=== PATIENT | male | born 1970 | race Caucasian/White ===

== ENCOUNTER 2022-02-10 10:54 | Observation (INO) ==
--- NOTE | 2022-02-10 11:39 | Electrocardiogram Report ---
Test Reason : Blood Pressure : / mmHG Vent. Rate : 102 BPM Atrial Rate : 102 BPM P-R Int : 196 ms QRS Dur : 102 ms QT Int : 354 ms P-R-T Axes : 065 087 048 degrees QTc Int : 461 ms Poor data quality, interpretation may be adversely affected Sinus tachycardia Possible Left atrial enlargement Incomplete right bundle branch block Possible Inferior infarct , age undetermined Abnormal ECG No previous ECGs available Confirmed by Romain Macedo ([id number]) on 02/10/2022 11:38:41 AM Referred By: SELF Confirmed By:Ismael Macedo
--- NOTE | 2022-02-10 11:41 | Emergency Department Note ---
Impression & Plan Pulmonary edema, Elevated troponin I level, Peripheral edema, Pleural effusion, Acute hyperglycemia, Abnormal EKG ED Provider Note NAME: REED TERRY AGE: 51 SEX: M : 1970 ARRIVES VIA: Walk-In INFORMANT: Patient, ED PROVIDER(S): Toney Car DO CHIEF COMPLAINT: Swelling HPI: The patient is a 51-year-old male who presented to the emergency department for an evaluation of leg swelling. The patient noticed bilateral lower extremity swelling over the course last week. He does have a history of coronary artery disease. He has never had a history of congestive heart failure. He denies having any fever. He has had a cough which is productive for clear sputum. He denies having any chest pain. He said no orthopnea. He denies having any fevers. He said no GI symptoms recently. 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 He states he is not been seen by his primary care physician for the symptoms. He states symptoms are moderate. ROS: See above HPI for pertinent positives & negatives. A total of 10 systems reviewed and were otherwise negative. PAST MEDICAL HISTORY: See Below PAST SURGICAL HISTORY: See Below FAMILY HISTORY: See Below SOCIAL HISTORY: See Below HOME MEDICATIONS: See Below ALLERGIES: See Below VITALS: See Below PHYSICAL EXAMINATION: GENERAL: Patient is awake alert in no acute distress patient is resting comfortably and showing no signs of anxiety EYES: The conjunctivae are clear. The pupils are round and reactive. EARS, NOSE, MOUTH AND THROAT: The nose is without any evidence of any deformity. Mucous membranes are moist. Tongue is midline. NECK: The neck is nontender and supple. RESPIRATORY: Normal respiratory effort is noted there is no evidence of wheezing rhonchi or rales CARDIOVASCULAR: Diminished breath sounds are noted throughout. There is faint expiratory wheezes in both upper lung johnson. GASTROINTESTINAL: The abdomen is soft. Abdomen is nontender. MUSCULOSKELETAL/EXTREMITIES: There is no evidence of gross deformity full range of motion is noted in the hips and shoulders. SKIN: Venous stasis changes are noted bilaterally with pedal edema bilaterally. NEUROLOGIC: Patient is awake alert and oriented x3 MEDICAL DECISION MAKING: The patient is a 51-year-old male who presented to the emergency department for an evaluation of difficulty breathing and lower extremity swelling. His history and physical exam appear to be consistent with pulmonary edema. Chest x-ray did reveal cardiomegaly with an elevated troponin on laboratory studies. He had abnormalities noted on chest x-ray which did lead to the performance of a CT angiography of the chest. No signs of pulmonary embolism were noted but there were abnormalities noted that could be consistent with volume overload. Given his elevated troponin I would be concerned this could be related to ischemia. The patient was treated with aspirin and Lasix in the emergency department. At this time he has no chest discomfort. I do feel the patient may require further inpatient evaluation to determine the cause of his presentation today. The [facility] hospitalist group was notified about the patient. Triage Nursing notes reviewed. Prior medical records reviewed Vital Signs: reviewed and remarkable for no significant abnormalities Differential diagnosis: Reactive airway disease, pneumonia, pneumothorax, COPD, CHF, infections, cardiac ischemia, pulmonary embolism, musculoskeletal, gastrointestinal, as well as other pathologies. ER treatment provided: See below Diagnostics interpreted by me: ECG: EKG was obtained in the emergency department. My interpretation is sinus tachycardia at 102 bpm. There is no ectopy. Nonspecific ST segment abnormalities were noted throughout. No previous tracing was available. Cardiac Monitoring: An order was placed for continuous cardiac monitoring. The monitor shows a rate of 99 bpm with sinus rhythm. Laboratory studies: As stated above and show below. Imaging studies: See below Consultation(s): The [facility] Hospitalist group was notified about the patient. Past Med/Surg History Medical History CAD (coronary artery disease) Coronary artery arteriosclerosis Essential hypertension Hypercholesterolemia Hyperlipidemia Ischemic cardiomyopathy Morbid obesity Surgical History Stented coronary artery Social History Smoking Status: Current every day smoker Tobacco Type: Cigarettes packs per day: 2; Preferred Language: Macedonian Communication Ability: Effective [employer] Officer Required: No Feels Safe at Home: Yes Allergies Allergies Allergy/AdvReac Type Severity Reaction Status Date / Time No Known Allergies Allergy Unverified 08/20/21 15:45 Home Meds Home Medications Medication Instructions Recorded Confirmed lisinopril 2.5 mg tablet 2.5 mg PO DAILY 01/24/21 08/20/21 simvastatin 40 mg tablet 40 mg PO DAILY 01/24/21 08/20/21 aspirin 325 mg tablet 325 mg PO DAILY 01/28/21 01/28/21 Results & Data (ED) Vital Signs Vital Signs - 24 hr 02/10/22 10:54 02/10/22 11:02 02/10/22 11:17 Temperature 36.4 C L Temperature Source Temporal Artery Scan Pulse Rate 103 H 101 H Pulse Rate [Finger] 101 H Pulse Rate from SpO2 Sensor Respiratory Rate 18 18 16 Respiratory Effort / Characteristics Non-Labored Spontaneous Respiratory Depth Normal Blood Pressure 102/74 Blood Pressure [Left Arm] 133/88 Blood Pressure Mean 83 Blood Pressure Mean [Left Arm] 103 Blood Pressure Position Sitting Pulse Oximetry 95 95 95 Oxygen Delivery Method Room Air Room Air Sepsis Recent Fever Within 48 Hours No Sepsis New/Unexplained Change in Mental Status No Sepsis Action Taken by Nursing No Action Required 02/10/22 11:26 02/10/22 11:30 02/10/22 12:00 Temperature Temperature Source Pulse Rate 101 H 101 H 95 H Pulse Rate [Finger] Pulse Rate from SpO2 Sensor Respiratory Rate 18 20 22 Respiratory Effort / Characteristics Respiratory Depth Blood Pressure 125/82 120/86 Blood Pressure [Left Arm] Blood Pressure Mean 96 97 Blood Pressure Mean [Left Arm] Blood Pressure Position Pulse Oximetry Oxygen Delivery Method Sepsis Recent Fever Within 48 Hours Sepsis New/Unexplained Change in Mental Status Sepsis Action Taken by Nursing 02/10/22 12:42 02/10/22 13:00 02/10/22 13:30 Temperature Temperature Source Pulse Rate 98 H 95 H 99 H Pulse Rate [Finger] Pulse Rate from SpO2 Sensor 98 H 95 H Respiratory Rate 18 20 21 Respiratory Effort / Characteristics Respiratory Depth Blood Pressure 150/89 H 131/85 Blood Pressure [Left Arm] Blood Pressure Mean 109 100 Blood Pressure Mean [Left Arm] Blood Pressure Position Pulse Oximetry 95 95 Oxygen Delivery Method Sepsis Recent Fever Within 48 Hours Sepsis New/Unexplained Change in Mental Status Sepsis Action Taken by Long-Term Medications Current Medication List: was personally reviewed by me Laboratory Data Attestation: I reviewed the patient's lab results. Result diagrams: 02/10/22 11:23 02/10/22 11:23 Lab Results 02/10/22 02/10/22 02/10/22 Range/Units 11:23 11:23 11:23 WBC 8.43 (4.8-10.8) K/uL RBC 5.30 (4.7-6.1) M/uL Hgb 16.3 (14.0-18.0) g/dL Hct 50.2 (42-52) % MCV 94.7 (80-100) fL MCH 30.8 (25-34) pg MCHC 32.5 (32-36) g/dL RDW Std Deviation 49.7 H (36.4-46.3) fL RDW Coeff of Rojas 14.3 (11.5-14.5) % Plt Count 485 H (130-400) K/uL MPV 12.5 H (7.4-10.4) fL Immature Gran % (Auto) 0.1 % Neut % (Auto) 66.7 % Lymph % (Auto) 22.3 % Bureau % (Auto) 8.9 % Eos % (Auto) 1.1 % Baso % (Auto) 0.9 % Neut # (Auto) 5.62 (1.4-6.5) K/uL Lymph # (Auto) 1.88 (1.2-3.4) K/uL Bureau # (Auto) 0.75 H (0.11-0.59) K/uL Eos # (Auto) 0.09 (0-0.5) K/uL Baso # (Auto) 0.08 (0-0.2) K/uL Immature Gran # (Auto) 0.01 (0.00-0.02) K/uL PT 12.3 H (9.0-12.0) Seconds INR 1.2 H (0.9-1.1) APTT 27.1 (21.0-31.0) Seconds PTT Ratio 1.0 Sodium 133 L (136-145) mmol/L Potassium 4.4 (3.5-5.1) mmol/L Chloride 96 L (98-107) mmol/L Carbon Dioxide 28 (21-32) mmol/L Anion Gap 9 (3-11) BUN 11 (6-23) mg/dl Creatinine 0.90 (0.6-1.4) mg/dl Est Cr Clr Drug Dosing 142.8 ml/min Est GFR ( Amer) 112.6 ml/min Est GFR (Non-Af Amer) 97.2 ml/min BUN/Creatinine Ratio 12.2 (10-20) Glucose 365 H* (70-99(Fasting)) mg/dl Calcium 9.6 (8.5-10.1) mg/dl Magnesium 1.8 (1.7-2.4) mg/dl Total Bilirubin 1.1 H (0.2-1.0) mg/dl AST 20 (13-39) U/L ALT 22 (7-52) U/L Alkaline Phosphatase 76 (34-104) U/L Troponin I High Sens 94.5 H* (0-20) pg/ml B-Natriuretic Peptide (0-100) pg/ml Total Protein 7.0 (6.0-8.3) gm/dl Albumin 4.3 (3.4-5.0) gm/dl Globulin 2.7 (2.5-4.0) gm/dl Albumin/Globulin Ratio 1.6 (0.9-2) Urine Color Urine Appearance (Clear) Urine pH (4.5-7.5) Ur Specific [place] (1.000-1.030) Urine Protein (Negative) Urine Glucose (UA) (Negative) Urine Ketones (Negative) Urine Blood (Negative) Urine Nitrite (Negative) Urine Bilirubin (Negative) Urine Urobilinogen (Negative) Ur Leukocyte Esterase (Negative) SARS-CoV-2, RNA, NAAT (NEGATIVE) 02/10/22 02/10/22 02/10/22 Range/Units 11:41 12:42 12:51 WBC (4.8-10.8) K/uL RBC (4.7-6.1) M/uL Hgb (14.0-18.0) g/dL Hct (42-52) % MCV (80-100) fL MCH (25-34) pg MCHC (32-36) g/dL RDW Std Deviation (36.4-46.3) fL RDW Coeff of Rojas (11.5-14.5) % Plt Count (130-400) K/uL MPV (7.4-10.4) fL Immature Gran % (Auto) % Neut % (Auto) % Lymph % (Auto) % Bureau % (Auto) % Eos % (Auto) % Baso % (Auto) % Neut # (Auto) (1.4-6.5) K/uL Lymph # (Auto) (1.2-3.4) K/uL Bureau # (Auto) (0.11-0.59) K/uL Eos # (Auto) (0-0.5) K/uL Baso # (Auto) (0-0.2) K/uL Immature Gran # (Auto) (0.00-0.02) K/uL PT (9.0-12.0) Seconds INR (0.9-1.1) APTT (21.0-31.0) Seconds PTT Ratio Sodium (136-145) mmol/L Potassium (3.5-5.1) mmol/L Chloride (98-107) mmol/L Carbon Dioxide (21-32) mmol/L Anion Gap (3-11) BUN (6-23) mg/dl Creatinine (0.6-1.4) mg/dl Est Cr Clr Drug Dosing ml/min Est GFR ( Amer) ml/min Est GFR (Non-Af Amer) ml/min BUN/Creatinine Ratio (10-20) Glucose (70-99(Fasting)) mg/dl Calcium (8.5-10.1) mg/dl Magnesium (1.7-2.4) mg/dl Total Bilirubin (0.2-1.0) mg/dl AST (13-39) U/L ALT (7-52) U/L Alkaline Phosphatase (34-104) U/L Troponin I High Sens (0-20) pg/ml B-Natriuretic Peptide 515 H (0-100) pg/ml Total Protein (6.0-8.3) gm/dl Albumin (3.4-5.0) gm/dl Globulin (2.5-4.0) gm/dl Albumin/Globulin Ratio (0.9-2) Urine Color Yellow Urine Appearance Clear (Clear) Urine pH 6.5 (4.5-7.5) Ur Specific [place] 1.021 (1.000-1.030) Urine Protein Negative (Negative) Urine Glucose (UA) 3+ H (Negative) Urine Ketones Negative (Negative) Urine Blood Negative (Negative) Urine Nitrite Negative (Negative) Urine Bilirubin Negative (Negative) Urine Urobilinogen Negative (Negative) Ur Leukocyte Esterase Negative (Negative) SARS-CoV-2, RNA, NAAT NEGATIVE (NEGATIVE) Administered Medications Discontinued Medications Aspirin (Aspirin Chew 324 Mg) 324 mg PO NOW STA Stop: 02/10/22 12:58 Last Admin: 02/10/22 13:12 Dose: 324 mg Documented by: [id number] Furosemide (Furosemide 40 Mg/4 Ml Vial) 40 mg IV ONE ONE Stop: 02/10/22 12:58 Last Admin: 02/10/22 13:12 Dose: 40 mg Documented by: [id number] Ioversol (Optiray 320 125ml) 119 ml IV ONCE ONE Stop: 02/10/22 12:29 Last Admin: 02/10/22 12:31 Dose: 119 ml Documented by: [id number] Imaging Data Radiologist's Impression: Chest X-Ray 02/10/22 11:17 XR chest 1V portable CLINICAL HISTORY: Dyspnea. COMPARISON STUDY: No previous studies for comparison. FINDINGS: No pneumothorax is present. Possible small bilateral pleural effusions. Moderate enlargement of the cardiac silhouette is noted. There is pulmonary vascular congestion. A 4.1 cm density within the left mid to upper lung is noted. IMPRESSION: 1. 4.1 cm density within the left mid to upper lung. This may reflect a focus of pneumonia. However, a mass could appear similar and therefore follow-up PA and lateral chest radiographs in 2 weeks are recommended to ensure resolution. 2. Moderate enlargement of cardiac silhouette. This suggests cardiomegaly. A pericardial effusion could appear similar. Pulmonary vascular congestion. 3. Possible small bilateral pleural effusions. ACT 112: Positive. There are findings on this exam that require communication between the performing entity and the patient following Patient Test Result Information Act ([place] Act 112) guidelines. Electronically signed by: Darci Agee M.D. 02/10/2022 11:36 AM Chest CTA 02/10/22 12:17 CT angio chest PE protocol CLINICAL HISTORY: PE TECHNIQUE: Multidetector row helical CT of the chest was performed with [facility] protocol. Coronal and sagittal reformations were obtained. Coronal and sagittal MIPS were obtained from the axial data set and were submitted for review. Automated dose lowering techniques and/or adjustment according to patient size were utilized for this exam. CT DOSE: 1007.86 mGy.cm Comparison: None available at the time of this dictation. FINDINGS: Lungs and pleura: Consolidation is seen in the left upper lobe. There is a small right pleural effusion and associated atelectasis. Heart and pericardium: There is cardiomegaly without evidence of pericardial effusion. Vessels: Unremarkable. Mediastinum and afia: Subcentimeter lymph nodes are seen. Chest wall and lower neck: Unremarkable. Abdomen: A small amount of ascites is seen. There is a lipid rich adenoma on the left. Bones: Degenerative changes in the thoracic spine. IMPRESSION: 1. No evidence of pulmonary embolism. 2. Consolidation in the left upper lobe which may represent pneumonia. 3. Small right pleural effusion is seen. 4. Partial visualization of small ascites. ACT 112: Negative or not required by law. Electronically signed by: Unruly Alan M.D. 02/10/2022 12:43 PM Discharge Plan Visit Data Chief Complaint: Swelling/Edema to Extremity Stated Complaint: SWELLING IN LEGS, SHORTNESS OF BREATH ED Provider: Toney Car Discharge Problem: Pulmonary edema, Elevated troponin I level, Peripheral edema, Pleural effusion, Acute hyperglycemia, Abnormal EKG Patient Disposition: Being Evaluated by Hospitalist Forms Stand Alone Forms: [facility] Referrals Referrals: Vidhi Dwyer CRNP [Primary Care Provider] -
[2022-02-10 11:45] LABS: Basophils # (auto) 0.08 K/uL (0-0.2); Basophils % (auto) 0.9 %; Eosinophils # (auto) 0.09 K/uL (0-0.5); Eosinophils % (auto) 1.1 %; Hematocrit (blood only) 50.2 % (42-52); Hemoglobin 16.3 g/dL (14.0-18.0); Immature Granulocytes # (auto) 0.01 K/uL (0.00-0.02); Immature Granulocytes % (auto) 0.1 %; Lymphocytes # (auto) 1.88 K/uL (1.2-3.4); Lymphocytes % (auto) 22.3 %; Mean Corpuscular Hemoglobin 30.8 pg (25-34); Mean Corpuscular Hgb Conc 32.5 g/dL (32-36); Mean Corpuscular Volume 94.7 fL (80-100); Mean Platelet Volume 12.5 fL (7.4-10.4); Monocytes # (auto) 0.75 K/uL (0.11-0.59); Monocytes % (auto) 8.9 %; Neutrophils # (auto) 5.62 K/uL (1.4-6.5); Neutrophils % (auto) 66.7 %; Platelet Count 485 K/uL (130-400); RDW Coefficient of Variation 14.3 % (11.5-14.5); RDW Standard Deviation 49.7 fL (36.4-46.3); White Blood Count 8.43 K/uL (4.8-10.8)
[2022-02-10 11:54] LABS: INR 1.2 (0.9-1.1); Partial Thromboplastin Time 27.1 Seconds (21.0-31.0); Prothrombin Time 12.3 Seconds (9.0-12.0)
[2022-02-10 12:14] LABS: Albumin Globulin Ratio 1.6 (0.9-2); Albumin Level 4.3 gm/dl (3.4-5.0); BUN Creatinine Ratio 12.2 (10-20); Bilirubin,Total 1.1 mg/dl (0.2-1.0); Calcium 9.6 mg/dl (8.5-10.1); Creatinine Clr Calc Pharmacy 142.8 ml/min; Est GFR (African American) 112.6 ml/min; Est GFR (Non-African American) 97.2 ml/min; Globulin 2.7 gm/dl (2.5-4.0); Magnesium 1.8 mg/dl (1.7-2.4); Potassium 4.4 mmol/L (3.5-5.1)
[2022-02-10 12:28] LABS: Troponin I High Sensitivity 94.5 pg/ml (0-20)
[2022-02-10] MEDS ORDERED: OPTIRAY 320 125ml IV ONE (12:28)
--- NOTE | 2022-02-10 12:44 | CT Scan Report ---
CT angio chest PE protocol CLINICAL HISTORY: PE TECHNIQUE: Multidetector row helical CT of the chest was performed with angiographic protocol. [place] l and sagittal reformations were obtained. Coronal and sagittal MIPS were obtained from the axial gege a set and were submitted for review. Automated dose lowering techniques and/or adjustment according to patient size were utilized for this exam. CT DOSE: 1007.86 mGy.cm Comparison: None available at the time of this dictation. FINDINGS: Lungs and pleura: Consolidation is seen in the left upper lobe. There is a small right pleural effusi on and associated atelectasis. Heart and pericardium: There is cardiomegaly without evidence of pericardial effusion. Vessels: Unremarkable. Mediastinum and afia: Subcentimeter lymph nodes are seen. Chest wall and lower neck: Unremarkable. Abdomen: A small amount of ascites is seen. There is a lipid rich adenoma on the left. Bones: Degenerative changes in the thoracic spine. IMPRESSION: 1. No evidence of pulmonary embolism. 2. Consolidation in the left upper lobe which may represent pneumonia. 3. Small right pleural effusion is seen. 4. Partial visualization of small ascites. ACT 112: Negative or not required by law. Electronically signed by: Unruly Alan M.D. 02/10/2022 12:43 PM
[2022-02-10 12:51] LABS: Appearance Urine Clear (Clear); Bilirubin Urine Negative (Negative); Blood Urine Negative (Negative); Color Urine Yellow; Glucose Urine UA 3+ (Negative); Ketones Urine Negative (Negative); Leukocyte Esterase Urine Negative (Negative); Nitrite Urine Negative (Negative); Protein Urine Negative (Negative); Specific Gravity Urine 1.021 (1.000-1.030); Urobilinogen Urine Negative (Negative); pH Urine 6.5 (4.5-7.5)
[2022-02-10] MEDS ORDERED: ASPIRIN CHEW 324 MG PO STA (12:57)
[2022-02-10] MEDS ORDERED: FUROSEMIDE 40 MG/4 ML VIAL IV ONE (12:57)
--- NOTE | 2022-02-10 13:31 | History & Physical Report ---
Date of Service February 10, 2022 Assessment & Plan (1) Acute heart failure: Plan: Unknown LVEF at time of admission but known ischemic cardiomyopathy from history. Unclear why he is not on a BB Not usually on Lasix at home Start Lasix 40mg IV BID17 (one dose today) and monitor I&Os, aim 1-1.5L/24 hours diuresis, daily weights Consider SGLT-2 on discharge if HbA1C raised TTE Consult cardiology - under Dr Jones (2) Ischemic cardiomyopathy: Plan: Repeat TTE Start metoprolol succinate 50mg PO daily starting tomorrow once more euvolemic Consider switching to Entresto; will defer to his cardiologists. (3) Essential hypertension: Plan: Continue lisinopril 5mg PO daily Start metoprolol succinate 50mg PO daily starting tomorrow once more euvolemic (4) CAD (coronary artery disease): Plan: AMI, LAD BMS, LVEF 45%, April 2014 ASA, ?not on BB, lisinopril, rosuvastatin (5) Hypercholesterolemia: Plan: Continue rosuvastatin (6) Acute hyperglycemia: Plan: Unclear how much Gatorade and [employer] meals prior to arrival driving his high glucose but suspect he has underlying diabetes in addition given glucose in urine. HbA1C with AM Labs Novolog: aim 110-140, correction 45g/dL/unit, will add carb coverage and Lantus if glucose still high in the evening Consider SGLT-2 inhibitor on discharge given heart failure diagnosis (7) Pneumonia: Plan: Consolidation on CT. Green sputum per patient although no other signs of pneumonia. Recommend treating with antibiotics and repeat CT chest with IV contrast in 4-6 weeks to check for resolution given his significant smoking history. Augmentin 875mg PO BID Azithromycin 500mg PO now then 250mg PO for 4 days (8) Pleural effusion, right: Plan: Suspect from CHF although only one sided. Too small to drain on discussion with pulmonology for diagnostic purposes Monitor with repeat CT chest as outpatient as below. (9) Tobacco use disorder: Plan: Discussed quitting but he is not interested at this time due to high stress. Plan: VTE Prophylaxis - low risk Diet - heart healthy, low sodium, T2DM, fluid restrict 1500ml Disposition - admit to PCU Admission and Anticipated Discharge Date Admission Date: February 11, 2022 History of Present Illness Chief Complaint: Bilateral leg swelling Primary Care Provider: YOLANDA Cuba Abdoul Wise is a 51 year old male with history of coronary artery disease with stent who presents to the ER with bilateral leg swelling. He reports 2-3 weeks o f leg swelling. He denies any chest pain, shortness of breath, palpitations, orthopnea, paroxysmal nocturnal dyspnea, claudication, presyncope or syncope. He does note having a cough with either clear or green sputum throughout the winter. He reports last being on antibiotics end of September for this cough. He drinks alcohol heavily but only one night a week with 6-15 beers. He smokes 2 packs a day. In the ER he was noted to have glucose 365. He denies any frequent urination or thirst. He reports his HbA1C was 6.2 about a year ago. He drank Gatorade and ate [employer]ago[employer] on the way into the hospital and doesn't think he is diabetic. His CT chest was also possibly concerning for pneumonia. Despite the cough above he denies any fever, chills, nasal congestion, sinus pain or shortness of breath. Allergies Allergy/AdvReac Type Severity Reaction Status Date / Time No Known Allergies Allergy Unverified 02/10/22 13:44 Home Medications Medication Instructions Recorded Confirmed Type aspirin 81 mg tablet,delayed 81 mg PO DAILY 02/10/22 02/10/22 History release lisinopril 5 mg tablet 5 mg PO DAILY 02/10/22 02/10/22 History rosuvastatin 5 mg tablet 5 mg PO QAM 02/10/22 02/10/22 History Past Med/Surg History Medical History (Updated 02/10/22 @ 14:45 by Kong Whitley MD) CAD (coronary artery disease) Coronary artery arteriosclerosis Essential hypertension Hypercholesterolemia Hyperlipidemia Ischemic cardiomyopathy Morbid obesity Scalp laceration Surgical History Stented coronary artery Social History Smoking Status: Current every day smoker Tobacco Type: Cigarettes packs per day: 2; Cigarettes Per Day: 40; Do You Dip or Chew Tobacco: No; Hx Alcohol Use: Yes Alcohol type: beer Hx Substance Use: No Preferred Language: Pashto Communication Ability: Effective Railroad 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 Required: No Beliefs That Will Affect Care: None Current Living Situation: Alone Feels Safe at Home: Yes Review of Systems Review of Systems: All systems reviewed & are unremarkable except as noted in HPI & below Physical Exam Constitutional: WD/WN, vitals as above + morbidly obese Eyes: + anicteric sclerae; normal pupil size ENMT: external ear and nose normal, oropharynx normal Neck: trachea midline, no thyromegaly Respiratory: normal respiratory effort; no respiratory distress Auscultation: + diminished lung sounds (bibasal) and + crackles (bibasal); no rales and no wheezes Cardiovascular: Rate/Rhythm: regular rate and regular rhythm Heart Sounds: no murmur Vessels: no JVD (unable to visualize due to neck size) Extremities: normal capillary refill and + pedal edema (3+ bilateral equal); no calf tenderness Gastrointestinal (Abdomen): normal bowel sounds, soft, nontender, no hepat osplenomegaly Musculoskeletal: no cyanosis or clubbing, extremities motor strength 5/5 Skin: no rashes, warm and dry Neurologic: moves all extremities and awake; no focal motor deficits and not confused Psychiatric: A+Ox3, euthymic affect Genitourinary: no CVA tenderness Results & Data Results & Data ([facility]) Vital Signs (Past 12 Hours) Vital Signs Temp Pulse Pulse Resp BP BP Pulse Ox 02/10/22 11:17 101 H 16 95 02/10/22 11:02 36.4 C L 103 H 18 102/74 95 02/10/22 10:54 101 H 18 133/88 95 Laboratory Results Abnormal lab results 02/10/22 02/10/22 02/10/22 Range/Units 11:23 11:23 11:23 RDW Std Deviation 49.7 H (36.4-46.3) fL Plt Count 485 H (130-400) K/uL MPV 12.5 H (7.4-10.4) fL [place] # (Auto) 0.75 H (0.11-0.59) K/uL PT 12.3 H (9.0-12.0) Seconds INR 1.2 H (0.9-1.1) Sodium 133 L (136-145) mmol/L Chloride 96 L (98-107) mmol/L Glucose 365 H* (70-99(Fasting)) mg/dl POC Glucose (70-99) mg/dl Total Bilirubin 1.1 H (0.2-1.0) mg/dl Troponin I High Sens 94.5 H* (0-20) pg/ml B-Natriuretic Peptide (0-100) pg/ml Urine Glucose (UA) (Negative) 02/10/22 02/10/22 02/10/22 Range/Units 11:41 12:42 13:21 RDW Std Deviation (36.4-46.3) fL Plt Count (130-400) K/uL MPV (7.4-10.4) fL [place] # (Auto) (0.11-0.59) K/uL PT (9.0-12.0) Seconds INR (0.9-1.1) Sodium (136-145) mmol/L Chloride (98-107) mmol/L Glucose (70-99(Fasting)) mg/dl POC Glucose (70-99) mg/dl Total Bilirubin (0.2-1.0) mg/dl Troponin I High Sens 86.1 H* (0-20) pg/ml B-Natriuretic Peptide 515 H (0-100) pg/ml Urine Glucose (UA) 3+ H (Negative) 02/10/22 Range/Units 14:02 RDW Std Deviation (36.4-46.3) fL Plt Count (130-400) K/uL MPV (7.4-10.4) fL [place] # (Auto) (0.11-0.59) K/uL PT (9.0-12.0) Seconds INR (0.9-1.1) Sodium (136-145) mmol/L Chloride (98-107) mmol/L Glucose (70-99(Fasting)) mg/dl POC Glucose 325 H* (70-99) mg/dl Total Bilirubin (0.2-1.0) mg/dl Troponin I High Sens (0-20) pg/ml B-Natriuretic Peptide (0-100) pg/ml Urine Glucose (UA) (Negative) Diagnostic Findings XR chest 1V portable CLINICAL HISTORY: Dyspnea. COMPARISON STUDY: No previous studies for comparison. FINDINGS: No pneumothorax is present. Possible small bilateral pleural effusions. Moderate enlargement of the cardiac silhouette is noted. There is pulmonary vascular congestion. A 4.1 cm density within the left mid to upper lung is noted. IMPRESSION: 1. 4.1 cm density within the left mid to upper lung. This may reflect a focus of pneumonia. However, a mass could appear similar and therefore follow-up PA and lateral chest radiographs in 2 weeks are recommended to ensure resolution. 2. Moderate enlargement of cardiac silhouette. This suggests cardiomegaly. A pericardial effusion could appear similar. Pulmonary vascular congestion. 3. Possible small bilateral pleural effusions. CT angio chest PE protocol CLINICAL HISTORY: PE TECHNIQUE: Multidetector row helical CT of the chest was performed with angiographic protocol. Coronal and sagittal reformations were obtained. Coronal and sagittal MIPS were obtained from the axial data set and were submitted for review. Automated dose lowering techniques and/or adjustment according to patient size were utilized for this exam. CT DOSE: 1007.86 mGy.cm Comparison: None available at the time of this dictation. FINDINGS: Lungs and pleura: Consolidation is seen in the left upper lobe. There is a small right pleural effusion and associated atelectasis. Heart and pericardium: There is cardiomegaly without evidence of pericardial effusion. Vessels: Unremarkable. Mediastinum and afia: Subcentimeter lymph nodes are seen. Chest wall and lower neck: Unremarkable. Abdomen: A small amount of ascites is seen. There is a lipid rich adenoma on the left. Bones: Degenerative changes in the thoracic spine. IMPRESSION: 1. No evidence of pulmonary embolism. 2. Consolidation in the left upper lobe which may represent pneumonia. 3. Small right pleural effusion is seen. 4. Partial visualization of small ascites. Medications Administered ER Medications Given: ASA 324mg PO Furosemide 40mg IV Insulin 6 units IV (patient refused) ECG Indication: other Rate (beats per minute): 102 Rhythm: sinus tachycardia Findings: + RBBB (incomplete) Comparison ECG Date: no prior available Code Status & VTE Plan Code Status Full VTE Prophylaxis Plan VTE Prophylaxis will be ordered: No Reason for no VTE drug order: Treatment not indicated Reason for no VTE mechanical prophylaxis: Treatment not indicated PG Care Time/CCT Total # of Minutes Spent Total Time Spent with Patient: Total time spent is greater than 50% in coordination of care (as documented) at patient's floor/unit and/or counseling patient: Coding Level of Care Code 21265 Initial Inpt Care Lvl 3 Diagnoses Essential hypertension I10 CAD (coronary artery disease) I25.10 Hypercholesterolemia E78.00 Acute heart failure I50.9 Tobacco use disorder F17.200 Ischemic cardiomyopathy I25.5 Acute hyperglycemia R73.9 Pneumonia J18.9 Pleural effusion, right J90
[2022-02-10] MEDS ORDERED: NovoLIN-R INSULIN PER UNIT CHARGE IV STA (13:45)
[2022-02-10] MEDS ORDERED: AZITHROMYCIN 250 MG TAB PO STA (14:22)
[2022-02-10] MEDS ORDERED: AMOXICILLIN/CLAVULANATE 875 MG TAB PO STA (14:22)
--- NOTE | 2022-02-10 15:13 | XCELERA ---
[id number]
[2022-02-10] MEDS ORDERED: GLUCAGON FOR INJ 1 MG VIAL SQ PRN (15:52)
[2022-02-10] MEDS ORDERED: DEXTROSE 50% 50 ML SYRINGE IV PRN (15:52)
[2022-02-10] MEDS ORDERED: CARBOHYDRATES FOR HYPOGLYCEMIA PO PRN (15:52)
[2022-02-10] MEDS ORDERED: ACETAMINOPHEN 325 MG TAB PO PRN (15:52)
[2022-02-10] MEDS ORDERED: GLUCOSE 10 TABS/TUBE PO PRN (15:52)
[2022-02-10] MEDS ORDERED: GLUCOSE 40% GEL 15 GM TUBE PO PRN (15:52)
[2022-02-10] MEDS ORDERED: PNEUMOCOCCAL POLYSACCHARIDES 25 MCG/0.5 ML VIAL/SYR IM ONE (16:16)
--- NOTE | 2022-02-10 16:33 | Cardiology Consultation ---
Date of Consultation February 10, 2022 Assessment & Plan (1) Ischemic cardiomyopathy: (2) Acute heart failure: (3) Essential hypertension: (4) CAD (coronary artery disease): 1. Decompensated systolic heart failure: His ventricular function has worsened. His symptoms and physical findings are all consistent with volume overload secondary to decompensated heart failure he will require aggressive diuresis. We will continue his metoprolol succinate and Calin inhibitor. His diuretic regimen may need to be intensified on an outpatient basis. 2. Ischemic cardiomyopathy: While he did not report symptoms of angina, his LV function has significantly declined. Based on his history of coronary disease he will likely require repeat coronary angiography. Will continue medical therapy as noted above 3. Coronary artery disease: Continue aggressive secondary prevention. No current symptoms of angina. 4. mitral regurgitation: mild to moderate History of Present Illness Reason for Consultation: Dyspnea, elevated troponin, Requesting Physician: Angi Attending Physician: Kong Whitley MD History of Present Illness The patient is a 51-year-old gentleman with a remote history of an anterior myocardial infarction and percutaneous intervention occurring in 2013. There is some mention in his record about mildly reduced LV systolic function. 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 He generally does not endorse symptoms of limiting dyspnea or any symptoms of chest discomfort. However, over the past month he has noticed periods of dyspnea on exertion and progressive lower extremity edema. He believes he may have gained at least 10 lb over that period of time. Again, he did not endorse symptoms of chest discomfort or indigestion. He does recall symptoms of chest pain associated with his myocardial infarction 2013. He has not had any recurrent symptoms recently. He claims to be compliant with his medications. He does have dietary indiscretion and commonly eats out at restaurants and fast food. He did not report symptoms of orthopnea or paroxysmal nocturnal dyspnea. No symptoms of palpitations. No dizziness or lightheadedness. Allergies Allergy/AdvReac Type Severity Reaction Status Date / Time No Known Allergies Allergy Unverified 02/10/22 13:44 Home Medications Medication Instructions Recorded Confirmed Type aspirin 81 mg tablet,delayed 81 mg PO DAILY 02/10/22 02/10/22 History release lisinopril 5 mg tablet 5 mg PO DAILY 02/10/22 02/10/22 History rosuvastatin 5 mg tablet 5 mg PO QAM 02/10/22 02/10/22 History amoxicillin 875 mg-potassium 1 tab PO BID #10 tab 02/11/22 Rx clavulanate 125 mg tablet doxycycline hyclate 100 mg capsule 100 mg PO BID #10 cap 02/11/22 Rx furosemide 40 mg tablet 40 mg PO DAILY #30 tab 02/11/22 Rx metformin 500 mg tablet,extended 500 mg PO BID #60 tab 02/11/22 Rx release 24 hr metoprolol succinate 50 mg 50 mg PO DAILY #30 tab 02/11/22 Rx tablet,extended release 24 hr Patient History Medical History (Updated 02/10/22 @ 14:45 by Kong Whitley MD) CAD (coronary artery disease) Coronary artery arteriosclerosis Essential hypertension Hypercholesterolemia Hyperlipidemia Ischemic cardiomyopathy Morbid obesity Scalp laceration Surgical History Stented coronary artery Social History Smoking Status: Current every day smoker Tobacco Type: Cigarettes packs per day: 2; Cigarettes Per Day: 40; Do You Dip or Chew Tobacco: No; Hx Alcohol Use: Yes Alcohol type: beer Hx Substance Use: No Preferred Language: Cook Islander Communication Ability: Effective Corporate Development Intern Required: No Beliefs That Will Affect Care: None Current Living Situation: Alone How many Children do You have: 1 Feels Safe at Home: Yes Assistive Devices: None Review of Systems Review of Systems: Per HPI. Physical Exam Physical Exam: The patient is alert and oriented. Mood and affect appeared normal. He answered all questions appropriately. HEENT: Pupils are equal and reactive to light and accommodation. Extraocular movements are intact. The sclerae are anicteric. Poor dentition Neuro: Cranial nerves intact Lungs: Some crackles bilaterally. Expiratory wheezing noted. Prolonged expiratory phase. Reduced breath sounds overall. Cardiac: Heart demonstrates a regular rate and rhythm. Normal S1 and S2. No murmurs on examination. Pulses: The patient has palpable radial pulses bilaterally that are equal in intensity Extremities: There was no evidence of hypoperfusion. There is no cyanosis or clubbing. Severe lower extremity edema Skin: I did not appreciate any rashes on examination today. Results & Data ([facility]) Vital Signs (Past 12 Hours) Vital Signs Temp Pulse Pulse Resp BP BP Pulse Ox 02/10/22 15:59 36.8 C 94 H 18 132/87 94 02/10/22 15:52 36.8 C 94 H 18 132/87 94 02/10/22 15:31 95 H 21 135/81 98 02/10/22 14:30 94 H 15 02/10/22 13:30 99 H 21 02/10/22 13:00 95 H 20 131/85 95 02/10/22 12:42 98 H 18 150/89 H 95 02/10/22 12:00 95 H 22 120/86 02/10/22 11:30 101 H 20 125/82 02/10/22 11:26 101 H 18 02/10/22 11:17 101 H 16 95 02/10/22 11:02 36.4 C L 103 H 18 102/74 95 02/10/22 10:54 101 H 18 133/88 95 Pulse Ox 02/10/22 15:59 02/10/22 15:52 94 02/10/22 15:31 02/10/22 14:30 02/10/22 13:30 02/10/22 13:00 02/10/22 12:42 02/10/22 12:00 02/10/22 11:30 02/10/22 11:26 02/10/22 11:17 02/10/22 11:02 02/10/22 10:54 Laboratory Results Abnormal Lab Results 02/10/22 02/10/22 02/10/22 11:23 11:23 11:23 WBC 8.43 RBC 5.30 Hgb 16.3 Hct 50.2 MCV 94.7 MCH 30.8 MCHC 32.5 RDW Std Deviation 49.7 H RDW Coeff of [place] 14.3 Plt Count 485 H MPV 12.5 H Immature Gran % (Auto) 0.1 Neut % (Auto) 66.7 Lymph % (Auto) 22.3 [place] % (Auto) 8.9 Eos % (Auto) 1.1 Baso % (Auto) 0.9 Neut # (Auto) 5.62 Lymph # (Auto) 1.88 [place] # (Auto) 0.75 H Eos # (Auto) 0.09 Baso # (Auto) 0.08 Immature Gran # (Auto) 0.01 PT 12.3 H INR 1.2 H APTT 27.1 PTT Ratio 1.0 Sodium 133 L Potassium 4.4 Chloride 96 L Carbon Dioxide 28 Anion Gap 9 BUN 11 Creatinine 0.90 Est Cr Clr Drug Dosing 142.8 Est GFR ( Amer) 112.6 Est GFR (Non-Af Amer) 97.2 BUN/Creatinine Ratio 12.2 Glucose 365 H* POC Glucose Calcium 9.6 Magnesium 1.8 Total Bilirubin 1.1 H AST 20 ALT 22 Alkaline Phosphatase 76 Troponin I High Sens 94.5 H* B-Natriuretic Peptide Total Protein 7.0 Albumin 4.3 Globulin 2.7 Albumin/Globulin Ratio 1.6 Procalcitonin Urine Color Urine Appearance Urine pH Ur Specific [place] Urine Protein Urine Glucose (UA) Urine Ketones Urine Blood Urine Nitrite Urine Bilirubin Urine Urobilinogen Ur Leukocyte Esterase SARS-CoV-2, RNA, NAAT 02/10/22 02/10/22 02/10/22 11:23 11:41 12:42 WBC RBC Hgb Hct MCV MCH MCHC RDW Std Deviation RDW Coeff of [place] Plt Count MPV Immature Gran % (Auto) Neut % (Auto) Lymph % (Auto) [place] % (Auto) Eos % (Auto) Baso % (Auto) Neut # (Auto) Lymph # (Auto) [place] # (Auto) Eos # (Auto) Baso # (Auto) Immature Gran # (Auto) PT INR APTT PTT Ratio Sodium Potassium Chloride Carbon Dioxide Anion Gap BUN Creatinine Est Cr Clr Drug Dosing Est GFR ( Amer) Est GFR (Non-Af Amer) BUN/Creatinine Ratio Glucose POC Glucose Calcium Magnesium Total Bilirubin AST ALT Alkaline Phosphatase Troponin I High Sens B-Natriuretic Peptide 515 H Total Protein Albumin Globulin Albumin/Globulin Ratio Procalcitonin < 0.05 Urine Color Yellow Urine Appearance Clear Urine pH 6.5 Ur Specific [place] 1.021 Urine Protein Negative Urine Glucose (UA) 3+ H Urine Ketones Negative Urine Blood Negative Urine Nitrite Negative Urine Bilirubin Negative Urine Urobilinogen Negative Ur Leukocyte Esterase Negative SARS-CoV-2, RNA, NAAT 02/10/22 02/10/22 02/10/22 12:51 13:21 14:02 WBC RBC Hgb Hct MCV MCH MCHC RDW Std Deviation RDW Coeff of [place] Plt Count MPV Immature Gran % (Auto) Neut % (Auto) Lymph % (Auto) [place] % (Auto) Eos % (Auto) Baso % (Auto) Neut # (Auto) Lymph # (Auto) [place] # (Auto) Eos # (Auto) Baso # (Auto) Immature Gran # (Auto) PT INR APTT PTT Ratio Sodium Potassium Chloride Carbon Dioxide Anion Gap BUN Creatinine Est Cr Clr Drug Dosing Est GFR ( Amer) Est GFR (Non-Af Amer) BUN/Creatinine Ratio Glucose POC Glucose 325 H* Calcium Magnesium Total Bilirubin AST ALT Alkaline Phosphatase Troponin I High Sens 86.1 H* B-Natriuretic Peptide Total Protein Albumin Globulin Albumin/Globulin Ratio Procalcitonin Urine Color Urine Appearance Urine pH Ur Specific [place] Urine Protein Urine Glucose (UA) Urine Ketones Urine Blood Urine Nitrite Urine Bilirubin Urine Urobilinogen Ur Leukocyte Esterase SARS-CoV-2, RNA, NAAT NEGATIVE 02/10/22 02/10/22 16:05 16:06 WBC RBC Hgb Hct MCV MCH MCHC RDW Std Deviation RDW Coeff of [place] Plt Count MPV Immature Gran % (Auto) Neut % (Auto) Lymph % (Auto) [place] % (Auto) Eos % (Auto) Baso % (Auto) Neut # (Auto) Lymph # (Auto) [place] # (Auto) Eos # (Auto) Baso # (Auto) Immature Gran # (Auto) PT INR APTT PTT Ratio Sodium Potassium Chloride Carbon Dioxide Anion Gap BUN Creatinine Est Cr Clr Drug Dosing Est GFR ( Amer) Est GFR (Non-Af Amer) BUN/Creatinine Ratio Glucose POC Glucose 324 H* 312 H* Calcium Magnesium Total Bilirubin AST ALT Alkaline Phosphatase Troponin I High Sens B-Natriuretic Peptide Total Protein Albumin Globulin Albumin/Globulin Ratio Procalcitonin Urine Color Urine Appearance Urine pH Ur Specific [place] Urine Protein Urine Glucose (UA) Urine Ketones Urine Blood Urine Nitrite Urine Bilirubin Urine Urobilinogen Ur Leukocyte Esterase SARS-CoV-2, RNA, NAAT Diagnostic Findings echocardiogram performed 02/10/2022: Ejection fraction 20/20 5%. Moderate left ventricular dilation. Regional wall motion abnormalities. [id number] mitral regurgitation. Moderate left atrial dilation. PG Care Time/CCT Total # of Minutes Spent Total Time Spent with Patient: Total time spent is greater than 50% in coordination of care (as documented) at patient's floor/unit and/or counseling patient: Coding Level of Care Code 02082 Office/OBS Consult Lvl 4 Diagnoses Ischemic cardiomyopathy I25.5 Acute heart failure I50.9 Essential hypertension I10 CAD (coronary artery disease) I25.10
[2022-02-10] MEDS: INSULIN ASPART PER UNIT SC SCH ×2 (16:52→21:05)
--- NOTE | 2022-02-10 20:24 | Ultrasound Report ---
BILATERAL LOWER EXTREMITY VENOUS DOPPLER HISTORY: Acute pain and swelling of the lower extremities r/o DVT, b/l leg swelling COMPARISON STUDY: None. FINDINGS: There is normal compressibility, flow, and augmentation within the bilateral lower extremit y deep venous systems. Subcutaneous edema. IMPRESSION: No DVT within the right or left lower extremity. ACT 112: Negative or not required by law. Electronically signed by: Benjy Rahman M.D. 02/10/2022 8:23 PM
[2022-02-10] MEDS: AMOXICILLIN/CLAVULANATE 875 MG TAB PO SCH (20:27)
[2022-02-11 06:21] LABS: Basophils # (auto) 0.03 K/uL (0-0.2); Basophils % (auto) 0.4 %; Eosinophils # (auto) 0.14 K/uL (0-0.5); Eosinophils % (auto) 1.9 %; Hematocrit (blood only) 47.2 % (42-52); Hemoglobin 15.1 g/dL (14.0-18.0); Immature Granulocytes # (auto) 0.02 K/uL (0.00-0.02); Immature Granulocytes % (auto) 0.3 %; Lymphocytes # (auto) 1.34 K/uL (1.2-3.4); Lymphocytes % (auto) 18.1 %; Mean Corpuscular Hemoglobin 30.2 pg (25-34); Mean Corpuscular Volume 94.4 fL (80-100); Mean Platelet Volume 12.1 fL (7.4-10.4); Monocytes # (auto) 0.83 K/uL (0.11-0.59); Monocytes % (auto) 11.2 %; Neutrophils # (auto) 5.05 K/uL (1.4-6.5); Neutrophils % (auto) 68.1 %; Platelet Count 418 K/uL (130-400); RDW Coefficient of Variation 14.2 % (11.5-14.5); RDW Standard Deviation 48.9 fL (36.4-46.3); White Blood Count 7.41 K/uL (4.8-10.8)
[2022-02-11 06:53] LABS: BUN Creatinine Ratio 15.6 (10-20); Calcium 9.1 mg/dl (8.5-10.1); Creatinine Clr Calc Pharmacy 164.1 ml/min; Est GFR (African American) 120.1 ml/min; Est GFR (Non-African American) 103.6 ml/min; Potassium 4.3 mmol/L (3.5-5.1)
[2022-02-11] MEDS: INSULIN ASPART PER UNIT SC SCH (07:27)
[2022-02-11] MEDS: AMOXICILLIN/CLAVULANATE 875 MG TAB PO SCH (07:38)
[2022-02-11 08:59] LABS: Estimated Average Glucose 269 mg/dl
[2022-02-11] MEDS ORDERED: AZITHROMYCIN 250 MG TAB PO SCH (09:00)
[2022-02-11] MEDS ORDERED: lisinopril 5 MG TAB PO SCH (09:00)
[2022-02-11] MEDS ORDERED: ASPIRIN 81 MG ECTAB PO SCH (09:00)
[2022-02-11] MEDS ORDERED: ROSUVASTATIN CALCIUM 5 MG TAB PO SCH (09:00)
[2022-02-11] MEDS ORDERED: FUROSEMIDE 40 MG/4 ML VIAL IV SCH (09:00)
[2022-02-11] MEDS ORDERED: METOPROLOL SUCC 50MG EXT REL TAB PO SCH (09:00)
--- NOTE | 2022-02-11 13:07 | Discharge Summary ---
Date of Service February 11, 2022 Admission HPI Per Admitting Provider Abdoul Wise is a 51 year old male with history of coronary artery disease with stent who presents to the ER with bilateral leg swelling. He reports 2-3 weeks of leg swelling. He denies any chest pain, shortness of breath, palpitations, orthopnea, paroxysmal nocturnal dyspnea, claudication, presyncope or syncope. He does note having a cough with either clear or green sputum throughout the winter. He reports last being on antibiotics end of September for this cough. He drinks alcohol heavily but only one night a week with 6-15 beers. He smokes 2 packs a day. In the ER he was noted to have glucose 365. He denies any frequent urination or thirst. He reports his HbA1C was 6.2 about a year ago. He drank Gatorade and ate [employer] on the way into the hospital and doesn't think he is diabetic. His CT chest was also possibly concerning for pneumonia. Despite the cough above he denies any fever, chills, nasal congestion, sinus pain or shortness of breath. Principal Diagnosis Acute systolic (congestive) heart failure Discharge Exam Constitutional WD/WN, vitals as above Eyes EOM intact bilaterally; no conjunctival abnormality ENMT external ear and nose normal, oropharynx normal Neck trachea midline, no thyromegaly normal visual inspection Respiratory normal respiratory effort, lungs clear to auscultation no respiratory distress Cardiovascular Rate/Rhythm: regular rate and regular rhythm Extremities: + edema Gastrointestinal (Abdomen) Inspection/Auscultation: abdomen normal to inspection; abdomen not distended Musculoskeletal no cyanosis or clubbing, extremities motor strength 5/5 Skin no rashes, warm and dry Neurologic moves all extremities and awake Psychiatric Orientation: alert, oriented to person and cooperative Discharge Data Allergies Allergy/AdvReac Type Severity Reaction Status Date / Time No Known Allergies Allergy Unverified 02/10/22 13:44 Consultations 02/10/22 13:30 ED Decision to Admit Stat 02/10/22 13:55 Consult Cardiology Routine Ordered Studies 02/10/22 12:17 CT angio chest PE protocol Stat 02/10/22 14:55 US venous doppler [facility] Urgent Hospital Course (1) Acute heart failure: Acute systolic (congestive) heart failure. EF 20-25% this admission. Not usually on Lasix at home - Consult cardiology - under Dr Jones - Seen by Dr. Macedo. Patient was offered a LHC today as his EF is worse than prior; however, he declined and wanted to speak with Dr. Jones first. Patient was offered longer hospital stay to optimize his volume status, but he declined, and he is capable of making that medical decision. - Discharge on Toprol XL 50 mg, Lasix 40 mg PO daily per cardiology recs. (2) Ischemic cardiomyopathy: Start metoprolol succinate 50mg PO daily starting tomorrow once more euvolemic - Consider switching to Entresto; will defer to his cardiologists. (3) Essential hypertension: Continue lisinopril 5mg PO daily Started metoprolol succinate 50mg PO daily starting tomorrow once more euvolemic (4) CAD (coronary artery disease): AMI, LAD BMS, LVEF 45%, April 2014 ASA, ?not on BB, lisinopril, rosuvastatin (5) Hypercholesterolemia: Continue rosuvastatin (6) Acute hyperglycemia: HbA1C was 11%. He refused insulin while in the hospital. - Started metformin 500 mg PO BID - Attempted SGLT-2 inhibitor on discharge, but it was $400/month with his insurance. (7) Pneumonia: Consolidation on CT. Green sputum per patient although no other signs of pneumonia. - Discharged on Augmentin and doxycycline. Stopped azithromycin for QTc 499. (8) Pleural effusion, right: Suspect from CHF although only one sided. Too small to drain on discussion with pulmonology for diagnostic purposes - Monitor with repeat CT chest as outpatient as below. (9) Tobacco use disorder: Discussed quitting but he is not interested at this time due to high stress. VTE Prophylaxis - low risk Diet - heart healthy, low sodium, T2DM, fluid restrict 1500ml Disposition - admit to PCU Total Time Total Time Spent Total Time Spent (In Minutes): 45 Discharge Plan Discharge Items Patient Disposition: Home - Self-Care Reason For Visit: ACUTE CHF, PNEUMONIA Discharge Diagnosis: Acute CHF Activity: Resume your previous activity Non-emergency contact: Primary Care Provider and Insurance Processor Call non-emergency contact if: your symptoms worsen Follow-up/Referrals: Vidhi Dwyer CRNP [Primary Care Provider] - Diet: Heart Healthy Addtl Attending Provider Instructions: Mr. Wise, You were admitted to the hospital with leg swelling and shortness of breath. This is likely from your heart failure. Please take the new medications we prescribed which are meant to help strengthen your heart. You should see Dr. Jones in the office at your scheduled visit. We are giving you 5 days of antibiotics to help knock out a pneumonia. The antibiotics are Augmentin and doxycycline for 5 days. Pending Studies at Discharge: No Stand-Alone Forms: [facility], Smoking Cessation Medications and DC Order Prescriptions: New metoprolol succinate 50 mg tablet extended release 24 hr 50 mg PO DAILY Qty: 30 RF: 0 furosemide 40 mg tablet 40 mg PO DAILY Qty: 30 RF: 0 amoxicillin-pot clavulanate 875-125 mg tablet 1 tab PO BID Qty: 10 RF: 0 doxycycline hyclate 100 mg capsule 100 mg PO BID Qty: 10 RF: 0 metformin 500 mg tablet extended release 24 hr 500 mg PO BID Qty: 60 RF: 0 Continued aspirin 81 mg Tablet,Delayed Release (Dr/Ec) 81 mg PO DAILY RF: 0 lisinopril 5 mg tablet 5 mg PO DAILY RF: 0 rosuvastatin 5 mg tablet 5 mg PO QAM RF: 0 Discharge Orders: Discharge Order (Routine); Ordered 02/11/22 Ordered By: Rodrick Georges Admission Data Admit Date/Time: 02/10/22 14:14 Attending Provider: Rodrick Georges Admit Provider: Kong Whitley Primary Care Provider: Vidhi Dwyer Other Providers: Rmoain Macedo ; Rodrick Georges Other Interventions: Discharge Summary Assessment (RN) Last Done: 02/11/22 09:42 Coding Level of Care Code D/C DAY MANAGEMENT >30 MINS Diagnoses Acute heart failure I50.9 Ischemic cardiomyopathy I25.5 Essential hypertension I10 CAD (coronary artery disease) I25.10 Hypercholesterolemia E78.00 Acute hyperglycemia R73.9 Pneumonia J18.9 Pleural effusion, right J90 Tobacco use disorder F17.200
--- NOTE | 2022-02-11 14:55 | Electrocardiogram Report ---
Test Reason : Blood Pressure : / mmHG Vent. Rate : 090 BPM Atrial Rate : 090 BPM P-R Int : 202 ms QRS Dur : 110 ms QT Int : 408 ms P-R-T Axes : 087 116 063 degrees QTc Int : 499 ms Normal sinus rhythm Inferior-posterior infarct (cited on or before 10-FEB-2022) Abnormal ECG When compared with ECG of 10-FEB-2022 11:23, Nonspecific T wave abnormality, improved in Anterior leads Confirmed by Romain Macedo ([id number]) on 02/11/2022 2:55:27 PM Referred By: REFERRED SELF Confirmed By:Ismael Macedo
--- NOTE | 2022-02-11 17:43 | Cardiology Progress Note ---
Date of Service February 11, 2022 Assessment & Plan (1) Ischemic cardiomyopathy: (2) Acute heart failure: (3) Essential hypertension: (4) CAD (coronary artery disease): Plan: 1. Decompensated systolic heart failure: he had a reasonable diuresis and is somewhat improved. However, he will need to continue diuresis on an outpatient basis. I think we can try and aggressive oral regimen. He is anxious to leave the hospital. 2. Ischemic cardiomyopathy: Continue metoprolol succinate and lisinopril for now. Switch to entresto would likely be of benefit. 3. Coronary artery disease: Continue aggressive secondary prevention. No current symptoms of angina. Based on his declining left ventricular function and regional wall motion abnormalities that did advise him to consider cardiac catheterization on an outpatient basis. 4. mitral regurgitation: mild to moderate Admission and Anticipated Discharge Date Admission Date: February 10, 2022 Subjective This morning patient claims to be feeling better. He was anxious for discharge. He states that his breathing is improved. No orthopnea. Some persistent lower extremity edema. Review of Systems Review of Systems: Per HPI Physical Exam Physical Exam: The patient is alert and oriented. Mood and affect appeared normal. He answered all questions appropriately. HEENT: Pupils are equal and reactive to light and accommodation. Extraocular movements are intact. The sclerae are anicteric. Poor dentition Neuro: Cranial nerves intact Lungs: Some crackles bilaterally. Expiratory wheezing noted. Prolonged expiratory phase. Reduced breath sounds overall. Cardiac: Heart demonstrates a regular rate and rhythm. Normal S1 and S2. No murmurs on examination. Pulses: The patient has palpable radial pulses bilaterally that are equal in intensity Extremities: There was no evidence of hypoperfusion. There is no cyanosis or clubbing. Severe lower extremity edema Skin: I did not appreciate any rashes on examination today. Results & Data ([facility]) Vital Signs (Past 12 Hours) Vital Signs Temp Pulse Resp BP Pulse Ox 02/11/22 09:42 36.6 C 88 20 121/80 94 02/11/22 08:13 36.6 C 88 20 121/80 94 PG Care Time/CCT Total # of Minutes Spent Total Time Spent with Patient: Total time spent is greater than 50% in coordination of care (as documented) at patient's floor/unit and/or counseling patient: Coding Level of Care Code 26628 Subseq Hosp Care Lvl 2 Diagnoses Ischemic cardiomyopathy I25.5 Acute heart failure I50.9 Essential hypertension I10 CAD (coronary artery disease) I25.10
== END 2022-02-11 10:17 | disposition home or self-care (01) | DRG 291 ==
LOC: ED 10:54 → 2S 14:14 → SUATTDRO 14:14 → INTOOBSV 14:14 → 2S 16:09

== ENCOUNTER 2022-09-11 10:58 | Inpatient (IN) ==
--- NOTE | 2022-09-11 11:48 | Emergency Department Note ---
Impression & Plan Stroke-like symptoms, Acute internal jugular vein embolism, Carotid artery, internal, occlusion, Idioventricular rhythm ED Provider Note NAME: REED TERRY AGE: 51 SEX: M : 1970 ARRIVES VIA: Walk-In INFORMANT: Patient, ED PROVIDER(S): Toney Car DO CHIEF COMPLAINT: Strokelike symptoms HPI: The patient is a 51-year-old male who presented to the emergency department for strokelike symptoms. The patient had a recent cardiac catheterization. He started noticing difficulty speaking yesterday morning. He did not see a provider for this. He presented to the emergency department today after a friend noticed that he was having significant difficulty with his speech. The patient denies having any unilateral weakness. He denies having any headache. He has had no recent fever or trauma. He did have a cardiac catheterization recently. He was being worked up for ischemic cardiomyopathy. The patient also has a history of Mark artery disease and high cholesterol. He states he is never had a stroke before. He also notices it when he coughs he has pain that goes into his left neck. He denies having any ongoing acute chest pain at this time. He denies having any swelling in his legs. ROS: See above HPI for pertinent positives & negatives. A total of 10 systems reviewed and were otherwise negative. PAST MEDICAL HISTORY: See Below PAST SURGICAL HISTORY: See Below FAMILY HISTORY: See Below SOCIAL HISTORY: See Below HOME MEDICATIONS: See Below ALLERGIES: See Below VITALS: See Below PHYSICAL EXAMINATION: GENERAL: Patient is awake alert in no acute distress patient is resting comfortably and showing no signs of anxiety EYES: The conjunctivae are clear. The pupils are round and reactive. EARS, NOSE, MOUTH AND THROAT: The nose is without any evidence of any deformity. NECK: The neck is nontender and supple. RESPIRATORY: Normal respiratory effort is noted there is no evidence of wheezing rhonchi or rales CARDIOVASCULAR: Tachycardic heart sounds were noted auscultation. Ectopy was noted auscultation. GASTROINTESTINAL: The abdomen is soft. Abdomen is nontender. MUSCULOSKELETAL/EXTREMITIES: There is no evidence of gross deformity full range of motion is noted in the hips and shoulders. SKIN: There is no obvious evidence of any rash. There are no petechiae, pallor or cyanosis noted. NEUROLOGIC: Patient is awake alert and oriented x3 strength is symmetric patellar reflexes are 2+ bilaterally. Speech was slurred. There was significant dysarthria. There is no facial droop. MEDICAL DECISION MAKING: The patient is a 51-year-old male who had a recent cardiac catheterization. He has a history of tobacco use as well as ischemic cardiomyopathy. The patient had slurred speech for greater than 24 hours. The patient was not made a stroke alert in the emergency department. Further laboratory and radiographic studies were obtained. The patient was found to have signs of an age-indeterminate left MCA stroke with signs of occlusion of his left internal carotid artery. He was also found to have bilateral internal jugular vein thrombosis. I discussed his condition with the patient's primary grant writer. I also discussed this case with the on-call [facility] hospitalist. At their request I did discuss the case with the [facility] telestroke neurologist. At this time they recommended further neuro work-up including an MRI to determine further treatment especially anticoagulation. The patient was reevaluated multiple times. The patient also kept having episodes on the hall monitor of an idiopathic wide-complex rhythm. He was having frequent PVCs as well. This does not appear to be consistent with ventricular tachycardia but will require further work-up. Triage Nursing notes reviewed. Prior medical records reviewed Vital Signs: reviewed and remarkable for no significant abnormalities Differential diagnosis: Infection, dehydration, metabolic abnormality, hypo/hyperglycemia, electrolyte disturbance, anemia, hypoxia, cardiac sources, intracerebral event, toxicologic, neurologic, as well as other pathologies. ER treatment provided: See below Diagnostics interpreted by me: ECG: EKG was obtained in the emergency department. My interpretation is sinus tachycardia at 108 bpm. First-degree AV block was noted. Incomplete right bundle branch block pattern was noted. This was compared to a tracing from February 11, 2022. No changes were noted. Cardiac Monitoring: An order was placed for continuous cardiac monitoring. The monitor shows a rate of 94 bpm with sinus rhythm. Laboratory studies: As stated above and show below. Imaging studies: See below Consultation(s): I discussed this case with Dr. Macedo who is the patient's primary grant writer. I discussed this case with Dr Garrison I discussed this case with Dr Linares who was [place] [facility] [place] Past Med/Surg History Medical History CAD (coronary artery disease) Coronary artery arteriosclerosis Essential hypertension Hypercholesterolemia Hyperlipidemia Ischemic cardiomyopathy Morbid obesity Scalp laceration Surgical History Stented coronary artery Social History Smoking Status: Current every day smoker Tobacco Type: Cigarettes packs per day: 2; Cigarettes Per Day: 2 packs/day; Do You Dip or Chew Tobacco: No; Tobacco Cessation Education Requested by Patient: No Hx Alcohol Use: Yes Alcohol type: beer Hx Substance Use: No Preferred Language: Azeri Communication Ability: Effective Protective Signal Operations Supervisor Required: No Beliefs That Will Affect Care: None Current Living Situation: Alone How many Children do You have: 1 Other Information That Helps Us Care for You: No Feels Safe at Home: Yes Safety Concerns: Feels Safe At This Time Assistive Devices: None Allergies Allergies Allergy/AdvReac Type Severity Reaction Status Date / Time No Known Allergies Allergy Unverified 08/28/22 07:43 Home Meds Home Medications Medication Instructions Recorded Confirmed aspirin 81 mg tablet,delayed 81 mg PO DAILY 02/10/22 09/11/22 release Previous Rx's Medication Instructions Recorded rosuvastatin 5 mg tablet 5 mg PO QAM #90 tabs 03/02/22 lisinopril 5 mg tablet 5 mg PO DAILY #90 tabs 03/26/22 furosemide 40 mg tablet 80 mg PO DAILY #180 tabs 08/05/22 metoprolol succinate 25 mg 25 mg PO DAILY #90 tabs 08/28/22 tablet,extended release 24 hr Results & Data (ED) Vital Signs Vital Signs - 24 hr 09/11/22 11:05 09/11/22 11:20 09/11/22 11:20 Temperature 36.5 C Temperature Source Temporal Artery Scan Pulse Rate 100 H 108 H Pulse Rate [Apical] Pulse Rate from SpO2 Sensor 108 H Pulse Rhythm [Apical] Pulse Strength [Apical] Respiratory Rate 18 22 Respiratory Effort / Characteristics Non-Labored Spontaneous Respiratory Depth Normal Respiratory Pattern Blood Pressure 160/109 H 150/105 H Blood Pressure [Right Arm] Blood Pressure Mean 126 120 Blood Pressure Mean [Right Arm] Pulse Oximetry 96 96 Oxygen Delivery Method Room Air Sepsis Recent Fever Within 48 Hours No Sepsis New/Unexplained Change in Mental Status No Sepsis Action Taken by Nursing No Action Required 09/11/22 11:30 09/11/22 11:30 09/11/22 12:00 Temperature Temperature Source Pulse Rate 106 H Pulse Rate [Apical] Pulse Rate from SpO2 Sensor 106 H Pulse Rhythm [Apical] Pulse Strength [Apical] Respiratory Rate 24 Respiratory Effort / Characteristics Respiratory Depth Respiratory Pattern Blood Pressure 147/94 H 134/81 Blood Pressure [Right Arm] Blood Pressure Mean 111 98 Blood Pressure Mean [Right Arm] Pulse Oximetry 95 Oxygen Delivery Method Sepsis Recent Fever Within 48 Hours Sepsis New/Unexplained Change in Mental Status Sepsis Action Taken by Nursing 09/11/22 12:00 09/11/22 12:02 09/11/22 12:02 Temperature Temperature Source Pulse Rate 96 H 98 H Pulse Rate [Apical] Pulse Rate from SpO2 Sensor 97 H 98 H Pulse Rhythm [Apical] Pulse Strength [Apical] Respiratory Rate 21 19 Respiratory Effort / Characteristics Respiratory Depth Respiratory Pattern Blood Pressure 122/85 Blood Pressure [Right Arm] Blood Pressure Mean 97 Blood Pressure Mean [Right Arm] Pulse Oximetry 95 94 Oxygen Delivery Method Sepsis Recent Fever Within 48 Hours Sepsis New/Unexplained Change in Mental Status Sepsis Action Taken by Nursing 09/11/22 12:15 09/11/22 12:15 09/11/22 13:00 Temperature Temperature Source Pulse Rate 97 H Pulse Rate [Apical] 93 H Pulse Rate from SpO2 Sensor 97 H Pulse Rhythm [Apical] Regular Pulse Strength [Apical] Normal Respiratory Rate 16 19 Respiratory Effort / Characteristics Non-Labored Respiratory Depth Normal Respiratory Pattern Regular Blood Pressure 127/92 Blood Pressure [Right Arm] 131/89 Blood Pressure Mean 103 Blood Pressure Mean [Right Arm] 103 Pulse Oximetry 94 96 Oxygen Delivery Method Room Air Sepsis Recent Fever Within 48 Hours Sepsis New/Unexplained Change in Mental Status Sepsis Action Taken by Nursing 09/11/22 12:39 09/11/22 12:39 09/11/22 12:45 Temperature Temperature Source Pulse Rate 95 H Pulse Rate [Apical] Pulse Rate from SpO2 Sensor 95 H Pulse Rhythm [Apical] Pulse Strength [Apical] Respiratory Rate 12 Respiratory Effort / Characteristics Respiratory Depth Respiratory Pattern Blood Pressure 131/92 128/92 Blood Pressure [Right Arm] Blood Pressure Mean 105 104 Blood Pressure Mean [Right Arm] Pulse Oximetry 96 Oxygen Delivery Method Sepsis Recent Fever Within 48 Hours Sepsis New/Unexplained Change in Mental Status Sepsis Action Taken by Nursing 09/11/22 12:45 09/11/22 13:00 09/11/22 13:00 Temperature Temperature Source Pulse Rate 95 H 94 H Pulse Rate [Apical] Pulse Rate from SpO2 Sensor 95 H 94 H Pulse Rhythm [Apical] Pulse Strength [Apical] Respiratory Rate 22 19 Respiratory Effort / Characteristics Respiratory Depth Respiratory Pattern Blood Pressure 131/89 Blood Pressure [Right Arm] Blood Pressure Mean 103 Blood Pressure Mean [Right Arm] Pulse Oximetry 96 96 Oxygen Delivery Method Sepsis Recent Fever Within 48 Hours Sepsis New/Unexplained Change in Mental Status Sepsis Action Taken by Nursing 09/11/22 13:15 09/11/22 13:15 09/11/22 13:30 Temperature Temperature Source Pulse Rate 93 H Pulse Rate [Apical] Pulse Rate from SpO2 Sensor 93 H Pulse Rhythm [Apical] Pulse Strength [Apical] Respiratory Rate 21 Respiratory Effort / Characteristics Respiratory Depth Respiratory Pattern Blood Pressure 127/81 123/88 Blood Pressure [Right Arm] Blood Pressure Mean 96 99 Blood Pressure Mean [Right Arm] Pulse Oximetry 97 Oxygen Delivery Method Sepsis Recent Fever Within 48 Hours Sepsis New/Unexplained Change in Mental Status Sepsis Action Taken by Nursing 09/11/22 13:30 09/11/22 13:45 09/11/22 13:45 Temperature Temperature Source Pulse Rate 92 H 92 H Pulse Rate [Apical] Pulse Rate from SpO2 Sensor Pulse Rhythm [Apical] Pulse Strength [Apical] Respiratory Rate 20 13 Respiratory Effort / Characteristics Respiratory Depth Respiratory Pattern Blood Pressure 106/63 Blood Pressure [Right Arm] Blood Pressure Mean 77 Blood Pressure Mean [Right Arm] Pulse Oximetry Oxygen Delivery Method Sepsis Recent Fever Within 48 Hours Sepsis New/Unexplained Change in Mental Status Sepsis Action Taken by Nursing 09/11/22 14:00 09/11/22 14:00 09/11/22 14:15 Temperature Temperature Source Pulse Rate 93 H Pulse Rate [Apical] Pulse Rate from SpO2 Sensor Pulse Rhythm [Apical] Pulse Strength [Apical] Respiratory Rate 19 Respiratory Effort / Characteristics Respiratory Depth Respiratory Pattern Blood Pressure 116/68 137/91 Blood Pressure [Right Arm] Blood Pressure Mean 84 106 Blood Pressure Mean [Right Arm] Pulse Oximetry Oxygen Delivery Method Sepsis Recent Fever Within 48 Hours Sepsis New/Unexplained Change in Mental Status Sepsis Action Taken by Nursing 09/11/22 14:15 09/11/22 14:31 09/11/22 14:31 Temperature Temperature Source Pulse Rate 91 H 94 H Pulse Rate [Apical] Pulse Rate from SpO2 Sensor 96 H Pulse Rhythm [Apical] Pulse Strength [Apical] Respiratory Rate 15 18 Respiratory Effort / Characteristics Respiratory Depth Respiratory Pattern Blood Pressure 117/81 Blood Pressure [Right Arm] Blood Pressure Mean 93 Blood Pressure Mean [Right Arm] Pulse Oximetry 96 Oxygen Delivery Method Sepsis Recent Fever Within 48 Hours Sepsis New/Unexplained Change in Mental Status Sepsis Action Taken by Nursing 09/11/22 14:45 09/11/22 14:45 Temperature Temperature Source Pulse Rate 95 H Pulse Rate [Apical] Pulse Rate from SpO2 Sensor 95 H Pulse Rhythm [Apical] Pulse Strength [Apical] Respiratory Rate 22 Respiratory Effort / Characteristics Respiratory Depth Respiratory Pattern Blood Pressure 148/96 H Blood Pressure [Right Arm] Blood Pressure Mean 113 Blood Pressure Mean [Right Arm] Pulse Oximetry 95 Oxygen Delivery Method Sepsis Recent Fever Within 48 Hours Sepsis New/Unexplained Change in Mental Status Sepsis Action Taken by [facility] Medications Current Medication List: was personally reviewed by me Laboratory Data Attestation: I reviewed the patient's lab results. Result diagrams: 09/12/22 03:41 09/12/22 03:41 Lab Results 09/11/22 09/11/22 09/11/22 Range/Units 11:16 11:16 11:16 WBC 9.66 (4.8-10.8) K/ul RBC 5.59 (4.63-6.08) M/uL Hgb 17.5 (14.0-18.0) g/dl Hct 51.3 H (40.1-51.0) % MCV 91.8 (80.0-100.0) fL MCH 31.3 (25.0-34.0) pg MCHC 34.1 (32.0-36.0) g/dL RDW Std Deviation 45.0 (36.4-46.3) fL RDW Coeff of Rojas 13.2 (11.5-14.5) % Plt Count 415 H (130-400) K/uL MPV 12.1 (9.4-12.4) fL Immature Gran % (Auto) 0.4 % Neut % (Auto) 67.4 % Lymph % (Auto) 20.9 % Lee % (Auto) 9.9 % Eos % (Auto) 0.7 % Baso % (Auto) 0.7 % Neut # (Auto) 6.50 (1.4-6.5) K/uL Lymph # (Auto) 2.02 (1.2-3.4) K/uL Lee # (Auto) 0.96 H (0.24-0.82) K/uL Eos # (Auto) 0.07 (0-0.50) K/uL Baso # (Auto) 0.07 (0-0.2) K/uL Immature Gran # (Auto) 0.04 H (0.00-0.02) K/uL PT 13.3 H (9.0-12.0) Seconds INR 1.3 H (0.9-1.1) APTT 28.2 (21.0-31.0) Seconds PTT Ratio 1.0 Sodium 133 L (136-145) mmol/L Potassium 3.9 (3.5-5.1) mmol/L Chloride 93 L (98-107) mmol/L Carbon Dioxide 33 H (21-32) mmol/L Anion Gap 7 (3-11) BUN 8 (6-23) mg/dl Creatinine 0.86 (0.6-1.4) mg/dl Est Cr Clr Drug Dosing 143.4 ml/min Est GFR ( Amer) 114.7 ml/min Est GFR (Non-Af Amer) 99.0 ml/min BUN/Creatinine Ratio 9.3 L (10-20) Glucose 278 H (70-99(Fasting)) mg/dl Calcium 9.8 (8.5-10.1) mg/dl Magnesium 2.0 (1.7-2.4) mg/dl Total Bilirubin 1.7 H (0.2-1.0) mg/dl AST 21 (13-39) U/L ALT 16 (7-52) U/L Alkaline Phosphatase 81 (34-104) U/L Troponin I High Sens 49.1 H (0-20) pg/ml Total Protein 7.1 (6.0-8.3) gm/dl Albumin 4.4 (3.4-5.0) gm/dl Globulin 2.7 (2.5-4.0) gm/dl Albumin/Globulin Ratio 1.6 (0.9-2) SARS-CoV-2, RNA, NAAT (NEGATIVE) 09/11/22 Range/Units 11:50 WBC (4.8-10.8) K/ul RBC (4.63-6.08) M/uL Hgb (14.0-18.0) g/dl Hct (40.1-51.0) % MCV (80.0-100.0) fL MCH (25.0-34.0) pg MCHC (32.0-36.0) g/dL RDW Std Deviation (36.4-46.3) fL RDW Coeff of Rojas (11.5-14.5) % Plt Count (130-400) K/uL MPV (9.4-12.4) fL Immature Gran % (Auto) % Neut % (Auto) % Lymph % (Auto) % Lee % (Auto) % Eos % (Auto) % Baso % (Auto) % Neut # (Auto) (1.4-6.5) K/uL Lymph # (Auto) (1.2-3.4) K/uL Lee # (Auto) (0.24-0.82) K/uL Eos # (Auto) (0-0.50) K/uL Baso # (Auto) (0-0.2) K/uL Immature Gran # (Auto) (0.00-0.02) K/uL PT (9.0-12.0) Seconds INR (0.9-1.1) APTT (21.0-31.0) Seconds PTT Ratio Sodium (136-145) mmol/L Potassium (3.5-5.1) mmol/L Chloride (98-107) mmol/L Carbon Dioxide (21-32) mmol/L Anion Gap (3-11) BUN (6-23) mg/dl Creatinine (0.6-1.4) mg/dl Est Cr Clr Drug Dosing ml/min Est GFR ( Amer) ml/min Est GFR (Non-Af Amer) ml/min BUN/Creatinine Ratio (10-20) Glucose (70-99(Fasting)) mg/dl Calcium (8.5-10.1) mg/dl Magnesium (1.7-2.4) mg/dl Total Bilirubin (0.2-1.0) mg/dl AST (13-39) U/L ALT (7-52) U/L Alkaline Phosphatase (34-104) U/L Troponin I High Sens (0-20) pg/ml Total Protein (6.0-8.3) gm/dl Albumin (3.4-5.0) gm/dl Globulin (2.5-4.0) gm/dl Albumin/Globulin Ratio (0.9-2) SARS-CoV-2, RNA, NAAT POSITIVE A* (NEGATIVE) Administered Medications Aspirin (Aspirin 81 Mg Ectab) 81 mg PO DAILY [facility] Stop: 10/12/22 08:59 Last Admin: 09/12/22 09:15 Dose: 81 mg Documented By: CORINE Furosemide (Furosemide 40 Mg/4 Ml Vial) 60 mg IV BID [facility] Stop: 10/11/22 17:14 Last Admin: 09/12/22 09:15 Dose: 60 mg Documented By: Admin: 09/11/22 21:12 Dose: 60 mg Documented By: Admin: 09/11/22 18:58 Dose: 60 mg Documented By: CORINE Heparin Sodium/Dextrose (Heparin Sodium/Dextrose) 25,000 units in 500 mls @ 45 mls/hr IV .[id number] [facility]; Protocol Stop: 10/11/22 15:29 Last Admin: 09/12/22 09:16 Dose: Not Given Documented By: Titration: 09/12/22 08:28 Dose: 2,250 units/hr, 45 mls/hr Documented By: CORINE Co-signed By: GPRajiv Admin: 09/12/22 05:35 Dose: 2,050 units/hr, 41 mls/hr Documented By: TARA Co-signed By: PHONG Titration: 09/12/22 05:03 Dose: 2,050 units/hr, 41 mls/hr Documented By: TARA Co-signed By: AMDamon Titration: 09/12/22 00:46 Dose: 2,050 units/hr, 41 mls/hr Documented By: TARA Co-signed By: PHONG Admin: 09/11/22 15:59 Dose: 1,850 units/hr, 37 mls/hr Documented By: EARLINE Co-signed By: NA Insulin Aspart (Insulin Aspart Per Unit) 0 units SC ACHS [facility] Stop: 10/11/22 16:29 Last Admin: 09/12/22 08:26 Dose: 8 units Documented By: CORINE Co-signed By: ISIDORO Admin: 09/11/22 21:35 Dose: Not Given Documented By: Admin: 09/11/22 18:48 Dose: 6 units Documented By: CORINE Co-signed By: [facility] Insulin Glargine (Lantus Per Unit Charge) 5 units SQ BID [facility] Stop: 10/11/22 20:59 Last Admin: 09/12/22 08:27 Dose: 5 units Documented By: CORINE Co-signed By: GPF Admin: 09/11/22 21:36 Dose: Not Given Documented By: TARA Lisinopril (Lisinopril 5 Mg Tab) 5 mg PO DAILY [facility] Stop: 10/11/22 17:14 Last Admin: 09/12/22 09:15 Dose: 5 mg Documented By: Admin: 09/11/22 18:58 Dose: 5 mg Documented By: CORINE Metoprolol Succinate (Metoprolol Succ 25mg Ext Rel Tab) 25 mg PO DAILY [facility] Stop: 10/11/22 17:09 Last Admin: 09/12/22 09:15 Dose: 25 mg Documented By: Admin: 09/11/22 18:57 Dose: 25 mg Documented By: CORINE Miscellaneous (Remove Nicoderm Patch) 1 each N/A DAILY@0859 [facility] Stop: 10/12/22 08:58 Last Admin: 09/12/22 09:16 Dose: 1 each Documented By: CORINE Nicotine (Nicotine 21 Mg/24 Hr Tdsy) 21 mg TD [facility] Stop: 10/11/22 15:44 Last Admin: 09/11/22 21:10 Dose: 21 mg Documented By: TARA Rosuvastatin Calcium (Rosuvastatin Calcium 5 Mg Tab) [facility] Stop: 10/11/22 17:14 Last Admin: 09/12/22 09:15 Dose: 5 mg Documented By: Admin: 09/11/22 18:58 Dose: 5 mg Documented By: CORINE Discontinued Medications Albuterol (Albut/Ipratrop 3mg/0.5mg Neb 3 Ml Vial) 3 ml NEB QIDR [facility]; Protocol Stop: 10/11/22 18:59 Last Admin: 09/12/22 07:11 Dose: 3 ml Documented By: Admin: 09/11/22 20:43 Dose: 3 ml Documented By: LIAM Heparin Sodium (Porcine) (Heparin Sod (Porcine) 1000 Unit/Ml) 8,000 units IV NOW ONE Stop: 09/11/22 15:31 Last Admin: 09/11/22 15:59 Dose: 8,000 units Documented By: EARLINE Co-signed By: ERIN Heparin Sodium (Porcine) (Heparin Sod (Porcine) 1000 Unit/Ml) 4,000 units IV NOW ONE Stop: 09/12/22 00:16 Last Admin: 09/12/22 00:46 Dose: 4,000 units Documented By: TARA Co-signed By: PHONG Ioversol (Optiray 320 500ml) 120 ml IV ONCE ONE Stop: 09/11/22 12:29 Last Admin: 09/11/22 12:28 Dose: 120 ml Documented By: ARISTIDES(2) Imaging Data Radiologist's Impression: Chest X-Ray 09/11/22 11:27 XR chest 1V portable HISTORY: 51 years-old Male neuro deficit, acute stroke suspected acute strokelike symptoms COMPARISON: Chest radiograph and CTA chest at least 02/10/2022 TECHNIQUE: AP view of the chest FINDINGS: Cardiac silhouette is enlarged. Pulmonary vascular congestion with interstitial coarsening. Right pleural effusion is again noted along with right basilar opacities. Degenerative changes of the shoulders and spine. IMPRESSION: 1. Cardiomegaly with pulmonary vascular congestion and interstitial coarsening suggestive of pulmonary edema. 2. Small right pleural effusion with right lung base opacities, similar to prior. ACT 112: Negative or not required by law. The above report was generated using voice recognition software. It may contain grammatical, syntax or spelling errors. Electronically signed by: Benjy Rahman M.D. 09/11/2022 12:[address] 09/11/22 11:[address], HEAD & NECK CTA HISTORY: Difficulty speaking. Neck pain. neuro deficit, acute stroke suspected TECHNIQUE: Multiaxial CT images of the head were performed without intravenous contrast. Multiaxial CT images of the head were performed following the intravenous administration of contrast to evaluate the major cerebral vessels. Multiaxial CT images of the neck were also performed following the intravenous administration of contrast to evaluate the major cervical vessels. Maximum intensity projection images were also obtained. A dose lowering technique was ut ilized adhering to the principles of ALARA. COMPARISON: Head CT 04/14/2015. FINDINGS: NONCONTRAST HEAD CT: There is no mass, hematoma, midline shift, or acute infarct. Fluid level within the left maxillary sinus resulting in near complete opacification. Mild mucosal thickening within the right maxillary sinus. The mastoid air cells are clear. Areas of encephalomalacia within the left posterior frontal lobe consistent with an old left MCA territory infarct. HEAD CTA: Complete occlusion of the intracranial portion of the left internal carotid artery. The distal vertebral arteries, basilar artery, and right internal carotid artery are widely patent. The proximal left MCA is also occluded. The residual branches of the left MCA are attenuated. The right MCA is widely patent. No significant stenosis, occlusion, or aneurysm within the bilateral ACAs or wire temperer. The major dural venous sinuses are patent. NECK CTA: The aortic arch and proximal great vessels are widely patent. The bilateral vertebral arteries, bilateral common carotid arteries, and right internal carotid artery are widely patent. The left internal carotid artery is completely occluded at the level the bifurcation. Heterogeneous density and expansion of the entire left internal jugular vein consistent with diffuse thrombus. There is also mild heterogeneity and expansion of the base of the right internal jugular vein at the neck base. This also likely represents an area of thrombus. Extensive left neck edema likely due to the internal jugular vein thrombus. Prominent mediastinal and neck base lymph nodes which could be reactive. There is a small right pleural effusion. No acute fractures identified within the cervical spine. IMPRESSION: 1. 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 No definite acute infarct or intracranial hemorrhage. 2. 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 The residual distal left MCA branches are attenuated. Although technically age indeterminate, this favors a chronic occlusion given the old left MCA territory infarcts. 3. Bilateral internal jugular vein thrombosis, left greater than right. 4. Small right pleural effusion. 5. Acute left maxillary sinusitis ACT 112: Negative or not required by law. Electronically signed by: Deshawn Thomas M.D. 09/11/2022 1:09 PM Head CTA 09/11/22 11:[address], HEAD & NECK CTA HISTORY: Difficulty speaking. Neck pain. neuro deficit, acute stroke suspected TECHNIQUE: Multiaxial CT images of the head were performed without intravenous contrast. Multiaxial CT images of the head were performed following the intraven ous administration of contrast to evaluate the major cerebral vessels. Multiaxial CT images of the neck were also performed following the intravenous administration of contrast to evaluate the major cervical vessels. Maximum intensity projection images were also obtained. A dose lowering technique was utilized adhering to the principles of ALARA. COMPARISON: Head CT 04/14/2015. FINDINGS: NONCONTRAST HEAD CT: There is no mass, hematoma, midline shift, or acute infarct. Fluid level within the left maxillary sinus resulting in near complete opacification. Mild mucosal thickening within the right maxillary sinus. The mastoid air cells are clear. Areas of encephalomalacia within the left posterior frontal lobe consistent with an old left MCA territory infarct. HEAD CTA: Complete occlusion of the intracranial portion of the left internal carotid artery. The distal vertebral arteries, basilar artery, and right internal carotid artery are widely patent. The proximal left MCA is also occluded. The residual branches of the left MCA are attenuated. The right MCA is widely patent. No significant stenosis, occlusion, or aneurysm within the bilateral ACAs or wire temperer. The major dural venous sinuses are patent. NECK CTA: The aortic arch and proximal great vessels are widely patent. The bilateral vertebral arteries, bilateral common carotid arteries, and right internal carotid artery are widely patent. The left internal carotid artery is completely occluded at the level the bifurcation. Heterogeneous density and expansion of the entire left internal jugular vein consistent with diffuse thrombus. There is also mild heterogeneity and expansion of the base of the right internal jugular vein at the neck base. This also likely represents an area of thrombus. Extensive left neck edema likely due to the internal jugular vein thrombus. Prominent mediastinal and neck base lymph nodes which could be reactive. There is a small right pleural effusion. No acute fractures identified within the cervical spine. IMPRESSION: 1. 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 No definite acute infarct or intracranial hemorrhage. 2. 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 The residual distal left MCA branches are attenuated. Although technically age indeterminate, this favors a chronic occlusion given the old left MCA territory infarcts. 3. Bilateral internal jugular vein thrombosis, left greater than right. 4. Small right pleural effusion. 5. Acute left maxillary sinusitis ACT 112: Negative or not required by law. Electronically signed by: Deshawn Thomas M.D. 09/11/2022 1:09 PM Neck CTA 09/11/22 11:[address], HEAD & NECK CTA HISTORY: Difficulty speaking. Neck pain. neuro deficit, acute stroke suspected TECHNIQUE: Multiaxial CT images of the head were performed without intravenous contrast. Multiaxial CT images of the head were performed following the int ravenous administration of contrast to evaluate the major cerebral vessels. Multiaxial CT images of the neck were also performed following the intravenous administration of contrast to evaluate the major cervical vessels. Maximum intensity projection images were also obtained. A dose lowering technique was utilized adhering to the principles of ALARA. COMPARISON: Head CT 04/14/2015. FINDINGS: NONCONTRAST HEAD CT: There is no mass, hematoma, midline shift, or acute infarct. Fluid level within the left maxillary sinus resulting in near complete opacification. Mild mucosal thickening within the right maxillary sinus. The mastoid air cells are clear. Areas of encephalomalacia within the left posterior frontal lobe consistent with an old left MCA territory infarct. HEAD CTA: Complete occlusion of the intracranial portion of the left internal carotid artery. The distal vertebral arteries, basilar artery, and right internal carotid artery are widely patent. The proximal left MCA is also occluded. The residual branches of the left MCA are attenuated. The right MCA is widely patent. No significant stenosis, occlusion, or aneurysm within the bilateral ACAs or wire temperer. The major dural venous sinuses are patent. NECK CTA: The aortic arch and proximal great vessels are widely patent. The bilateral vertebral arteries, bilateral common carotid arteries, and right internal carotid artery are widely patent. The left internal carotid artery is completely occluded at the level the bifurcation. Heterogeneous density and expansion of the entire left internal jugular vein consistent with diffuse thrombus. There is also mild heterogeneity and expansion of the base of the right internal jugular vein at the neck base. This also likely represents an ar ea of thrombus. Extensive left neck edema likely due to the internal jugular vein thrombus. Prominent mediastinal and neck base lymph nodes which could be reactive. There is a small right pleural effusion. No acute fractures identified within the cervical spine. IMPRESSION: 1. 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 No definite acute infarct or intracranial hemorrhage. 2. 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 The residual distal left MCA branches are attenuated. Although technically age indeterminate, this favors a chronic occlusion given the old left MCA territory infarcts. 3. Bilateral internal jugular vein thrombosis, left greater than right. 4. Small right pleural effusion. 5. Acute left maxillary sinusitis ACT 112: Negative or not required by law. Electronically signed by: Deshawn Thomas M.D. 09/11/2022 1:09 PM Discharge Plan Visit Data Chief Complaint: Neuro Symptoms/Deficit Stated Complaint: SPEECH IS SLURRED, NECK PAIN ED Provider: Toney Car Discharge Problem: Stroke-like symptoms, Acute internal jugular vein embolism, Carotid artery, internal, occlusion, Idioventricular rhythm Patient Disposition: Admitted As Inpatient Discharge Instructions Interventions: ED Discharge Assessment Last Done: 09/11/22 16:03 : Acute internal jugular vein embolism Qualifiers: Laterality: unspecified laterality Qualified Code(s): I82.C19 - Acute embolism and thrombosis of unspecified internal jugular vein Carotid artery, internal, occlusion Qualifiers: Laterality: left Qualified Code(s): I65.22 - Occlusion and stenosis of left carotid artery
[2022-09-11 11:55] LABS: Basophils # (auto) 0.07 K/uL (0-0.2); Basophils % (auto) 0.7 %; Eosinophils # (auto) 0.07 K/uL (0-0.50); Eosinophils % (auto) 0.7 %; Hematocrit (blood only) 51.3 % (40.1-51.0); Hemoglobin 17.5 g/dl (14.0-18.0); Immature Granulocytes # (auto) 0.04 K/uL (0.00-0.02); Immature Granulocytes % (auto) 0.4 %; Lymphocytes # (auto) 2.02 K/uL (1.2-3.4); Lymphocytes % (auto) 20.9 %; Mean Corpuscular Hemoglobin 31.3 pg (25.0-34.0); Mean Corpuscular Hgb Conc 34.1 g/dL (32.0-36.0); Mean Corpuscular Volume 91.8 fL (80.0-100.0); Mean Platelet Volume 12.1 fL (9.4-12.4); Monocytes # (auto) 0.96 K/uL (0.24-0.82); Monocytes % (auto) 9.9 %; Neutrophils % (auto) 67.4 %; Platelet Count 415 K/uL (130-400); RDW Coefficient of Variation 13.2 % (11.5-14.5); Red Blood Count 5.59 M/uL (4.63-6.08); White Blood Count 9.66 K/ul (4.8-10.8)
[2022-09-11 12:08] LABS: INR 1.3 (0.9-1.1); Partial Thromboplastin Time 28.2 Seconds (21.0-31.0); Prothrombin Time 13.3 Seconds (9.0-12.0)
[2022-09-11 12:14] LABS: Troponin I High Sensitivity 49.1 pg/ml (0-20)
[2022-09-11 12:17] LABS: Albumin Globulin Ratio 1.6 (0.9-2); Albumin Level 4.4 gm/dl (3.4-5.0); BUN Creatinine Ratio 9.3 (10-20); Bilirubin,Total 1.7 mg/dl (0.2-1.0); Calcium 9.8 mg/dl (8.5-10.1); Creatinine Clr Calc Pharmacy 143.4 ml/min; Est GFR (African American) 114.7 ml/min; Globulin 2.7 gm/dl (2.5-4.0); Potassium 3.9 mmol/L (3.5-5.1); Total Protein 7.1 gm/dl (6.0-8.3)
--- NOTE | 2022-09-11 12:21 | XRay Report ---
XR chest 1V portable HISTORY: 51 years-old Male neuro deficit, acute stroke suspected acute strokelike symptoms COMPARISON: Chest radiograph and CTA chest at least 02/10/2022 TECHNIQUE: AP view of the chest FINDINGS: Cardiac silhouette is enlarged. Pulmonary vascular congestion with interstitial coarsening. Right ple ural effusion is again noted along with right basilar opacities. Degenerative changes of the shoulder s and spine. IMPRESSION: 1. Cardiomegaly with pulmonary vascular congestion and interstitial coarsening suggestive of pulmonar y edema. 2. Small right pleural effusion with right lung base opacities, similar to prior. ACT 112: Negative or not required by law. The above report was generated using voice recognition software. It may contain grammatical, syntax o r spelling errors. Electronically signed by: Benjy Rahman M.D. 09/11/2022 12:19 PM
[2022-09-11] MEDS ORDERED: OPTIRAY 320 500ml IV ONE (12:28)
--- NOTE | 2022-09-11 13:12 | CT Scan Report ---
NONCONTRAST HEAD CT, HEAD & NECK CTA HISTORY: Difficulty speaking. Neck pain. neuro deficit, acute stroke suspected TECHNIQUE: Multiaxial CT images of the head were performed without intravenous contrast. Multiaxial C T images of the head were performed following the intravenous administration of contrast to evaluate the major cerebral vessels. Multiaxial CT images of the neck were also performed following the intrav enous administration of contrast to evaluate the major cervical vessels. Maximum intensity projection images were also obtained. A dose lowering technique was utilized adhering to the principles of JEFFY Barajas COMPARISON: Head CT 04/14/2015. FINDINGS: NONCONTRAST HEAD CT: There is no mass, hematoma, midline shift, or acute infarct. Fluid level within the left maxillary sinus resulting in near complete opacification. Mild mucosal thickening within the right maxillary sinus. The mastoid air cells are clear. Areas of encephalomalacia within the left po sterior frontal lobe consistent with an old left MCA territory infarct. HEAD CTA: Complete occlusion of the intracranial portion of the left internal carotid artery. The dis lane vertebral arteries, basilar artery, and right internal carotid artery are widely patent. The prox imal left MCA is also occluded. The residual branches of the left MCA are attenuated. The right MCA i s widely patent. 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 T he major dural venous sinuses are patent. NECK CTA: The aortic arch and proximal great vessels are widely patent. The bilateral vertebral jose juan [place]isco, bilateral common carotid arteries, and right internal carotid artery are widely patent. The lef t internal carotid artery is completely occluded at the level the bifurcation. Heterogeneous density and expansion of the entire left internal jugular vein consistent with diffuse thrombus. There is als o mild heterogeneity and expansion of the base of the right internal jugular vein at the neck base. T his also likely represents an area of thrombus. Extensive left neck edema likely due to the internal jugular vein thrombus. Prominent mediastinal and neck base lymph nodes which could be reactive. There is a small right pleural effusion. No acute fractures identified within the cervical spine. IMPRESSION: 1. 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 No definite acute infarct or intracranial hemorrhage. 2. 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 The residual distal left MCA branches are attenuated. Although technically ag e indeterminate, this favors a chronic occlusion given the old left MCA territory infarcts. 3. Bilateral internal jugular vein thrombosis, left greater than right. 4. Small right pleural effusion. 5. Acute left maxillary sinusitis ACT 112: Negative or not required by law. Electronically signed by: Deshawn Thomas M.D. 09/11/2022 1:09 PM
--- NOTE | 2022-09-11 14:21 | History & Physical Report ---
Date of Service September 11, 2022 Assessment & Plan (1) Stroke-like symptoms: Plan: -Admit to the PCU -Patient is currently afebrile, hemodynamically stable, and stable on RA -Patient came to the ED for slurred speech which started 48 hours ago when he woke up. 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 No definite acute infarct or intracranial hemorrhage. 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 The residual distal left MCA branches are attenuated. Although technically age indeterminate, this favors a chronic occlusion given the old left MCA territory infarcts. 3) Bilateral internal jugular vein thrombosis, left greater than right. -Spoke to radiology, appreciate their help, they confirmed that he is still draining blood efficiently enough at this time despite the BL IJV thromboses, recommended MRI of the brain WO con for further assessment -Patient has numerous risk factors for his hypercoagulable state including HTN, DM (poorly controlled), hyperlipidemia, 2PPD smoking, heart failure. Patient is also noted to be coivd +, which also increases his risk of thromboses -Obtained basic hypercoagulable labs, will start patient on a heaprin drip now -MRI of the Brain WO con ordered STAT, will follow-up -Will obtained repeat TTE for further assessment -Neuro checks q4h, seizure precautions, BP parameters ordered, monitor on tele and pulse ox -Will likely have to consult vascular surgery and neurology after his workup is complete -PT/OT consults ordered [facility] aspiration and fall precautions -Continue home statin & aspirin if he passes swallow eval (2) COVID-19: Plan: -Found to be positive in the ED -Currently stable on RA, no hx of vaccination -For now treat symptomatically with tyelnol, prn O2 for SpO2 less than 92%, prn Robitussin, pulm hygiene and scheduled DuoNebs (3) Elevated troponin: Plan: -Initial trop elevated in the 40's, patient is without chest pain and acute ECG changes -Will repeat another troponin now (4) Chronic systolic (congestive) heart failure: Plan: -Patient with LVEF of 20-20% as of -Just had heart cath with [facility] Cards on 08/28/22 showing ""100% occlusion of the LAD in its midportion at the site of prior stenting, 100% occlusion of the PDA, Elevated left ventricular filling pressures", recommended continuing medical management -Patient examines volume overloaded at this time, was not taking his 40 mg PO lasix for the past 48 hours -Will start 60 mg IV lasix BID, monitor intake and output, eventually can transition back to home dose befoe DC -Continue metoprolol (5) Tobacco use disorder: Plan: -Still smokes 2PPD -Will order nctoine patch and prn gum (6) Essential hypertension: Plan: -Stable -Continue lisinopril and metoprolol (7) CAD (coronary artery disease): Plan: -Continue aspirin and statin (8) Hypercholesterolemia: Plan: -Continue statin Plan The patient was discussed with Dr. Garrison at the time of the admission History of Present Illness Chief Complaint: Stroke-like symptoms Primary Care Provider: YOLANDA Cuba Abdoul is a 51 year old male with a PMH significant for CAD, S/P cardiac cath on 08/28/22 showing "100% occlusion of the LAD in its midportion at the site of prior stenting, 100% occlusion of the PDA, Elevated left ventricular filling pressures, No evidence of aortic stenosis". HFrEF (LVEF of 20-25%, dilated left ventricle as of 02/10/22), DM II, tobacco use disorder who presented to the [facility] ED on 09/11/22 with a chief complaint of stroke-like symptoms. In the ED the patient was found to be afebrile, hemodynamically stable, and stable on RA. Labs were remarkable for a CBC showing chronic thrombocytopenia of 415 and otherwise WNL, stable Cr of 0.86, glucose of 278, corrected sodium of 136, total bili of 1.7 otherwise stable liver function, initial high sensitivity troponin of 49, and covid positive. Chest xray shows "Cardiomegaly with pulmonary vascular congestion and interstitial coarsening suggestive of pulmonary edema. 2. Small right pleural effusion with right lung base opacities, similar to prior.". CT of the head and CTA of the head/neck shows "1. 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 No definite acute infarct or intracranial hemorrhage. 2. 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 The residual distal left MCA branches are attenuated. Although technically age indeterminate, this favors a chronic occlusion given the old left MCA territory infarcts. 3. Bilateral internal jugular vein thrombosis, left greater than right. 4. Small right pleural effusion. 5. Acute left maxillary sinusitis. Prior to admission the patient was not given medications or IV fluids. Per chart review, the patient underwent Cardiac catheterization on 08/28/22 with the results listed above. Per the post-op note, medical management was recommended at that time. At the time of the exam the patient was resting comfortably in bed in no acute distress on RA. He states that he woke up yesterday morning and noticed that he was slurring his speech. He notes that his last known well would have been the night of 09/09/22. Today he went to work and one of his coworkers stressed how bad his speech was, which is why he came to the ED. He denies recent fevers/chills and did not obtain a covid vaccine or booster. He states that over the past two days he has not taken his medications consistently, especially his lasix, due to his speech issues. He feels as though he has been fluid overloaded over the past 48 hours as he has not been taking his lasix. He notes a productive cough over the past 48 hours with white sputum. He denies chest pain but states he has felt somewhat SOB over the past 48 hours. He denies abdominal pain, nausea, vomiting, diarrhea, dysuria, hematuria, and recent falls/trauma. I explained to him that we need to get an MRI of the brain for further evaluation and he is in agreement with the plan. I spoke to him regarding code status, he is a full code and would want his Nephew to make decisions for him if he could not make them himself. Please refer to Dr. Garrison's attestation for any changes to the treatment plan Allergies Allergy/AdvReac Type Severity Reaction Status Date / Time No Known Allergies Allergy Unverified 08/28/22 07:43 Home Medications Medication Instructions Recorded Confirmed Type aspirin 81 mg tablet,delayed 81 mg PO DAILY 02/10/22 09/11/22 History release rosuvastatin 5 mg tablet 5 mg PO QAM #90 tabs 03/02/22 09/11/22 Rx lisinopril 5 mg tablet 5 mg PO DAILY #90 tabs 03/26/22 09/11/22 Rx furosemide 40 mg tablet 80 mg PO DAILY #180 tabs 08/05/22 09/11/22 Rx metoprolol succinate 25 mg 25 mg PO DAILY #90 tabs 08/28/22 09/11/22 Rx tablet,extended release 24 hr Past Med/Surg History Medical History CAD (coronary artery disease) Coronary artery arteriosclerosis Essential hypertension Hypercholesterolemia Hyperlipidemia Ischemic cardiomyopathy Morbid obesity Scalp laceration Surgical History Stented coronary artery Social History Smoking Status: Current every day smoker Tobacco Type: Cigarettes packs per day: 2; Cigarettes Per Day: 2 packs/day; Hx Alcohol Use: Yes Alcohol type: beer Hx Substance Use: No Preferred Language: Chinese Communication Ability: Effective 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 All systems have been reviewed and are otherwise negative. Physical Exam Physical Exam: Physical Exam: General: In no acute distress, stated age, chronically ill-appearing, non- toxic appearing HEENT: Normocephalic, atraumatic, no scleral icterus, pupils around round, symmetrical, and reactive to light, mild right facial droop, patient currently slurring words but speech is normal and coherent, moist mucus membranes, trachea midline, no thyromegaly Chest/Pulm: No respiratory distress, symmetrical chest expansion, decreased breath sounds in the BL lung johnson, expiratory wheezing noted in all other lung johnson Cardiac: RRR, no murmurs noted Abdomen: Negative for ascites and bruising, normoactive bowel sounds, soft, non-tender to palpation throughout Musculoskeletal: Symmetrical and without signs of acute trauma, upper and lower extremities with full ROM, no atrophy, spasticity, or flaccidity Extremities: Radial, dorsalis pedis, and posterior tibial pulses are intact and symmetrical, +1 pitting edema noted in the BL LE's Skin: Warm, dry, no rashes , lesions, or scars noted Neuro: Alert and oriented to person, place, month, year, and president, patient is slurring words but speech is comprehensible, possible mild right facial droop, CN II-XII tested and otherwise intact, RUE with slightly less strenght than the LUE, symmetrical strength in the BL LEs Psych: No acute distress, calm and cooperative during the exam Results & Data Results & Data ([facility]) Vital Signs (Past 12 Hours) Vital Signs Temp Pulse Pulse Resp BP BP Pulse Ox 09/11/22 13:45 92 H 13 09/11/22 13:45 106/63 09/11/22 13:30 92 H 20 09/11/22 13:30 123/88 09/11/22 13:15 127/81 09/11/22 13:15 93 H 21 97 09/11/22 13:00 94 H 19 96 09/11/22 13:00 131/89 09/11/22 12:45 95 H 22 96 09/11/22 12:45 128/92 09/11/22 12:39 95 H 12 96 09/11/22 12:39 131/92 09/11/22 13:00 93 H 19 131/89 96 09/11/22 12:15 127/92 09/11/22 12:15 97 H 16 94 09/11/22 12:02 98 H 19 94 09/11/22 12:02 122/85 09/11/22 12:00 96 H 21 95 09/11/22 12:00 134/81 09/11/22 11:30 106 H 24 95 09/11/22 11:30 147/94 H 09/11/22 11:20 108 H 22 96 09/11/22 11:20 150/105 H 09/11/22 11:05 36.5 C 100 H 18 160/109 H 96 O2 Del Method 09/11/22 13:45 09/11/22 13:45 09/11/22 13:30 09/11/22 13:30 09/11/22 13:15 09/11/22 13:15 09/11/22 13:00 09/11/22 13:00 09/11/22 12:45 09/11/22 12:45 09/11/22 12:39 09/11/22 12:39 09/11/22 13:00 Room Air 09/11/22 12:15 09/11/22 12:15 09/11/22 12:02 09/11/22 12:02 09/11/22 12:00 09/11/22 12:00 09/11/22 11:30 09/11/22 11:30 09/11/22 11:20 09/11/22 11:20 09/11/22 11:05 Room Air Laboratory Results Abnormal lab results 09/11/22 09/11/22 09/11/22 Range/Units 11:16 11:16 11:16 Hct 51.3 H (40.1-51.0) % Plt Count 415 H (130-400) K/uL [place] # (Auto) 0.96 H (0.24-0.82) K/uL Immature Gran # (Auto) 0.04 H (0.00-0.02) K/uL PT 13.3 H (9.0-12.0) Seconds INR 1.3 H (0.9-1.1) Sodium 133 L (136-145) mmol/L Chloride 93 L (98-107) mmol/L Carbon Dioxide 33 H (21-32) mmol/L BUN/Creatinine Ratio 9.3 L (10-20) Glucose 278 H (70-99(Fasting)) mg/dl Total Bilirubin 1.7 H (0.2-1.0) mg/dl Troponin I High Sens 49.1 H (0-20) pg/ml SARS-CoV-2, RNA, NAAT (NEGATIVE) 09/11/22 Range/Units 11:50 Hct (40.1-51.0) % Plt Count (130-400) K/uL [place] # (Auto) (0.24-0.82) K/uL Immature Gran # (Auto) (0.00-0.02) K/uL PT (9.0-12.0) Seconds INR (0.9-1.1) Sodium (136-145) mmol/L Chloride (98-107) mmol/L Carbon Dioxide (21-32) mmol/L BUN/Creatinine Ratio (10-20) Glucose (70-99(Fasting)) mg/dl Total Bilirubin (0.2-1.0) mg/dl Troponin I High Sens (0-20) pg/ml SARS-CoV-2, RNA, NAAT POSITIVE A* (NEGATIVE) Diagnostic Findings Chest X-Ray 09/11/22 11:27 XR chest 1V portable HISTORY: 51 years-old Male neuro deficit, acute stroke suspected acute strokelike symptoms COMPARISON: Chest radiograph and CTA chest at least 02/10/2022 TECHNIQUE: AP view of the chest FINDINGS: Cardiac silhouette is enlarged. Pulmonary vascular congestion with interstitial coarsening. Right pleural effusion is again noted along with right basilar opacities. Degenerative changes of the shoulders and spine. IMPRESSION: 1. Cardiomegaly with pulmonary vascular congestion and interstitial coarsening suggestive of pulmonary edema. 2. Small right pleural effusion with right lung base opacities, similar to prior. ACT 112: Negative or not required by law. The above report was generated using voice recognition software. It may contain grammatical, syntax or spelling errors. Electronically signed by: Benjy Rahman M.D. 09/11/2022 12:[address] 09/11/22 11:[address], HEAD & NECK CTA HISTORY: Difficulty speaking. Neck pain. neuro deficit, acute stroke suspected TECHNIQUE: Multiaxial CT images of the head were performed without intravenous contrast. Multiaxial CT images of the head were performed following the intravenous administration of contrast to evaluate the major cerebral vessels. Multiaxial CT images of the neck were also performed following the intravenous administration of contrast to evaluate the major cervical vessels. Maximum intensity projection images were also obtained. A dose lowering technique was utilized adhering to the principles of ALARA. COMPARISON: Head CT 04/14/2015. FINDINGS: NONCONTRAST HEAD CT: There is no mass, hematoma, midline shift, or acute infarct. Fluid level within the left maxillary sinus resulting in near complete opacification. Mild mucosal thickening within the right maxillary sinus. The mastoid air cells are clear. Areas of encephalomalacia within the left posterior frontal lobe consistent with an old left MCA territory infarct. HEAD CTA: Complete occlusion of the intracranial portion of the left internal carotid artery. The distal vertebral arteries, basilar artery, and right internal carotid artery are widely patent. The proximal left MCA is also occluded. The residual branches of the left MCA are attenuated. The right MCA is widely patent. No significant stenosis, occlusion, or aneurysm within the bilateral ACAs or centrifugal supervisor. The major dural venous sinuses are patent. NECK CTA: The aortic arch and proximal great vessels are widely patent. The bilateral vertebral arteries, bilateral common carotid arteries, and right internal carotid artery are widely patent. The left internal carotid artery is completely occluded at the level the bifurcation. Heterogeneous density and expansion of the entire left internal jugular vein consistent with diffuse thrombus. There is also mild heterogeneity and expansion of the base of the right internal jugular vein at the neck base. This also likely represents an area of thrombus. Extensive left neck edema likely due to the internal jugular vein thrombus. Prominent mediastinal and neck base lymph nodes which could be reactive. There is a small right pleural effusion. No acute fractures identified within the cervical spine. IMPRESSION: 1. 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 No definite acute infarct or intracranial hemorrhage. 2. 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 The residual distal left MCA branches are attenuated. Although technically age indeterminate, this favors a chronic occlusion given the old left MCA territory infarcts. 3. Bilateral internal jugular vein thrombosis, left greater than right. 4. Small right pleural effusion. 5. Acute left maxillary sinusitis ACT 112: Negative or not required by law. Electronically signed by: Deshawn Thomas M.D. 09/11/2022 1:09 PM Head CTA 09/11/22 11:[address], HEAD & NECK CTA HISTORY: Difficulty speaking. Neck pain. neuro deficit, acute stroke suspected TECHNIQUE: Multiaxial CT images of the head were performed without intravenous contrast. Multiaxial CT images of the head were performed following the intravenous administration of contrast to evaluate the major cerebral vessels. Multiaxial CT images of the neck were also performed following the intravenous administration of contrast to evaluate the major cervical vessels. Maximum intensity projection images were also obtained. A dose lowering technique was utilized adhering to the principles of ALARA. COMPARISON: Head CT 04/14/2015. FINDINGS: NONCONTRAST HEAD CT: There is no mass, hematoma, midline shift, or acute infarct . Fluid level within the left maxillary sinus resulting in near complete opacification. Mild mucosal thickening within the right maxillary sinus. The mastoid air cells are clear. Areas of encephalomalacia within the left posterior frontal lobe consistent with an old left MCA territory infarct. HEAD CTA: Complete occlusion of the intracranial portion of the left internal carotid artery. The distal vertebral arteries, basilar artery, and right internal carotid artery are widely patent. The proximal left MCA is also occluded. The residual branches of the left MCA are attenuated. The right MCA is widely patent. No significant stenosis, occlusion, or aneurysm within the bilateral ACAs or centrifugal supervisor. The major dural venous sinuses are patent. NECK CTA: The aortic arch and proximal great vessels are widely patent. The bilateral vertebral arteries, bilateral common carotid arteries, and right internal carotid artery are widely patent. The left internal carotid artery is completely occluded at the level the bifurcation. Heterogeneous density and expansion of the entire left internal jugular vein consistent with diffuse thrombus. There is also mild heterogeneity and expansion of the base of the right internal jugular vein at the neck base. This also likely represents an area of thrombus. Extensive left neck edema likely due to the internal jugular vein thrombus. Prominent mediastinal and neck base lymph nodes which could be reactive. There is a small right pleural effusion. No acute fractures identified within the cervical spine. IMPRESSION: 1. 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 No definite acute infarct or intracranial hemorrhage. 2. 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 The residual distal left MCA branches are attenuated. Although technically age indeterminate, this favors a chronic occlusion given the old left MCA territory infarcts. 3. Bilateral internal jugular vein thrombosis, left greater than right. 4. Small right pleural effusion. 5. Acute left maxillary sinusitis ACT 112: Negative or not required by law. Electronically signed by: Deshawn Thomas M.D. 09/11/2022 1:09 PM Neck CTA 09/11/22 11:[address], HEAD & NECK CTA HISTORY: Difficulty speaking. Neck pain. neuro deficit, acute stroke suspected TECHNIQUE: Multiaxial CT images of the head were performed without intravenous contrast. Multiaxial CT images of the head were performed following the intravenous administration of contrast to evaluate the major cerebral vessels. Multiaxial CT images of the neck were also performed following the intravenous administration of contrast to evaluate the major cervical vessels. Maximum intensity projection images were also obtained. A dose lowering technique was utilized adhering to the principles of ALARA. COMPARISON: Head CT 04/14/2015. FINDINGS: NONCONTRAST HEAD CT: There is no mass, hematoma, midline shift, or acute infarct. Fluid level within the left maxillary sinus resulting in near complete opacification. Mild mucosal thickening within the right maxillary sinus. The mastoid air cells are clear. Areas of encephalomalacia within the left posterior frontal lobe consistent with an old left MCA territory infarct. HEAD CTA: Complete occlusion of the intracranial portion of the left internal carotid artery. The distal vertebral arteries, basilar artery, and right internal carotid artery are widely patent. The proximal left MCA is also occluded. The residual branches of the left MCA are attenuated. The right MCA is widely patent. No significant stenosis, occlusion, or aneurysm within the bilateral ACAs or centrifugal supervisor. The major dural venous sinuses are patent. NECK CTA: The aortic arch and proximal great vessels are widely patent. The bilateral vertebral arteries, bilateral common carotid arteries, and right internal carotid artery are widely patent. The left internal carotid artery is completely occluded at the level the bifurcation. Heterogeneous density and expansion of the entire left internal jugular vein consistent with diffuse thrombus. There is also mild heterogeneity and expansion of the base of the right internal jugular vein at the neck base. This also likely represents an area of thrombus. Extensive left neck edema likely due to the internal jugular vein thrombus. Prominent mediastinal and neck base lymph nodes which could be reactive. There is a small right pleural effusion. No acute fractures identified within the cervical spine. IMPRESSION: 1. 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 No definite acute infarct or intracranial hemorrhage. 2. 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 The residual distal left MCA branches are attenuated. Although technically age indeterminate, this favors a chronic occlusion given the old left MCA territory infarcts. 3. Bilateral internal jugular vein thrombosis, left greater than right. 4. Small right pleural effusion. 5. Acute left maxillary sinusitis ACT 112: Negative or not required by law. Electronically signed by: Deshawn Thomas M.D. 09/11/2022 1:09 PM ECG Additional Comments: Sinus tachycardia with 1st degree A-V block Possible Left atrial enlargement Incomplete right bundle branch block Possible Inferior infarct (cited on or before 10-FEB-2022) Abnormal ECG When compared with ECG of 11-FEB-2022 08:27, QRS axis Shifted left Supervising Physician Co-Signing Physician Notes Patient was seen and examined independently I discussed the case with Tono INGRAM I reviewed pertinent past medical social family history and also the plan of care and agree with the plan of care. PT with one day history of dysarthria, found to have subacute stroke, left ICA occlusion and bilateral internal jugular occlusion with covid + testing without significant infectious symptoms Does have ischemic cardiomyopathy,EF25%, recent cath with no new occlusive disease but significant baseline disease, presents with acute on chronic systolic heart failure due to the pt not taking his Rx lasix. He has diabetes with poor control last A1c was 11 PT has deficits of dysarthria, maybe some right arm weakness but not hand weakness and no plethora to face starting therapeutic heparin after hypercoag studies sent no treatment of covid at this time-> covid itself will cause risk treat acute systolic heart failure with iv lasix mri to eval for additional acute stroke-> ER spoke to stroke provider at [facility] according to literature, unprovoked jugular thrombosis( not line or trauma) can carry a 44% one year mortality ? 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 Any exceptions will be noted below PG Care Time/CCT Total # of Minutes Spent Total Time Spent with Patient: Total time spent is greater than 50% in coordination of care (as documented) at patient's floor/unit and/or counseling patient: [place] [address] Initial Inpt Care Lvl 3 Patient Type Established History Comprehensive Exam Comprehensive Medical Decision Making High Complexity Diagnoses Stroke-like symptoms R29.90 COVID-19 U07.1 Elevated troponin R77.8 Chronic systolic (congestive) heart failure I50.22 Tobacco use disorder F17.200 Essential hypertension I10 CAD (coronary artery disease) I25.10 Hypercholesterolemia E78.00
--- NOTE | 2022-09-11 14:43 | Electrocardiogram Report ---
Test Reason : Blood Pressure : / mmHG Vent. Rate : 108 BPM Atrial Rate : 108 BPM P-R Int : 210 ms QRS Dur : 110 ms QT Int : 334 ms P-R-T Axes : 077 045 051 degrees QTc Int : 447 ms Sinus tachycardia with 1st degree A-V block Possible Left atrial enlargement Incomplete right bundle branch block Possible Inferior infarct (cited on or before 10-FEB-2022) Abnormal ECG When compared with ECG of 11-FEB-2022 08:27, QRS axis Shifted left Confirmed by Toney Jones ([id number]) on 09/11/2022 2:43:22 PM Referred By: REFERRED SELF Confirmed By:Toney Jones
[2022-09-11] MEDS ORDERED: PHARMACIST DISCHARGE MED REC CONSULT PRN (15:00)
[2022-09-11] MEDS ORDERED: DEXTROSE 50% 50 ML SYRINGE IV PRN (15:03)
[2022-09-11] MEDS ORDERED: GLUCOSE 40% GEL 15 GM TUBE PO PRN (15:03)
[2022-09-11] MEDS ORDERED: GLUCOSE 10 TAB/TUBE PO PRN (15:03)
[2022-09-11] MEDS ORDERED: CARBOHYDRATES FOR HYPOGLYCEMIA PO PRN (15:03)
[2022-09-11] MEDS ORDERED: GLUCAGON FOR INJ 1 MG VIAL SQ PRN (15:03)
[2022-09-11] MEDS ORDERED: Heparin IV Adult Wt-Based Standard WITH Bolus Protocol IV STA (15:18)
[2022-09-11] MEDS ORDERED: HEPARIN SOD (PORCINE) 1000 UNIT/ML IV ONE (15:30)
[2022-09-11] MEDS ORDERED: NICOTINE POLACRILEX 2 MG GUM MT PRN (15:32)
[2022-09-11] MEDS ORDERED: ACETAMINOPHEN 325 MG TAB PO PRN (15:35)
[2022-09-11] MEDS: HEPARIN SODIUM/DEXTROSE 25,000 UNITS/500 ML BAG IV SCH (15:59)
[2022-09-11 16:08] LABS: Basophils # (auto) 0.07 K/uL (0-0.2); Basophils % (auto) 0.8 %; Eosinophils # (auto) 0.08 K/uL (0-0.50); Eosinophils % (auto) 0.9 %; Hematocrit (blood only) 48.5 % (40.1-51.0); Hemoglobin 16.3 g/dl (14.0-18.0); Immature Granulocytes # (auto) 0.05 K/uL (0.00-0.02); Immature Granulocytes % (auto) 0.5 %; Lymphocytes # (auto) 1.78 K/uL (1.2-3.4); Lymphocytes % (auto) 19.4 %; Mean Corpuscular Hemoglobin 30.9 pg (25.0-34.0); Mean Corpuscular Hgb Conc 33.6 g/dL (32.0-36.0); Mean Platelet Volume 11.8 fL (9.4-12.4); Monocytes # (auto) 0.84 K/uL (0.24-0.82); Monocytes % (auto) 9.2 %; Neutrophils # (auto) 6.34 K/uL (1.4-6.5); Neutrophils % (auto) 69.2 %; Platelet Count 354 K/uL (130-400); RDW Coefficient of Variation 13.2 % (11.5-14.5); RDW Standard Deviation 45.1 fL (36.4-46.3); Red Blood Count 5.27 M/uL (4.63-6.08); White Blood Count 9.16 K/ul (4.8-10.8)
--- NOTE | 2022-09-11 16:15 | XCELERA ---
[id number]
[2022-09-11 16:25] LABS: INR 1.3 (0.9-1.1); Partial Thromboplastin Time 27.7 Seconds (21.0-31.0); Prothrombin Time 13.3 Seconds (9.0-12.0)
[2022-09-11] MEDS ORDERED: FUROSEMIDE 40 MG/4 ML VIAL IV ONE (16:45)
--- NOTE | 2022-09-11 17:15 | Magnetic Resonance Report ---
MRI OF THE BRAIN WITHOUT CONTRAST CLINICAL HISTORY: Stroke symptoms. COMPARISON STUDY: Head CT and CTA of the head performed earlier today. TECHNIQUE: Utilizing a 1.5 Dena magnet and dedicated coil, multiplanar, multiecho imaging of the bra in was performed without IV contrast. FINDINGS: Note is made of a 1.1 cm focus of restricted diffusion within the right temporal lobe on ax ial diffusion-weighted sequence image 15 of 26. There is no mass effect. There is no evidence for acu te hemorrhage. This represents an acute infarct. In addition, there are multiple smaller cortical foc i of increased signal intensity within the posterior right frontal lobe and anterior right parietal l obe. These favor additional smaller infarcts. Multiple old infarcts within left MCA distribution are present. Ventricular system is unremarkable. Basal cisterns are patent. No acute intracranial hemorrh age, midline shift or mass effect is present. Loss of flow-void for the intracranial portion of the i nternal carotid artery represents occlusion, better depicted on head CT performed earlier today. Ther e is also loss of flow-void for the left internal jugular vein beginning at the level of the skull ba se. This represents venous thrombus. Left maxillary sinus air-fluid level is noted with mucosal thick ening. This suggests acute sinusitis. Vertebral signal is within normal limits. IMPRESSION: 1. 1.1 cm right temporal lobe acute infarct. No mass effect. No hemorrhage. 2. Additional suspected small acute cortical infarcts within the right frontoparietal region, as desc ribed above. 3. Multiple old infarcts within left MCA distribution. 4. Occlusion of the intracranial portion of the left internal carotid artery, better depicted on the CTA performed earlier today. 5. Left internal jugular vein thrombosis. 6. Acute left maxillary sinus sinusitis. ACT 112: Negative or not required by law. Electronically signed by: Darci Agee M.D. 09/11/2022 5:13 PM
[2022-09-11] MEDS: INSULIN ASPART PER UNIT SC SCH ×2 (18:48→21:35)
[2022-09-11] MEDS: METOPROLOL SUCC 25MG EXT REL TAB PO SCH (18:57)
[2022-09-11] MEDS: lisinopril 5 MG TAB PO SCH (18:58)
[2022-09-11] MEDS: FUROSEMIDE 40 MG/4 ML VIAL IV SCH ×2 (18:58→21:12)
[2022-09-11] MEDS: ROSUVASTATIN CALCIUM 5 MG TAB PO SCH (18:58)
[2022-09-11] MEDS: ALBUT/IPRATROP 3MG/0.5MG NEB 3 ML VIAL NEB SCH (20:43)
[2022-09-11] MEDS: NICOTINE 21 MG/24 HR TDSY TD SCH (21:10)
[2022-09-11] MEDS: LANTUS PER UNIT CHARGE SQ SCH (21:36)
[2022-09-11 23:25] LABS: Partial Thromboplastin Ratio 1.2; Partial Thromboplastin Time 32.2 Seconds (21.0-31.0)
[2022-09-12] MEDS ORDERED: HEPARIN SOD (PORCINE) 1000 UNIT/ML IV ONE ×3 (00:15→16:00)
[2022-09-12 03:49] LABS: Basophils # (auto) 0.05 K/uL (0-0.2); Basophils % (auto) 0.5 %; Eosinophils # (auto) 0.07 K/uL (0-0.50); Eosinophils % (auto) 0.7 %; Hematocrit (blood only) 44.1 % (40.1-51.0); Hemoglobin 15.3 g/dl (14.0-18.0); Immature Granulocytes # (auto) 0.05 K/uL (0.00-0.02); Immature Granulocytes % (auto) 0.5 %; Lymphocytes # (auto) 1.88 K/uL (1.2-3.4); Lymphocytes % (auto) 19.6 %; Mean Corpuscular Hemoglobin 31.1 pg (25.0-34.0); Mean Corpuscular Hgb Conc 34.7 g/dL (32.0-36.0); Mean Corpuscular Volume 89.6 fL (80.0-100.0); Mean Platelet Volume 11.7 fL (9.4-12.4); Monocytes # (auto) 1.15 K/uL (0.24-0.82); Neutrophils # (auto) 6.37 K/uL (1.4-6.5); Neutrophils % (auto) 66.7 %; Platelet Count 325 K/uL (130-400); RDW Coefficient of Variation 13.3 % (11.5-14.5); RDW Standard Deviation 43.8 fL (36.4-46.3); Red Blood Count 4.92 M/uL (4.63-6.08); White Blood Count 9.57 K/ul (4.8-10.8)
[2022-09-12 04:09] LABS: Albumin Globulin Ratio 1.7 (0.9-2); Albumin Level 3.8 gm/dl (3.4-5.0); BUN Creatinine Ratio 13.5 (10-20); Calcium 9.3 mg/dl (8.5-10.1); Chol HDL Ratio 3.6 (0-5); Creatinine Clr Calc Pharmacy 166.7 ml/min; Est GFR (African American) 122.1 ml/min; Est GFR (Non-African American) 105.3 ml/min; Globulin 2.3 gm/dl (2.5-4.0); Potassium 3.4 mmol/L (3.5-5.1); Total Protein 6.1 gm/dl (6.0-8.3)
[2022-09-12 04:16] LABS: Partial Thromboplastin Ratio 1.7
[2022-09-12 04:17] LABS: Partial Thromboplastin Time 46.1 Seconds (21.0-31.0)
[2022-09-12] MEDS: HEPARIN SODIUM/DEXTROSE 25,000 UNITS/500 ML BAG IV SCH ×4 (05:35→16:38)
[2022-09-12 06:09] LABS: Estimated Average Glucose 278 mg/dl; Hemoglobin A1C 11.3 % (4.5-5.6)
[2022-09-12] MEDS: ALBUT/IPRATROP 3MG/0.5MG NEB 3 ML VIAL NEB SCH (07:11)
[2022-09-12 07:34] LABS: Partial Thromboplastin Ratio 1.2; Partial Thromboplastin Time 31.8 Seconds (21.0-31.0)
[2022-09-12] MEDS: INSULIN ASPART PER UNIT SC SCH ×4 (08:26→20:47)
[2022-09-12] MEDS: LANTUS PER UNIT CHARGE SQ SCH ×2 (08:27→20:47)
[2022-09-12] MEDS ORDERED: ALBUT/IPRATROP 3MG/0.5MG NEB 3 ML VIAL NEB PRN (08:39)
[2022-09-12] MEDS: METOPROLOL SUCC 25MG EXT REL TAB PO SCH (09:15)
[2022-09-12] MEDS: ROSUVASTATIN CALCIUM 5 MG TAB PO SCH (09:15)
[2022-09-12] MEDS: ASPIRIN 81 MG ECTAB PO SCH (09:15)
[2022-09-12] MEDS: FUROSEMIDE 40 MG/4 ML VIAL IV SCH ×2 (09:15→20:38)
[2022-09-12] MEDS: lisinopril 5 MG TAB PO SCH (09:15)
[2022-09-12] MEDS: NICOTINE 21 MG/24 HR TDSY TD SCH (10:16)
--- NOTE | 2022-09-12 11:02 | Neurology Consultation ---
Date of Consultation September 12, 2022 Assessment & Plan (1) Ischemic stroke: Plan Neurology Consultation Assessment: pt with acute small ischemic stroke rt temporal area with essentially no deficits. Recommendations: -since pt had symptoms started more than 2 days ago, no need for permissive HTN anymore. -recommend DAPT, add plavix and do DAPT for 90 days and then can do monotherapy with ASA 81mg po daily. strict DM control need to stop smoking. no intervention needed for his vascular occlusion as it is chronic and completely occluded. maximize medical management for stroke prevention. continue statin. LDL goal less than 70, SBP less than 140 senior living goal -otherwise, not much to add. continue tx for covid. please call again if new question. adonay hackett MD [facility] neurology HPI: pt this morning feeling well. speech almost back to his baseline. no weakness. mri brain noted for small areas at rt temporal ischemic stroke. no bleed. pt with known chronic vascuar disease and smoker and poorly controlled diabetes. chart reviewed. Admission/prior HPI note:Abdoul is a 51 year old male with a PMH significant for CAD, S/P cardiac cath on 08/28/22 showing "100% occlusion of the LAD in its midportion at the site of prior stenting, 100% occlusion of the PDA, Elevated left ventricular filling pressures, No evidence of aortic stenosis". HFrEF (LVEF of 20-25%, dilated left ventricle as of 02/10/22), DM II, tobacco use disorder who presented to the [facility] ED on 09/11/22 with a chief complaint of stroke-like symptoms. In the ED the patient was found to be afebrile, hemodynamically stable, and stable on RA. Labs were remarkable for a CBC showing chronic thrombocytopenia of 415 and otherwise WNL, stable Cr of 0.86, glucose of 278, corrected sodium of 136, total bili of 1.7 otherwise stable liver function, initial high sensitivity troponin of 49, and covid positive. Chest xray shows "Cardiomegaly with pulmonary vascular congestion and interstitial coarsening suggestive of pulmonary edema. 2. Small right pleural effusion with right lung base opacities, similar to prior.". CT of the head and CTA of the head/neck shows "1. 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 No definite acute infarct or intracranial hemorrhage. 2. 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 The residual distal left MCA branches are attenuated. Although technically age indeterminate, this favors a chronic occlusion given the old left MCA territory infarcts. 3. Bilateral internal jugular vein thrombosis, left greater than right. 4. Small right pleural effusion. 5. Acute left maxillary sinusitis. Prior to admission the patient was not given medications or IV fluids. Per chart review, the patient underwent Cardiac catheterization on 08/28/22 with the results listed above. Per the post-op note, medical management was recommended at that time. At the time of the exam the patient was resting comfortably in bed in no acute distress on RA. He states that he woke up yesterday morning and noticed that he was slurring his speech. He notes that his last known well would have been the night of 09/09/22. Today he went to work and one of his coworkers stressed how bad his speech was, which is why he came to the ED. He denies recent fevers/chills and did not obtain a covid vaccine or booster. He states that over the past two days he has not taken his medications consistently, especially his lasix, due to his speech issues. He feels as though he has been fluid overloaded over the past 48 hours as he has not been taking his lasix. He notes a productive cough over the past 48 hours with white sputum. He denies chest pain but states he has felt somewhat SOB over the past 48 hours. He denies abdominal pain, nausea, vomiting, diarrhea, dysuria, hematuria, and recent falls/trauma. I explained to him that we need to get an MRI of the brain for further evaluation and he is in agreement with the plan. I spoke to him regarding code status, he is a full code and would want his Nephew to make decisions for him if he could not make them himself. ROS: per HPI Med list: see chart PMHx/SHx: see chart Neuro Exam: Mental: AOx3, Fluent speech, normal comprehension, no apraxia, no neglect. CN: PERRL, Full EOM, symmetric face, tongue midline. SCM/Traps 5/5 Motor: 5/5 t/o symmetric bilaterally. Normal tone and bulk. No abnormal movements. Sens: intact to touch b/l Coord: intact DTR: toes down b/l Total time spent:80 min. This includes time spent educating patient about medical condition and coordination of care (also including time spent on chart reviewing and documentation). History of Present Illness Attending Physician: Rodrick Geroges MD Allergies Allergy/AdvReac Type Severity Reaction Status Date / Time No Known Allergies Allergy Unverified 08/28/22 07:43 Home Medications Medication Instructions Recorded Confirmed Type aspirin 81 mg tablet,delayed 81 mg PO DAILY 02/10/22 09/11/22 History release rosuvastatin 5 mg tablet 5 mg PO QAM #90 tabs 03/02/22 09/11/22 Rx lisinopril 5 mg tablet 5 mg PO DAILY #90 tabs 03/26/22 09/11/22 Rx furosemide 40 mg tablet 80 mg PO DAILY #180 tabs 08/05/22 09/11/22 Rx metoprolol succinate 25 mg 25 mg PO DAILY #90 tabs 08/28/22 09/11/22 Rx tablet,extended release 24 hr Patient History Medical History CAD (coronary artery disease) Coronary artery arteriosclerosis Essential hypertension Hypercholesterolemia Hyperlipidemia Ischemic cardiomyopathy Morbid obesity Scalp laceration Surgical History Stented coronary artery Social History Smoking Status: Current every day smoker Tobacco Type: Cigarettes packs per day: 2; Cigarettes Per Day: 2 packs/day; Do You Dip or Chew Tobacco: No; Tobacco Cessation Education Requested by Patient: No Hx Alcohol Use: Yes Alcohol type: beer Hx Substance Use: No Preferred Language: Latvian Communication Ability: Effective Fire Prevention Research Engineer Required: No Beliefs That Will Affect Care: None Current Living Situation: Alone How many Children do You have: 1 Other Information That Helps Us Care for You: No Feels Safe at Home: Yes Safety Concerns: Feels Safe At This Time Assistive Devices: None Results & Data ([facility]) Vital Signs (Past 12 Hours) Vital Signs Temp Pulse Resp BP BP Pulse Ox O2 Del Method 09/12/22 07:42 36.7 C 96 H 18 122/76 93 Room Air 09/12/22 07:11 90 18 95 Room Air 09/12/22 03:58 36.9 C 93 H 18 119/79 93 Room Air
--- NOTE | 2022-09-12 12:17 | Ultrasound Report ---
ULTRASOUND BILATERAL LOWER EXTREMITY VENOUS CLINICAL HISTORY: Stroke. History of patent foramen ovale. COMPARISON STUDY: Bilateral lower extremity venous ultrasound dated 02/10/2022. TECHNIQUE: Real-time, grayscale, and color Doppler sonography of the deep veins of the right and left lower extremity was performed from the inguinal crease to the calf. Compression and augmentation wer e utilized. FINDINGS: There is no sonographic evidence of deep venous thrombosis identified in the right or left lower extremity. The common femoral, superficial femoral, and popliteal veins are patent and normally compressible bilaterally. The greater saphenous vein and the profunda femoris vein at the junction w ith the common femoral vein are clear in both legs. The visualized calf veins are patent bilaterally. IMPRESSION: There is no sonographic evidence of deep venous thrombosis identified in the right or lef t lower extremity. ACT 112: Negative or not required by law. Electronically signed by: Ronan Adam M.D. 09/12/2022 12:16 PM
[2022-09-12 12:27] LABS: Appearance Urine Clear (Clear); Bilirubin Urine Negative (Negative); Blood Urine Negative (Negative); Color Urine Yellow; Glucose Urine UA Negative (Negative); Ketones Urine Negative (Negative); Leukocyte Esterase Urine Negative (Negative); Nitrite Urine Negative (Negative); Protein Urine Negative (Negative); Specific Gravity Urine 1.006 (1.000-1.030); Urobilinogen Urine Negative (Negative)
--- NOTE | 2022-09-12 14:52 | Hospitalist Progress Note ---
Date of Service September 12, 2022 Assessment & Plan (1) Ischemic stroke: Plan: Patient came to the ED for slurred speech which started 48 hours ago when he woke up. MRI brain on 09/11 showed "1.1 cm right temporal lobe acute infarct. No mass effect. No hemorrhage.". - CTA head/neck show likely chronically occluded left carotid artery and left MCA. -> also show left and right IJ thrombosis. - Continue home statin & aspirin - A1c is 11.4%. Patient intermittently refusing insulin in the hospital. - Discussed case with in-house neurologist, Dr. Chapman, who felt patient could be treated with DAPT and discharged. Did not mention in note the echocardiographic findings. [place] that the IJ thromboses did not need to be treated with anticoagulation. This was in contradiction to admitting provider's discussion with [facility] stroke neurologist. I also called [facility] and spoke with Bobby Leary who felt that the patient should be anticoagulated and have careful examination for other thrombus (LE Doppler and CTV of the abd/pelvis). He also recommended a 24h repeat head CT to check for hemorrhagic conversion of stroke. I reviewed the literature as best I could given this discrepancy and felt Dr. Leary's recommendations were more in line with therapy. - Homocysteine and prothrombin gene both pending. Would likely need other labs sent after 3 months of therapy as several are altered by acute thrombosis or therapy. (2) COVID-19: Plan: Found to be positive in the ED. Currently stable on RA, no hx of vaccination. - Treat symptomatically with Tylenol, Robitussin, Pulm hygiene, and scheduled DuoNebs (3) Elevated troponin: Plan: Initial trop elevated in the 40's, patient is without chest pain and acute ECG changes. Peaked at 600, then downtrending. Demand ischemia. - Do NOT think this is ACS. - Given recent left heart cath, do not think further intervention is warranted apart from medical management. - Continue ASA, beta-carter, ACEi, statin (4) Chronic systolic (congestive) heart failure: Plan: Patient with LVEF of 20-20% as of . Heart cath with [facility] on 08/28/22 showing ""100% occlusion of the LAD in its midportion at the site of prior stenting, 100% occlusion of the PDA, Elevated left ventricular filling pr essures." - Continue goal-directed medical therapies as above - Continue Lasix 60 mg IV daily (dropped from BID on 09/12). (5) Tobacco use disorder: Plan: Still smokes 2PPD. - Encouraged cessation. - Nicotine patch (6) Essential hypertension: Plan: Stable today at 135/85. - Continue lisinopril and metoprolol (7) CAD (coronary artery disease): Plan: - As above Admission and Anticipated Discharge Date Admission Date: September 11, 2022 Subjective Feels his speech is improving. Otherwise, doing well, and does not note any other deficits. Reports no fevers/chills, chest pain, shortness of breath, abdominal pain, nausea, or vomiting. Physical Exam Constitutional: WD/WN, vitals as above Eyes: EOM intact bilaterally; no conjunctival abnormality ENMT: external ear and nose normal, oropharynx normal Neck: trachea midline, no thyromegaly normal visual inspection Respiratory: normal respiratory effort, lungs clear to auscultation no respiratory distress Cardiovascular: RRR, no murmur, no edema Gastrointestinal (Abdomen): Inspection/Auscultation: abdomen normal to inspection; abdomen not distended Musculoskeletal: no cyanosis or clubbing, extremities motor strength 5/5 Skin: no rashes, warm and dry Neurologic: moves all extremities and awake Speech / Cognition: + abnormal speech (Dysarthria) Psychiatric: Orientation: alert, oriented to person and cooperative Results & Data Results & Data ([facility]) Vital Signs (Past 12 Hours) Vital Signs Temp Pulse Pulse Resp BP BP Pulse Ox 09/12/22 12:01 37.0 C 98 H 19 135/87 98 09/12/22 11:10 91 H 09/12/22 11:10 09/12/22 07:42 36.7 C 96 H 18 122/76 93 09/12/22 07:11 90 18 95 09/12/22 03:58 36.9 C 93 H 18 119/79 93 O2 Del Method 09/12/22 12:01 Room Air 09/12/22 11:10 09/12/22 11:10 Room Air 09/12/22 07:42 Room Air 09/12/22 07:11 Room Air 09/12/22 03:58 Room Air PG Care Time/CCT Total # of Minutes Spent Total Time Spent with Patient: Total time spent is greater than 50% in coordination of care (as documented) at patient's floor/unit and/or counseling patient: Coding Level of Care Code 33088 Subseq Hosp Care Lvl 3 Diagnoses Ischemic stroke I63.9 COVID-19 U07.1 Elevated troponin R77.8 Chronic systolic (congestive) heart failure I50.22 Tobacco use disorder F17.200 Essential hypertension I10 CAD (coronary artery disease) I25.10
[2022-09-12 15:38] LABS: Partial Thromboplastin Ratio 1.2; Partial Thromboplastin Time 32.8 Seconds (21.0-31.0)
[2022-09-12] MEDS ORDERED: OPTIRAY 320 500ml IV ONE (16:11)
[2022-09-12] MEDS ORDERED: COUGH DROP (SUGAR FREE) LOZ 24 LOZ/1 BOX BUCCAL ONE (16:40)
--- NOTE | 2022-09-12 17:02 | CT Scan Report ---
CT VENOGRAM OF THE ABDOMEN AND PELVIS CLINICAL HISTORY: Stroke. Patent foramen ovale. Clinical concern for pelvic DVT. COMPARISON STUDY: No priors. TECHNIQUE: Following the IV administration of 115 cc of Optiray 320, CT venogram of the abdomen and pelvis is performed from the lung bases to the proximal femora. Images are reviewed in the axial, sag ittal, and coronal planes. IV contrast was administered without complication. A dose lowering techniq ue was utilized adhering to the principles of ALARA. CT DOSE: 1435.75 mGy.cm FINDINGS: Lung bases: The heart is enlarged and without pericardial effusion. There are likely bilateral lower lobe pulmonary emboli. These are difficult to assess due to phase of enhancement. Emphysematous bosch es noted. There is a small right pleural effusion with right basilar consolidation. Liver: The contrast-enhanced liver is enlarged, measuring 21.3 cm in length. The liver is cirrhotic i n morphology and heterogeneous in attenuation. There is hypertrophy of the left lobe and nodularity o f the surface contour. There is no intrahepatic biliary ductal dilatation. The hepatic veins and port al veins are patent. Gallbladder: Unremarkable. Spleen: The spleen is mildly enlarged measuring 15 cm in length. Pancreas: Mildly atrophic and grossly unremarkable. Adrenal glands: Bilateral low-attenuation adrenal nodules measure up to 2.7 cm. These likely represen t adenomas but cannot be definitively characterized due to the presence of IV contrast. Kidneys: The contrast enhanced kidneys are normal in size and without hydronephrosis. The kidneys enh ance symmetrically. Abdominal vasculature: The abdominal aorta is normal in course and caliber noting moderate atheroscle rotic calcification. There is high-grade stenosis with near complete occlusion of the right common il iac artery seen on axial image #245. There is stenosis of both proximal superficial femoral arteries, right greater than left. IVC and pelvic veins. There is no evidence of deep venous thrombosis identified in the IVC or iliac v eins. Bowel: There is moderate colonic fecal retention. No bowel obstruction is seen. The appendix is well -visualized and normal. Peritoneum: There is a small to moderate volume of perihepatic and perisplenic ascites, as well as as citic fluid in the pelvis. No peritoneal free air is seen. Lymphadenopathy: Shotty retroperitoneal lymph nodes measure up to 1.5 cm in length. Pelvic viscera: The bladder is normal as visualized, and filled with excreted IV contrast. The prosta te and seminal vesicles are normal as imaged. Skeletal structures: The skeletal structures are osteopenic. There is moderate lumbosacral spondylosi s. No lytic or blastic lesions are seen. Soft tissues: There is body wall edema. IMPRESSION: 1. There are likely bilateral lower lobe pulmonary emboli. These are suboptimally assessed due to the phase of enhancement. 2. Small right pleural effusion with right lower lobe consolidation. This likely represents a pulmona ry infarct given the presence of pulmonary emboli in this distribution. 3. Cardiomegaly and emphysema. 4. There is no evidence of deep venous thrombosis in the IVC or pelvic veins. 5. The liver is enlarged, heterogeneous, and cirrhotic in morphology. 6. A small to moderate volume of abdominopelvic ascites and splenomegaly indicating portal hypertensi on. 7. Shotty retroperitoneal lymph nodes are nonspecific and likely reactive. 8. Additional findings as above. ACT 112: Negative or not required by law. Electronically signed by: Ronan Adam M.D. 09/12/2022 5:00 PM
[2022-09-12] MEDS ORDERED: MELATONIN 3 MG TAB PO PRN (19:27)
[2022-09-12 22:25] LABS: Partial Thromboplastin Ratio 1.5; Partial Thromboplastin Time 41.7 Seconds (21.0-31.0)
[2022-09-12] MEDS: guaiFENesin SUGAR FREE 200 MG/10 ML UDC PO PRN (23:22)
[2022-09-13] MEDS: HEPARIN SODIUM/DEXTROSE 25,000 UNITS/500 ML BAG IV SCH ×3 (01:39→11:29)
[2022-09-13 04:56] LABS: Basophils # (auto) 0.05 K/uL (0-0.2); Basophils % (auto) 0.5 %; Eosinophils # (auto) 0.06 K/uL (0-0.50); Eosinophils % (auto) 0.7 %; Hematocrit (blood only) 42.6 % (40.1-51.0); Hemoglobin 14.8 g/dl (14.0-18.0); Immature Granulocytes # (auto) 0.05 K/uL (0.00-0.02); Immature Granulocytes % (auto) 0.5 %; Lymphocytes # (auto) 1.54 K/uL (1.2-3.4); Lymphocytes % (auto) 16.7 %; Mean Corpuscular Hemoglobin 31.6 pg (25.0-34.0); Mean Corpuscular Hgb Conc 34.7 g/dL (32.0-36.0); Mean Corpuscular Volume 90.8 fL (80.0-100.0); Mean Platelet Volume 11.5 fL (9.4-12.4); Monocytes # (auto) 1.21 K/uL (0.24-0.82); Monocytes % (auto) 13.1 %; Neutrophils # (auto) 6.31 K/uL (1.4-6.5); Neutrophils % (auto) 68.5 %; Platelet Count 274 K/uL (130-400); RDW Coefficient of Variation 13.3 % (11.5-14.5); RDW Standard Deviation 44.8 fL (36.4-46.3); Red Blood Count 4.69 M/uL (4.63-6.08); White Blood Count 9.22 K/ul (4.8-10.8)
[2022-09-13 05:27] LABS: Albumin Globulin Ratio 1.5 (0.9-2); Albumin Level 3.7 gm/dl (3.4-5.0); BUN Creatinine Ratio 19.7 (10-20); Bilirubin,Total 2.7 mg/dl (0.2-1.0); Calcium 9.3 mg/dl (8.5-10.1); Creatinine Clr Calc Pharmacy 174.5 ml/min; Est GFR (African American) 124.2 ml/min; Est GFR (Non-African American) 107.1 ml/min; Globulin 2.4 gm/dl (2.5-4.0); Magnesium 1.7 mg/dl (1.7-2.4); Potassium 3.4 mmol/L (3.5-5.1); Total Protein 6.1 gm/dl (6.0-8.3)
[2022-09-13] MEDS: METOPROLOL SUCC 25MG EXT REL TAB PO SCH (08:48)
[2022-09-13] MEDS: ASPIRIN 81 MG ECTAB PO SCH (08:48)
[2022-09-13] MEDS: FUROSEMIDE 40 MG/4 ML VIAL IV SCH (08:49)
[2022-09-13] MEDS: lisinopril 5 MG TAB PO SCH (08:49)
[2022-09-13] MEDS: ROSUVASTATIN CALCIUM 5 MG TAB PO SCH (08:49)
[2022-09-13] MEDS: NICOTINE 21 MG/24 HR TDSY TD SCH (08:49)
[2022-09-13] MEDS: guaiFENesin SUGAR FREE 200 MG/10 ML UDC PO PRN ×2 (08:53→13:46)
[2022-09-13] MEDS: INSULIN ASPART PER UNIT SC SCH ×3 (08:59→16:51)
[2022-09-13] MEDS: LANTUS PER UNIT CHARGE SQ SCH (09:00)
--- NOTE | 2022-09-13 15:07 | Ultrasound Report ---
US abdomen limited CLINICAL HISTORY: Liver/gallbladder - elevated Tbili TECHNIQUE: Multiple real-time sonographic images of the right upper quadrant were obtained. Comparison: Comparison is made to CT pelvis 09/12/2022 FINDINGS: There is minimally nodular contour of the liver. No focal mass lesions are seen. No intrahepatic d uctal dilatation is seen. Gallbladder polyps are seen measuring up to 3 mm. The gallbladder wall freda sures approximately 3.5 mm in diameter. A sonographic Marley's sign was not elicited by the sonograph er. The common duct measures 0.4 cm in diameter at the level of the hepatic artery. The visualized portions of the pancreas appear normal. The right kidney shows normal echogenicity, cortical thickness and renal contour. The right kidney sh ows no evidence of hydronephrosis or mass. No ascites or free fluid is seen in Rolle's pouch. IMPRESSION: 1. Tiny gallbladder polyps are seen. The gallbladder wall is minimally prominent but there is no mago dence of right upper quadrant tenderness. 2. Minimally nodular contour of the liver, nonspecific, but can be seen in early cirrhosis. ACT 112: Negative or not required by law. Electronically signed by: Unruly Alan M.D. 09/13/2022 3:05 PM
--- NOTE | 2022-09-13 15:41 | CT Scan Report ---
CT head/brain wo con CLINICAL HISTORY: R/o hemorrhagic conversion of CVA Technique: Contiguous axial CT images of the head were acquired from the base of the skull to the marcela ephraim without intravenous contrast administration. Images were viewed in brain, subdural and bone windo ws. Automated dose lowering techniques and/or adjustment according to patient size were utilized for this exam. Comparison: Comparison is made to CTA head 09/11/2022 Findings: Encephalomalacia is seen in the left frontal lobe. No evidence of hemorrhage is seen. Left greater than right maxillary sinus disease is noted. The orbits appear normal. There are no acu te fractures of the calvaria or scalp swelling. Impression: 1. No acute abnormality and in particular no evidence of intracranial hemorrhage. 2. Maxillary sinus disease. ACT 112: Negative or not required by law. Electronically signed by: Unruly Alan M.D. 09/13/2022 3:39 PM
[2022-09-13] MEDS ORDERED: STROKE PATIENT DISCHARGE STA (16:29)
[2022-09-13] MEDS ORDERED: APIXABAN 5 MG TABLET PO STA (16:47)
--- NOTE | 2022-09-13 17:20 | Discharge Summary ---
Date of Service September 13, 2022 Admission HPI Per Admitting Provider Abdoul is a 51 year old male with a PMH significant for CAD, S/P cardiac cath on 08/28/22 showing "100% occlusion of the LAD in its midportion at the site of prior stenting, 100% occlusion of the PDA, Elevated left ventricular filling pressures, No evidence of aortic stenosis". HFrEF (LVEF of 20-25%, dilated left ventricle as of 02/10/22), DM II, tobacco use disorder who presented to the [facility] ED on 09/11/22 with a chief complaint of stroke-like symptoms. In the ED the patient was found to be afebrile, hemodynamically stable, and stable on RA. Labs were remarkable for a CBC showing chronic thrombocytopenia of 415 and otherwise WNL, stable Cr of 0.86, glucose of 278, corrected sodium of 136, total bili of 1.7 otherwise stable liver function, initial high sensitivity troponin of 49, and covid positive. Chest xray shows "Cardiomegaly with pulmonary vascular congestion and interstitial coarsening suggestive of pulmonary edema. 2. Small right pleural effusion with right lung base opacities, similar to prior.". CT of the head and CTA of the head/neck shows "1. 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 No definite acute infarct or intracranial hemorrhage. 2. 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 The residual distal left MCA branches are attenuated. Although technically age indeterminate, this favors a chronic occlusion given the old left MCA territory infarcts. 3. Bilateral internal jugular vein thrombosis, left greater than right. 4. Small right pleural effusion. 5. Acute left maxillary sinusitis. Prior to admission the patient was not given medications or IV fluids. Per chart review, the patient underwent Cardiac catheterization on 08/28/22 with the results listed above. Per the post-op note, medical management was r ecommended at that time. At the time of the exam the patient was resting comfortably in bed in no acute distress on RA. He states that he woke up yesterday morning and noticed that he was slurring his speech. He notes that his last known well would have been the night of 09/09/22. Today he went to work and one of his coworkers stressed how bad his speech was, which is why he came to the ED. He denies recent fevers/chills and did not obtain a covid vaccine or booster. He states that over the past two days he has not taken his medications consistently, especially his lasix, due to his speech issues. He feels as though he has been fluid overloaded over the past 48 hours as he has not been taking his lasix. He notes a productive cough over the past 48 hours with white sputum. He denies chest pain but states he has felt somewhat SOB over the past 48 hours. He denies abdominal pain, nausea, vomiting, diarrhea, dysuria, hematuria, and recent falls/trauma. I explained to him that we need to get an MRI of the brain for further evaluation and he is in agreement with the plan. I spoke to him regarding code status, he is a full code and would want his Nephew to make decisions for him if he could not make them himself. Please refer to Dr. Garrison's attestation for any changes to the treatment plan Principal Diagnosis Right temporal stroke Bilateral jugular vein thromboses Discharge Exam Constitutional WD/WN, vitals as above Eyes EOM intact bilaterally; no conjunctival abnormality ENMT external ear and nose normal, oropharynx normal Neck trachea midline, no thyromegaly normal visual inspection Respiratory normal respiratory effort, lungs clear to auscultation no respiratory distress Cardiovascular RRR, no murmur, no edema Gastrointestinal (Abdomen) Inspection/Auscultation: abdomen normal to inspection; abdomen not distended Musculoskeletal no cyanosis or clubbing, extremities motor strength 5/5 Skin no rashes, warm and dry Neurologic moves all extremities and awake Speech / Cognition: + abnormal speech (Dysarthria) Psychiatric Orientation: alert, oriented to person and cooperative Discharge Data Allergies Allergy/AdvReac Type Severity Reaction Status Date / Time No Known Allergies Allergy Unverified 08/28/22 07:43 Consultations 09/11/22 14:04 ED Decision to Admit Stat 09/12/22 09:40 Consult Neurology Routine Ordered Studies 09/11/22 11:27 CT angio head w con Stat CT angio neck with con Stat CT head/brain wo con Stat 09/11/22 14:29 MRI Brain [MR brain wo con] Stat 09/12/22 07:43 US venous doppler LE BI Routine 09/12/22 14:39 CT abdomen pelvis veno w con Routine 09/12/22 22:[address] [CT head/brain wo con] Routine 09/13/22 07:28 US abdomen limited Urgent Diabetes Follow up Diabetes Follow-up Needed for HgbA1c >9% Hospital Course (1) Ischemic stroke: Patient came to the ED for slurred speech which started 48 hours ago when he woke up. MRI brain on 09/11 showed "1.1 cm right temporal lobe acute infarct. No mass effect. No hemorrhage.". Likely paradoxical embolic stroke. - CTA head/neck show likely chronically occluded left carotid artery and left MCA. -> also show left and right IJ thrombosis. - Continue home statin & aspirin - A1c is 11.4%. Patient intermittently refusing insulin in the hospital. - Called [facility] and spoke with Bobby Leary who felt that the patient should be anticoagulated and have careful examination for other thrombus (LE Doppler and CTV of the abd/pelvis). He also recommended a 24h repeat head CT to check for hemorrhagic conversion of stroke. * CT venogram on 09/12 showed no thrombus in iliac veins or IVC, but did show acute PE and pulmonary infarct. * CT head on 09/13 showed no hemorrhagic conversion. - Hypercoagulable work-up pending on discharge. -> Discussed with [facility] on 09/13 who felt we had covered all needed testing. Patient discharged on apixaban with coupon as cost is an issue. Strongly encouraged to quit smoking. Strongly encouraged to follow up with PCP. Will need f/u on hypercoagulable work-up and thorough cancer screenings. - Encouraged to follow up with neurology at [facility] or closer to home. Consult to shoe lacer on Wednesday. (2) COVID-19: Found to be positive in the ED. Currently stable on RA, no hx of vaccination. - Treated symptomatically with Tylenol, Robitussin, pulm hygiene, and scheduled DuoNebs (3) Elevated troponin: Initial trop elevated in the 40's, patient is without chest pain and acute ECG changes. Peaked at 600, then downtrending. Demand ischemia. - Do NOT think this is ACS. - Given recent left heart cath, do not think further intervention is warranted apart from medical management. - Continue ASA, beta-carter, ACEi, statin -> Given concern for paradoxical stroke, will need to speak with cardiology re: PFO closure. (4) Chronic systolic (congestive) heart failure: Patient with LVEF of 20-20% as of . Heart cath with [facility] on 08/28/22 showing ""100% occlusion of the LAD in its midportion at the site of prior stenting, 100% occlusion of the PDA, Elevated left ventricular filling pressures." - Continue goal-directed medical therapies as above - Continued Lasix 60 mg IV daily (dropped from BID on 09/12). On discharge, appeared euvolemic to mildly hypervolemic, but patient interested in going. Will see Dr. Jones in 1 week. - Return to home Lasix on discharge. (5) Tobacco use disorder: Still smokes 2PPD. - Encouraged cessation multiple times. - Nicotine patch (6) Essential hypertension: Stable today at 125/85. - Continue lisinopril and metoprolol (7) CAD (coronary artery disease): - As above Total Time Total Time Spent Total Time Spent (In Minutes): 45 Discharge Plan Discharge Items Patient Disposition: Home - Self-Care Reason For Visit: STROKE-LIKE SYMPTOMS Discharge Diagnosis: Stroke Blood clots in jugular veins Activity: Resume your previous activity Non-emergency contact: Primary Care Provider and Interactive Account Manager Call non-emergency contact if: your symptoms worsen Follow-up/Referrals: Toney Jones MD [Physician] - (Please follow up with Dr. Jones at your scheduled appointment.) Luis Fernando Arias MD [Physician] - (Please see Dr. Arias or another neurology provider in the next month. Hospital land sales agent will call Wednesday with your appt date) Vidhi Dwyer CRNP [Primary Care Provider] - 09/22/22 Diet: Carb Consistent or DM2, Heart Healthy and Low Sodium (2gm) Addtl Attending Provider Instructions: Mr. Wise, You were admitted to the hospital with a stroke. We think this stroke was due to blood clots in your jugular veins that might have come from the heart to the brain. To help get rid of the blood clots, we are sending you home a blood thinner that MUST be taken twice per day. Once in the morning and once at night. If you miss doses, it stops being effective, so it is super important to take every dose. To help with your speech, I have given you a script for speech therapy. Take it to [facility] or a nearby rehab/speech center to help keep improving your speech. You also need to work on your diabetes as your blood sugars are averaging nearly 300 most of the time. We have to get this down to keep your blood vessels healthy. I have given you a prescription for blood testing strips and metformin which is the first-line therapy for diabetic treatment. Your PCP will work with you on your blood sugars, but you may need another medication to help. Finally, please stop smoking. This is the single best thing you can do for your health. Please follow up with your PCP on September 22 as planned. Please follow up with Dr. Jones regarding the heart issues. Finally, please try to see a neurologist here at [facility] or closer to home to help follow up with these complex issues. Please take this sheet and show it to your PCP on your follow up to ensure you are getting good continuity. The neurologist said that you need to be sure to get your full cancer screenings because your blood seems to be clotting very quickly which can be a sign of cancer. Pending Studies at Discharge: Yes Studies:: Hypercoaguable work-up Stand-Alone Forms: [facility], Smoking Cessation Medications and DC Order Prescriptions: New nicotine [Nicoderm CQ] 21 mg/24 hr Patch 24 Hour 21 mg transdermal QAM Qty: 28 0RF Eliquis 5 mg (74 tabs) tablets,dose pack 5 mg PO BID Qty: 74 0RF Rx Instructions: Take 10 mg (2 pills) twice a day for 7 days, then take 5 mg (1 pill) twice a day after that. metformin 1,000 mg tablet extended release 24 hr 1,000 mg PO BID Qty: 60 0RF Continued lisinopril 5 mg tablet 5 mg PO DAILY Qty: 90 3RF furosemide 40 mg tablet 80 mg PO DAILY Qty: 180 3RF rosuvastatin 5 mg tablet 5 mg PO QAM Qty: 90 3RF aspirin 81 mg Tablet,Delayed Release (Dr/Ec) 81 mg PO DAILY metoprolol succinate 25 mg tablet extended release 24 hr 25 mg PO DAILY Qty: 90 3RF Discharge Orders: Discharge Order (Routine); Ordered 09/13/22 Ordered By: Rodrick Hsieh/Other Patient Handouts: High Blood Sugar (Hyperglycemia), Hypoglycemia (Low Blood Sugar), Managing Type 2 Diabetes, 5 Steps for Eating Healthier Admission Data Admit Date/Time: 09/11/22 15:00 Attending Provider: Rodrick Georges Admit Provider: Leighton Garrison Primary Care Provider: Vidhi Dwyer Other Providers: Leighton Garrison ; Vance Brumfield Other Interventions: Discharge Summary Assessment (RN) Last Done: 09/13/22 16:30 Coding Level of Care Code D/C DAY MANAGEMENT >30 MINS Diagnoses Ischemic stroke I63.9 COVID-19 U07.1 Elevated troponin R77.8 Chronic systolic (congestive) heart failure I50.22 Tobacco use disorder F17.200 Essential hypertension I10 CAD (coronary artery disease) I25.10
[2022-09-17 00:22] LABS: Anti-Thrombin III Activity 93 % normal (80-135); Protein S Functional(Activity) 83 % normal (70-150)
[2022-09-19 01:47] LABS: Factor 5 Mutation NEGATIVE
== END 2022-09-13 17:35 | disposition home or self-care (01) | DRG 64 ==
LOC: ED 10:58 → 2S 15:00 → SUATTDRO 15:00 → 2S 16:03

== ENCOUNTER 2022-09-21 16:53 | Inpatient (IN) ==
--- NOTE | 2022-09-21 18:17 | XRay Report ---
TWO VIEW CHEST CLINICAL HISTORY: Dyspnea. FINDINGS: PA and lateral chest radiographs are compared to study dated 09/11/2022 and correlated with chest CT dated 02/10/2022. The heart is enlarged. There is pulmonary basilar congestion. Emphysema an d chronic interstitial thickening is similar to previous. There is a large right pleural effusion wit h atelectasis/consolidation of the right lower lung. This has significantly increased in size from . There is no pneumothorax. The skeletal structures are osteopenic. The bony thorax appears i ntact. Degenerative change is noted in the thoracic spine. IMPRESSION: 1. Cardiomegaly and emphysema with pulmonary vascular congestion. 2. There is a large right pleural effusion with atelectasis/consolidation of the right lower lung. Th is has significantly increased in size from 09/11/2022. ACT 112: Negative or not required by law. Electronically signed by: Ronan Adam M.D. 09/21/2022 6:14 PM
[2022-09-21 18:31] LABS: Basophils # (auto) 0.14 K/uL (0-0.2); Basophils % (auto) 0.6 %; Eosinophils # (auto) 0.08 K/uL (0-0.50); Eosinophils % (auto) 0.4 %; Hematocrit (blood only) 46.1 % (40.1-51.0); Hemoglobin 16.2 g/dl (14.0-18.0); Immature Granulocytes # (auto) 0.18 K/uL (0.00-0.02); Immature Granulocytes % (auto) 0.8 %; Lymphocytes # (auto) 1.56 K/uL (1.2-3.4); Lymphocytes % (auto) 7.1 %; Mean Corpuscular Hemoglobin 31.2 pg (25.0-34.0); Mean Corpuscular Hgb Conc 35.1 g/dL (32.0-36.0); Mean Corpuscular Volume 88.8 fL (80.0-100.0); Mean Platelet Volume 11.6 fL (9.4-12.4); Monocytes # (auto) 2.79 K/uL (0.24-0.82); Monocytes % (auto) 12.7 %; Neutrophils # (auto) 17.26 K/uL (1.4-6.5); Neutrophils % (auto) 78.4 %; Platelet Count 405 K/uL (130-400); RDW Coefficient of Variation 13.2 % (11.5-14.5); RDW Standard Deviation 42.5 fL (36.4-46.3); Red Blood Count 5.19 M/uL (4.63-6.08); White Blood Count 22.01 K/ul (4.8-10.8)
[2022-09-21 18:43] LABS: INR 1.6 (0.9-1.1); Partial Thromboplastin Ratio 1.3; Partial Thromboplastin Time 35.3 Seconds (21.0-31.0); Prothrombin Time 16.8 Seconds (9.0-12.0)
[2022-09-21 19:30] LABS: Albumin Globulin Ratio 1.2 (0.9-2); Albumin Level 3.7 gm/dl (3.4-5.0); BUN Creatinine Ratio 18.8 (10-20); Bilirubin,Total 2.9 mg/dl (0.2-1.0); Calcium 9.5 mg/dl (8.5-10.1); Creatinine Clr Calc Pharmacy 177.3 ml/min; Est GFR (African American) 125.6 ml/min; Est GFR (Non-African American) 108.4 ml/min; Magnesium 1.9 mg/dl (1.7-2.4); Total Protein 6.7 gm/dl (6.0-8.3); Troponin I High Sensitivity 18.7 pg/ml (0-20)
[2022-09-21] MEDS ORDERED: FUROSEMIDE 40 MG/4 ML VIAL IV STA (20:10)
[2022-09-21] MEDS ORDERED: VANCOMYCIN HCL 2,750 MG in SODIUM CHLORIDE 0.9% 500 ML IV ONE (20:12)
[2022-09-21] MEDS ORDERED: CEFEPIME 2,000 MG/20 ML VIAL IV STA (20:12)
[2022-09-21] MEDS ORDERED: VANCOMYCIN CONSULT ACTIVE PRN (20:12)
--- NOTE | 2022-09-21 20:15 | Emergency Department Note ---
Impression & Plan Pleural effusion, Hypoxia, Leukocytosis ED Provider Note NAME: REED TERRY AGE: 51 SEX: M : 1970 ARRIVES VIA: Walk-In INFORMANT: Patient ED PROVIDER(S): Yoni Salgado DO CHIEF COMPLAINT: shortness of breath HPI: Patient is a 51-year-old male who presents to the ER with a recent CVA and acute jugular vein embolism who was just discharged within 2 weeks who presents the ER for shortness of breath and swelling of his bilateral lower extremities with a history of ischemic cardiomyopathy and heart failure. He has been taking his Lasix. He denies any headache or change in vision. No chest pain but admits to significant shortness of breath. No belly pain, nausea, vomiting, or diarrhea. No dysuria, urgency, or frequency. No other exacerbating or remitting factors. Shortness of breath is better with sitting up and significantly worsens with laying flat or laying down. Does make his shortness of breath worse as well. ROS: See above HPI for pertinent positives & negatives. A total of 10 systems reviewed and were otherwise negative. PAST MEDICAL HISTORY:See Below PAST SURGICAL HISTORY:See Below FAMILY HISTORY:See Below SOCIAL HISTORY:See Below HOME MEDICATIONS:See Below ALLERGIES:See Below VITALS:See Below PHYSICAL EXAMINATION: GENERAL: Sitting up in bed, alert, well appearing, well nourished, no distress, non-toxic EYE EXAM: normal conjunctiva. NECK: supple, no nuchal rigidity, no adenopathy, non-tender LUNGS: Diminished breath sounds on the right. Normal chest wall mechanics HEART: no murmurs, S1 normal and S2 normal ABDOMEN: abdomen soft, non-tender, normo-active bowel sounds, no masses, no rebound or guarding. UPPER EXTREMITIES: upper extremities are grossly normal. LOWER EXTREMITIES: Pitting edema in the bilateral lower extremities left larger than right NEURO EXAM: Normal sensorium, cranial nerves II-XII grossly intact, normal speech, no gross weakness of arms, no gross weakness of legs. MEDICAL DECISION MAKING: IV was established with her first team. Labs show leukocytosis 22,000. No significant anemia. INR 1.6. BMP with hyponatremia 124. Glucose was elevated 302. T bili at 2.9. LFTs were unremarkable. Troponin was negative. COVID was negative. Chest x-ray with large pleural effusion. Patient was given IV cefepime and vancomycin. He was updated bedside. Discussed with the hospitalist for further evaluation and admission with Dr. Rodrick Georges. Patient was also given Lasix. Triage Nursing notes reviewed. Limited review of prior medical records performed Vital Signs: reviewed and remarkable for tachy Differential diagnosis: Differential diagnoses includes but is not limited to pneumonia, bronchitis, FRIT MAKER D/Asthma exacerbation, pneumothorax, pulmonary embolism, congestive heart failure, acute coronary syndrome ER treatment provided: See below Diagnostics interpreted by me: ECG: A. fib rate of 114 Normal axis Inferior Q waves QTC 446 Cardiac Monitoring: An order was placed for continuous cardiac monitoring. The monitor shows a rate of 102 with sinus rhythm. Laboratory studies: As stated above and show below. Imaging studies: Portable AP upright 1 view chest shows pleural effusion Consultation(s): Discussed with Kinjal Georges for further evaluation Procedures: none Critical Care: None Past Med/Surg History Medical History CAD (coronary artery disease) Coronary artery arteriosclerosis Essential hypertension Hypercholesterolemia Hyperlipidemia Ischemic cardiomyopathy Morbid obesity Scalp laceration Surgical History Stented coronary artery Social History Smoking Status: Current every day smoker Tobacco Type: Cigarettes packs per day: 2; Cigarettes Per Day: 2 packs/day; Hx Alcohol Use: Yes Alcohol type: beer Hx Substance Use: No Preferred Language: Israeli Communication Ability: Effective Religious Assistant Required: No Beliefs That Will Affect Care: None Current Living Situation: Alone How many Children do You have: 1 Feels Safe at Home: Yes Assistive Devices: None Allergies Allergies Allergy/AdvReac Type Severity Reaction Status Date / Time No Known Allergies Allergy Unverified 08/28/22 07:43 Home Meds Home Medications Medication Instructions Recorded Confirmed aspirin 81 mg tablet,delayed 81 mg PO DAILY 02/10/22 09/11/22 release Previous Rx's Medication Instructions Recorded rosuvastatin 5 mg tablet 5 mg PO QAM #90 tabs 03/02/22 lisinopril 5 mg tablet 5 mg PO DAILY #90 tabs 03/26/22 furosemide 40 mg tablet 80 mg PO DAILY #180 tabs 08/05/22 metoprolol succinate 25 mg 25 mg PO DAILY #90 tabs 08/28/22 tablet,extended release 24 hr apixaban 5 mg (74 tabs) tablets in 5 mg PO BID #74 ea 09/13/22 a dose pack (Eliquis) metformin 1,000 mg tablet,extended 1,000 mg PO BID #60 tabs 09/13/22 release 24hr nicotine 21 mg/24 hr daily 21 mg transdermal QAM #28 ea 09/13/22 transdermal patch (Nicoderm CQ) Results & Data (ED) Vital Signs Vital Signs - 24 hr 09/21/22 17:21 Temperature 36.8 C Temperature Source Temporal Artery Scan Pulse Rate 108 H Respiratory Rate 20 Respiratory Effort / Characteristics Non-Labored Spontaneous Respiratory Depth Normal Respiratory Pattern Regular Blood Pressure 127/70 Blood Pressure Mean 89 Pulse Oximetry 92 Oxygen Delivery Method Room Air Sepsis Recent Fever Within 48 Hours No Sepsis New/Unexplained Change in Mental Status No Sepsis Action Taken by Nursing No Action Required Laboratory Data Result diagrams: 09/21/22 18:20 09/21/22 18:20 Lab Results 09/21/22 09/21/22 09/21/22 Range/Units 18:20 18:20 18:20 WBC 22.01 H (4.8-10.8) K/ul RBC 5.19 (4.63-6.08) M/uL Hgb 16.2 (14.0-18.0) g/dl Hct 46.1 (40.1-51.0) % MCV 88.8 (80.0-100.0) fL MCH 31.2 (25.0-34.0) pg MCHC 35.1 (32.0-36.0) g/dL RDW Std Deviation 42.5 (36.4-46.3) fL RDW Coeff of [place] 13.2 (11.5-14.5) % Plt Count 405 H (130-400) K/uL MPV 11.6 (9.4-12.4) fL Immature Gran % (Auto) 0.8 % Neut % (Auto) 78.4 % Lymph % (Auto) 7.1 % [place] % (Auto) 12.7 % Eos % (Auto) 0.4 % Baso % (Auto) 0.6 % Neut # (Auto) 17.26 H (1.4-6.5) K/uL Lymph # (Auto) 1.56 (1.2-3.4) K/uL [place] # (Auto) 2.79 H (0.24-0.82) K/uL Eos # (Auto) 0.08 (0-0.50) K/uL Baso # (Auto) 0.14 (0-0.2) K/uL Immature Gran # (Auto) 0.18 H (0.00-0.02) K/uL PT 16.8 H (9.0-12.0) Seconds INR 1.6 H (0.9-1.1) APTT 35.3 H (21.0-31.0) Seconds PTT Ratio 1.3 Sodium 124 L (136-145) mmol/L Potassium 4.0 (3.5-5.1) mmol/L Chloride 84 L (98-107) mmol/L Carbon Dioxide 30 (21-32) mmol/L Anion Gap 10 (3-11) BUN 13 (6-23) mg/dl Creatinine 0.69 (0.6-1.4) mg/dl Est Cr Clr Drug Dosing 177.3 ml/min Est GFR ( Amer) 125.6 ml/min Est GFR (Non-Af Amer) 108.4 ml/min BUN/Creatinine Ratio 18.8 (10-20) Glucose 302 H* (70-99(Fasting)) mg/dl Calcium 9.5 (8.5-10.1) mg/dl Magnesium 1.9 (1.7-2.4) mg/dl Total Bilirubin 2.9 H (0.2-1.0) mg/dl AST 17 (13-39) U/L ALT 16 (7-52) U/L Alkaline Phosphatase 83 (34-104) U/L Troponin I High Sens 18.7 (0-20) pg/ml Total Protein 6.7 (6.0-8.3) gm/dl Albumin 3.7 (3.4-5.0) gm/dl Globulin 3.0 (2.5-4.0) gm/dl Albumin/Globulin Ratio 1.2 (0.9-2) Administered Medications Discontinued Medications Furosemide (Furosemide 40 Mg/4 Ml Vial) 40 mg IV NOW STA Stop: 09/21/22 20:11 Last Admin: 09/22/22 00:58 Dose: 40 mg Documented By: JEFF Cefepime HCl (Maxipime) 2,000 mg in 20 mls @ 5 mls/min IV NOW STA; Protocol Stop: 09/21/22 20:15 Last Admin: 09/21/22 22:42 Dose: 5 mls/min Documented By: ALEJANDRO Vancomycin HCl 2,750 mg/ (Sodium Chloride) 555 mls @ 200 mls/hr IV NOW ONE Stop: 09/21/22 22:58 Last Admin: 09/22/22 00:47 Dose: 200 mls/hr Documented By: JEFF Ioversol (Optiray 320 500ml) 125 ml IV ONCE ONE Stop: 09/21/22 22:42 Last Admin: 09/21/22 22:42 Dose: 125 ml Documented By: THELMA Imaging Data Radiologist's Impression: Chest X-Ray 09/21/22 17:25 TWO VIEW CHEST CLINICAL HISTORY: Dyspnea. FINDINGS: PA and lateral chest radiographs are compared to study dated and correlated with chest CT dated 02/10/2022. The heart is enlarged. There is pulmonary basilar congestion. Emphysema and chronic interstitial thickening is similar to previous. There is a large right pleural effusion with atelectasis/consolidation of the right lower lung. This has significantly i ncreased in size from 09/11/2022. There is no pneumothorax. The skeletal structures are osteopenic. The bony thorax appears intact. Degenerative change is noted in the thoracic spine. IMPRESSION: 1. Cardiomegaly and emphysema with pulmonary vascular congestion. 2. There is a large right pleural effusion with atelectasis/consolidation of the right lower lung. This has significantly increased in size from 09/11/2022. ACT 112: Negative or not required by law. Electronically signed by: Ronan Adam M.D. 09/21/2022 6:14 PM Discharge Plan Visit Data Chief Complaint: Shortness of Breath/Dyspnea Stated Complaint: SOB ED Provider: Yoni Salgado Discharge Problem: Pleural effusion, Hypoxia, Leukocytosis Discharge Instructions Interventions: ED Discharge Assessment Last Done: 09/22/22 00:24
[2022-09-21] MEDS ORDERED: ALBUT/IPRATROP 3MG/0.5MG NEB 3 ML VIAL NEB PRN (21:26)
--- NOTE | 2022-09-21 21:26 | History & Physical Report ---
Date of Service September 21, 2022 Assessment & Plan (1) Pleural effusion, right: Plan: Much larger than the stable one noted on CXR on 09/11. CT venogram on 09/12 noted consolidation, but read it as pulmonary infarct. Today, concern for empyema with new sputum production and leukocytosis. - Continue vancomycin from ER - Start Zosyn instead of cefepime for anaerobic coverage - Pulmonary consulted - Rolanda PRN - CT chest to better understand process in chest (2) Hyponatremia: Plan: Na was mildly low on last admission. Now down to 124. No symptoms on my interview. Possible SIADH from pleural effusion? - Urine osms pending - Fluid restriction - Monitor (3) Ischemic stroke: Plan: On MRI on 09/11. Thought to be a paradoxical embolic stroke from his bilateral jugular thromboses. Also with bilateral LL PEs on CT venogram from 09/12. - Stop apixaban (patient reports being completely compliant) - Heparin gtt (in case we need to do procedure(s)) - Hold home ASA for procedure(s), but then will need to restart it. (4) Acute internal jugular vein embolism: Plan: Noted on CTA neck on 09/11. - Anticoagulation as above (5) Chronic systolic (congestive) heart failure: Plan: With likely acute mild exacerbation. Reports he has been compliant with home Lasix regimen. - Lasix 60 mg IV BID17 - Monitor I&Os, fluid restriction, daily weights (6) Essential hypertension: Plan: BP stable in the ER. - Continue home metoprolol - Hold lisinopril for now (7) CAD (coronary artery disease): Plan: C showed diffuse disease. - Hold ASA as above - Continue beta-carter, statin FULL CODE History of Present Illness Primary Care Provider: YOLANDA [place] 51yo M w/ hx of HTN, DM, presumed paradoxical embolic stroke who presents with large right-sided pleural effusion. Was discharged about 2 weeks ago after a CVA that was thought to be paradoxical. Per patient and family, he had been doing well with his speech gradually improving to near pre-CVA baseline. Had some dyspnea on exertion, but overall was doing well. Was fully compliant with his Lasix and apixaban amongst his other medications. However, about 3-4 days ago, began to have a cough that was productive of clear sputum which was new. Yesterday in the evening, began to have shortness of breath with the cough as well as increased LE edema. Reports that he has been taking his Lasix as prescribed. In ER, noted to have a large right pleural effusion. Had had it previously, but had been stable on CXR on 09/11. Allergies Allergy/AdvReac Type Severity Reaction Status Date / Time No Known Allergies Allergy Unverified 08/28/22 07:43 Home Medications Medication Instructions Recorded Confirmed Type aspirin 81 mg tablet,delayed 81 mg PO DAILY 02/10/22 09/11/22 History release rosuvastatin 5 mg tablet 5 mg PO QAM #90 tabs 03/02/22 09/11/22 Rx lisinopril 5 mg tablet 5 mg PO DAILY #90 tabs 03/26/22 09/11/22 Rx furosemide 40 mg tablet 80 mg PO DAILY #180 tabs 08/05/22 09/11/22 Rx metoprolol succinate 25 mg 25 mg PO DAILY #90 tabs 08/28/22 09/11/22 Rx tablet,extended release 24 hr apixaban 5 mg (74 tabs) tablets in 5 mg PO BID #74 ea 09/13/22 Rx a dose pack (Eliquis) metformin 1,000 mg tablet,extended 1,000 mg PO BID #60 tabs 09/13/22 Rx release 24hr nicotine 21 mg/24 hr daily 21 mg transdermal QAM #28 ea 09/13/22 Rx transdermal patch (Nicoderm CQ) Past Med/Surg History Medical History CAD (coronary artery disease) Coronary artery arteriosclerosis Essential hypertension Hypercholesterolemia Hyperlipidemia Ischemic cardiomyopathy Morbid obesity Scalp laceration Surgical History Stented coronary artery Social History Smoking Status: Current every day smoker Tobacco Type: Cigarettes packs per day: 2; Cigarettes Per Day: 2 packs/day; Hx Alcohol Use: Yes Alcohol type: beer Hx Substance Use: No Preferred Language: Ghanaian Communication Ability: Effective Manager School Required: No Beliefs That Will Affect Care: None Current Living Situation: Alone How many Children do You have: 1 Feels Safe at Home: Yes Assistive Devices: None Review of Systems Review of Systems: All systems reviewed & are unremarkable except as noted in HPI & below Physical Exam Constitutional: WD/WN, vitals as above Eyes: EOM intact bilaterally; no conjunctival abnormality ENMT: external ear and nose normal, oropharynx normal Neck: trachea midline, no thyromegaly normal visual inspection Respiratory: + labored breathing, + cough and + tachypneic; no respiratory distress Auscultation: + breath sounds absent (On right) Cardiovascular: Rate/Rhythm: regular rhythm and + tachycardic Extremities: + edema Gastrointestinal (Abdomen): Inspection/Auscultation: abdomen normal to inspection; abdomen not distended Musculoskeletal: no cyanosis or clubbing, extremities motor strength 5/5 Skin: no rashes, warm and dry Neurologic: moves all extremities and awake Psychiatric: Orientation: alert, oriented to person and cooperative Results & Data Results & Data ([facility]) Vital Signs (Past 12 Hours) Vital Signs Temp Pulse Resp BP Pulse Ox O2 Del Method 09/21/22 17:21 36.8 C 108 H 20 127/70 92 Room Air Code Status & VTE Plan VTE Prophylaxis Plan VTE Prophylaxis will be ordered: Yes PG Care Time/CCT Total # of Minutes Spent Total Time Spent with Patient: Total time spent is greater than 50% in coordination of care (as documented) at patient's floor/unit and/or counseling patient: Coding Level of Care Code 11979 Initial Inpt Care Lvl 3 Diagnoses Pleural effusion, right J90 Hyponatremia E87.1 Ischemic stroke I63.9 Acute internal jugular vein embolism I82.C19 Laterality: unspecified laterality Chronic systolic (congestive) heart failure I50.22 Essential hypertension I10 CAD (coronary artery disease) I25.10 (1) Acute internal jugular vein embolism Laterality: unspecified laterality Qualified Code(s): I82.C19 - Acute embolism and thrombosis of unspecified internal jugular vein
[2022-09-21] MEDS ORDERED: CEFEPIME 2,000 MG/20 ML VIAL ONE (22:40)
[2022-09-21] MEDS ORDERED: OPTIRAY 320 500ml IV ONE (22:41)
[2022-09-22] MEDS ORDERED: CARBOHYDRATES FOR HYPOGLYCEMIA PO PRN (00:23)
[2022-09-22] MEDS ORDERED: GLUCAGON FOR INJ 1 MG VIAL SQ PRN (00:23)
[2022-09-22] MEDS ORDERED: ACETAMINOPHEN 325 MG TAB PO PRN (00:23)
[2022-09-22] MEDS ORDERED: GLUCOSE 10 TAB/TUBE PO PRN (00:23)
[2022-09-22] MEDS ORDERED: GLUCOSE 40% GEL 15 GM TUBE PO PRN (00:23)
[2022-09-22] MEDS ORDERED: DEXTROSE 50% 50 ML SYRINGE IV PRN (00:23)
[2022-09-22] MEDS ORDERED: ONDANSETRON INJ 2 MG/ML 2 ML VIAL IV PRN (00:23)
[2022-09-22] MEDS ORDERED: Heparin IV Adult Wt-Based Standard *NO* Bolus Protocol IV SCH (00:30)
[2022-09-22] MEDS ORDERED: PIPERACILLIN/TAZOBACTAM 4.5 GM in DEXTROSE 5% 100 ML IV ONE (00:45)
[2022-09-22] MEDS ORDERED: FUROSEMIDE 40 MG/4 ML VIAL IV ONE (00:56)
[2022-09-22 02:57] LABS: Basophils # (auto) 0.11 K/uL (0-0.2); Basophils % (auto) 0.6 %; Eosinophils # (auto) 0.13 K/uL (0-0.50); Eosinophils % (auto) 0.7 %; Hematocrit (blood only) 43.8 % (40.1-51.0); Hemoglobin 15.6 g/dl (14.0-18.0); Immature Granulocytes # (auto) 0.24 K/uL (0.00-0.02); Immature Granulocytes % (auto) 1.2 %; Lymphocytes # (auto) 1.62 K/uL (1.2-3.4); Lymphocytes % (auto) 8.4 %; Mean Corpuscular Hgb Conc 35.6 g/dL (32.0-36.0); Mean Corpuscular Volume 87.1 fL (80.0-100.0); Mean Platelet Volume 11.6 fL (9.4-12.4); Monocytes # (auto) 2.35 K/uL (0.24-0.82); Monocytes % (auto) 12.2 %; Neutrophils # (auto) 14.83 K/uL (1.4-6.5); Neutrophils % (auto) 76.9 %; Platelet Count 381 K/uL (130-400); RDW Coefficient of Variation 13.3 % (11.5-14.5); RDW Standard Deviation 41.5 fL (36.4-46.3); Red Blood Count 5.03 M/uL (4.63-6.08); White Blood Count 19.28 K/ul (4.8-10.8)
[2022-09-22] MEDS: HEPARIN SODIUM/DEXTROSE 25,000 UNITS/500 ML BAG IV SCH ×2 (03:05→17:48)
[2022-09-22] MEDS ORDERED: INSULIN ASPART PER UNIT SC STA (03:35)
[2022-09-22 03:48] LABS: Albumin Globulin Ratio 1.1 (0.9-2); Albumin Level 3.4 gm/dl (3.4-5.0); BUN Creatinine Ratio 22.1 (10-20); Bilirubin,Total 2.4 mg/dl (0.2-1.0); Calcium 9.3 mg/dl (8.5-10.1); Creatinine Clr Calc Pharmacy 179.9 ml/min; Est GFR (African American) 126.4 ml/min; Globulin 3.1 gm/dl (2.5-4.0); Magnesium 1.9 mg/dl (1.7-2.4); Potassium 3.8 mmol/L (3.5-5.1); Total Protein 6.5 gm/dl (6.0-8.3)
[2022-09-22] MEDS: NICOTINE 21 MG/24 HR TDSY TD SCH ×2 (04:09→08:30)
[2022-09-22] MEDS: PIPERACILLIN/TAZOBACTAM 4.5 GM in DEXTROSE 5% 100 ML IV SCH ×3 (06:28→21:40)
--- NOTE | 2022-09-22 08:03 | Pulmonary Consultation ---
Date of Consultation September 22, 2022 Assessment & Plan (1) Pleural effusion: (2) Dyspnea: (3) Hypoxia: (4) Tobacco abuse counseling: Plan I suspect he likely has a parapneumonic effusion or empyema. He was on a heparin drip during my examination and he took a dose of Eliquis yesterday morning. We will wait an additional 24 hours for the Eliquis to wash out of his system. We will have heparin on hold starting at 4 AM tomorrow. Should he have any significant decompensation over the next 24 hours, would recommend transfer to the ICU and consideration of urgent drainage. Discussed with bedside RN regarding holding heparin. He likely has an element of CHF as well. Agree with diuresis. Continue with broad-spectrum antibiotics. History of Present Illness Reason for Consultation: Large right pleural effusion Attending Physician: Kong Lockwood History of Present Illness 51-year-old male with a past medical history of systolic heart failure with an EF of 35% on echo from 09/11/2022 hypertension, diabetes mellitus and embolic stroke who presented to the hospital due to increasing shortness of breath with cough. Patient also had clear sputum production. Patient also noted lower extremity edema. He was seen in the ER by the hospitalist service and admitted him for concern of pneumonia and empyema. He had a CT chest yesterday evening which revealed a large right sided pleural effusion. He was started on vancomycin and Zosyn. He was previously on apixaban and started on a heparin drip overnight. He was diagnosed with internal jugular vein emboli on CT neck from 09/11 and also bilateral pulmonary emboli. He is currently having a significant cough with white phlegm. He denies any significant fever. He does have shortness of breath with exertion. He is currently sitting up in chair and saturating in the low 90s on room air. Otherwise, he is comfortable. I performed a [id number] ultrasound of the right hemithorax which demonstrated a large right pleural effusion with areas of loculation. Left hemithorax not have any evidence of effusion. 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 He smokes a pack per day. He previously smoked upwards of 3 packs/day. Allergies Allergy/AdvReac Type Severity Reaction Status Date / Time No Known Allergies Allergy Unverified 08/28/22 07:43 Home Medications Medication Instructions Recorded Confirmed Type aspirin 81 mg tablet,delayed 81 mg PO DAILY 05/17/22 12/27/22 History release rosuvastatin 5 mg tablet 5 mg PO QAM #90 tabs 03/02/22 09/22/22 Rx lisinopril 5 mg tablet 5 mg PO DAILY #90 tabs 03/26/22 09/22/22 Rx furosemide 40 mg tablet 80 mg PO DAILY #180 tabs 08/05/22 09/22/22 Rx metoprolol succinate 25 mg 25 mg PO DAILY #90 tabs 08/28/22 09/22/22 Rx tablet,extended release 24 hr apixaban 5 mg (74 tabs) tablets in 5 mg PO BID #74 ea 09/13/22 09/22/22 Rx a dose pack (Eliquis) metformin 1,000 mg tablet,extended 1,000 mg PO BID #60 tabs 09/13/22 09/22/22 Rx release 24hr nicotine 21 mg/24 hr daily 21 mg transdermal QAM #28 ea 09/13/22 09/22/22 Rx transdermal patch (Nicoderm CQ) Patient History Medical History (Updated 09/22/22 @ 09:13 by Marcell Ruano MD) CAD (coronary artery disease) Coronary artery arteriosclerosis Dyspnea Essential hypertension Hypercholesterolemia Hyperlipidemia Hypoxia Ischemic cardiomyopathy Morbid obesity Scalp laceration Tobacco abuse counseling Surgical History Stented coronary artery Social History Smoking Status: Current every day smoker Tobacco Type: Cigarettes packs per day: 2; Cigarettes Per Day: 2 packs/day; Second Hand Exposure: Yes; Do You Dip or Chew Tobacco: No; Tobacco Cessation Education Requested by Patient: No Hx Alcohol Use: Yes Alcohol type: beer Hx Substance Use: No Preferred Language: Kyrgyz Communication Ability: Effective Regional [employer] Manager Required: Yes and No Beliefs That Will Affect Care: None Current Living Situation: Alone How many Children do You have: 1 Other Information That Helps Us Care for You: No Feels Safe at Home: Yes Safety Concerns: Feels Safe At This Time Assistive Devices: None Review of Systems Review of Systems: All systems reviewed & are unremarkable except as noted in HPI & below Physical Exam Physical Exam: Constitutional: Obese appearing male who is frequently coughing during exam. Eyes: Pupils are equal round and reactive to light. Conjunctivae are normal. Anicteric sclera. Ears nose, mouth and throat: No obvious deformities. Neck: Trachea is midline. Visual inspection is normal. Respiratory: Crackles on the right lung. Diminished otherwise. Cardiovascular: Regular rate and rhythm. No murmurs. 3+ pitting edema in the lower extremities bilaterally. Gastrointestinal: Normal bowel sounds, soft, nontender and nondistended. No hepatosplenomegaly noted. Musculoskeletal: No cyanosis. Patient is able to move all extremities. Skin: No rashes, warm dry and intact. Neurologic: No obvious focal neurological deficits seen. Psychiatric: Alert and oriented x3 with a euthymic affect. Results & Data Results & Data ([facility]) Vital Signs (Past 12 Hours) Vital Signs Temp Pulse Pulse Resp BP BP Pulse Ox 09/22/22 07:17 37.4 C 102 H 20 123/77 09/22/22 03:42 09/22/22 03:42 37.3 C 114 H 20 108/74 90 09/22/22 00:56 112 H 18 131/79 90 O2 Del Method 09/22/22 07:17 Room Air 09/22/22 03:42 Room Air 09/22/22 03:42 Room Air 09/22/22 00:56 PG Care Time/CCT Total # of Minutes Spent Total Time Spent with Patient: Total time spent is greater than 50% in coordination of care (as documented) at patient's floor/unit and/or counseling patient: Coding Level of Care Code 02832 Inpt Consult Level 5 Diagnoses Pleural effusion J90 Dyspnea R06.00 Hypoxia R09.02 Tobacco abuse counseling Z71.6
[2022-09-22] MEDS: FUROSEMIDE 40 MG/4 ML VIAL IV SCH ×2 (08:30→18:07)
[2022-09-22] MEDS: METOPROLOL SUCC 25MG EXT REL TAB PO SCH (08:30)
--- NOTE | 2022-09-22 08:30 | CT Scan Report ---
CT angio chest PE protocol CT DOSE: 1013.89 mGy.cm HISTORY: 51 years-old Male with PE. Acute shortness of breath TECHNIQUE: Multiple CTA images of the chest were obtained after the intravenous administration of 125 ml Optiray. Coronal and sagittal MIPS were obtained from the axial data set and were submitted for review. All measurements were obtained according to NASCET criteria. A dose lowering technique was u tilized adhering to the principles of ALARA. COMPARISON: Chest radiograph 09/21/2022, CT abdomen and pelvis 09/12/2022 CTA chest 02/10/2022 FINDINGS: CTA: Mild cardiomegaly without pericardial effusion. Mild coronary artery calcifications. Atherosclerosis of the thoracic aorta without aneurysm identified. The segmental and subsegmental pulmonary arterial branches are not well visualized secondary to contrast bolus timing and respiratory motion artifact. The previously questioned filling defects within subsegmental branches of the lower lobes are not christina reciated on today's study. CT CHEST: No thyroid nodule identified. Portal enlarged mediastinal and right hilar lymph nodes are nonspecific . Respiratory motion artifact limits evaluation of the lung parenchyma. No pneumothorax identified. 2 .7 cm subpleural consolidation of the left lower lobe with an adjacent 7 mm solid nodular density. Fi ndings are new from the 02/10/2022 exam. Large right pleural effusion with atelectasis and partial col lapse of the right lung. Additional groundglass right upper and middle lobe opacities. Opacification of the right lung base bronchi. Suggested pulmonary emphysema. Cirrhotic morphology of the liver with small volume of abdominal pelvic ascites and body wall edema. No acute fracture identified. IMPRESSION: 1. No pulmonary emboli identified. There is however limited evaluation of the segmental and subsegmen lane branches. The previously questioned pulmonary emboli described on the 09/12/2022 exam are not asya ntified. 2. Large right pleural effusion with atelectasis and partial collapse of the right lung. Opacificatio n of the right lung base bronchi, likely secondary to mucous plugging. 3. Groundglass and consolidative opacities of the right upper and middle lobes with subpleural 2.7 cm consolidation of the left lower lobe may represent a nonspecific pneumonia. 4. 7 mm solid nodule of the left lower lobe, new from 02/10/2022. 4. Cirrhosis with small volume ascites and mild body wall edema. Please refer to below summary of Fleischner criteria recommendations for follow-up of incidental CT n odules (Ronal Stoll, Guidelines for management of small pulmonary nodules detected on CT scans: A sta tement from the Fleischner Society, Radiology 237: [phone].) SOLID NODULES Solitary nodule size: 6-8 mm * Low risk patients: follow-up at 6-12 months, then consider further follow-up at 18-24 months * high risk patients: initial follow-up CT at 6-12 months and then at 18-24 months if no change Note: newly detected indeterminate nodule in persons 35 years of age or older. * Low risk patients: minimal or absent history of smoking and/or other known risk factors * high risk patients: history of smoking or of other known risk factors (e.g. first degree relative with lung cancer, or exposure to asbestos, radon, uranium) * if a nodule up to 8 mm is partly solid or is ground glass further follow-up is required after 24 m onths to exclude possible slow growing adenocarcinoma (DEV) ACT 112: Negative or not required by law. The above report was generated using voice recognition software. It may contain grammatical, syntax o r spelling errors. Electronically signed by: Benjy Rahman M.D. 09/22/2022 8:28 AM
[2022-09-22] MEDS: ROSUVASTATIN CALCIUM 5 MG TAB PO SCH (08:31)
[2022-09-22] MEDS: INSULIN ASPART PER UNIT SC SCH ×4 (08:43→21:39)
--- NOTE | 2022-09-22 09:44 | Pharmacy Report ---
Pharmacy PK ABX Note - Date of Service September 22, 2022 - Assessment and Plan Assessment 51 year old M receiving IV Vancomycin + Zosyn for treatment of parapneumonic effusion or empyema. MRSA swab negative -continuing Vancomycin per Pulmonary, d/t empyema. Smoker - 1 pack/day BCs pending Plan Vancomycin * Loading dose: 2750 mg IV x 1 * Maintenance dose: 1250 mg IV every 12 hours * Regimen is predicted to achieve target AUC/JOJO of 400-600 mg/L.hr * Random level ordered for: 09/23/22 with AM labs Pharmacy has transitioned to AUC monitoring for vancomycin. AUC/JOJO is the preferred PK/PD target and is associated with decreased risk of nephrotoxicity compared to traditional trough targets. Zosyn 4.5g IV Q8H for CrCl > 20ml/min, BMI 39 Pharmacy will continue to follow and will adjust dose/frequency as necessary. Thank you.
[2022-09-22 10:00] LABS: Partial Thromboplastin Ratio 1.3; Partial Thromboplastin Time 36.1 Seconds (21.0-31.0)
[2022-09-22] MEDS ORDERED: LANTUS PER UNIT CHARGE SQ SCH (10:00)
[2022-09-22] MEDS: VANCOMYCIN HCL 1,250 MG in SODIUM CHLORIDE 0.9% 250 ML IV SCH ×2 (10:03→21:39)
[2022-09-22] MEDS: CYANOCOBALAMIN (B-12) 500 MCG TABLET PO SCH (10:21)
[2022-09-22] MEDS: PYRIDOXINE HCL 50 MG TAB PO SCH (10:21)
[2022-09-22] MEDS: FOLIC ACID 1 MG TAB PO SCH (10:22)
[2022-09-22] MEDS ORDERED: HEPARIN IV BOLUS 4,000 UNITS in SYRINGE 0 ML IV ONE (11:30)
--- NOTE | 2022-09-22 17:20 | Electrocardiogram Report ---
Test Reason : Blood Pressure : / mmHG Vent. Rate : 114 BPM Atrial Rate : 115 BPM P-R Int : 182 ms QRS Dur : 112 ms QT Int : 324 ms P-R-T Axes : 042 008 036 degrees QTc Int : 446 ms Poor data quality, interpretation may be adversely affected Sinus rhythm with PVCs Incomplete right bundle branch block Possible Inferior infarct (cited on or before 10-FEB-2022) Abnormal ECG When compared with ECG of 11-SEP-2022 11:17,= Nonspecific T wave abnormality now evident in Anterior leads Confirmed by Romain Macedo ([id number]) on 09/22/2022 5:20:40 PM Referred By: REFERRED SELF Confirmed By:Ismael Macedo
[2022-09-22 17:27] LABS: Partial Thromboplastin Ratio 1.3; Partial Thromboplastin Time 37.1 Seconds (21.0-31.0)
[2022-09-22] MEDS ORDERED: HEPARIN SOD (PORCINE) 1000 UNIT/ML IV ONE (18:00)
--- NOTE | 2022-09-22 22:10 | Hospitalist Progress Note ---
Date of Service September 22, 2022 Assessment & Plan (1) Pleural effusion, right: Plan: Concern for parapneumonic effusion vs empyema vs transudative effusion from CHF/cirrhosis vs other. Cont zosyn. Cont vancomycin. Appreciate [facility] [place], [place] Pulmonary consultation. Plan - holding Eliquis. Remains on heparin infusion. Heparin infusion to be continued until tomorrow am at which point it will be stopped for chest tube placement. (2) Pneumonia: Plan: Right sided; minimal infiltrate LLL. Cont zosyn. Cont vancomycin (Although MRSA swab is negative, cont vancomycin until chest tube is completed and fluid is sent for analysis/culture). Follow blood cultures. (3) Hyponatremia: Plan: Urine osm 599. Urine Na <10. Urine Na level likely skewed due to chronic lasix usage. Either way he looks total body volume overloaded. Cont lasix 60mg IV BID. Repeat BMP am. (4) Ischemic stroke: Plan: Right temporal lobe and posterior right frontal lobe and anterior right parietal lobe. As seen on MRI brain earlier this month. Was d/c on Eliquis and asa for secondary prevention. Both on hold for Rx of #1 above. Resume at earliest possible time. (5) Acute internal jugular vein embolism: Plan: Noted on CTA neck on 09/11. Etiology?? Due to COVID-19 infection (ie hypercoagulable state from such)? [tested + 09/11] Homocysteinemia? Other? Cont heparin drip. Resume Eliquis when procedures are complete. (6) Chronic systolic (congestive) heart failure: Plan: EF 35%. Ischemic cardiomyopathy. Acute/chronic systolic CHF. Cont lasix 60mg IV BID. Cont metoprolol succinate 25mg daily. Lisinopril on hold for now. (7) Essential hypertension: Plan: Continue home metoprolol Hold lisinopril (8) CAD (coronary artery disease): Plan: Holding aspirin for procedures. Continue beta-carter and statin (9) COVID-19: Plan: tested + for such on 09/11/22 repeat testing this admission was negative on 09/21/22 (10) Pulmonary emboli: Plan: as seen on Venogram 09/11/22 d/c home on Eliquis Eliquis to be resumed following procedures this admission (11) Cirrhosis: Plan: 2nd to PALMER? 2nd to etoh? 2nd to right heart failure? should have viral hep w/u at some point. likely contributing to volume overload. cont diuresis. consider aldactone. (12) Tobacco use disorder: Plan: nicoderm patch daily (13) Ischemic cardiomyopathy: Admission and Anticipated Discharge Date Admission Date: September 21, 2022 Subjective patient reports mild pleuritic discomfort over right chest mild dyspnea mild cough appetite fair continues with LE edema Review of Systems Review of Systems: gen - no fevers or chills pulm - cough, some sputum, mild LOPEZ GI - no abd pain Physical Exam Physical Exam: gen - NAD, sitting in chair neck - no JVD mouth - MMM heart - irregular (extra beats, s1 s2 lungs - decreased BS right nearly all the way to top of hemithorax; left base with mild rales; no wheeze abd - distended, BS+, NT ext - firm lymphedema extending from the knees down to the feet b/l psych - a/o x 3 neuro - mild dysarthria Results & Data Results & Data ([facility]) Vital Signs (Past 12 Hours) Vital Signs Temp Pulse Pulse Resp BP Pulse Ox O2 Del Method 09/22/22 19:34 36.8 C 97 H 18 118/71 94 Nasal Cannula 09/22/22 16:00 96 H 09/22/22 16:36 36.7 C 100 H 19 125/76 90 Nasal Cannula 09/22/22 11:33 37.2 C 103 H 20 125/81 92 Room Air O2 Flow Rate 09/22/22 19:34 3 09/22/22 16:00 09/22/22 16:36 3 09/22/22 11:33 Laboratory Results Laboratory Results - last 24 hr 09/21/22 09/22/22 09/22/22 21:40 02:09 02:46 WBC 19.28 H RBC 5.03 Hgb 15.6 Hct 43.8 MCV 87.1 MCH 31.0 MCHC 35.6 RDW Std Deviation 41.5 RDW Coeff of Rojas 13.3 Plt Count 381 MPV 11.6 Immature Gran % (Auto) 1.2 Neut % (Auto) 76.9 Lymph % (Auto) 8.4 Traverse % (Auto) 12.2 Eos % (Auto) 0.7 Baso % (Auto) 0.6 Neut # (Auto) 14.83 H Lymph # (Auto) 1.62 Traverse # (Auto) 2.35 H Eos # (Auto) 0.13 Baso # (Auto) 0.11 Immature Gran # (Auto) 0.24 H APTT PTT Ratio Sodium Potassium Chloride Carbon Dioxide Anion Gap BUN Creatinine Est Cr Clr Drug Dosing Est GFR ( Amer) Est GFR (Non-Af Amer) BUN/Creatinine Ratio Glucose POC Glucose 339 H* Calcium Magnesium Total Bilirubin AST ALT Alkaline Phosphatase Total Protein Albumin Globulin Albumin/Globulin Ratio Urine Osmolality Ur Random Sodium Nasal Screen MRSA (PCR) SARS-CoV-2, RNA, NAAT NEGATIVE 09/22/22 09/22/22 09/22/22 02:46 07:57 09:31 WBC RBC Hgb Hct MCV MCH MCHC RDW Std Deviation RDW Coeff of Rojas Plt Count MPV Immature Gran % (Auto) Neut % (Auto) Lymph % (Auto) Traverse % (Auto) Eos % (Auto) Baso % (Auto) Neut # (Auto) Lymph # (Auto) Traverse # (Auto) Eos # (Auto) Baso # (Auto) Immature Gran # (Auto) APTT 36.1 H PTT Ratio 1.3 Sodium 124 L Potassium 3.8 Chloride 86 L Carbon Dioxide 29 Anion Gap 9 BUN 15 Creatinine 0.68 Est Cr Clr Drug Dosing 179.9 Est GFR ( Amer) 126.4 Est GFR (Non-Af Amer) 109.0 BUN/Creatinine Ratio 22.1 H Glucose 347 H* POC Glucose 261 H Calcium 9.3 Magnesium 1.9 Total Bilirubin 2.4 H AST 18 ALT 15 Alkaline Phosphatase 78 Total Protein 6.5 Albumin 3.4 Globulin 3.1 Albumin/Globulin Ratio 1.1 Urine Osmolality Ur Random Sodium Nasal Screen MRSA (PCR) SARS-CoV-2, RNA, NAAT 09/22/22 09/22/22 09/22/22 12:02 16:47 17:52 WBC RBC Hgb Hct MCV MCH MCHC RDW Std Deviation RDW Coeff of Rojas Plt Count MPV Immature Gran % (Auto) Neut % (Auto) Lymph % (Auto) Traverse % (Auto) Eos % (Auto) Baso % (Auto) Neut # (Auto) Lymph # (Auto) Traverse # (Auto) Eos # (Auto) Baso # (Auto) Immature Gran # (Auto) APTT 37.1 H PTT Ratio 1.3 Sodium Potassium Chloride Carbon Dioxide Anion Gap BUN Creatinine Est Cr Clr Drug Dosing Est GFR ( Amer) Est GFR (Non-Af Amer) BUN/Creatinine Ratio Glucose POC Glucose 202 H 176 H Calcium Magnesium Total Bilirubin AST ALT Alkaline Phosphatase Total Protein Albumin Globulin Albumin/Globulin Ratio Urine Osmolality Ur Random Sodium Nasal Screen MRSA (PCR) SARS-CoV-2, RNA, NAAT 09/22/22 09/22/22 09/22/22 20:26 Unknown Unknown WBC RBC Hgb Hct MCV MCH MCHC RDW Std Deviation RDW Coeff of Rojas Plt Count MPV Immature Gran % (Auto) Neut % (Auto) Lymph % (Auto) Traverse % (Auto) Eos % (Auto) Baso % (Auto) Neut # (Auto) Lymph # (Auto) Traverse # (Auto) Eos # (Auto) Baso # (Auto) Immature Gran # (Auto) APTT PTT Ratio Sodium Potassium Chloride Carbon Dioxide Anion Gap BUN Creatinine Est Cr Clr Drug Dosing Est GFR ( Amer) Est GFR (Non-Af Amer) BUN/Creatinine Ratio Glucose POC Glucose 164 H Calcium Magnesium Total Bilirubin AST ALT Alkaline Phosphatase Total Protein Albumin Globulin Albumin/Globulin Ratio Urine Osmolality 599 Ur Random Sodium Nasal Screen MRSA (PCR) Negative SARS-CoV-2, RNA, NAAT 09/22/22 Unknown WBC RBC Hgb Hct MCV MCH MCHC RDW Std Deviation RDW Coeff of Rojas Plt Count MPV Immature Gran % (Auto) Neut % (Auto) Lymph % (Auto) Traverse % (Auto) Eos % (Auto) Baso % (Auto) Neut # (Auto) Lymph # (Auto) Traverse # (Auto) Eos # (Auto) Baso # (Auto) Immature Gran # (Auto) APTT PTT Ratio Sodium Potassium Chloride Carbon Dioxide Anion Gap BUN Creatinine Est Cr Clr Drug Dosing Est GFR ( Amer) Est GFR (Non-Af Amer) BUN/Creatinine Ratio Glucose POC Glucose Calcium Magnesium Total Bilirubin AST ALT Alkaline Phosphatase Total Protein Albumin Globulin Albumin/Globulin Ratio Urine Osmolality Ur Random Sodium < 10 Nasal Screen MRSA (PCR) SARS-CoV-2, RNA, NAAT PG Care Time/CCT Total # of Minutes Spent Total Time Spent with Patient: Total time spent is greater than 50% in coordination of care (as documented) at patient's floor/unit and/or counseling patient: Coding Level of Care Code 00171 Subseq Hosp Care Lvl 2 Diagnoses Pleural effusion, right J90 Pneumonia J18.9 Hyponatremia E87.1 Ischemic stroke I63.9 Acute internal jugular vein embolism I82.C19 Laterality: unspecified laterality Chronic systolic (congestive) heart failure I50.22 Essential hypertension I10 CAD (coronary artery disease) I25.10 COVID-19 U07.1 Pulmonary emboli I26.99 Cirrhosis K74.60 Tobacco use disorder F17.200 Ischemic cardiomyopathy I25.5 (1) Acute internal jugular vein embolism Laterality: unspecified laterality Qualified Code(s): I82.C19 - Acute embolism and thrombosis of unspecified internal jugular vein
[2022-09-22] MEDS ORDERED: MELATONIN 3 MG TAB PO PRN (22:33)
[2022-09-23 00:21] LABS: Partial Thromboplastin Ratio 1.3; Partial Thromboplastin Time 37.1 Seconds (21.0-31.0)
[2022-09-23] MEDS ORDERED: HEPARIN SOD (PORCINE) 1000 UNIT/ML IV ONE ×2 (01:30→23:30)
[2022-09-23] MEDS: PIPERACILLIN/TAZOBACTAM 4.5 GM in DEXTROSE 5% 100 ML IV SCH ×3 (06:06→21:28)
[2022-09-23 06:09] LABS: Basophils # (auto) 0.13 K/uL (0-0.2); Basophils % (auto) 0.8 %; Eosinophils # (auto) 0.19 K/uL (0-0.50); Eosinophils % (auto) 1.1 %; Hematocrit (blood only) 45.5 % (40.1-51.0); Hemoglobin 15.4 g/dl (14.0-18.0); Immature Granulocytes # (auto) 0.18 K/uL (0.00-0.02); Immature Granulocytes % (auto) 1.1 %; Lymphocytes # (auto) 2.11 K/uL (1.2-3.4); Lymphocytes % (auto) 12.7 %; Mean Corpuscular Hemoglobin 30.8 pg (25.0-34.0); Mean Corpuscular Hgb Conc 33.8 g/dL (32.0-36.0); Mean Platelet Volume 11.7 fL (9.4-12.4); Monocytes # (auto) 2.18 K/uL (0.24-0.82); Monocytes % (auto) 13.1 %; Neutrophils # (auto) 11.79 K/uL (1.4-6.5); Neutrophils % (auto) 71.2 %; Platelet Count 348 K/uL (130-400); RDW Coefficient of Variation 13.3 % (11.5-14.5); RDW Standard Deviation 44.2 fL (36.4-46.3); White Blood Count 16.58 K/ul (4.8-10.8)
[2022-09-23 06:43] LABS: BUN Creatinine Ratio 20.3 (10-20); Creatinine Clr Calc Pharmacy 155.4 ml/min; Est GFR (African American) 118.8 ml/min; Est GFR (Non-African American) 102.5 ml/min; Potassium 3.6 mmol/L (3.5-5.1)
[2022-09-23] MEDS: INSULIN ASPART PER UNIT SC SCH ×4 (08:00→21:08)
--- NOTE | 2022-09-23 08:01 | Pharmacy Report ---
Pharmacy PK ABX Note - Date of Service September 23, 2022 - Assessment and Plan Assessment 51 year old M receiving IV Vancomycin + Zosyn for treatment of parapneumonic effusion or empyema. POC US of the right hemithorax demonstrated a large right pleural effusion with areas of loculation. Left hemithorax not have any evidence of effusion. MRSA swab negative -continuing Vancomycin per Pulmonary, d/t empyema. Smoker - 1 pack/day BCs NGTD after 24 hours Plan Vancomycin * Current regimen: 1250 mg IV every 12 hours * Random level obtained 09/23/22 resulted as 8.7 mcg/mL. This is subtherapeutic predicted to achieve AUC/JOJO LESS THAN 400-600 mg/L.hr * Change to 1250 mg IV every 8 hours * Regimen is predicted to achieve target AUC/JOJO of 400-600 mg/L.hr * Repeat trough level ordered for: 09/24/22 Pharmacy has transitioned to AUC monitoring for vancomycin. AUC/JOJO is the preferred PK/PD target and is associated with decreased risk of nephrotoxicity compared to traditional trough targets. Zosyn 4.5g IV Q8H for CrCl > 20ml/min, BMI 39 Pharmacy will continue to follow and will adjust dose/frequency as necessary. Thank you.
[2022-09-23] MEDS: VANCOMYCIN HCL 1,250 MG in SODIUM CHLORIDE 0.9% 250 ML IV SCH ×2 (08:29→15:26)
[2022-09-23] MEDS: NICOTINE 21 MG/24 HR TDSY TD SCH (08:32)
[2022-09-23] MEDS: CYANOCOBALAMIN (B-12) 500 MCG TABLET PO SCH (08:36)
[2022-09-23] MEDS: METOPROLOL SUCC 25MG EXT REL TAB PO SCH (08:37)
[2022-09-23] MEDS: PYRIDOXINE HCL 50 MG TAB PO SCH (08:37)
[2022-09-23] MEDS: ROSUVASTATIN CALCIUM 5 MG TAB PO SCH (08:37)
[2022-09-23] MEDS: FOLIC ACID 1 MG TAB PO SCH (08:37)
[2022-09-23] MEDS: FUROSEMIDE 40 MG/4 ML VIAL IV SCH ×2 (08:52→16:42)
[2022-09-23] MEDS: LANTUS PER UNIT CHARGE SQ SCH (09:00)
--- NOTE | 2022-09-23 13:22 | Procedure Note ---
Procedure Note Date of Service September 23, 2022 Note PIGTAIL CATHETER PLACEMENT NOTE: Procedure: Pigtail Catheter Chest Tube Placement Indication: Massive right pleural Anesthesia: 10 mlLidocaine 1% Written consent was obtained and placed on the chart. Timeout was done prior to the procedure. Prior to procedure, chest x-ray films were reviewed by myself and demonstrated a massive right pleural effusion that is free-flowing, but with pockets of loculation near the diaphragm. A time-out was completed verifying correct patient, procedure, site, positioning, and implant(s) or special equipment if applicable. Utilizing bedside ultrasound, chest wall was evaluated for location for optimal chest tube placement. Location between the fifth and 6 ribs were marked on the skin using gentle pressure. The right sided chest wall was prepped with chlorhexidine and draped in the typical sterile fashion. 10 mL of 1% Lidocaine without epinephrine was used to anesthetize the skin down to the dorsal surface of the fifth rib. Serafin-colored fluid return confirmed entry into the pleural space. Lidocaine was injected into the pleural space for increased anesthetization. Introducer needle on syringe was inserted in perpendicular fashion taking care to ride just above the dorsal surface of the [] rib. Entry into the pleural space was heralded by serafin-colored fluid return into the syringe while under gentle aspiration. Guide wire was advanced into the pleural space without resistance and the introducer needle was subsequently removed. Scalpel was used to make small incision of the superficial tissue, parallel to the direction of the rib anatomy. Dilator was advanced uneventfully over the guide wire into the pleural space. 40 [place] Pigtail Catheter was inserted into the pleural space. Inner introducer and guide wire were removed. Drain was immediately connected to pre-prepared MICAELA pleur-evac system. Pigtail was sutured securely in place and sterile dressing was applied. Chest tube was placed to -20 cmH2O suction. Patient tolerated procedure well. Blood Loss: Minimal Complications: None Post procedure chest x-ray is pending. 2.5 liters of fluid were removed by the time I left the room. Patient's shortness of breath improved, but he does have a cough. Restart heparin drip at 10 PM today if no signs of bleeding or hemoptysis. Coding CPT Codes Pulmonary/Thoracic - Pulmonary and Thoracic: 44402 Tube thoracostomy ([id number]) [facility] [place]) Pulmonary/Thoracic Procedure 1: Pulmonary and Thoracic: 94791 Tube thoracostomy
--- NOTE | 2022-09-23 13:25 | Pulmonology Progress Note ---
Date of Service September 23, 2022 Assessment & Plan (1) Pleural effusion: (2) Dyspnea: (3) Hypoxia: (4) Tobacco abuse counseling: Plan Likely parapneumonic effusion with CHF component as well. Right pigtail catheter inserted 09/23/2022. 2.5 L of fluid immediately removed upon in sertion. Postprocedure chest x-ray pending. Labs from pleural fluid sent including cultures and cytology. Continue broad-spectrum antibiotics. We will discontinue chest tube drain once drainage is below 100 mL/24 hours. We will consider mist 2 protocol depending on chest x-ray findings and pleural fluid findings on labs. Restart heparin at 10 PM no signs of bleeding. Pain control per primary team. Discussed with bedside RN. Thank you. Please call with questions Admission and Anticipated Discharge Date Admission Date: September 21, 2022 Subjective Patient continues with cough and shortness of breath. Requiring supplemental oxygen. Occasional episodes of red tinge sputum. No fevers overnight. He does have some mild rib tenderness. Review of Systems Review of Systems: All systems reviewed & are unremarkable except as noted in HPI & below Physical Exam Physical Exam: Constitutional: Obese appearing male who is frequently coughing during exam. Eyes: Pupils are equal round and reactive to light. Conjunctivae are normal. Anicteric sclera. Ears nose, mouth and throat: No obvious deformities. Neck: Trachea is midline. Visual inspection is normal. Respiratory: Crackles on the right lung. Diminished otherwise. Cardiovascular: Regular rate and rhythm. No murmurs. 3+ pitting edema in the lower extremities bilaterally. Gastrointestinal: Normal bowel sounds, soft, nontender and nondistended. No hepatosplenomegaly noted. Musculoskeletal: No cyanosis. Patient is able to move all extremities. Skin: No rashes, warm dry and intact. Neurologic: No obvious focal neurological deficits seen. Psychiatric: Alert and oriented x3 with a euthymic affect. Results & Data Results & Data ([facility]) Vital Signs (Past 12 Hours) Vital Signs Temp Pulse Pulse Resp BP Pulse Ox O2 Del Method 09/23/22 10:33 88 09/23/22 08:00 Nasal Cannula 09/23/22 07:45 36.6 C 90 16 132/73 94 Nasal Cannula 09/23/22 05:45 36.8 C 88 18 107/67 96 Nasal Cannula O2 Flow Rate 09/23/22 10:33 09/23/22 08:00 3 12/28/22 07:45 09/23/22 05:45 3 PG Care Time/CCT Total # of Minutes Spent Total Time Spent with Patient: Total time spent is greater than 50% in coordination of care (as documented) at patient's floor/unit and/or counseling patient: Coding Level of Care Code 86751 Subseq Hosp Care Lvl 3 Diagnoses Pleural effusion J90 Dyspnea R06.00 Hypoxia R09.02 Tobacco abuse counseling Z71.6
--- NOTE | 2022-09-23 13:56 | XRay Report ---
XR chest 1V portable HISTORY: 51 years-old Male S/P pigtail on right follow-up study in a patient with a right-sided pleu ral effusion COMPARISON: Chest radiograph and CTA chest 09/21/2022 TECHNIQUE: AP view of the chest FINDINGS: Cardiac silhouette is enlarged. Decreased size of the right pleural effusion status post placement of a pleural drainage catheter projecting over the lateral right lung base. There is persistent right b asilar consolidation. No postprocedural pneumothorax identified. Degenerative changes of the shoulder s and spine. IMPRESSION: 1. Decreased size of right pleural effusion status post placement of a pleural drainage catheter. 2. Persistent right basilar consolidation. 3. No pneumothorax identified. ACT 112: Negative or not required by law. The above report was generated using voice recognition software. It may contain grammatical, syntax o r spelling errors. Electronically signed by: Benjy Rahman M.D. 09/23/2022 1:54 PM
[2022-09-23 14:33] LABS: Appearance Pleural Fluid Hazy; Color Pleural Fluid Amber; Lymphocytes, Fluid 12 %; Mono,Macrophage,Mesothelial 4 %; Neutrophils, Fluid 84 %; RBC Pleural Fluid Auto 10000 /uL; Source Pleural Fluid Right Lung; WBC Pleural Fluid Auto 5835 /uL
[2022-09-23 14:37] LABS: Amylase Pleural Fluid < 10 U/L; Glucose Pleural Fluid 131 mg/dl; LDH Pleural Fluid 611 U/L; Total Protein Pleural Fluid 3.9 gm/dl
--- NOTE | 2022-09-23 17:41 | XRay Report ---
XR chest 1V portable HISTORY: 51 years-old Male follow up chest tube follow-up study in a patient with right pleural effu cait COMPARISON: Chest radiograph of same day TECHNIQUE: AP view of the chest FINDINGS: Cardiac silhouette is enlarged. Mildly decreased size of the right pleural effusion with stable posit ioning of the right-sided pleural drainage catheter projecting over the lateral right lung base. Ther e is persistent right basilar and right midlung consolidation. No postprocedural pneumothorax identif ied. The left lung is generally clear. Degenerative changes of the shoulders and spine. A small radio paque needle type device projects over the left humeral head. IMPRESSION: 1. Slightly decreased size of right pleural effusion with right-sided pleural drainage catheter in pl [place]. 2. Persistent right basilar consolidation. 3. No pneumothorax identified. ACT 112: Negative or not required by law. The above report was generated using voice recognition software. It may contain grammatical, syntax o r spelling errors. Electronically signed by: Benjy Rahman M.D. 09/23/2022 5:40 PM
--- NOTE | 2022-09-23 21:43 | Hospitalist Progress Note ---
Date of Service September 23, 2022 Assessment & Plan (1) Pleural effusion, right: Plan: s/p chest tube placement today by Dr Ruano. Already 2.5+ liters of fluid removed. Fluid studies c/w exudative effusion by Lite's criteria. Parapneumonic effusion at minimum; follow pleural fluid cultures. Some of the fluid could be due to CHF/cirrhosis as well. Cont zosyn. Cont vancomycin. Appreciate [facility] [place] Pulmonary consultation. Plan - cont to hold Eliquis. Can resume heparin infusion tonight at 2200 if no bleeding from the chest tube site. Defer management of this issue to pulmonary. (2) Pneumonia: Plan: Right sided (RUL, RML); minimal infiltrate LLL. Cont zosyn. Cont vancomycin (Although MRSA swab is negative, cont vancomycin until pleural fluid culture is final). Follow blood cultures. Overall clinically improved/stable. (3) Hyponatremia: Plan: Urine osm 599. Urine Na <10. Urine Na level likely skewed due to chronic lasix usage. Either way he looks total body volume overloaded. Cont lasix 60mg IV BID. Repeat BMP am. (4) Ischemic stroke: Plan: Right temporal lobe and posterior right frontal lobe and anterior right parietal lobe. As seen on MRI brain earlier this month. Was d/c on Eliquis and asa for secondary prevention. Both on hold for Rx of #1 above. Resume at earliest possible time. (5) Acute internal jugular vein embolism: Plan: Noted on CTA neck on 09/11. Etiology?? Due to COVID-19 infection (ie hypercoagulable state from such)? [tested + 09/11] Homocysteinemia? Other? Additional hypercoagulable w/u was negative (factor V Leiden, Prothrombin Gene Mutation, etc). Protein C level was low but may have been low due to acute VTE. Liver disease can also cause low levels. Resume heparin drip tonight at 2200. Given the complexity of his recent VTE events strongly consider referral to hematology as well as the anticoagulation clinic. Uncertain if Eliquis is best oral anticoagulant option moving forward?? (6) Chronic systolic (congestive) heart failure: Plan: EF 35%. Ischemic cardiomyopathy. Acute/chronic systolic CHF. Cont lasix 60mg IV BID. Cont metoprolol succinate 25mg daily. Lisinopril on hold for now. (7) Essential hypertension: Plan: Continue home metoprolol Hold lisinopril (8) CAD (coronary artery disease): Plan: Holding aspirin for procedures. Continue beta-carter and statin (9) COVID-19: Plan: tested + for such on 09/11/22 repeat testing this admission was negative on 09/21/22 (10) Pulmonary emboli: Plan: as seen on Venogram 09/11/22 was d/c home on Eliquis after previous admission Eliquis now on hold for his chest tube placement see discussion above in #5 (11) Cirrhosis: Plan: 2nd to PALMER? 2nd to etoh? 2nd to right heart failure? should have viral hep w/u at some point. likely contributing to volume overload. cont diuresis. consider aldactone. (12) Tobacco use disorder: Plan: nicoderm patch daily (13) Ischemic cardiomyopathy: Plan: EF 35% Plan nice progress today s/p chest tube placement on right Admission and Anticipated Discharge Date Admission Date: September 21, 2022 Subjective patient had chest tube placed this am by pulmonary within minutes of placement 2.5 liters of fluid exuded from the right chest within a short period of time his O2 requirement had resolved since the chest tube placement he has felt MUCH better no further dyspnea minimal pain at chest tube site no pleuritic pain eating well no other new issues Review of Systems Review of Systems: gen - no fevers, no chills, feels better pulm - cough improved; no dyspnea GI - no abd pain, nausea, or emesis Physical Exam Physical Exam: gen - NAD, sitting in chair, looks very good neck - no JVD mouth - MMM heart - irregular (extra beats), s1 s2 lungs - decreased BS on right with much better airation today; dressings intact over chest tube site right lower back; left base with mild rales; no wheeze abd - distended, BS+, NT ext - firm lymphedema extending from the knees down to the feet b/l - no change psych - a/o x 3 neuro - mild dysarthria from prior stroke Results & Data Results & Data ([facility]) Vital Signs (Past 12 Hours) Vital Signs Temp Pulse Pulse Resp BP Pulse Ox O2 Del Method 09/23/22 20:03 37.2 C 92 H 18 106/70 93 Room Air 09/23/22 15:40 37.7 C H 92 H 17 105/70 95 Room Air 09/23/22 10:33 88 Laboratory Results Laboratory Results - last 24 hr 09/22/22 09/23/22 09/23/22 23:48 05:44 05:44 WBC 16.58 H RBC 5.00 Hgb 15.4 Hct 45.5 MCV 91.0 MCH 30.8 MCHC 33.8 RDW Std Deviation 44.2 RDW Coeff of Rojas 13.3 Plt Count 348 MPV 11.7 Immature Gran % (Auto) 1.1 Neut % (Auto) 71.2 Lymph % (Auto) 12.7 Nicollet % (Auto) 13.1 Eos % (Auto) 1.1 Baso % (Auto) 0.8 Neut # (Auto) 11.79 H Lymph # (Auto) 2.11 Nicollet # (Auto) 2.18 H Eos # (Auto) 0.19 Baso # (Auto) 0.13 Immature Gran # (Auto) 0.18 H APTT 37.1 H PTT Ratio 1.3 Sodium Potassium Chloride Carbon Dioxide Anion Gap BUN Creatinine Est Cr Clr Drug Dosing Est GFR ( Amer) Est GFR (Non-Af Amer) BUN/Creatinine Ratio Glucose POC Glucose Calcium Lactate Dehydrogenase Total Protein Fluid Neutrophils % Fluid Lymphocytes % Fluid Meso/Macro/Nicollet % Fluid Comment Pleural Fluid Source Pleural Color Pleural Appearance Pleural pH Pleural WBC (Auto) Pleural RBC (Auto) Pleural Total Protein Pleural LDH Pleural Glucose Pleural Amylase Random Vancomycin 8.7 L Miscellaneous Test 09/23/22 09/23/22 09/23/22 05:44 07:48 11:47 WBC RBC Hgb Hct MCV MCH MCHC RDW Std Deviation RDW Coeff of Rojas Plt Count MPV Immature Gran % (Auto) Neut % (Auto) Lymph % (Auto) Nicollet % (Auto) Eos % (Auto) Baso % (Auto) Neut # (Auto) Lymph # (Auto) Nicollet # (Auto) Eos # (Auto) Baso # (Auto) Immature Gran # (Auto) APTT PTT Ratio Sodium 128 L Potassium 3.6 Chloride 86 L Carbon Dioxide 36 H Anion Gap 6 BUN 16 Creatinine 0.79 Est Cr Clr Drug Dosing 155.4 Est GFR ( Amer) 118.8 Est GFR (Non-Af Amer) 102.5 BUN/Creatinine Ratio 20.3 H Glucose 168 H POC Glucose 225 H 229 H Calcium 9.0 Lactate Dehydrogenase Total Protein Fluid Neutrophils % Fluid Lymphocytes % Fluid Meso/Macro/Nicollet % Fluid Comment Pleural Fluid Source Pleural Color Pleural Appearance Pleural pH Pleural WBC (Auto) Pleural RBC (Auto) Pleural Total Protein Pleural LDH Pleural Glucose Pleural Amylase Random Vancomycin Miscellaneous Test 09/23/22 09/23/22 09/23/22 13:41 13:41 13:41 WBC RBC Hgb Hct MCV MCH MCHC RDW Std Deviation RDW Coeff of Rojas Plt Count MPV Immature Gran % (Auto) Neut % (Auto) Lymph % (Auto) Nicollet % (Auto) Eos % (Auto) Baso % (Auto) Neut # (Auto) Lymph # (Auto) Nicollet # (Auto) Eos # (Auto) Baso # (Auto) Immature Gran # (Auto) APTT PTT Ratio Sodium Potassium Chloride Carbon Dioxide Anion Gap BUN Creatinine Est Cr Clr Drug Dosing Est GFR ( Amer) Est GFR (Non-Af Amer) BUN/Creatinine Ratio Glucose POC Glucose Calcium Lactate Dehydrogenase Total Protein Fluid Neutrophils % 84 Fluid Lymphocytes % 12 Fluid Meso/Macro/Nicollet % 4 Fluid Comment Pleural Fluid Source Right Lung Pleural Color Dor[place] Pleural Appearance Hazy Pleural pH 7.32 Pleural WBC (Auto) 5835 Pleural RBC (Auto) 69173 Pleural Total Protein 3.9 Pleural LDH 611 Pleural Glucose 131 Pleural Amylase < 10 Random Vancomycin Miscellaneous Test 09/23/22 09/23/22 09/23/22 14:13 14:13 16:45 WBC RBC Hgb Hct MCV MCH MCHC RDW Std Deviation RDW Coeff of Rojas Plt Count MPV Immature Gran % (Auto) Neut % (Auto) Lymph % (Auto) Nicollet % (Auto) Eos % (Auto) Baso % (Auto) Neut # (Auto) Lymph # (Auto) Nicollet # (Auto) Eos # (Auto) Baso # (Auto) Immature Gran # (Auto) APTT PTT Ratio Sodium Potassium Chloride Carbon Dioxide Anion Gap BUN Creatinine Est Cr Clr Drug Dosing Est GFR ( Amer) Est GFR (Non-Af Amer) BUN/Creatinine Ratio Glucose POC Glucose 177 H Calcium Lactate Dehydrogenase 305 H Total Protein 6.6 Fluid Neutrophils % Fluid Lymphocytes % Fluid Meso/Macro/Nicollet % Fluid Comment Pleural Fluid Source Pleural Color Pleural Appearance Pleural pH Pleural WBC (Auto) Pleural RBC (Auto) Pleural Total Protein Pleural LDH Pleural Glucose Pleural Amylase Random Vancomycin Miscellaneous Test 09/23/22 09/23/22 20:31 Unknown WBC RBC Hgb Hct MCV MCH MCHC RDW Std Deviation RDW Coeff of Rojas Plt Count MPV Immature Gran % (Auto) Neut % (Auto) Lymph % (Auto) Nicollet % (Auto) Eos % (Auto) Baso % (Auto) Neut # (Auto) Lymph # (Auto) Nicollet # (Auto) Eos # (Auto) Baso # (Auto) Immature Gran # (Auto) APTT PTT Ratio Sodium Potassium Chloride Carbon Dioxide Anion Gap BUN Creatinine Est Cr Clr Drug Dosing Est GFR ( Amer) Est GFR (Non-Af Amer) BUN/Creatinine Ratio Glucose POC Glucose 133 H Calcium Lactate Dehydrogenase Total Protein Fluid Neutrophils % Fluid Lymphocytes % Fluid Meso/Macro/Nicollet % Fluid Comment Pleural Fluid Source Pleural Color Pleural Appearance Pleural pH Pleural WBC (Auto) Pleural RBC (Auto) Pleural Total Protein Pleural LDH Pleural Glucose Pleural Amylase Random Vancomycin Miscellaneous Test Pending Diagnostic Findings blood cx's 09/22 -- negative to date gram stain of pleural fluid neg for pathogens PG Care Time/CCT Total # of Minutes Spent Total Time Spent with Patient: Total time spent is greater than 50% in coordination of care (as documented) at patient's floor/unit and/or counseling patient: Coding Level of Care Code 23982 Subseq Hosp Care Lvl 2 Diagnoses Pleural effusion, right J90 Pneumonia J18.9 Hyponatremia E87.1 Ischemic stroke I63.9 Acute internal jugular vein embolism I82.C19 Laterality: unspecified laterality Chronic systolic (congestive) heart failure I50.22 Essential hypertension I10 CAD (coronary artery disease) I25.10 COVID-19 U07.1 Pulmonary emboli I26.99 Cirrhosis K74.60 Tobacco use disorder F17.200 Ischemic cardiomyopathy I25.5 (1) Acute internal jugular vein embolism Laterality: unspecified laterality Qualified Code(s): I82.C19 - Acute embolism and thrombosis of unspecified internal jugular vein
[2022-09-23 22:59] LABS: Partial Thromboplastin Ratio 1.2
[2022-09-23] MEDS: HEPARIN SODIUM/DEXTROSE 25,000 UNITS/500 ML BAG IV SCH (23:14)
[2022-09-24] MEDS: VANCOMYCIN HCL 1,250 MG in SODIUM CHLORIDE 0.9% 250 ML IV SCH ×2 (00:25→08:59)
[2022-09-24 05:21] LABS: Creatinine Clr Calc Pharmacy 187.5 ml/min; Est GFR (African American) 128.7 ml/min; Est GFR (Non-African American) 111.1 ml/min
[2022-09-24 05:33] LABS: Partial Thromboplastin Ratio 1.9
[2022-09-24] MEDS: PIPERACILLIN/TAZOBACTAM 4.5 GM in DEXTROSE 5% 100 ML IV SCH ×3 (05:37→23:04)
[2022-09-24 05:40] LABS: Partial Thromboplastin Time 52.7 Seconds (21.0-31.0)
[2022-09-24] MEDS ORDERED: VANCOMYCIN LEVEL ONE (07:30)
[2022-09-24] MEDS: METOPROLOL SUCC 25MG EXT REL TAB PO SCH (08:07)
[2022-09-24] MEDS: CYANOCOBALAMIN (B-12) 500 MCG TABLET PO SCH (08:07)
[2022-09-24] MEDS: PYRIDOXINE HCL 50 MG TAB PO SCH (08:07)
[2022-09-24] MEDS: ROSUVASTATIN CALCIUM 5 MG TAB PO SCH (08:07)
[2022-09-24] MEDS: FOLIC ACID 1 MG TAB PO SCH (08:07)
[2022-09-24] MEDS: FUROSEMIDE 40 MG/4 ML VIAL IV SCH ×2 (08:08→17:38)
[2022-09-24] MEDS: NICOTINE 21 MG/24 HR TDSY TD SCH (08:08)
[2022-09-24 08:11] LABS: Hematocrit (blood only) 43.3 % (40.1-51.0); Hemoglobin 14.9 g/dl (14.0-18.0); Mean Corpuscular Hemoglobin 30.9 pg (25.0-34.0); Mean Corpuscular Hgb Conc 34.4 g/dL (32.0-36.0); Mean Corpuscular Volume 89.8 fL (80.0-100.0); Mean Platelet Volume 11.6 fL (9.4-12.4); Platelet Count 365 K/uL (130-400); RDW Coefficient of Variation 13.2 % (11.5-14.5); Red Blood Count 4.82 M/uL (4.63-6.08); White Blood Count 13.84 K/ul (4.8-10.8)
[2022-09-24 08:35] LABS: BUN Creatinine Ratio 21.9 (10-20); Calcium 8.5 mg/dl (8.5-10.1); Creatinine Clr Calc Pharmacy 188.1 ml/min; Est GFR (African American) 129.6 ml/min; Est GFR (Non-African American) 111.8 ml/min; Potassium 3.4 mmol/L (3.5-5.1)
[2022-09-24] MEDS: INSULIN ASPART PER UNIT SC SCH ×4 (09:00→20:47)
[2022-09-24] MEDS: LANTUS PER UNIT CHARGE SQ SCH (09:01)
[2022-09-24] MEDS: HEPARIN SODIUM/DEXTROSE 25,000 UNITS/500 ML BAG IV SCH ×3 (09:05→19:09)
--- NOTE | 2022-09-24 09:58 | Pharmacy Report ---
Pharmacy Vanc AUC Short Note - Date of Service September 24, 2022 - Assessment & Plan Assessment 51 year old M receiving IV Vancomycin + Zosyn for treatment of parapneumonic effusion or empyema. MRSA swab negative -continuing Vancomycin per Pulmonary BCs NGTD, pleural fluid gm stain pending Plan Vancomycin * Vancomycin level came back at 9.6 mcg/ml - this current vancomycin regimen is predicated to achieve an AUC ~400 (goal 400-600 AUC) Since borderline AUC, danielle l increase dose slightly today to vancomycin 1500 mg iv q 8 hrs * This higher dosing is estimated to achieve a trough level of ~14 mcg/ml and produce and AUC of ~500 and is associated with a toxicity of 9% * Renal function remains stable, will consider checking another level in 48 hours as long as renal function remains stable AUC/JOJO is the preferred PK/PD target and is associated with decreased risk of nephrotoxicity compared to traditional trough targets. Pharmacy will continue to follow and will adjust dose/frequency as necessary. Thank you.
--- NOTE | 2022-09-24 10:42 | XRay Report ---
XR chest 1V portable CLINICAL HISTORY: follow up chest tube TECHNIQUE: Single frontal radiograph of the chest was obtained. Comparison: Comparison is made to chest radiograph 09/15/2022 FINDINGS: Right chest tube is unchanged in position. The cardiomediastinal silhouette is normal. Right lower tony ng airspace opacity is unchanged from prior exam. Right pleural effusion is stable to mildly decrease d in size. IMPRESSION: Stable appearance of right chest tube. Stable to mildly decreased right pleural effusion. Associated airspace opacities unchanged. ACT 112: Negative or not required by law. Electronically signed by: Unruly Alan M.D. 09/24/2022 10:41 AM
[2022-09-24] MEDS: VANCOMYCIN HCL 1,500 MG in SODIUM CHLORIDE 0.9% 500 ML IV SCH ×2 (16:49→23:04)
--- NOTE | 2022-09-24 18:00 | Pulmonology Progress Note ---
Date of Service September 24, 2022 Assessment & Plan (1) Pleural effusion: (2) Dyspnea: (3) Hypoxia: (4) Tobacco abuse counseling: Plan Patient with likely combined parapneumonic effusion and fluid secondary to CHF which is improved substantially with drainage and Lasix. Continue broad- spectrum antibiotics. Pleural cultures are negative to date thus far. Pathology without evidence of tumor. Suspect parapneumonic effusion without evidence. Transition oral antibiotics in the next 1 to 2 days. Chest x-ray with substantial improvement in the right pleural effusion and persistent atelectasis/pneumonia of the right lung base. Repeat chest x-ray tomorrow. Can resume oral anticoagulation once chest tube removed. Discussed with bedside RN. Thank you. Please call with questions Admission and Anticipated Discharge Date Admission Date: September 21, 2022 Subjective Patient's cough and shortness of breath have improved substantially since drainage of the right hemithorax. Pigtail drainage has dropped off significantly over the last few hours. Review of Systems Review of Systems: All systems reviewed & are unremarkable except as noted in HPI & below Physical Exam Physical Exam: Constitutional: Obese appearing male no apparent distress. Eyes: Pupils are equal round and reactive to light. Conjunctivae are normal. Anicteric sclera. Ears nose, mouth and throat: No obvious deformities. Neck: Trachea is midline. Visual inspection is normal. Respiratory: Crackles on the right lung. Diminished otherwise. Cardiovascular: Regular rate and rhythm. No murmurs. Edema improved. Gastrointestinal: Normal bowel sounds, soft, nontender and nondistended. No hepatosplenomegaly noted. Musculoskeletal: No cyanosis. Patient is able to move all extremities. Skin: No rashes, warm dry and intact. Neurologic: No obvious focal neurological deficits seen. Psychiatric: Alert and oriented x3 with a euthymic affect. Results & Data Results & Data ([facility]) Vital Signs (Past 12 Hours) Vital Signs Temp Pulse Pulse Resp BP Pulse Ox O2 Del Method 09/24/22 16:11 37.4 C 89 20 98/63 L 96 Room Air 09/24/22 15:41 Room Air 09/24/22 09:00 Room Air 09/24/22 11:13 36.6 C 85 20 102/69 95 Room Air 09/24/22 08:09 36.7 C 81 20 108/68 95 Room Air 09/24/22 07:50 78 PG Care Time/CCT Total # of Minutes Spent Total Time Spent with Patient: Total time spent is greater than 50% in coordination of care (as documented) at patient's floor/unit and/or counseling patient: Coding Level of Care Code 55921 Subseq Hosp Care Lvl 2 Diagnoses Pleural effusion J90 Dyspnea R06.00 Hypoxia R09.02 Tobacco abuse counseling Z71.6
--- NOTE | 2022-09-24 22:28 | Hospitalist Progress Note ---
Date of Service September 24, 2022 Assessment & Plan (1) Pleural effusion, right: Plan: s/p chest tube placement today by Dr Ruano. Already 2.5+ liters of fluid removed. Fluid studies c/w exudative effusion by Lite's criteria. Parapneumonic effusion at minimum; follow pleural fluid cultures. Some of the fluid could be due to CHF/cirrhosis as well. Cont zosyn. Cont vancomycin. Appreciate [facility] [place] Pulmonary consultation. Plan - cont to hold Eliquis. heparin resumed. Plan to remove chest tube on 09/25, will defer to pulmonary.. (2) Pneumonia: Plan: Right sided (RUL, RML); minimal infiltrate LLL. Cont zosyn. Cont vancomycin (Although MRSA swab is negative, cont vancomycin until pleural fluid culture is final). Follow blood cultures. Overall clinically improved/stable. (3) Hyponatremia: Plan: Urine osm 599. Urine Na <10. Urine Na level likely skewed due to chronic lasix usage. Either way he looks total body volume overloaded. Cont lasix 60mg IV BID. (4) Ischemic stroke: Plan: Right temporal lobe and posterior right frontal lobe and anterior right parietal lobe. As seen on MRI brain earlier this month. Was d/c on Eliquis and asa for secondary prevention. Both on hold for Rx of #1 above. Resume at earliest possible time. (5) Acute internal jugular vein embolism: Plan: Noted on CTA neck on 09/11. Etiology?? Due to COVID-19 infection (ie hypercoagulable state from such)? [tested + 09/11] Homocysteinemia? Other? Additional hypercoagulable w/u was negative (factor V Leiden, Prothrombin Gene Mutation, etc). Protein C level was low but may have been low due to acute VTE. Liver disease can also cause low levels. Resume heparin drip tonight at 2200. Given the complexity of his recent VTE events strongly consider referral to hematology as well as the anticoagulation clinic. Uncertain if Eliquis is best oral anticoagulant option moving forward?? (6) Chronic systolic (congestive) heart failure: Plan: EF 35%. Ischemic cardiomyopathy. Acute/chronic systolic CHF. Cont lasix 60mg IV BID. Cont metoprolol succinate 25mg daily. Lisinopril on hold for now. (7) Essential hypertension: Plan: Continue home metoprolol Hold lisinopril (8) CAD (coronary artery disease): Plan: Holding aspirin for procedures. Continue beta-carter and statin (9) COVID-19: Plan: tested + for such on 09/11/22 repeat testing this admission was negative on 09/21/22 (10) Pulmonary emboli: Plan: as seen on Venogram 09/11/22 was d/c home on Eliquis after previous admission Eliquis now on hold for his chest tube placement see discussion above in #5 (11) Cirrhosis: Plan: 2nd to PALMER? 2nd to etoh? 2nd to right heart failure? should have viral hep w/u at some point. likely contributing to volume overload. cont diuresis. consider aldactone. (12) Tobacco use disorder: Plan: nicoderm patch daily (13) Ischemic cardiomyopathy: Plan: EF 35% Plan nice progress today s/p chest tube placement on right Admission and Anticipated Discharge Date Admission Date: September 21, 2022 Subjective Patient reports breathing better. He has no new complaints today. Review of Systems Review of Systems: All systems reviewed & are unremarkable except as noted in HPI & below Physical Exam Physical Exam: gen - NAD, sitting in chair, looks very good neck - no JVD mouth - MMM heart - irregular (extra beats), s1 s2 lungs - continues to have decreased BS on right; dressings intact over chest tube site right lower back; left base with mild rales; no wheeze abd - distended, BS+, NT ext - firm lymphedema extending from the knees down to the feet b/l - no change psych - a/o x 3 neuro - mild dysarthria from prior stroke Results & Data Results & Data ([facility]) Vital Signs (Past 12 Hours) Vital Signs Temp Pulse Resp BP Pulse Ox O2 Del Method 09/24/22 19:04 37.7 C H 96 H 18 106/66 94 Room Air 09/24/22 16:11 37.4 C 89 20 98/63 L 96 Room Air 09/24/22 15:41 Room Air 09/24/22 11:13 36.6 C 85 20 102/69 95 Room Air PG Care Time/CCT Total # of Minutes Spent Total Time Spent with Patient: Total time spent is greater than 50% in coordination of care (as documented) at patient's floor/unit and/or counseling patient: Coding Level of Care Code 90431 Subseq Hosp Care Lvl 2 Diagnoses Pleural effusion, right J90 Pneumonia J18.9 Hyponatremia E87.1 Ischemic stroke I63.9 Acute internal jugular vein embolism I82.C19 Laterality: unspecified laterality Chronic systolic (congestive) heart failure I50.22 Essential hypertension I10 CAD (coronary artery disease) I25.10 COVID-19 U07.1 Pulmonary emboli I26.99 Cirrhosis K74.60 Tobacco use disorder F17.200 Ischemic cardiomyopathy I25.5 Time Spent (min) 25 (1) Acute internal jugular vein embolism Laterality: unspecified laterality Qualified Code(s): I82.C19 - Acute embolism and thrombosis of unspecified internal jugular vein
[2022-09-25] MEDS: HEPARIN SODIUM/DEXTROSE 25,000 UNITS/500 ML BAG IV SCH ×2 (04:39→14:27)
[2022-09-25] MEDS: PIPERACILLIN/TAZOBACTAM 4.5 GM in DEXTROSE 5% 100 ML IV SCH ×3 (05:46→21:41)
[2022-09-25 07:31] LABS: Creatinine Clr Calc Pharmacy 174.5 ml/min; Est GFR (African American) 125.6 ml/min; Est GFR (Non-African American) 108.4 ml/min
[2022-09-25 07:51] LABS: Partial Thromboplastin Ratio 1.9
[2022-09-25 07:58] LABS: Partial Thromboplastin Time 51.5 Seconds (21.0-31.0)
[2022-09-25] MEDS: NICOTINE 21 MG/24 HR TDSY TD SCH (08:05)
[2022-09-25] MEDS: VANCOMYCIN HCL 1,500 MG in SODIUM CHLORIDE 0.9% 500 ML IV SCH ×3 (08:05→23:43)
[2022-09-25] MEDS: CYANOCOBALAMIN (B-12) 500 MCG TABLET PO SCH (08:05)
[2022-09-25] MEDS: FOLIC ACID 1 MG TAB PO SCH (08:06)
[2022-09-25] MEDS: PYRIDOXINE HCL 50 MG TAB PO SCH (08:06)
[2022-09-25] MEDS: METOPROLOL SUCC 25MG EXT REL TAB PO SCH (08:06)
[2022-09-25] MEDS: ROSUVASTATIN CALCIUM 5 MG TAB PO SCH (08:06)
[2022-09-25] MEDS: INSULIN ASPART PER UNIT SC SCH ×4 (08:20→20:43)
[2022-09-25] MEDS: FUROSEMIDE 40 MG/4 ML VIAL IV SCH ×2 (08:21→17:07)
[2022-09-25] MEDS: LANTUS PER UNIT CHARGE SQ SCH (08:21)
--- NOTE | 2022-09-25 10:04 | XRay Report ---
XR chest 1V portable HISTORY: 51 years-old Male follow up chest tube right pleural effusion COMPARISON: Chest radiograph 09/24/2022 TECHNIQUE: AP view of the chest FINDINGS: Cardiac silhouette is enlarged. Pleural drainage catheter is again noted lateral right lung base. Unc hanged right pleural effusion with right basilar consolidation. Pulmonary vascular congestion with as ymmetric interstitial coarsening of the right lung. The bones appear grossly intact. IMPRESSION: 1. Stable right-sided pleural drainage catheter with unchanged right pleural effusion and right basil ar consolidation. 2. No pneumothorax identified. ACT 112: Negative or not required by law. The above report was generated using voice recognition software. It may contain grammatical, syntax o r spelling errors. Electronically signed by: Benjy Rahman M.D. 09/25/2022 10:02 AM
--- NOTE | 2022-09-25 16:19 | Pulmonology Progress Note ---
Date of Service September 25, 2022 Assessment & Plan (1) Pleural effusion: (2) Dyspnea: (3) Hypoxia: (4) Tobacco abuse counseling: Plan Chest tube removed at bedside. Likely parapneumonic effusion. Would recommend at least 14 days of abx. Needs repeat cxr in 2-3 weeks. Can be ordered by PCP. Discussed with bedside RN. Will sign off. Thank you. Please call with questions. Admission and Anticipated Discharge Date Admission Date: September 21, 2022 Subjective Feeling much better. Less short of breath. Minimal chest tube drainage. Review of Systems Review of Systems: All systems reviewed & are unremarkable except as noted in HPI & below Physical Exam Physical Exam: Constitutional: Obese appearing male no apparent distress. Eyes: Pupils are equal round and reactive to light. Conjunctivae are normal. Anicteric sclera. Ears nose, mouth and throat: No obvious deformities. Neck: Trachea is midline. Visual inspection is normal. Respiratory: Crackles on the right lung. Diminished otherwise. Cardiovascular: Regular rate and rhythm. No murmurs. Edema improved. Gastrointestinal: Normal bowel sounds, soft, nontender and nondistended. No hepatosplenomegaly noted. Musculoskeletal: No cyanosis. Patient is able to move all extremities. Skin: No rashes, warm dry and intact. Neurologic: No obvious focal neurological deficits seen. Psychiatric: Alert and oriented x3 with a euthymic affect. Results & Data Results & Data ([facility]) Vital Signs (Past 12 Hours) Vital Signs Temp Pulse Resp BP Pulse Ox O2 Del Method 09/25/22 15:57 36.9 C 86 20 109/71 95 Room Air 09/25/22 08:00 Room Air 09/25/22 12:31 37 C 82 20 122/81 96 Room Air 09/25/22 08:02 36.9 C 83 18 115/68 95 Room Air PG Care Time/CCT Total # of Minutes Spent Total Time Spent with Patient: Total time spent is greater than 50% in coordination of care (as documented) at patient's floor/unit and/or counseling patient: Coding Level of Care Code 47893 Subseq Hosp Care Lvl 2 Diagnoses Pleural effusion J90 Dyspnea R06.00 Hypoxia R09.02 Tobacco abuse counseling Z71.6
--- NOTE | 2022-09-25 16:21 | Procedure Note ---
Procedure Note Date of Service September 25, 2022 Note Chest tube dressing removed. Sutures removed. 14 f chest tube removed at bedside without issue. Coding CPT Codes Pulmonary/Thoracic - Pulmonary and Thoracic: 80278 Remove lung catheter ([id number]) [facility] [place]) Pulmonary/Thoracic Procedure 1: Pulmonary and Thoracic: 07333 Remove lung catheter
--- NOTE | 2022-09-25 17:42 | XRay Report ---
XR chest 1V portable HISTORY: follow up chest tube COMPARISON: Chest 09/25/2022. FINDINGS: No pneumothorax. A small right pleural effusion is again noted. The right base airspace opa cities have improved. The heart remains enlarged. No evidence for pulmonary edema. The patient's righ t-sided chest tube is not identified and may have been removed in the interval. IMPRESSION: 1. No change in the small right pleural effusion. 2. Right base airspace opacities have improved. 3. No pneumothorax. ACT 112: Negative or not required by law. Electronically signed by: Deshawn Thomas M.D. 09/25/2022 5:40 PM
[2022-09-25] MEDS ORDERED: Nursing to Pharmacy Communication SCH (17:45)
[2022-09-25] MEDS: APIXABAN 5 MG TABLET PO SCH (21:42)
--- NOTE | 2022-09-25 22:15 | Hospitalist Progress Note ---
Date of Service September 25, 2022 Assessment & Plan (1) Pleural effusion, right: Plan: s/p chest tube placement Removed on 09/25 over 2.5+ liters of fluid removed. Fluid studies c/w exudative effusion by Lite's criteria. Parapneumonic effusion at minimum; follow pleural fluid cultures. Some of the fluid could be due to CHF/cirrhosis as well. Cont zosyn. Cont vancomycin. Appreciate [facility] Pulmonary consultation. Likely parapneumonic effusion. Would recommend at least 14 days of abx. Needs repeat cxr in 2-3 weeks. Can be ordered by PCP. Plan - eliquis resumed at 10 mg PO BID (reloading Eliquis) (2) Pneumonia: Plan: Right sided (RUL, RML); minimal infiltrate LLL. Cont zosyn. Cont vancomycin (Although MRSA swab is negative, cont vancomycin until pleural fluid culture is final). If remains negative, on 09/26, ok to stop MRSA coverage. Follow blood cultures. Overall clinically improved/stable. (3) Hyponatremia: Plan: Urine osm 599. Urine Na <10. Urine Na level likely skewed due to chronic lasix usage. Either way he looks total body volume overloaded. Cont lasix 60mg IV BID. (4) Ischemic stroke: Plan: Right temporal lobe and posterior right frontal lobe and anterior right parietal lobe. As seen on MRI brain earlier this month. Was d/c on Eliquis and asa for secondary prevention. Both on hold for Rx of #1 above. Resume at earliest possible time. (5) Acute internal jugular vein embolism: Plan: Noted on CTA neck on 09/11. Etiology?? Due to COVID-19 infection (ie hypercoagulable state from such)? [tested + 09/11] Homocysteinemia? Other? Additional hypercoagulable w/u was negative (factor V Leiden, Prothrombin Gene Mutation, etc). Protein C level was low but may have been low due to acute VTE. Liver disease can also cause low levels. Given the complexity of his recent VTE events strongly consider referral to outpatient hematology as well as the anticoagulation clinic. Uncertain if Eliquis is best oral anticoagulant option moving forward?? (6) Chronic systolic (congestive) heart failure: Plan: EF 35%. Ischemic cardiomyopathy. Acute/chronic systolic CHF. Cont lasix 60mg IV BID. Cont metoprolol succinate 25mg daily. Lisinopril on hold for now. (7) Essential hypertension: Plan: Continue home metoprolol Hold lisinopril (8) CAD (coronary artery disease): Plan: Holding aspirin for procedures. Continue beta-carter and statin (9) COVID-19: Plan: tested + for such on 09/11/22 repeat testing this admission was negative on 09/21/22 (10) Pulmonary emboli: Plan: as seen on Venogram 09/11/22 was d/c home on Eliquis after previous admission Eliquis resumed see discussion above in #5 (11) Cirrhosis: Plan: 2nd to PALMER? 2nd to etoh? 2nd to right heart failure? should have viral hep w/u at some point. likely contributing to volume overload. cont diuresis. consider aldactone. (12) Tobacco use disorder: Plan: nicoderm patch daily (13) Ischemic cardiomyopathy: Plan: EF 35% Admission and Anticipated Discharge Date Admission Date: September 21, 2022 Subjective 51 yo male reports feeling well. Hd had chest tube removed and is hoping to be discharged tomorrow morning Review of Systems Review of Systems: All systems reviewed & are unremarkable except as noted in HPI & below Physical Exam Physical Exam: gen - NAD, sitting in chair, looks very good neck - no JVD mouth - MMM heart - irregular (extra beats), s1 s2 lungs - continues to have decreased BS on right; dressings intact, chest tube removed; left base with mild rales; no wheeze abd - distended, BS+, NT ext - firm lymphedema extending from the knees down to the feet b/l - no change psych - a/o x 3 neuro - mild dysarthria from prior stroke Results & Data Results & Data ([facility]) Vital Signs (Past 12 Hours) Vital Signs Temp Pulse Pulse Resp BP BP Pulse Ox 09/25/22 20:30 36.9 C 86 20 102/64 96 09/25/22 20:41 09/25/22 16:40 84 09/25/22 15:57 36.9 C 86 20 109/71 95 09/25/22 12:31 37 C 82 20 122/81 96 O2 Del Method 09/25/22 20:30 Room Air 09/25/22 20:41 Room Air 09/25/22 16:40 09/25/22 15:57 Room Air 09/25/22 12:31 Room Air PG Care Time/CCT Total # of Minutes Spent Total Time Spent with Patient: Total time spent is greater than 50% in coordination of care (as documented) at patient's floor/unit and/or counseling patient: Coding Level of Care Code 59811 Subseq Hosp Care Lvl 3 Diagnoses Pleural effusion, right J90 Pneumonia J18.9 Hyponatremia E87.1 Ischemic stroke I63.9 Acute internal jugular vein embolism I82.C19 Laterality: unspecified laterality Chronic systolic (congestive) heart failure I50.22 Essential hypertension I10 CAD (coronary artery disease) I25.10 COVID-19 U07.1 Pulmonary emboli I26.99 Cirrhosis K74.60 Tobacco use disorder F17.200 Ischemic cardiomyopathy I25.5 (1) Acute internal jugular vein embolism Laterality: unspecified laterality Qualified Code(s): I82.C19 - Acute embolism and thrombosis of unspecified internal jugular vein
[2022-09-26] MEDS: PIPERACILLIN/TAZOBACTAM 4.5 GM in DEXTROSE 5% 100 ML IV SCH (06:10)
[2022-09-26 06:16] LABS: Partial Thromboplastin Ratio 1.2; Partial Thromboplastin Time 33.6 Seconds (21.0-31.0)
[2022-09-26 06:44] LABS: Est GFR (African American) 121.4 ml/min; Est GFR (Non-African American) 104.7 ml/min
[2022-09-26] MEDS ORDERED: VANCOMYCIN LEVEL ONE (07:30)
[2022-09-26] MEDS: VANCOMYCIN HCL 1,500 MG in SODIUM CHLORIDE 0.9% 500 ML IV SCH (07:48)
[2022-09-26] MEDS: ROSUVASTATIN CALCIUM 5 MG TAB PO SCH (07:48)
[2022-09-26] MEDS: FOLIC ACID 1 MG TAB PO SCH (07:48)
[2022-09-26] MEDS: APIXABAN 5 MG TABLET PO SCH (07:48)
[2022-09-26] MEDS: PYRIDOXINE HCL 50 MG TAB PO SCH (07:49)
[2022-09-26] MEDS: METOPROLOL SUCC 25MG EXT REL TAB PO SCH (07:49)
[2022-09-26] MEDS: CYANOCOBALAMIN (B-12) 500 MCG TABLET PO SCH (07:49)
[2022-09-26] MEDS: NICOTINE 21 MG/24 HR TDSY TD SCH (07:49)
[2022-09-26] MEDS: INSULIN ASPART PER UNIT SC SCH (09:20)
[2022-09-26] MEDS: LANTUS PER UNIT CHARGE SQ SCH (09:20)
[2022-09-26] MEDS: FUROSEMIDE 40 MG/4 ML VIAL IV SCH (09:20)
[2022-09-26] MEDS ORDERED: ASPIRIN 81 MG ECTAB PO SCH (10:00)
--- NOTE | 2022-09-26 10:53 | Discharge Summary ---
Date of Service September 26, 2022 Admission HPI Per Admitting Provider 51yo M w/ hx of HTN, DM, presumed paradoxical embolic stroke who presents with large right-sided pleural effusion. Was discharged about 2 weeks ago after a CVA that was thought to be paradoxical. Per patient and family, he had been doing well with his speech gradually improving to near pre-CVA baseline. Had some dyspnea on exertion, but overall was doing well. Was fully compliant with his Lasix and apixaban amongst his other medications. However, about 3-4 days ago, began to have a cough that was productive of clear sputum which was new. Yesterday in the evening, began to have shortness of breath with the cough as well as increased LE edema. Reports that he has been taking his Lasix as prescribed. In ER, noted to have a large right pleural effusion. Had had it previously, but had been stable on CXR on 09/11. Principal Diagnosis Bacterial right pneumonia with parapneumonic effusion, hyponatremia Discharge Exam General-alert and oriented x3, no fevers, no chills HEENT-head atraumatic and normocephalic, pupils equal and reactive to light, extraocular muscles intact Neck-no lymphadenopathy or thyromegaly, trachea midline Chest-decreased breath sounds at the right base. Chest tube site reveals some pleural effusion leakage that should resolve. No rales wheezing or rhonchi Cardiac-regular rate and rhythm, normal S1 and S2, no murmurs Abdomen-normal bowel sounds, nontender, no hepatosplenomegaly Extremities-no cyanosis, clubbing, or edema Neuro-cranial nerves II through XII intact, motor and sensory function within normal limits, strength symmetrical , no focal deficits Psych-normal affect, normal mood Discharge Data Allergies Allergy/AdvReac Type Severity Reaction Status Date / Time No Known Allergies Allergy Unverified 08/28/22 07:43 Consultations 09/21/22 20:11 ED Decision to Admit Stat 09/22/22 00:23 Consult Pulmonology Routine Ordered Studies 09/21/22 21:26 CT angio chest PE protocol Urgent 09/22/22 08:02 US point of care ultrasound Urgent Hospital Course (1) Pleural effusion, right: s/p right chest tube placement Removed on 09/25 over 2.5+ liters of fluid removed. Fluid studies c/w exudative effusion by Lite's criteria. Parapneumonic effusion at minimum; follow pleural fluid cultures. Negative to date Treated with zosyn and vancomycin. Will discharge home on Augmentin for 10 more days Appreciate [facility] Pulmonary consultation. Likely parapneumonic effusion. Would recommend at least 14 days of abx. Needs repeat cxr in 2-3 weeks. Can be ordered by PCP. (2) Pneumonia: Right sided (RUL, RML); minimal infiltrate LLL. Treated while hospitalized with Zosyn and vancomycin. Blood cultures negative to date. Overall clinically improved/stable. (3) Hyponatremia: Urine osm 599. Urine Na <10. Urine Na level likely skewed due to chronic lasix usage. Improving. Treated while hospitalized with lasix 60mg IV BID. (4) Ischemic stroke: Right temporal lobe and posterior right frontal lobe and anterior right parietal lobe, recent. As seen on MRI brain earlier this month. Was d/c on Eliquis and asa for secondary prevention. Both have been restarted after chest tube remova l. (5) Acute internal jugular vein embolism: Noted on CTA neck on 09/11. Possibly due to recent COVID-19 infection (ie hypercoagulable state from such)? [tested + 09/11] Additional hypercoagulable w/u was negative (factor V Leiden, Prothrombin Gene Mutation, etc). Protein C level was low but may have been low due to acute VTE. Liver disease can also cause low levels. Given the complexity of his recent VTE events strongly consider referral to outpatient hematology as well as the anticoagulation clinic. (6) Chronic systolic (congestive) heart failure: EF 35%. Ischemic cardiomyopathy. Suspected acute/chronic systolic CHF when admitted. Treated with lasix 60mg IV BID. Lisinopril was held on admission but has been restarted at discharge. Cont metoprolol succinate 25mg daily. (7) Essential hypertension: Continue home metoprolol. Lisinopril on hold while hospitalized. Restart at discharge. (8) CAD (coronary artery disease): Stable. Continue current medical management. Both aspirin and Eliquis have been restarted after chest tube removal. (9) COVID-19: tested + on 09/11/22. Repeat testing this admission was negative on 09/21/22 (10) Pulmonary emboli: as seen on Venogram 09/11/22. Continue Eliquis therapy. (11) Cirrhosis: 2nd to PALMER? etoh? right heart failure? Continue diuretic therapy. Follow-up with outpatient hepatology (12) Tobacco use disorder: nicoderm patch daily . Smoking cessation advised (13) Ischemic cardiomyopathy: EF 35% . Currently stable on current medications Plan Discharge home today, September 26, on oral Augmentin for 10 more days Total Time Total Time Spent Total Time Spent (In Minutes): 35 minutes Discharge Plan Discharge Items Patient Disposition: Home - Self-Care Reason For Visit: RIGHT PLEURAL EFFUSION Discharge Diagnosis: Right-sided pneumonia with parapneumonic effusion, hyponatremia Activity: Resume your previous activity Activity Comment: Remain off work until further notice Non-emergency contact: Primary Care Provider Call non-emergency contact if: you have any medication questions and your symptoms worsen Follow-up/Referrals: Vidhi Dwyer CRNP [Primary Care Provider] - Diet: Carb Consistent or DM2 and Heart Healthy Addtl Attending Provider Instructions: Take amoxicillin/clavulanate (Augmentin) for 10 days as directed Pending Studies at Discharge: No Stand-Alone Forms: My [facility], Smoking Cessation Medications and DC Order Prescriptions: New amoxicillin-pot clavulanate 875-125 mg Tablet 1 tab PO BIDM Qty: 20 0RF Continued lisinopril 5 mg tablet 5 mg PO DAILY Qty: 90 3RF furosemide 40 mg tablet 80 mg PO DAILY Qty: 180 3RF rosuvastatin 5 mg tablet 5 mg PO QAM Qty: 90 3RF nicotine [Nicoderm CQ] 21 mg/24 hr Patch 24 Hour 21 mg transdermal QAM Qty: 28 0RF Eliquis 5 mg (74 tabs) tablets,dose pack 5 mg PO BID Qty: 74 0RF Rx Instructions: Take 10 mg (2 pills) twice a day for 7 days, then take 5 mg (1 pill) twice a day after that. metformin 1,000 mg tablet extended release 24 hr 1,000 mg PO BID Qty: 60 0RF aspirin 81 mg Tablet,Delayed Release (Dr/Ec) 81 mg PO DAILY metoprolol succinate 25 mg tablet extended release 24 hr 25 mg PO DAILY Qty: 90 3RF Discharge Orders: Discharge Order (Routine); Ordered 09/26/22 Ordered By: Nikos Hsieh/Other Patient Handouts: High Blood Sugar (Hyperglycemia), Hypoglycemia (Low Blood Sugar), Managing Type 2 Diabetes, Special Foot Care for Diabetes Admission Data Admit Date/Time: 09/21/22 21:12 Attending Provider: Nikos Williamson Admit Provider: Rodrick Georges Primary Care Provider: Vidhi Dwyer Other Providers: Rodrick Georges ; Marcell Ruano Coding Level of Care Code D/C DAY MANAGEMENT >30 MINS Diagnoses Pleural effusion, right J90 Pneumonia J18.9 Hyponatremia E87.1 Ischemic stroke I63.9 Acute internal jugular vein embolism I82.C19 Laterality: unspecified laterality Chronic systolic (congestive) heart failure I50.22 Essential hypertension I10 CAD (coronary artery disease) I25.10 COVID-19 U07.1 Pulmonary emboli I26.99 Cirrhosis K74.60 Tobacco use disorder F17.200 Ischemic cardiomyopathy I25.5
[2022-09-26] MEDS ORDERED: AMOXICILLIN/CLAVULANATE 875 MG TAB PO SCH (17:00)
[2022-09-26] MEDS ORDERED: APIXABAN 5 MG TABLET PO SCH (21:00)
== END 2022-09-26 12:37 | disposition home or self-care (01) | DRG 166 ==
LOC: ED 16:53 → EDINP 21:12 → SUATTDRO 21:12 → EDINP 09-22 00:24 → 4W 09-22 02:14
DX: I50.22 Chronic systolic (congestive) heart failure; I25.10 Atherosclerotic heart disease of native coronary artery without angina pectoris; K74.60 Unspecified cirrhosis of liver; J90 Pleural effusion, not elsewhere classified; Z79.84 Long term (current) use of oral hypoglycemic drugs; E11.9 Type 2 diabetes mellitus without complications; I50.23 Acute on chronic systolic (congestive) heart failure; E87.1 Hypo-osmolality and hyponatremia; I11.0 Hypertensive heart disease with heart failure; J18.9 Pneumonia, unspecified organism; Z86.16 Personal history of COVID-19; Z79.82 Long term (current) use of aspirin; J15.9 Unspecified bacterial pneumonia; I82.C19 Acute embolism and thrombosis of unspecified internal jugular vein; F17.210 Nicotine dependence, cigarettes, uncomplicated; Z79.899 Other long term (current) drug therapy; I25.5 Ischemic cardiomyopathy

== ENCOUNTER 2025-01-02 18:04 | Inpatient (IN) ==
[2025-01-02] MEDS: cefTRIAXone SODIUM 2,000 MG/50 ML BAG IV STA (19:00)
[2025-01-02] MEDS: SODIUM CHLORIDE 0.9% 1,000 ML IV ONE (19:00)
[2025-01-02 19:08] LABS: Albumin Globulin Ratio 1.8 (0.9-2); Albumin Level 3.7 gm/dl (3.4-5.0); BUN Creatinine Ratio 28.8 (10-20); Bilirubin,Total 1.3 mg/dl (0.2-1.0); Calcium 9.2 mg/dl (8.6-10.3); Creatinine Clr Calc Pharmacy 71.1 ml/min; Globulin 2.1 gm/dl (2.5-4.0); Potassium 4.7 mmol/L (3.5-5.1); Total Protein 5.8 gm/dl (6.0-8.3)
[2025-01-02 19:10] LABS: Hemoglobin 17.6 g/dl (14.0-18.0); Mean Corpuscular Hemoglobin 30.8 pg (25.0-34.0); Mean Corpuscular Hgb Conc 34.5 g/dL (32.0-36.0); Mean Corpuscular Volume 89.3 fL (80.0-100.0); Mean Platelet Volume 11.7 fL (9.4-12.4); Platelet Count 478 K/uL (130-400); RDW Coefficient of Variation 13.5 % (11.5-14.5); RDW Standard Deviation 43.5 fL (36.4-46.3); Red Blood Count 5.71 M/uL (4.70-6.10); White Blood Count 17.46 K/ul (4.8-10.8)
[2025-01-02 19:11] LABS: Basophils # (auto) 0.14 K/uL (0.00-0.20); Basophils % (auto) 0.8 %; Eosinophils # (auto) 0.38 K/uL (0.00-0.50); Eosinophils % (auto) 2.2 %; Immature Granulocytes # (auto) 0.15 K/uL (0.01-0.20); Immature Granulocytes % (auto) 0.9 %; Lymphocytes # (auto) 1.54 K/uL (1.20-3.40); Lymphocytes % (auto) 8.8 %; Monocytes # (auto) 2.06 K/uL (0.11-0.59); Monocytes % (auto) 11.8 %; Neutrophils # (auto) 13.19 K/uL (1.40-6.50); Neutrophils % (auto) 75.5 %
[2025-01-02 19:14] LABS: Troponin I High Sensitivity 13.3 pg/ml (0-20)
--- NOTE | 2025-01-02 19:19 | XRay Report ---
Clinical History: Chest pain Technique: A frontal view of the chest was obtained Comparison is made to the prior examination dated 10/09/2022 Findings: There are no confluent pulmonary infiltrates. The heart size is at the upper limit of normal. No pleural effusion or pneumothorax is seen. There is a possible small right lower lobe nodule, new or more apparent No fracture is noted. No foreign body is seen Impression: Possible right lower lobe nodule. Chest CT could be considered for further evaluation ACT 112: Positive. There are findings on this exam that require communication between the performing entity and the patient following Patient Test Result Information Act ([place] ACT 112) guidelines. Electronically signed by Rod Herrera 01-02-2025 7:19 PM
[2025-01-02 19:27] LABS: INR 1.2 (0.9-1.1); Partial Thromboplastin Time 27 Seconds (21-31); Prothrombin Time 12.7 Seconds (9.0-12.0)
--- NOTE | 2025-01-02 19:53 | CT Scan Report ---
EXAMINATION: Abdomen and pelvis CT without CLINICAL HISTORY: Renal colic, pyelonephritis PRIORS: 09/12/2022 TECHNIQUE: Contiguous axial images were obtained through the abdomen and pelvis without the use of intravenous contrast. Sagittal and coronal reformations are supplied. FINDINGS: Pleural effusions have resolved in the interval. Multiple bilateral pulmonary nodules are present in the lung bases, appearing in the interval. For example, in the right lower lobe, round with a solid appearance measuring 8.1 mm. Allowing for the absence of intravenous contrast, large amount of ascites is present, increased in the interval. Severe hepatic cirrhosis present, progressed in the interval. Heterogeneous appearance of the liver parenchyma noted with multiple lucent masses noted throughout both left and right lobes, appearing in the interval. The pancreas is not well visualized. The spleen is not enlarged. A lucent mass present in the spleen on image 16, series 2, appearing in the interval. Stomach is partly distended and morphologically unremarkable. Thickened bilateral adrenal glands present, unchanged. Urinary bladder partly distended and morphologically unremarkable. Prostate is not enlarged. A moderate amount of formed stool and gas is present throughout the colon. No bowel wall thickening. No extraluminal gas. No discrete adenopathy or mesenteric soft tissue nodules noted, allowing for the absence of intravenous contrast. The kidneys demonstrate no obstructing renal calculus or hydro nephrosis. In bone windows, moderate facet hypertrophic changes at L4-L5 and L5-S1. No suspicious osseous abnormality. IMPRESSION: 1. Hepatic cirrhosis with large volume of ascites, progressed in the interval. 2. Multiple bilateral pulmonary nodules with multiple low-attenuation liver lesions and a splenic lesion, all appearing in the interval, concerning for metastatic disease of unknown primary. Close clinical follow-up suggested. ACT 112: Positive. There are findings on this examination that require communication between the performing entity and the patient following Patient Test Result Information Act ([place] ACT 112) guidelines. Electronically signed by Dede Funez 01-02-2025 7:52 PM
[2025-01-02] MEDS ORDERED: STAT IV Infusion **Titration per Protocol STA (20:18)
[2025-01-02] MEDS: NOREPINEPHRINE/D5W 4 MG/250 ML PLCT IV SCH (20:26)
--- NOTE | 2025-01-02 21:19 | History & Physical Report ---
Date of Service January 02, 2025 Assessment & Plan (1) Cirrhosis of liver with ascites: (2) Sepsis: (3) Acute kidney injury superimposed on CKD: (4) Hyponatremia: (5) Alcohol use: (6) Diabetes mellitus, type 2: (7) Pulmonary nodules: (8) Thrombocytosis: (9) Tobacco use disorder: Plan Patient is a 54-year-old male with a past medical history of type II DM, PE and ischemic stroke 2021 on Eliquis, tobacco abuse, alcohol abuse, hypertension, hyperlipidemia, HFpEF, liver cirrhosis. He presented to [facility] this morning due to copper colored urine for several days. They took a UA and started him on ABX, patient is unsure of what antibiotic he was prescribed and he only took 1 dose. He took labs and he returned home. Patient received a phone call from home to come into the ED immediately. Upon arrival to the ED he was found to meet SIRS criteria with a white count of 19.26, BP 79/50, and lactate 2.2. He was found to have an BANDAR with creatinine increased from 1.09-1.60 and hyponatremia with a sodium of 121. Repeat CT showed liver cirrhosis with a large amount of ascites. Patient was given 1 L of NSS and started on Levophed in the ED. Patient is being admitted to the ICU on pressors, anticipate paracentesis and need for diuresis tomorrow 10/05. Patient stated he has never had issues with his liver cirrhosis before, however he reports he drinks alcohol approximately 1 time per week. #Cirrhosis with ascites #Sepsis known hx of cirrhosis 2/2 alcohol use, no hx of previous paracentesis LFTs relatively WNL, INR 1.2, at baseline, no acute liver failure at time of admission UA consistent with cirrhosis - nitrates, 2+ bilirubin, trace protein, ketones, 1+ LE, >20 hyaline; no WBC or bacteria acetaminophen level, ammonia level, medical alcohol level, hepatitis panel ordered AFP level added to a.m. labs Consult GI Portal vein US ordered hold lisinopril, metoprolol, p.o. Lasix, p.o. spironolactone at time of admission given Rocephin 2G IV in ED, transitioned to Zosyn 4.5G IV every 8 per ICU teodoro mmendations suspect patient will likely need paracentesis and diuresis tomorrow 01/03 Trend CMP, CBC, INR + SIRS: WBC 17.46, BP 79/50 upon arrival to ED - lactate 2.2 -> 1.8 - procalcitonin 0.57 - no definitive source at time of admission, suspect SBP however patient reports no abdominal pain; No other sources of sepsis found - follow blood cultures - 1L NSS in ED, started on Levophed; continue Levophed, defer further fluids to ICU staff, patient intravascularly volume depleted however with significant ascites above #BANDAR does appear dry, suspect intravascular volume depletion however with significant ascites Cr increased from 1.09 -> 1.60 UA appears noninfectious AP CT showed no renal calculus or hydronephrosis of kidneys given 1L NSS bolus in ED, defer further IVF to ICU Hold lisinopril, metformin huitron in place from ED trend BMP #Hyponatremia NA 121 Suspect due to to liver cirrhosis Received 1L NSS in ED Serum osmol, Urine NA, Urine Osmo ordered Trend BMP #alcohol use Reports he drinks 6-7 beverages 1 night a week no symptoms of withdrawal on admission; outside of withdrawal window, no need for AWSS protocol at this time Thiamine PO 100mg and folic acid 1mg PO QAM #T2DM hold metformin and Jardiance defer SSI to ICU #Pulmonary nodules Pulmonary nodules and liver masses seen on AP CT Patient reports no history of malignancy Discussed with patient that will require further workup; will need diagnostic chest CT Oncology consulted Will follow paracentesis cultures #Thrombocytosis Appears, cytosis since July 2023 Platelets 478 at the time of admission peripheral smear ordered with AM labs Oncology consulted as above #tobacco use 1 ppd cigarettes 14mg nicotine patch ordered encourage smoking cessation Chronic stable diagnoses: HFpEF recent EF 40 to 45% September 2024, Holding BB as above, not in acute exacerbation at time of admission, anticipate IV diuresis Hx PE and ischemic stroke 2021, holding Eliquis with potential paracentesis VTE ppx: SCDs + TEDs, hold Eliquis with potential paracentesis Diet: Heart healthy, low-sodium, T2DM Dispo: ICU on pressors Admission and Anticipated Discharge Date Admission Date: 01/02/25 History of Present Illness Chief Complaint: abnormal labs Primary Care Provider: Trini Valdes DO Patient is a 54-year-old male with a past medical history of type II DM, PE and ischemic stroke 2021 on Eliquis, tobacco abuse, alcohol abuse, hypertension, hyperlipidemia, HFpEF, liver cirrhosis. He presented to [facility] this morning due to copper colored urine for several days. They took a UA and started him on ABX, patient is unsure of what antibiotic he was prescribed and he only took 1 dose. He took labs and he returned home. Patient received a phone call from home to come into the ED immediately. Upon arrival to the ED he was found to meet SIRS criteria with a white count of 19.26, BP 79/50, and lactate 2.2. He was found to have an BANDAR with creatinine increased from 1.09-1.60 and hyponatremia with a sodium of 121. Repeat CT showed liver cirrhosis with a large amount of ascites. Patient was given 1 L of NSS and started on Levophed in the ED. Patient is being admitted to the ICU on pressors, anticipate paracentesis and need for diuresis tomorrow 10/05. Patient stated he has never had issues with his liver cirrhosis before, however he reports he drinks alcohol approximately 1 time per week. Patient seen at bedside with his niece in law present. He stated that he has had copper colored urine for several days, however denies dysuria or difficulty urinating. He went to mom and he feels back this morning for UTI workup. They called him this afternoon because of his abnormal labs. Patient denies any other ROS. Patient denies fever, chills, headache, dizziness, lightheadedness, rhinorrhea, sore throat, cough, sputum production, dyspnea, dyspnea on exertion, chest pain, abdominal pain, nausea, vomiting, diarrhea, constipation, edema. He stated he has known liver cirrhosis however has never had issues with it before, no history of paracentesis. He denies any chronic daily alcohol use however stated that he drinks approximately 6-7 drinks 1 night a week. He has known history of malignancy, discussed pulmonary nodules found on CT and may need further workup. He took all of his medications this morning including furosemide and spironolactone. He wishes to be DNR/DNI however is agreeable to Levophed and possible paracentesis. Allergies Allergy/AdvReac Type Severity Reaction Status Date / Time No Known Allergies Allergy Verified 01/02/25 20:57 Home Medications Medication Instructions Recorded Confirmed Type aspirin 81 mg tablet,delayed 81 mg PO DAILY 02/10/22 01/02/25 History release ascorbic acid (vitamin C) 500 mg 500 mg PO DAILY 10/01/22 01/02/25 History capsule blood sugar diagnostic (OneTouch #100 ea 10/01/22 01/02/25 Rx Ultra Test strips) blood-glucose meter (OneTouch #1 ea 10/01/22 01/02/25 Rx Ultra2 Meter kit) lancets 33 gauge (BD Ultra Fine #100 ea 10/01/22 01/02/25 Rx Lancets) multivitamin 1 tab PO DAILY 10/01/22 01/02/25 History empagliflozin 25 mg tablet 25 mg PO DAILY #90 tabs 08/21/24 01/02/25 Rx rosuvastatin 5 mg tablet 5 mg PO QAM #90 tabs 09/25/24 01/02/25 Rx sildenafil 100 mg tablet 100 mg PO DAILY PRN sexual 09/26/24 01/02/25 Rx activity #30 tabs metoprolol succinate 200 mg 200 mg PO DAILY #90 tabs 11/13/24 01/02/25 Rx tablet,extended release 24 hr metformin 500 mg tablet,extended 1,000 mg (2 x 500 mg) PO BID #120 11/16/24 01/02/25 Rx release 24 hr tabs spironolactone 25 mg tablet 25 mg PO DAILY #90 tabs 11/17/24 01/02/25 Rx apixaban 5 mg tablet 5 mg PO BID #60 tabs 12/29/24 01/02/25 Rx ciprofloxacin HCl 500 mg tablet 500 mg PO BID 2 weeks #28 tabs 01/02/25 01/02/25 Rx furosemide 40 mg tablet 20 mg (1/2 x 40 mg) PO DAILY #360 01/02/25 01/02/25 Rx tabs lisinopril 20 mg tablet 10 mg (1/2 x 20 mg) PO DAILY #90 01/02/25 01/02/25 Rx tabs Past Med/Surg History Problem List UTI (urinary tract infection) (Acute) Sepsis (Acute) Decompensated cirrhosis Thrombocytosis Pulmonary nodules Alcohol use Acute kidney injury superimposed on CKD Sepsis Cirrhosis of liver with ascites Erectile dysfunction History of pulmonary embolus (PE) (08/2022) History of CVA (cerebrovascular accident) (08/2022) Diabetes mellitus, type 2 Tobacco use disorder Ischemic cardiomyopathy Hyperlipidemia Essential hypertension CAD (coronary artery disease) Cirrhosis Chronic systolic (congestive) heart failure Hyponatremia Acute internal jugular vein embolism (Acute 08/2022) Carotid artery, internal, occlusion (Acute) Idioventricular rhythm (Acute) Acute heart failure Stented coronary artery Medical History (Updated 01/03/25 @ 01:44 by Marisa Girard MD) Pulmonary edema Pleural effusion, right Pulmonary embolism (08/2022) Pneumonia Ischemic stroke (08/2022) COVID-19 (08/2022) Morbid obesity Coronary artery arteriosclerosis Family History Denies family history of Ovarian cancer Prostate cancer Myocardial infarction Breast cancer Colorectal cancer Social History Smoking Status: Current every day smoker Tobacco Type: Cigarettes Age Started Using Tobacco: 16; packs per day: 0.75; Cigarettes Per Day: 2ppd; Second Hand Exposure: Yes; Do You Dip or Chew Tobacco: No; Tobacco Cessation Education Requested by Patient: No Hx Alcohol Use: Yes Alcohol type: beer Hx Substance Use: No Preferred Language: Indonesian Communication Ability: Effective Computer Analyst Required: No Beliefs That Will Affect Care: None Current Living Situation: Alone current occupational status: employed How many Children do You have: 1 Feels Safe at Home: Yes Diet: regular Diet Comment: Regular caffeine: Yes during the past year weight has: remained stable Dental Care, Regularly: No Physical Activity Frequency: 1-2 Times per Week Seatbelt Use: sometimes Sunscreen Use: Yes Assistive Devices: Glasses Review of Systems Review of Systems: see HPI Physical Exam Physical Exam: The patient is awake, alert and oriented 3, well developed and well nourished, normocephalic and atraumatic, in no acute distress. Non-toxic appearing. HEENT- EOMI, mucous membranes dry. Hearing grossly intact. Heart-normal S1 and S2. No murmurs, rubs or gallops. Lungs-clear bilaterally, no respiratory distress, no accessory muscle use. Abdomen-normal bowel sounds and soft. Significant ascites noted. Nontender. Extremities- no clubbing, cyanosis, or edema. Rheumatologic-normal range of motion. Psychiatric-normal affect. Results & Data Results & Data Vital Signs (Past 12 Hours) Vital Signs Temp Pulse Pulse Resp BP BP Pulse Ox 01/02/25 21:00 59 L 20 101/60 96 01/02/25 20:45 70/39 L 01/02/25 20:45 58 L 19 70/39 L 95 01/02/25 20:31 56 L 18 96/48 L 94 01/02/25 20:00 58 L 16 85/39 L 95 01/02/25 19:12 59 L 20 96 01/02/25 19:04 01/02/25 19:03 95 01/02/25 19:00 87/46 L 01/02/25 19:00 87/46 L 01/02/25 19:00 87/46 L 01/02/25 19:00 87/46 L 01/02/25 18:53 91/47 L 01/02/25 18:26 36.8 C 58 L 20 85/49 L 95 O2 Del Method 01/02/25 21:00 01/02/25 20:45 01/02/25 20:45 01/02/25 20:31 Room Air 01/02/25 20:00 01/02/25 19:12 01/02/25 19:04 Room Air 01/02/25 19:03 01/02/25 19:00 01/02/25 19:00 01/02/25 19:00 01/02/25 19:00 01/02/25 18:53 01/02/25 18:26 Room Air Code Status & VTE Plan Code Status dnr/dni agreeable to pressors and paracentesis VTE Prophylaxis Plan VTE Prophylaxis will be ordered: Yes Supervising Physician Co-Signing Physician Notes I personally saw and examined the patient. I independently reviewed the labs, EKG, imaging, problem list, medication list, past medical history and family history. I verified all dooley points and agree with Ilda Mcfarlane PA-C with the following exceptions and/or additions: 54 year old male presents to the ER with hypotension and abnormal lab work. No dizziness or lightheadedness, change in bowel, abdominal pain, chest pain, shortness of breath, fever, chills or respiratory symptoms. He is unsure about his abdominal distension but thinks it might be worse over the last week. O/E HS RRR, no murmurs, Chest CTAB, Abdo distended, non-tender, no pedal edema A/P #Cirrhosis (suspected alcohol) with ascites - US portal vein for thrombosis, #Hypotension - continue on Levophed, ongoing management per ICU, start midodrine. Albumin per ICU team. Hold anti-hypertensives #SIRS - no source on history/exam/imaging - will defer antibiotics to ICU team #Abnormal CT A/P - multiple bilateral pulmonary nodules with low attenuation liver lesions, concerning for metastatic disease of unknown primary; Consult ongology. AFP with AM labs. Consider CT chest/abdo/pelvis with IV contrast once more stable PG Care Time/CCT Total # of Minutes Spent Total Time Spent with Patient: Total time spent is greater than 50% in coordination of care (as documented) at patient's floor/unit and/or counseling patient: Coding Level of Care Code 92757 INT INP/OBS CARE 3/75MIN Diagnoses Cirrhosis of liver with ascites K74.60; R18.8 Sepsis A41.9 Acute kidney injury superimposed on CKD N17.9; N18.9 Hyponatremia E87.1 Alcohol use F10.90 Diabetes mellitus, type 2 E11.9 Pulmonary nodules R91.8 Thrombocytosis D75.839 Tobacco use disorder F17.200
[2025-01-02 21:29] LABS: Magnesium 2.2 mg/dl (1.7-2.4)
[2025-01-02 21:34] LABS: Phosphorus 4.5 mg/dl (2.5-4.9)
--- NOTE | 2025-01-02 21:59 | Critical Care Consultation ---
Date of Consultation January 02, 2025 Assessment & Plan (1) Decompensated cirrhosis: (2) Thrombocytosis: (3) History of pulmonary embolus (PE): (4) Tobacco use disorder: (5) Diabetes mellitus, type 2: (6) Chronic systolic (congestive) heart failure: (7) Hyponatremia: Plan Reason Critically Ill: 1. Decompensated cirrhosis with large volume ascites 2. Possible hepatorenal syndrome 3. Sepsis with concern for SBP 4. Distributive shock 5. BANDAR on CKD 6. Lactic acidosis 7. Asymptomatic hyponatremia 8. Concern for malignancy with metastasis, unknown primary 9. Budd-Chiari syndrome Neuro - RASS GOAL 0 Ammonia pending Avoid sedating medications. Patient is out of the window for ETOH withdrawal, will watch closely but no indication for AWSS protocol at this juncture Sleep hygiene MVI, Folic acid, Thiamine Nicotine patch Cardiac - Continue norepinephrine for MAP goal > 65mmHg Hold home antihypertensives Give albumin as below. I do feel he remains intravascularly deplete Respiratory - No acute concerns SpO2 goal > 92% HOB 30 IS/Flutter GI - Gastroenterology consult, appreciate recommendations Diet: Advance as tolerated, heart healthy SUP: PPI (patient requesting for heart burn) Bowel regimen: PRN APAP level, ammonia, ETOH level, hepatitis panel pending RUQ US with Doppler pending - Addendum: US confirms thrombus within main portal vein as well as right and left portal veins. Patient has been compliant with Eliquis - now with Eliquis failure. Will start heparin infusion protocol. Will reach out to transfer center for consideration of intervention. Addendum 0300: Discussed with [facility] via telephone. She has reviewed patient's case - patient does not require transfer at this time for acute intervention. Pending further work-up he may be a good candidate for outpatient thrombectomy vs TIPS. Patient will remain at our facility with GI follow up in the AM. RENAL/LYTES - Hyponatremia work-up pending Replete electrolytes as indicated Gloria placed in ED for accurate I/Os, can likely remove in AM per protocol Albumin 1g/kg now, additional following paracentesis pending volume removal In terms of overnight, I do feel diagnostic and therapeutic paracentesis risks with Eliquis on board outweigh benefits as will not necessarily car changer. Preload is a concern but the abdomen is firm, not necessarily tense. Para to be performed during daylight Maintain net even to net negative ENDO - Last A1c 7.4 BG 140-180 per SCCM guidelines ISS if needed while inpatient Addendum: Random cortisol < 20. Will add SDS in form of hydrocortisone IV HEME/ONC/OTHER - Agree with routine consult to Heme/Onc given pulmonary nodules with possible metastasis in liver and spleen Hypercoagulability work up in past was negative, has seen Heme/Onc as OP Eliquis is held for paracentesis ID - Zosyn to include enterococcus coverage, de-escalation pending culture speciation BC x2 pending, UA without UTI, MRSA pending, procalcitonin modestly elevated LINES/TUBES/DRAINS - PIV x2 (18G, 20G) Gloria (Day #1) He has been consented for CVC if need be. 18G with blood return should be suitable for 24 hour period unless dose increases precipitously DVT PROPHYLAXIS - Held pending procedure I have personally spent 38 minutes of critical care time in the direct management of this patient. This is a life/limb threatening event. This includes time spent evaluating patient, direct bedside care, chart review, placing orders, interpretation of diagnostic studies, discussion with consultants, patient, and family members, as well as other required patient management activities. This time is exclusive of all separately billable procedures, and teaching time and separate from and in addition to any other critical care service time. Thank you for allowing us to participate in the care of this patient. Please refer to my attending physician's documentation for any further recommendations. Supervising Physician Co-Signing Physician Notes Patient seen and examined. EMR reviewed. Discussed with critical care ANOOP and agree with assessment plan as noted. Please refer to my progress note/06/21 for additional details History of Present Illness Reason for Consultation: Decompensated cirrhosis with septic shock Requesting Physician: Angi Attending Physician: Angi History of Present Illness Mr. Abdoul Wise is a 54YOM with a history of ETOHism (1 drink per week now per patient), 2PPD smoker, CVA (2021) without residual deficit, hypertension, hyperlipidemia, ischemic cardiomyopathy, HFrEF (40-45%), PE and IJ embolism on Eliquis, cirrhosis, NIDDMII, pulmonary nodules who presented to [facility] ED from home on the evening of 01/02/2025 by recommendation of his PCP due to lab abnormalities, hypotension, and weakness. On arrival to ED, patient was hypotensive with SBP 70s. Wholly asymptomatic, AAOx3 no acute distress. Work-up remarkable for hyponatremia which is a new finding, BANDAR on CKD, lactic acidosis, and leukocytosis with neutrophil predominance. Large volume ascites on CT AP as well as progression of pulmonary nodules and multiple lesions of the liver and spleen which are new. This is suspicious for metastatic disease of unknown primary. In the ED he received 1L NSS and 2g Ceftriaxone. Started on norepinephrine due to persistent hypotension. He is admitted to ICU for continuation of care. Patient seen in ED B11A. He is AAOx3 and in no acute distress. States in the past 1 week he has noticed progressive weakness as well as abdominal distention. Most recently his urine has become copper in color and he is urinating less than he is drinking. Appetite is decent. Has been taking all Rx as prescribed, last Eliquis was 01/02/2025 AM. Has not had to take his PRN Lasix dose this week. No sick contacts. No history of paracentesis. He is intermittently agitated with questions. Told Hospitalist team that he drinks 6-7 drinks 1 time per week. Last drink was this past Wednesday night. POCUS performed at bedside - LV dilated with EF grossly reduced, estimate 35%. RV is small and non-dilated without septal flattening. IVC is normal size and > 50% collapsible. US abdomen with large volume ascites, RLQ has good window for paracentesis. ROS + weakness, fatigue, urine color and frequency change. Of note, his weight is up nearly 20lbs from his dry weight. Remainder of ROS negative including but not limited to fevers/chills, n/v/d, urinary urgency or burning, edema of legs, visual disturbance, headache. Allergies Allergy/AdvReac Type Severity Reaction Status Date / Time No Known Allergies Allergy Verified 01/02/25 20:57 Home Medications Medication Instructions Recorded Confirmed Type aspirin 81 mg tablet,delayed 81 mg PO DAILY 02/10/22 01/02/25 History release ascorbic acid (vitamin C) 500 mg 500 mg PO DAILY 10/01/22 01/02/25 History capsule blood sugar diagnostic ([employer]ater [employer] #100 ea 10/01/22 01/02/25 Rx Ultra Test strips) blood-glucose meter ([employer] #1 ea 01/05/23 04/08/25 Rx Ultra2 Meter kit) lancets 33 gauge (BD Ultra Fine #100 ea 10/01/22 01/02/25 Rx Lancets) multivitamin 1 tab PO DAILY 10/01/22 01/02/25 History empagliflozin 25 mg tablet 25 mg PO DAILY #90 tabs 08/21/24 01/02/25 Rx rosuvastatin 5 mg tablet 5 mg PO QAM #90 tabs 09/25/24 01/02/25 Rx sildenafil 100 mg tablet 100 mg PO DAILY PRN sexual 09/26/24 01/02/25 Rx activity #30 tabs metoprolol succinate 200 mg 200 mg PO DAILY #90 tabs 11/13/24 01/02/25 Rx tablet,extended release 24 hr metformin 500 mg tablet,extended 1,000 mg (2 x 500 mg) PO BID #120 11/16/24 01/02/25 Rx release 24 hr tabs spironolactone 25 mg tablet 25 mg PO DAILY #90 tabs 11/17/24 01/02/25 Rx apixaban 5 mg tablet 5 mg PO BID #60 tabs 12/29/24 01/02/25 Rx ciprofloxacin HCl 500 mg tablet 500 mg PO BID 2 weeks #28 tabs 01/02/25 01/02/25 Rx furosemide 40 mg tablet 20 mg (1/2 x 40 mg) PO DAILY #360 01/02/25 01/02/25 Rx tabs lisinopril 20 mg tablet 10 mg (1/2 x 20 mg) PO DAILY #90 01/02/25 01/02/25 Rx tabs Patient History Medical History (Updated 01/03/25 @ 01:44 by Marisa Girard MD) Pulmonary edema Pleural effusion, right Pulmonary embolism (08/2022) Pneumonia Ischemic stroke (08/2022) COVID-19 (08/2022) Morbid obesity Coronary artery arteriosclerosis Family History Denies family history of Ovarian cancer Prostate cancer Myocardial infarction Breast cancer Colorectal cancer Social History Smoking Status: Current every day smoker Tobacco Type: Cigarettes Age Started Using Tobacco: 16; packs per day: 0.75; Cigarettes Per Day: 2ppd; Second Hand Exposure: Yes; Do You Dip or Chew Tobacco: No; Tobacco Cessation Education Requested by Patient: No Hx Alcohol Use: Yes Alcohol type: beer Hx Substance Use: No Preferred Language: Korean Communication Ability: Effective [employer] Required: No Beliefs That Will Affect Care: None Current Living Situation: Alone current occupational status: employed How many Children do You have: 1 Feels Safe at Home: Yes Diet: regular Diet Comment: Regular caffeine: Yes during the past year weight has: remained stable Dental Care, Regularly: No Physical Activity Frequency: 1-2 Times per Week Seatbelt Use: sometimes Sunscreen Use: Yes Assistive Devices: Glasses Review of Systems Review of Systems: All systems reviewed & are unremarkable except as noted in Subjective Physical Exam Constitutional: well developed, + obese and cooperative; no acute distress Eyes: PERRL mild icterus ENMT: Mouth: + poor dentition Neck: trachea midline, no thyromegaly Respiratory: normal respiratory effort, lungs clear to auscultation Cardiovascular: RRR, no murmur, no edema Gastrointestinal (Abdomen): Inspection/Auscultation: + abdomen distended and + high-pitched sounds Percussion/Palpation: + ascites, + dullness to percussion and + abdomen firm; abdomen nontender Skin: no rashes, warm and dry stasis changes BLE Neurologic: PERRL, EOMI, accommodation nl, no face palsy, no dysarthria Genitourinary: Gloria in place draining bilious urine Results & Data Results & Data Vital Signs (Past 12 Hours) Vital Signs Temp Pulse Pulse Resp BP BP Pulse Ox 01/02/25 21:30 62 132/67 01/02/25 21:15 63 16 115/71 96 01/02/25 21:00 59 L 20 101/60 96 01/02/25 20:45 70/39 L 01/02/25 20:45 58 L 19 70/39 L 95 01/02/25 20:31 56 L 18 96/48 L 94 01/02/25 20:00 58 L 16 85/39 L 95 01/02/25 19:12 59 L 20 96 01/02/25 19:04 01/02/25 19:03 95 01/02/25 19:00 87/46 L 01/02/25 19:00 87/46 L 01/02/25 19:00 87/46 L 01/02/25 19:00 87/46 L 01/02/25 18:53 91/47 L 01/02/25 18:26 36.8 C 58 L 20 85/49 L 95 O2 Del Method 01/02/25 21:30 01/02/25 21:15 01/02/25 21:00 01/02/25 20:45 01/02/25 20:45 01/02/25 20:31 Room Air 01/02/25 20:00 01/02/25 19:12 01/02/25 19:04 Room Air 01/02/25 19:03 01/02/25 19:00 01/02/25 19:00 01/02/25 19:00 01/02/25 19:00 01/02/25 18:53 01/02/25 18:26 Room Air Laboratory Results Reviewed Diagnostic Findings Reviewed Medications Administered See MAR Coding Level of Care Code 92511 CRITICAL CARE 1ST 30-74M Diagnoses Decompensated cirrhosis K72.90; K74.60 Thrombocytosis D75.839 History of pulmonary embolus (PE) Z86.711 Tobacco use disorder F17.200 Diabetes mellitus, type 2 E11.9 Chronic systolic (congestive) heart failure I50.22 Hyponatremia E87.1 Time Spent (min) 38
[2025-01-02] MEDS ORDERED: ONDANSETRON INJ 2 MG/ML 2 ML VIAL IV PRN (22:25)
[2025-01-02] MEDS ORDERED: DOCUSATE SODIUM 100 MG CAP PO PRN (22:25)
[2025-01-02] MEDS: ONDANSETRON INJ 2 MG/ML 2 ML VIAL IV PRN (22:43)
[2025-01-02] MEDS: ALBUMIN 25% 25 GM/100 ML VIAL IV SCH (22:43)
[2025-01-02] MEDS: NICOTINE 14 MG/24 HR PATCH TD STA (22:52)
[2025-01-02] MEDS: PANTOprazole 40 MG/10 ML SYR IV SCH (22:57)
[2025-01-02] MEDS: PIPERACILLIN/TAZOBACTAM 4.5 GM/100 ML BAG IV SCH (22:57)
[2025-01-02] MEDS ORDERED: PHARMACY GLYCEMIC MGMT CONSULT PRN (23:43)
[2025-01-03] MEDS: INSULIN ASPART PER UNIT CHARGE SC SCH (00:25)
[2025-01-03] MEDS ORDERED: GLUCOSE 10 TAB/TUBE PO PRN (00:30)
[2025-01-03] MEDS ORDERED: GLUCAGON FOR INJ 1 MG VIAL SQ PRN (00:30)
[2025-01-03] MEDS ORDERED: CARBOHYDRATES FOR HYPOGLYCEMIA PO PRN (00:30)
[2025-01-03] MEDS ORDERED: DEXTROSE 50% 50 ML SYRINGE IV PRN (00:30)
[2025-01-03] MEDS ORDERED: GLUCOSE 40% GEL 15 GM TUBE PO PRN (00:30)
[2025-01-03 00:34] LABS: BUN Creatinine Ratio 34.6 (10-20); Calcium 8.3 mg/dl (8.6-10.3); Creatinine Clr Calc Pharmacy 88.9 ml/min; Potassium 4.3 mmol/L (3.5-5.1)
[2025-01-03] MEDS: HYDROCORTISONE SOD 50 MG in SYRINGE 0 ML IV SCH (01:27)
--- NOTE | 2025-01-03 01:41 | Ultrasound Report ---
Exam(s): US OTHER EXAM: US Abdomen Limited CLINICAL HISTORY: Reason for exam: decompensated cirrhosis. TECHNIQUE: Real-time ultrasound of the liver with image documentation. COMPARISON: CT scan of the same date. FINDINGS: The exam is limited. The liver is inhomogeneous and of increased echogenicity. Hepatic veins appear patent. There appears to be thrombus within the main portal vein as well as in the right and left portal veins. The hepatic artery is air patent. There is ascites present within the abdomen. IMPRESSION: Limited exam. There appears to be thrombus within the main portal vein as well as the right and left portal veins. The liver is inhomogeneous and of increased echogenicity which may be due to hepatocellular disease. Underlying focal lesions cannot be excluded. Ascites. Communications: Call Doctor DVT – acute, progressing Electronically signed by: Davi De La Torre MD 01/03/25 01:40 AM
--- NOTE | 2025-01-03 01:44 | Emergency Department Note ---
Impression & Plan Sepsis, UTI (urinary tract infection) ED Provider Note NAME: REED TERRY AGE: 54 SEX: M : 1970 ARRIVES VIA: Walk-In INFORMANT: Patient, ED PROVIDER(S): Marisa Girard MD CHIEF COMPLAINT: Abnormal labs, hypotension HPI: This is a 54-year-old male presenting for abnormal labs hypotension. Patient states that he went to an outside facility today for UTI type symptoms. He notes he felt improved after getting antibiotics a day. He was found to be hypotensive at the outside office however. They called him today with abnormal blood work. He is not sure as adequate the blood work was. He reports no significant fatigue. He does report changing urine color to a golds type color. Otherwise no fevers, chills, nausea, vomiting, confusion or weakness. Patient does mention a slight left-sided flank pain. ROS: See above HPI for pertinent positives & negatives. A total of 10 systems reviewed and were otherwise negative. PAST MEDICAL HISTORY: See Below PAST SURGICAL HISTORY: See Below FAMILY HISTORY: See Below SOCIAL HISTORY: See Below HOME MEDICATIONS: See Below ALLERGIES: See Below VITALS: See Below PHYSICAL EXAMINATION: General: resting comfortably in no acute distress Head: Normocephalic and atraumatic Eyes: Normal inspection, extraocular muscles intact Ear, nose, throat: Normal external exam Neck: Normal range of motion Respiratory: lungs clear to auscultation bilaterally Cardiovascular: Regular rate/rhythm, no murmur GI: Distended abdomen without tenderness Extremities: nontender, moves all extremities Neuro: The patient awake and alert, appropriately conversive, no focal deficits, symmetric faces Skin: Warm, dry, and intact MEDICAL DECISION MAKING: This is a 48-year-old male present for abnormal labs and hypotension. Patient is fairly hypotensive at this time with blood pressure of 80 over 40s. Will give 1 L normal saline at this time. -When checking outside lab work that does reveal a leukocytosis as well as BANDAR and signs of UTI. He has hyponatremia to 120. Hyperkalemia is also noted. These appear significantly abnormal, will repeat at this time. -In the meantime with patient's previous lab work, will initiate treatment of UTI/sepsis. Give ceftriaxone 2 g IV. Blood cultures ordered at this time. Lactic acid elevated at 2.2 -Patient's blood pressure only slightly improved after normal saline however his map was in the 50s. Will start Levophed at this time as patient appears fluid overloaded. -Blood work here does reveal leukocytosis 17 as well as confirmed hyponatremia to 121 as well as hypochloremia. His creatinine is further uptrending from 1.53-1.6. -CT imaging ordered due to the patient's left-sided flank pain as well as signs of urosepsis. This CT imaging reveals ascites as well as multiple pulmonary nodules concerning for metastatic disease. -At this time will admit patient to [facility] service under Dr. Whitley. Differential diagnosis: Urosepsis, sepsis, renal colic, appendicitis, cholecystitis, diverticulitis Independent History obtained from: [facility] interpreted by me: ECG: ECG independently interpreted by me with sinus bradycardia, rate of 57,, left axis deviation, first-degree AV block, right axis deviation, normal QTc, no ST segment elevations consistent with STEMI criteria, T wave inversions in V2/V3 Cardiac Monitoring: An order was placed for continuous cardiac monitoring. The monitor shows a rate of 62 with sinus rhythm. Critical Care Note: I have personally spent 60 minutes of critical care time in the direct management of this patient. This includes bedside care, interpretation of diagnostic studies, and testing, discussion with consultants, patient, and family members, and other required patient management activities. This 60 minutes is in excess of all separately billable procedures. Past Med/Surg History Problem List UTI (urinary tract infection) (Acute) Sepsis (Acute) Decompensated cirrhosis Thrombocytosis Pulmonary nodules Alcohol use Acute kidney injury superimposed on CKD Sepsis Cirrhosis of liver with ascites Erectile dysfunction History of pulmonary embolus (PE) (08/2022) History of CVA (cerebrovascular accident) (08/2022) Diabetes mellitus, type 2 Tobacco use disorder Ischemic cardiomyopathy Hyperlipidemia Essential hypertension CAD (coronary artery disease) Cirrhosis Chronic systolic (congestive) heart failure Hyponatremia Acute internal jugular vein embolism (Acute 08/2022) Carotid artery, internal, occlusion (Acute) Idioventricular rhythm (Acute) Acute heart failure Stented coronary artery Medical History (Updated 01/03/25 @ 01:44 by Marisa Girard MD) Pulmonary edema Pleural effusion, right Pulmonary embolism (08/2022) Pneumonia Ischemic stroke (08/2022) COVID-19 (08/2022) Morbid obesity Coronary artery arteriosclerosis Family History Denies family history of Ovarian cancer Prostate cancer Myocardial infarction Breast cancer Colorectal cancer Social History Smoking Status: Current every day smoker Tobacco Type: Cigarettes Age Started Using Tobacco: 16; packs per day: 0.75; Cigarettes Per Day: 2ppd; Second Hand Exposure: Yes; Do You Dip or Chew Tobacco: No; Tobacco Cessation Education Requested by Patient: No Hx Alcohol Use: Yes Alcohol type: beer Hx Substance Use: No Preferred Language: Trinidadian Communication Ability: Effective Cellars Supervisor Required: No Beliefs That Will Affect Care: None Current Living Situation: Alone current occupational status: employed How many Children do You have: 1 Feels Safe at Home: Yes Diet: regular Diet Comment: Regular caffeine: Yes during the past year weight has: remained stable Dental Care, Regularly: No Physical Activity Frequency: 1-2 Times per Week Seatbelt Use: sometimes Sunscreen Use: Yes Assistive Devices: Glasses Allergies Allergies Allergy/AdvReac Type Severity Reaction Status Date / Time No Known Allergies Allergy Verified 01/02/25 20:57 Home Meds Home Medications Medication Instructions Recorded Confirmed aspirin 81 mg tablet,delayed 81 mg PO DAILY 02/10/22 01/02/25 release ascorbic acid (vitamin C) 500 mg 500 mg PO DAILY 10/01/22 01/02/25 capsule multivitamin 1 tab PO DAILY 10/01/22 01/02/25 Previous Rx's Medication Instructions Recorded blood sugar diagnostic (OneTouch #100 ea 10/01/22 Ultra Test strips) blood-glucose meter (OneTouch #1 ea 10/01/22 Ultra2 Meter kit) lancets 33 gauge (BD Ultra Fine #100 ea 10/01/22 Lancets) empagliflozin 25 mg tablet 25 mg PO DAILY #90 tabs 08/21/24 rosuvastatin 5 mg tablet 5 mg PO QAM #90 tabs 09/25/24 sildenafil 100 mg tablet 100 mg PO DAILY PRN sexual 09/26/24 activity #30 tabs metoprolol succinate 200 mg 200 mg PO DAILY #90 tabs 11/13/24 tablet,extended release 24 hr metformin 500 mg tablet,extended 1,000 mg (2 x 500 mg) PO BID #120 11/16/24 release 24 hr tabs spironolactone 25 mg tablet 25 mg PO DAILY #90 tabs 11/17/24 apixaban 5 mg tablet 5 mg PO BID #60 tabs 12/29/24 ciprofloxacin HCl 500 mg tablet 500 mg PO BID 2 weeks #28 tabs 01/02/25 furosemide 40 mg tablet 20 mg (1/2 x 40 mg) PO DAILY #360 01/02/25 tabs lisinopril 20 mg tablet 10 mg (1/2 x 20 mg) PO DAILY #90 01/02/25 tabs Results & Data (ED) Vital Signs Vital Signs - 24 hr 01/02/25 18:26 01/02/25 18:53 01/02/25 18:57 Temperature 36.8 C Temperature Source Oral Pulse Rate 58 L 56 L Pulse Rate [Finger] Pulse Rate from SpO2 Sensor Pulse Rhythm [Finger] Pulse Strength [Finger] Respiratory Rate 20 Respiratory Effort / Characteristics Non-Labored Respiratory Depth Normal Respiratory Pattern Blood Pressure 85/49 L 91/47 L Blood Pressure [Left Arm] Blood Pressure Mean 61 52 Blood Pressure Mean [Left Arm] Blood Pressure Position [Left Arm] Pulse Oximetry 95 Oxygen Delivery Method Room Air Sepsis Recent Fever Within 48 Hours No Sepsis New/Unexplained Change in Mental Status N/A Sepsis Action Taken by Nursing No Action Required 01/02/25 19:00 01/02/25 19:00 01/02/25 19:00 Temperature Temperature Source Pulse Rate Pulse Rate [Finger] Pulse Rate from SpO2 Sensor Pulse Rhythm [Finger] Pulse Strength [Finger] Respiratory Rate Respiratory Effort / Characteristics Respiratory Depth Respiratory Pattern Blood Pressure 87/46 L 87/46 L 87/46 L Blood Pressure [Left Arm] Blood Pressure Mean 49 49 49 Blood Pressure Mean [Left Arm] Blood Pressure Position [Left Arm] Pulse Oximetry Oxygen Delivery Method Sepsis Recent Fever Within 48 Hours Sepsis New/Unexplained Change in Mental Status Sepsis Action Taken by Nursing 01/02/25 19:00 01/02/25 19:03 01/02/25 19:04 Temperature Temperature Source Pulse Rate Pulse Rate [Finger] Pulse Rate from SpO2 Sensor 57 L Pulse Rhythm [Finger] Pulse Strength [Finger] Respiratory Rate Respiratory Effort / Characteristics Respiratory Depth Respiratory Pattern Blood Pressure 87/46 L Blood Pressure [Left Arm] Blood Pressure Mean 49 Blood Pressure Mean [Left Arm] Blood Pressure Position [Left Arm] Pulse Oximetry 95 Oxygen Delivery Method Room Air Sepsis Recent Fever Within 48 Hours Sepsis New/Unexplained Change in Mental Status Sepsis Action Taken by Nursing 01/02/25 19:12 01/02/25 20:00 01/02/25 20:31 Temperature Temperature Source Pulse Rate 59 L 58 L Pulse Rate [Finger] 56 L Pulse Rate from SpO2 Sensor 59 L 60 Pulse Rhythm [Finger] Regular Pulse Strength [Finger] Normal Respiratory Rate 20 16 18 Respiratory Effort / Characteristics Non-Labored Spontaneous Respiratory Depth Normal Respiratory Pattern Regular Blood Pressure 85/39 L Blood Pressure [Left Arm] 96/48 L Blood Pressure Mean 54 Blood Pressure Mean [Left Arm] 64 Blood Pressure Position [Left Arm] Sitting Pulse Oximetry 96 95 94 Oxygen Delivery Method Room Air Sepsis Recent Fever Within 48 Hours Sepsis New/Unexplained Change in Mental Status Sepsis Action Taken by Nursing 01/02/25 20:45 01/02/25 20:45 01/02/25 21:00 Temperature Temperature Source Pulse Rate 58 L 59 L Pulse Rate [Finger] Pulse Rate from SpO2 Sensor Pulse Rhythm [Finger] Pulse Strength [Finger] Respiratory Rate 19 20 Respiratory Effort / Characteristics Respiratory Depth Respiratory Pattern Blood Pressure 70/39 L 70/39 L 101/60 Blood Pressure [Left Arm] Blood Pressure Mean 49 49 70 Blood Pressure Mean [Left Arm] Blood Pressure Position [Left Arm] Pulse Oximetry 95 96 Oxygen Delivery Method Sepsis Recent Fever Within 48 Hours Sepsis New/Unexplained Change in Mental Status Sepsis Action Taken by Nursing 01/02/25 21:15 01/02/25 21:30 Temperature Temperature Source Pulse Rate 63 Pulse Rate [Finger] 62 Pulse Rate from SpO2 Sensor Pulse Rhythm [Finger] Pulse Strength [Finger] Respiratory Rate 16 Respiratory Effort / Characteristics Respiratory Depth Respiratory Pattern Blood Pressure 115/71 Blood Pressure [Left Arm] 132/67 Blood Pressure Mean 76 Blood Pressure Mean [Left Arm] 88 Blood Pressure Position [Left Arm] Pulse Oximetry 96 Oxygen Delivery Method Sepsis Recent Fever Within 48 Hours Sepsis New/Unexplained Change in Mental Status Sepsis Action Taken by Nursing Laboratory Data 01/02/25 18:38 01/02/25 23:19 Lab Results 01/02/25 01/02/25 Range/Units 18:38 19:43 WBC 17.46 H (4.8-10.8) K/ul RBC 5.71 (4.70-6.10) M/uL Hgb 17.6 (14.0-18.0) g/dl Hct 51.0 (42.0-52.0) % MCV 89.3 (80.0-100.0) fL MCH 30.8 (25.0-34.0) pg MCHC 34.5 (32.0-36.0) g/dL RDW Std Deviation 43.5 (36.4-46.3) fL RDW Coeff of Rojas 13.5 (11.5-14.5) % Plt Count 478 H (130-400) K/uL MPV 11.7 (9.4-12.4) fL Immature Gran % (Auto) 0.9 % Neut % (Auto) 75.5 % Lymph % (Auto) 8.8 % [place] % (Auto) 11.8 % Eos % (Auto) 2.2 % Baso % (Auto) 0.8 % Neut # (Auto) 13.19 H (1.40-6.50) K/uL Lymph # (Auto) 1.54 (1.20-3.40) K/uL [place] # (Auto) 2.06 H (0.11-0.59) K/uL Eos # (Auto) 0.38 (0.00-0.50) K/uL Baso # (Auto) 0.14 (0.00-0.20) K/uL Immature Gran # (Auto) 0.15 (0.01-0.20) K/uL PT 12.7 H (9.0-12.0) Seconds INR 1.2 H (0.9-1.1) APTT 27 (21-31) Seconds PTT Ratio 1.0 Sodium 121 L (136-145) mmol/L Potassium 4.7 (3.5-5.1) mmol/L Chloride 87 L (98-107) mmol/L Carbon Dioxide 27 (21-32) mmol/L Anion Gap 7 (3-11) BUN 46 H (6-23) mg/dl Creatinine 1.60 H (0.6-1.4) mg/dl Est Cr Clr Drug Dosing 71.1 ml/min eGFR 50.26 BUN/Creatinine Ratio 28.8 H (10-20) Glucose 251 H (70-99(Fasting)) mg/dl Lactate 2.2 H* (0.4-2.0) mmol/L Calcium 9.2 (8.6-10.3) mg/dl Phosphorus 4.5 (2.5-4.9) mg/dl Magnesium 2.2 (1.7-2.4) mg/dl Total Bilirubin 1.3 H (0.2-1.0) mg/dl AST 32 (13-39) U/L ALT 25 (7-52) U/L Alkaline Phosphatase 117 H (34-104) U/L Troponin I High Sens 13.3 (0-20) pg/ml Total Protein 5.8 L (6.0-8.3) gm/dl Albumin 3.7 (3.4-5.0) gm/dl Globulin 2.1 L (2.5-4.0) gm/dl Albumin/Globulin Ratio 1.8 (0.9-2) Procalcitonin 0.57 H (0-0.5) ng/ml Random Cortisol 19.34 mcg/dl Administered Medications Norepinephrine Bitartrate (Levophed/D5w) 4 mg in 250 mls @ 32.524 mls/hr IV .Q7H42M ODIN; Protocol Stop: 02/01/25 20:29 Last Titration: 01/02/25 20:49 Dose: 0.07 mcg/kg/min, 32.5 mls/hr Documented By: KESHA Co-signed By: MICHAEL Admin: 01/02/25 20:26 Dose: 0.05 mcg/kg/min, 23.2 mls/hr Documented By: KESHA Co-signed By: SUNNY Piperacillin Sod/Tazobactam Sod (Zosyn) 4.5 gm in 100 mls @ 25 mls/hr IV Q8H [facility]; Protocol Stop: 01/04/25 21:59 Last Admin: 01/02/25 22:57 Dose: 25 mls/hr Documented By: TARA Albumin Human (Albumin 25%) 25 gm in 100 mls @ 50 mls/hr IV Q2H ODIN Stop: 01/03/25 07:59 Last Admin: 01/03/25 00:48 Dose: 50 mls/hr Documented By: Infusion: 01/03/25 00:43 Dose: Infused Documented By: Admin: 01/02/25 22:43 Dose: 50 mls/hr Documented By: TARA Pantoprazole Sodium (Protonix) 40 mg in 10 mls @ 5 mls/min IV DAILY ODIN Stop: 02/01/25 22:29 Last Admin: 01/02/25 22:57 Dose: 5 mls/min Documented By: TARA Hydrocortisone Sodium (Succinate 50 mg/ Syringe) 1 mls @ 4 mls/min IV Q6H ODIN Stop: 02/02/25 00:00 Last Admin: 01/03/25 01:27 Dose: 4 mls/min Documented By: TARA Insulin Aspart (Insulin Aspart Per Unit Charge) 0 units SC ACHS ODIN Stop: 02/02/25 00:29 Last Admin: 01/03/25 00:25 Dose: Not Given Documented By: TARA Ondansetron HCl (Ondansetron Inj 2 Mg/Ml 2 Ml Vial) 4 mg IV Q6H PRN PRN Reason: Nausea And Vomiting Stop: 02/01/25 22:26 Last Admin: 01/02/25 22:43 Dose: 4 mg Documented By: TARA Discontinued Medications Sodium Chloride (Nss) 1,000 mls @ 999 mls/hr IV .Q1H1M ONE Stop: 01/02/25 19:53 Last Infusion: 01/02/25 20:01 Dose: Infused Documented By: Admin: 01/02/25 19:00 Dose: 999 mls/hr Documented By: KESHA Ceftriaxone Sodium (Rocephin) 2,000 mg in 50 mls @ 100 mls/hr IV NOW STA Stop: 01/02/25 19:22 Last Infusion: 01/02/25 19:30 Dose: Infused Documented By: Admin: 01/02/25 19:00 Dose: 100 mls/hr Documented By: KESHA Nicotine (Nicotine 14 Mg/24 Hr Patch) 1 patch TD NOW STA Stop: 01/02/25 22:46 Last Admin: 01/02/25 22:52 Dose: 1 patch Documented By: TARA Imaging Data Radiologist's Impression: Chest X-Ray 01/02/25 18:33 Clinical History: Chest pain Technique: A frontal view of the chest was obtained Comparison is made to the prior examination dated 10/09/2022 Findings: There are no confluent pulmonary infiltrates. The heart size is at the upper limit of normal. No pleural effusion or pneumothorax is seen. There is a possible small right lower lobe nodule, new or more apparent No fracture is noted. No foreign body is seen Impression: Possible right lower lobe nodule. Chest CT could be considered for further evaluation ACT 112: Positive. There are findings on this exam that require communication between the performing entity and the patient following Patient Test Result Information Act ([place] ACT 112) guidelines. Electronically signed by Rod Herrera 01-02-2025 7:19 PM Abdomen/Pelvis CT 01/02/25 19:09 EXAMINATION: Abdomen and pelvis CT without CLINICAL HISTORY: Renal colic, pyelonephritis PRIORS: 09/12/2022 TECHNIQUE: Contiguous axial images were obtained through the abdomen and pelvis without the use of intravenous contrast. Sagittal and coronal reformations are supplied. FINDINGS: Pleural effusions have resolved in the interval. Multiple bilateral pulmonary nodules are present in the lung bases, appearing in the interval. For example, in the right lower lobe, round with a solid appearance measuring 8.1 mm. Allowing for the absence of intravenous contrast, large amount of ascites is present, increased in the interval. Severe hepatic cirrhosis present, progressed in the interval. Heterogeneous appearance of the liver parenchyma noted with multiple lucent masses noted throughout both left and right lobes, appearing in the interval. The pancreas is not well visualized. The spleen is not enlarged. A lucent mass present in the spleen on image 16, series 2, appearing in the interval. Stomach is partly distended and morphologically unremarkable. Thickened bilateral adrenal glands present, unchanged. Urinary bladder partly distended and morphologically unremarkable. Prostate is not enlarged. A moderate amount of formed stool and gas is present throughout the colon. No bowel wall thickening. No extraluminal gas. No discrete adenopathy or mesenteric soft tissue nodules noted, allowing for the absence of intravenous contrast. The kidneys demonstrate no obstructing renal calculus or hydro nephrosis. In bone windows, moderate facet hypertrophic changes at L4-L5 and L5-S1. No suspicious osseous abnormality. IMPRESSION: 1. Hepatic cirrhosis with large volume of ascites, progressed in the interval. 2. Multiple bilateral pulmonary nodules with multiple low-attenuation liver lesions and a splenic lesion, all appearing in the interval, concerning for metastatic disease of unknown primary. Close clinical follow-up suggested. ACT 112: Positive. There are findings on this examination that require communication between the performing entity and the patient following Patient Test Result Information Act ([place] ACT 112) guidelines. Electronically signed by Dede Funez 01-02-2025 7:52 PM Discharge Plan Visit Data Chief Complaint: Abnormal Labs/Diagnostic Testing Stated Complaint: ABN RESULTS-DOC SAID COME OVER ED Provider: Marisa Girard Discharge Problem: Sepsis, UTI (urinary tract infection) Patient Disposition: Admitted As Inpatient Discharge Instructions Interventions: ED Discharge Assessment Last Done: 01/02/25 21:55
[2025-01-03] MEDS: HEPARIN 25000 UNIT/500 ML D5W 25,000 UNITS/500 ML BAG IV SCH (02:53)
--- NOTE | 2025-01-03 03:07 | Procedure Note ---
Procedure Note Date of Service January 03, 2025 INTERNAL JUGULAR CENTRAL LINE PROCEDURE NOTE: Procedure: Internal Jugular Central Line Placement Attending: Dr. Martell APC: Deirdre Mccann PA-C Indication: Central Drug Administration, Poor Venous Access, Multiple Lab Draws Necessary, etc. Anesthesia: Lidocaine 1% Consent was obtained from patient. Indication, risks, and benefits were explained at length. A time-out was completed verifying correct patient, procedure, site, positioning, and implants(s) or special equipment if applicable. Patients R Neck was cleansed and draped in the typical sterile fashion using Chloraprep. The Internal Jugular Vein and Carotid Artery were identified using ultrasound. The superficial tissue was anesthetized using 5 mL of 1% lidocaine without epinephrine under direct visualization with the ultrasound. After adequate anesthetization was achieved, the Internal Jugular vein was cannulated under direct ultrasound guidance using an introducer needle on a syringe. Good venous blood return was maintained prior to removal of syringe from introducer needle. Using Seldinger Technique, a guide wire was advanced through the introducer needle without resistance. The introducer needle was removed and ultrasound images were obtained of the guide wire within the Internal Jugular Vein . A small incision was made in penetrating fashion at the guide wire insertion site utilizing an 11 blade scalpel. The dilator was advanced to the vessel without resistance. The dilator was exchanged for the triple lumen catheter which was advanced into the vessel without resistance. The guide wire was removed intact from the catheter without issue. Claves were placed on each catheter tip with confirmation of good blood flow from each lumen. Each port was easily flushed with sterile saline. The catheter was placed at 19 cm and sutured in place. BioPatch was applied to the catheter and a sterile Tegaderm dressing was applied over the catheter with careful attention to sterility. Patient tolerated procedure well. No immediate complications were met. Post procedure x-ray was completed, placement was appropriate and no pneumothorax was noted. Side selection rationale: [facility] diminutive Procedural Ultrasound Guidance: Procedure Date: 01/03/2025 Indication: Central access Attending: Dr. Martell APC: Deirdre Mccann PA-C Artery AND Vein visualized: Y Compressible Vein: Y Guidewire or Short Catheter seen in vein prior to dilation: Y Line confirmed in Vein with ultrasound: [place] [facility] [place] Codes (Charges) Tubes, Drains, and Vasc Access Procedure 1: Tubes, Drains, and Vasc Access: [id number] Insertion Of Non-tunneled Catheter Age 3 Yrs> Coding CPT Codes Tubes, Drains, and Vasc Access - Tubes, Drains, and Vasc Access: [id number] Insertion Of Non-tunneled Catheter Age 3 Yrs> ([id number]) Additional Codes Date of Service ([email or web address])
--- NOTE | 2025-01-03 03:26 | XRay Report ---
EXAM: XR chest 1V portable CLINICAL HISTORY: New central line TECHNIQUE: An X-ray image of the chest is obtained in AP projection. COMPARISON: With the prior study dated 01/02/2025. FINDINGS: Pulmonary Parenchyma: A right-side CVl is seen in a proper place with the tip located in the atro-caval junction. Lungs are clear bilaterally. No evidence of consolidation, collapse, or focal opacities. No pulmonary nodules are identified. No evidence of pleural effusion or pleural thickening. Heart and Mediastinum: The heart is enlarged in size with bilateral hilar vascular congestion. No mediastinal widening or masses. No hilar or mediastinal lymphadenopathy. Bony Thorax: The bony thorax appears intact without fractures or deformities. Soft Tissues: Soft tissues overlying the chest wall are unremarkable. IMPRESSION: 1. Properly inserted right CVL. 2. Cardiomeglay noted. 3. No interval change since the prior study. Electronically signed by Zheng Sage 01-03-2025 03:26 AM
[2025-01-03 05:45] LABS: Hematocrit (blood only) 46.3 % (42.0-52.0); Hemoglobin 15.9 g/dl (14.0-18.0); Mean Corpuscular Hemoglobin 30.8 pg (25.0-34.0); Mean Corpuscular Hgb Conc 34.3 g/dL (32.0-36.0); Mean Corpuscular Volume 89.6 fL (80.0-100.0); Mean Platelet Volume 11.7 fL (9.4-12.4); Platelet Count 532 K/uL (130-400); RDW Coefficient of Variation 13.5 % (11.5-14.5); RDW Standard Deviation 44.5 fL (36.4-46.3); Red Blood Count 5.17 M/uL (4.70-6.10)
[2025-01-03 05:51] LABS: Albumin Globulin Ratio 2.3 (0.9-2); Albumin Level 4.2 gm/dl (3.4-5.0); Bilirubin,Total 1.7 mg/dl (0.2-1.0); Calcium 8.9 mg/dl (8.6-10.3); Creatinine Clr Calc Pharmacy 93.4 ml/min; Globulin 1.8 gm/dl (2.5-4.0); Magnesium 2.2 mg/dl (1.7-2.4); Phosphorus 4.1 mg/dl (2.5-4.9); Potassium 4.7 mmol/L (3.5-5.1)
[2025-01-03] MEDS: INSULIN ASPART PER UNIT CHARGE SC STA (06:06)
[2025-01-03 06:11] LABS: Basophils # (auto) 0.12 K/uL (0.00-0.20); Basophils % (auto) 0.6 %; Echinocytes 2+; Eosinophils # (auto) 0.31 K/uL (0.00-0.50); Eosinophils % (auto) 1.6 %; INR 1.3 (0.9-1.1); Immature Granulocytes # (auto) 0.23 K/uL (0.01-0.20); Immature Granulocytes % (auto) 1.2 %; Lymphocytes # (auto) 1.26 K/uL (1.20-3.40); Lymphocytes % (auto) 6.7 %; Monocytes # (auto) 1.64 K/uL (0.11-0.59); Monocytes % (auto) 8.7 %; Neutrophils # (auto) 15.24 K/uL (1.40-6.50); Neutrophils % (auto) 81.2 %; Polychromasia 1+; Prothrombin Time 13.7 Seconds (9.0-12.0)
[2025-01-03 06:26] LABS: Hep B Surface Ag with confirm Negative (Negative)
[2025-01-03 06:31] LABS: Hep C Ab Rflx HepCQuant RNA Negative (Negative)
[2025-01-03] MEDS ORDERED: ICU Protocol for HYPERglycemia SCH ×2 (07:30)
--- NOTE | 2025-01-03 07:39 | Critical Care Progress Note ---
Date of Service January 03, 2025 Assessment & Plan (1) Decompensated cirrhosis: (2) Thrombocytosis: (3) History of pulmonary embolus (PE): (4) Tobacco use disorder: (5) Diabetes mellitus, type 2: (6) Chronic systolic (congestive) heart failure: (7) Hyponatremia: Plan Reason Critically Ill: Cirrhosis with hypotension, portal vein thrombosis (failure of outpatient Eliquis), and 24-hour events: Patient was admitted to the ICU. Discussions were had with tertiary facility regarding mechanical thrombectomy or IR guided therapy for the portal vein thrombosis. Given his stability, elected to remain here. GI and medical oncology evaluations currently pending. He received albumin. Pressors have been weaned. Recommendations: Neuro -no current issues. Observe for alcohol withdrawal syndrome. Continue thiamine and folate. Cardiac -hypotension: Patient does not meet criteria for severe sepsis as his lactate was normal. Has a known history of heart failure with reduced systolic function. His last echo was performed in September of this year and showed an EF of 40 to 45% with global hypokinesis and mild MR. Given his cirrhosis, valvular heart disease, and reduced ejection fraction, would target systolic blood pressures greater than 90. Continue hydrocortisone and Florinef. Increase midodrine to 10 mg 3 times daily. Respiratory -patient has multiple new pulmonary nodules identified on the lung bases. Will obtain dedicated CT of the chest to fully evaluate the pulmonary parenchyma. Extensive history of tobacco abuse. GI -cirrhosis with significant ascites. The patient had significant pleural effusion identified back in 2021. Will plan on therapeutic diagnostic paracentesis now. Heparin is currently on hold. Await GI consultation. Will need outpatient follow-up with interventional radiology regarding possible TIPS or mechanical thrombectomy. Will characterize ascitic fluid post paracentesis. White count elevated and procalcitonin borderline elevated. Need to rule out SBP. RENAL/LYTES -hypoosmolar hyponatremia. Patient has received adequate volume expansion. Urine specific gravity is high indicating a sodium avid situation. May be related to heart failure or intravascular depletion due to cirrhosis. Probable hypovolemic hyponatremia and will see how his sodium responds to volume expansion. ENDO - clammy c-Myc control per protocol with elevated hemoglobin A1c. Relative adrenal insufficiency on replacement hydrocortisone and Florinef HEME/ONC/OTHER -Eliquis failure. Await hematology evaluation. ID -on empiric Zosyn to cover potential SBP. Additional antibiotics will be dictated based on results of paracentesis. Cultures pending LINES/TUBES/DRAINS - PIV x2 (18G, 20G) Gloria (Day #1), discontinued today Central venous catheter DVT PROPHYLAXIS - Heparin currently on hold I have personally spent 55 minutes of critical care time in the direct management of this patient. This is a life/limb threatening event. This includes time spent evaluating patient, direct bedside care, chart review, placing orders, interpretation of diagnostic studies, discussion with consultants, patient, and family members, as well as other required patient management activities. This time is exclusive of all separately billable procedures, and teaching time and separate from and in addition to any other critical care service time. Thank you for allowing us to participate in the care of this patient. Admission and Anticipated Discharge Date Admission Date: January 02, 2025 Subjective Patient seen and examined. EMR reviewed. Discussed with overnight critical care ANOOP as well as with bedside critical care nurse in a multidisciplinary rounds. The patient is currently awake alert conversant. He sitting up in bed. He is tolerating a full meal. He denies any chest pain or palpitations. No nausea or vomiting. No diarrhea. He denies abdominal pain. His sensorium is intact. Review of Systems Review of Systems: All systems reviewed & are unremarkable except as noted in Subjective Physical Exam Constitutional: WD/WN, vitals as above Neck: trachea midline, no thyromegaly Respiratory: normal respiratory effort, lungs clear to auscultation Cardiovascular: RRR, no murmur, no edema Gastrointestinal (Abdomen): Inspection/Auscultation: + abdomen distended and normal bowel sounds Percussion/Palpation: + dullness to percussion and + fluid wave; abdomen nontender Musculoskeletal: Extremities: extremities normal to inspection Skin: no rashes, warm and dry Neurologic: Nonfocal exam Lymphatic: no cervical lymphadenopathy Results & Data Results & Data Vital Signs (Past 12 Hours) Vital Signs Temp Pulse Pulse Resp BP BP Pulse Ox 01/03/25 07:00 36.5 C 63 16 92/54 L 95 01/03/25 06:00 62 18 93 01/03/25 06:00 97/63 L 01/03/25 06:00 97/63 L 01/03/25 05:51 62 17 96 01/03/25 05:48 61 17 96 01/03/25 05:45 98/63 L 01/03/25 05:45 98/63 L 01/03/25 05:30 101/60 01/03/25 05:30 101/60 01/03/25 05:30 61 15 95 01/03/25 05:15 111/66 01/03/25 05:15 111/66 01/03/25 05:15 111/66 01/03/25 05:15 61 18 96 01/03/25 05:00 62 16 95 01/03/25 05:00 102/62 01/03/25 05:00 102/62 01/03/25 05:00 102/62 01/03/25 04:45 100/58 L 01/03/25 04:45 100/58 L 01/03/25 04:36 65 15 97 01/03/25 04:30 99/62 L 01/03/25 04:24 63 15 96 01/03/25 04:15 103/61 01/03/25 04:09 64 16 95 01/03/25 04:03 65 16 95 01/03/25 04:00 105/60 01/03/25 03:42 65 14 95 01/03/25 03:30 108/64 01/03/25 03:30 108/64 01/03/25 03:00 36.4 C L 01/03/25 03:00 106/56 L 01/03/25 03:00 106/56 L 01/03/25 02:45 109/67 01/03/25 02:45 109/67 01/03/25 02:30 111/61 01/03/25 02:30 66 20 96 01/03/25 02:15 65 21 97 01/03/25 02:15 109/67 01/03/25 02:00 64 18 94 01/03/25 02:00 107/65 01/03/25 02:00 107/65 01/03/25 02:00 107/65 01/03/25 01:45 98/61 L 01/03/25 01:45 98/61 L 01/03/25 01:45 64 17 93 01/03/25 01:30 96/59 L 01/03/25 01:30 62 18 94 01/03/25 01:27 61 18 95 01/03/25 01:00 100/59 L 01/03/25 01:00 100/59 L 01/03/25 00:54 64 19 97 01/03/25 00:45 93/61 L 01/03/25 00:45 93/61 L 01/03/25 00:36 63 17 96 01/03/25 00:30 65 16 01/03/25 00:30 100/61 01/03/25 00:18 69 18 94 01/03/25 00:15 96/64 L 01/03/25 00:12 69 22 90 01/03/25 00:06 67 21 90 01/03/25 00:00 65 01/03/25 00:00 117/69 01/03/25 00:00 117/69 01/03/25 00:00 117/69 01/02/25 23:54 64 19 90 01/02/25 23:45 103/60 01/02/25 23:42 66 21 90 01/02/25 23:33 64 21 90 01/02/25 23:30 92/55 L 01/02/25 23:30 92/55 L 01/02/25 23:30 92/55 L 01/02/25 23:24 66 19 90 01/02/25 23:18 65 17 90 01/02/25 22:33 62 18 95 01/02/25 22:30 102/59 L 01/02/25 22:30 102/59 L 01/02/25 22:30 102/59 L 01/02/25 22:25 01/02/25 22:25 37 C 64 21 103/60 90 01/02/25 22:25 63 01/02/25 21:30 62 132/67 01/02/25 21:15 63 16 115/71 96 01/02/25 21:00 59 L 20 101/60 96 01/02/25 20:45 70/39 L 01/02/25 20:45 58 L 19 70/39 L 95 01/02/25 20:31 56 L 18 96/48 L 94 01/02/25 20:00 58 L 16 85/39 L 95 Pulse Ox O2 Del Method O2 Del Method 01/03/25 07:00 Room Air 01/03/25 06:00 01/03/25 06:00 01/03/25 06:00 01/03/25 05:51 01/03/25 05:48 01/03/25 05:45 01/03/25 05:45 01/03/25 05:30 01/03/25 05:30 01/03/25 05:30 01/03/25 05:15 01/03/25 05:15 01/03/25 05:15 01/03/25 05:15 01/03/25 05:00 01/03/25 05:00 01/03/25 05:00 01/03/25 05:00 01/03/25 04:45 01/03/25 04:45 01/03/25 04:36 01/03/25 04:30 01/03/25 04:24 01/03/25 04:15 01/03/25 04:09 01/03/25 04:03 01/03/25 04:00 01/03/25 03:42 01/03/25 03:30 01/03/25 03:30 01/03/25 03:00 01/03/25 03:00 01/03/25 03:00 01/03/25 02:45 01/03/25 02:45 01/03/25 02:30 01/03/25 02:30 01/03/25 02:15 01/03/25 02:15 01/03/25 02:00 01/03/25 02:00 01/03/25 02:00 01/03/25 02:00 01/03/25 01:45 01/03/25 01:45 01/03/25 01:45 01/03/25 01:30 01/03/25 01:30 01/03/25 01:27 01/03/25 01:00 01/03/25 01:00 01/03/25 00:54 01/03/25 00:45 01/03/25 00:45 01/03/25 00:36 01/03/25 00:30 01/03/25 00:30 01/03/25 00:18 01/03/25 00:15 01/03/25 00:12 01/03/25 00:06 01/03/25 00:00 01/03/25 00:00 01/03/25 00:00 01/03/25 00:00 01/02/25 23:54 01/02/25 23:45 01/02/25 23:42 01/02/25 23:33 01/02/25 23:30 01/02/25 23:30 01/02/25 23:30 01/02/25 23:24 01/02/25 23:18 01/02/25 22:33 01/02/25 22:30 01/02/25 22:30 01/02/25 22:30 01/02/25 22:25 90 Room Air 01/02/25 22:25 Room Air 01/02/25 22:25 01/02/25 21:30 01/02/25 21:15 01/02/25 21:00 01/02/25 20:45 01/02/25 20:45 01/02/25 20:31 Room Air 01/02/25 20:00 Critical Care Results & Data Vital Signs (Past 12 Hours) Vital Signs Temp Pulse Pulse Resp BP BP Pulse Ox 01/03/25 07:00 36.5 C 63 16 92/54 L 95 01/03/25 06:00 62 18 93 01/03/25 06:00 97/63 L 01/03/25 06:00 97/63 L 01/03/25 05:51 62 17 96 01/03/25 05:48 61 17 96 01/03/25 05:45 98/63 L 01/03/25 05:45 98/63 L 01/03/25 05:30 101/60 01/03/25 05:30 101/60 01/03/25 05:30 61 15 95 01/03/25 05:15 111/66 01/03/25 05:15 111/66 01/03/25 05:15 111/66 01/03/25 05:15 61 18 96 01/03/25 05:00 62 16 95 01/03/25 05:00 102/62 01/03/25 05:00 102/62 01/03/25 05:00 102/62 01/03/25 04:45 100/58 L 01/03/25 04:45 100/58 L 01/03/25 04:36 65 15 97 01/03/25 04:30 99/62 L 01/03/25 04:24 63 15 96 01/03/25 04:15 103/61 01/03/25 04:09 64 16 95 01/03/25 04:03 65 16 95 01/03/25 04:00 105/60 01/03/25 03:42 65 14 95 01/03/25 03:30 108/64 01/03/25 03:30 108/64 01/03/25 03:00 36.4 C L 01/03/25 03:00 106/56 L 01/03/25 03:00 106/56 L 01/03/25 02:45 109/67 01/03/25 02:45 109/67 01/03/25 02:30 111/61 01/03/25 02:30 66 20 96 01/03/25 02:15 65 21 97 01/03/25 02:15 109/67 01/03/25 02:00 64 18 94 01/03/25 02:00 107/65 01/03/25 02:00 107/65 01/03/25 02:00 107/65 01/03/25 01:45 98/61 L 01/03/25 01:45 98/61 L 01/03/25 01:45 64 17 93 01/03/25 01:30 96/59 L 01/03/25 01:30 62 18 94 01/03/25 01:27 61 18 95 01/03/25 01:00 100/59 L 01/03/25 01:00 100/59 L 01/03/25 00:54 64 19 97 01/03/25 00:45 93/61 L 01/03/25 00:45 93/61 L 01/03/25 00:36 63 17 96 01/03/25 00:30 65 16 01/03/25 00:30 100/61 01/03/25 00:18 69 18 94 01/03/25 00:15 96/64 L 01/03/25 00:12 69 22 90 01/03/25 00:06 67 21 90 01/03/25 00:00 65 01/03/25 00:00 117/69 01/03/25 00:00 117/69 01/03/25 00:00 117/69 01/02/25 23:54 64 19 90 01/02/25 23:45 103/60 01/02/25 23:42 66 21 90 01/02/25 23:33 64 21 90 01/02/25 23:30 92/55 L 01/02/25 23:30 92/55 L 01/02/25 23:30 92/55 L 01/02/25 23:24 66 19 90 01/02/25 23:18 65 17 90 01/02/25 22:33 62 18 95 01/02/25 22:30 102/59 L 01/02/25 22:30 102/59 L 01/02/25 22:30 102/59 L 01/02/25 22:25 01/02/25 22:25 37 C 64 21 103/60 90 01/02/25 22:25 63 01/02/25 21:30 62 132/67 01/02/25 21:15 63 16 115/71 96 01/02/25 21:00 59 L 20 101/60 96 01/02/25 20:45 70/39 L 01/02/25 20:45 58 L 19 70/39 L 95 01/02/25 20:31 56 L 18 96/48 L 94 01/02/25 20:00 58 L 16 85/39 L 95 Pulse Ox O2 Del Method O2 Del Method 01/03/25 07:00 Room Air 01/03/25 06:00 01/03/25 06:00 01/03/25 06:00 01/03/25 05:51 01/03/25 05:48 01/03/25 05:45 01/03/25 05:45 01/03/25 05:30 01/03/25 05:30 01/03/25 05:30 01/03/25 05:15 01/03/25 05:15 01/03/25 05:15 01/03/25 05:15 01/03/25 05:00 01/03/25 05:00 01/03/25 05:00 01/03/25 05:00 01/03/25 04:45 01/03/25 04:45 01/03/25 04:36 01/03/25 04:30 01/03/25 04:24 01/03/25 04:15 01/03/25 04:09 01/03/25 04:03 01/03/25 04:00 01/03/25 03:42 01/03/25 03:30 01/03/25 03:30 01/03/25 03:00 01/03/25 03:00 01/03/25 03:00 01/03/25 02:45 01/03/25 02:45 01/03/25 02:30 01/03/25 02:30 01/03/25 02:15 01/03/25 02:15 01/03/25 02:00 01/03/25 02:00 01/03/25 02:00 01/03/25 02:00 01/03/25 01:45 01/03/25 01:45 01/03/25 01:45 01/03/25 01:30 01/03/25 01:30 01/03/25 01:27 01/03/25 01:00 01/03/25 01:00 01/03/25 00:54 01/03/25 00:45 01/03/25 00:45 01/03/25 00:36 01/03/25 00:30 01/03/25 00:30 01/03/25 00:18 01/03/25 00:15 01/03/25 00:12 01/03/25 00:06 01/03/25 00:00 01/03/25 00:00 01/03/25 00:00 01/03/25 00:00 01/02/25 23:54 01/02/25 23:45 01/02/25 23:42 01/02/25 23:33 01/02/25 23:30 01/02/25 23:30 01/02/25 23:30 01/02/25 23:24 01/02/25 23:18 01/02/25 22:33 01/02/25 22:30 01/02/25 22:30 01/02/25 22:30 01/02/25 22:25 90 Room Air 01/02/25 22:25 Room Air 01/02/25 22:25 01/02/25 21:30 01/02/25 21:15 01/02/25 21:00 01/02/25 20:45 01/02/25 20:45 01/02/25 20:31 Room Air 01/02/25 20:00 Lab & Micro Results (Past 24 Hours) RBC 5.17 M/uL (4.70-6.10) 01/03/25 WBC 18.80 K/ul (4.8-10.8) H 01/03/25 Hgb 15.9 g/dl (14.0-18.0) 01/03/25 Hct 46.3 % (42.0-52.0) 01/03/25 MCV 89.6 fL (80.0-100.0) 01/03/25 MCH 30.8 pg (25.0-34.0) 01/03/25 MCHC 34.3 g/dL (32.0-36.0) 01/03/25 RDW Standard Deviation 44.5 fL (36.4-46.3) 01/03/25 RDW Coefficient of Variation 13.5 % (11.5-14.5) 01/03/25 Plt Count 532 K/uL (130-400) H 01/03/25 MPV 11.7 fL (9.4-12.4) 01/03/25 Neutrophils (%) (Auto) 81.2 % 01/03/25 Lymphocytes (%) (Auto) 6.7 % 01/03/25 Monocytes # (Auto) 1.64 K/uL (0.11-0.59) H 01/03/25 Eosinophils # (Auto) 0.31 K/uL (0.00-0.50) 01/03/25 Immature Granulocyte % (Auto) 1.2 % 01/03/25 Neutrophils # (Auto) 15.24 K/uL (1.40-6.50) H 01/03/25 Lymphocytes # (Auto) 1.26 K/uL (1.20-3.40) 01/03/25 Monocytes # (Auto) 1.64 K/uL (0.11-0.59) H 01/03/25 Eosinophils # (Auto) 0.31 K/uL (0.00-0.50) 01/03/25 Basophils # (Auto) 0.12 K/uL (0.00-0.20) 01/03/25 Immature Granulocyte # (Auto) 0.23 K/uL (0.01-0.20) H 01/03 Polychromasia 1+ 01/03/25 Echinocytes 2+ 01/03/25 Na 123 mmol/L (136-145) L 01/03/25 K 4.7 mmol/L (3.5-5.1) 01/03/25 Cl 89 mmol/L (98-107) L 01/03/25 CO2 25 mmol/L (21-32) 01/03/25 Anion Gap 9 (3-11) 01/03/25 BUN 46 mg/dl (6-23) H 01/03/25 Creatinine 1.21 mg/dl (0.6-1.4) 01/03/25 BUN/Creatinine Ratio 38.0 (10-20) H 01/03/25 Glu 226 mg/dl (70-99(Fasting)) H 01/03/25 Ca 8.9 mg/dl (8.6-10.3) 01/03/25 Phosphorus Level 4.1 mg/dl (2.5-4.9) 01/03/25 Total Bilirubin 1.7 mg/dl (0.2-1.0) H 01/03/25 AST 25 U/L (13-39) 01/03/25 ALT 21 U/L (7-52) 01/03/25 Alkaline Phosphatase 97 U/L (34-104) 01/03/25 TP 6.0 gm/dl (6.0-8.3) 01/03/25 Albumin 4.2 gm/dl (3.4-5.0) 01/03/25 Globulin 1.8 gm/dl (2.5-4.0) L 01/03/25 Albumin/Globulin Ratio 2.3 (0.9-2) H 01/03/25 Mg 2.2 mg/dl (1.7-2.4) 01/03/25 05:00 Calcium Level 8.9 mg/dl (8.6-10.3) 01/03/25 05:00 Prothromb Time International Ratio 1.3 (0.9-1.1) H 01/03/25 05 :00 Diagnostic Findings (Past 24 Hours) Chest X-Ray 01/02/25 18:33 Clinical History: Chest pain Technique: A frontal view of the chest was obtained Comparison is made to the prior examination dated 10/09/2022 Findings: There are no confluent pulmonary infiltrates. The heart size is at the upper limit of normal. No pleural effusion or pneumothorax is seen. There is a possible small right lower lobe nodule, new or more apparent No fracture is noted. No foreign body is seen Impression: Possible right lower lobe nodule. Chest CT could be considered for further evaluation ACT 112: Positive. There are findings on this exam that require communication between the performing entity and the patient following Patient Test Result Information Act ([place] ACT 112) guidelines. Electronically signed by Rod Herrera 01-02-2025 7:19 PM Abdomen/Pelvis CT 01/02/25 19:09 EXAMINATION: Abdomen and pelvis CT without CLINICAL HISTORY: Renal colic, pyelonephritis PRIORS: 09/12/2022 TECHNIQUE: Contiguous axial images were obtained through the abdomen and pelvis without the use of intravenous contrast. Sagittal and coronal reformations are supplied. FINDINGS: Pleural effusions have resolved in the interval. Multiple bilateral pulmonary nodules are present in the lung bases, appearing in the interval. For example, in the right lower lobe, round with a solid appearance measuring 8.1 mm. Allowing for the absence of intravenous contrast, large amount of ascites is present, increased in the interval. Severe hepatic cirrhosis present, progressed in the interval. Heterogeneous appearance of the liver parenchyma noted with multiple lucent masses noted throughout both left and right lobes, appearing in the interval. The pancreas is not well visualized. The spleen is not enlarged. A lucent mass present in the spleen on image 16, series 2, appearing in the interval. Stomach is partly distended and morphologically unremarkable. Thickened bilateral adrenal glands present, unchanged. Urinary bladder partly distended and morphologically unremarkable. Prostate is not enlarged. A moderate amount of formed stool and gas is present throughout the colon. No bowel wall thickening. No extraluminal gas. No discrete adenopathy or mesenteric soft tissue nodules noted, allowing for the absence of intravenous contrast. The kidneys demonstrate no obstructing renal calculus or hydro nephrosis. In bone windows, moderate facet hypertrophic changes at L4-L5 and L5-S1. No suspicious osseous abnormality. IMPRESSION: 1. Hepatic cirrhosis with large volume of ascites, progressed in the interval. 2. Multiple bilateral pulmonary nodules with multiple low-attenuation liver lesions and a splenic lesion, all appearing in the interval, concerning for metastatic disease of unknown primary. Close clinical follow-up suggested. ACT 112: Positive. There are findings on this examination that require communication between the performing entity and the patient following Patient Test Result Information Act ([place] ACT 112) guidelines. Electronically signed by Dede Funez 01-02-2025 7:52 PM Portal Vein US 01/02/25 21:19 CR Exam(s): US OTHER EXAM: US Abdomen Limited CLINICAL HISTORY: Reason for exam: decompensated cirrhosis. TECHNIQUE: Real-time ultrasound of the liver with image documentation. COMPARISON: CT scan of the same date. FINDINGS: The exam is limited. The liver is inhomogeneous and of increased echogenicity. Hepatic veins appear patent. There appears to be thrombus within the main portal vein as well as in the right and left portal veins. The hepatic artery is air patent. There is ascites present within the abdomen. IMPRESSION: Limited exam. There appears to be thrombus within the main portal vein as well as the right and left portal veins. The liver is inhomogeneous and of increased echogenicity which may be due to hepatocellular disease. Underlying focal lesions cannot be excluded. Ascites. Communications: Call Doctor DVT – acute, progressing Electronically signed by: Davi De La Torre MD 01/03/25 01:40 AM Chest X-Ray 01/03/25 02:34 EXAM: XR chest 1V portable CLINICAL HISTORY: New central line TECHNIQUE: An X-ray image of the chest is obtained in AP projection. COMPARISON: With the prior study dated 01/02/2025. FINDINGS: Pulmonary Parenchyma: A right-side CVl is seen in a proper place with the tip located in the atro-caval junction. Lungs are clear bilaterally. No evidence of consolidation, collapse, or focal opacities. No pulmonary nodules are identified. No evidence of pleural effusion or pleural thickening. Heart and Mediastinum: The heart is enlarged in size with bilateral hilar vascular congestion. No mediastinal widening or masses. No hilar or mediastinal lymphadenopathy. Bony Thorax: The bony thorax appears intact without fractures or deformities. Soft Tissues: Soft tissues overlying the chest wall are unremarkable. IMPRESSION: 1. Properly inserted right CVL. 2. Cardiomeglay noted. 3. No interval change since the prior study. Electronically signed by Zheng Sage 01-03-2025 03:26 AM I & O Totals 24 Hours 01/02/25 01/03/25 01/04/25 06:59 06:59 06:59 Intake Total 1756.917 / 1856.917 277.105 / 277.105 Output Total 980 / 980 Balance 776.917 / 876.917 277.105 / 277.105 Cumulative 01/02/25 18:04 thru 01/03/25 07:39 Intake Total 2034.022 Output Total 980 Balance 1054.022 RT Ventilator Mngmt (Last Documented) Ventilator Ordered Settings Respiratory Rate 16 01/03/25 07:00 Ventilator - PT Measurements Respiratory Rate 16 Coding Level of Care Code 66997 CRITICAL CARE 1ST 30-74M Diagnoses Decompensated cirrhosis K72.90; K74.60 Thrombocytosis D75.839 History of pulmonary embolus (PE) Z86.711 Tobacco use disorder F17.200 Diabetes mellitus, type 2 E11.9 Chronic systolic (congestive) heart failure I50.22 Hyponatremia E87.1
[2025-01-03 07:45] LABS: Estimated Average Glucose 146 mg/dl; Hemoglobin A1C 6.7 % (4.5-5.6)
[2025-01-03] MEDS ORDERED: HYDROCORTISONE SOD 50 MG in SYRINGE 0 ML IV SCH (07:45)
[2025-01-03] MEDS ORDERED: MIDODRINE HCL 2.5 MG TAB PO SCH (08:00)
--- NOTE | 2025-01-03 08:10 | Hospitalist Progress Note ---
Date of Service January 03, 2025 Assessment & Plan (1) Decompensated cirrhosis: (2) Thrombocytosis: (3) History of pulmonary embolus (PE): (4) Tobacco use disorder: (5) Diabetes mellitus, type 2: (6) Chronic systolic (congestive) heart failure: (7) Hyponatremia: Plan Patient is a 54-year-old male with a past medical history of type II DM, PE and ischemic stroke 2021 on Eliquis, tobacco abuse, alcohol abuse, hypertension, hyperlipidemia, HFpEF, liver cirrhosis. He presented to [facility] at the recommendation of PCP d/t abnormal labs: #Decompensated Cirrhosis: Hx of cirrhosis - presented in decompensation with large volume ascites LFTs relatively WNL, INR at baseline - no evidence of acute liver failure at time of admission Acetaminophen level, ammonia level, EtOH level WNL hepatitis panel pending AFP, CEA pending GI consulted, appreciate recs Portal vein US: +portal venous thrombosis, likely acute underlying cause for decompensation Failure of Eliquis - Lovenox anticoagulation started after paracentesis, appreciate additional recs per heme Recommend outpatient IR f/u for TIPS/mechanical thrombectomy Hold lisinopril, metoprolol, p.o. Lasix, p.o. spironolactone d/t relative hypotension S/p paracentesis with removal of 5.4L - Blood cultures pending - Peritoneal fluid with elevated WBC count but PMNs<250 - likely alternative infectious source that would explain leukocytosis. With lung and liver lesions suspicious for mets, ? if this could a malignant ascites. - Continue Zosyn while source is being determined #?Liver Mets, Lung Nodules: CT A/P notable for multiple low-attenuation liver lesions and a splenic lesion, all appearing in the interval, concerning for metastatic disease of unknown primary CT chest with multiple pulmonary nodules suspicious for metastatic disease Heme/onc consulted, appreciate recs #BANDAR Likely prerenal in the setting of intravascular volume depletion Cr corrected following volume expansion Hold lisinopril, metformin trend BMP #Hyponatremia Hypotonic hyponatremia secondary to decompensated liver cirrhosis S/p volume expansion - follow serial labs #alcohol use Reports he drinks 6-7 beverages 1 night a week no symptoms of withdrawal on admission; outside of withdrawal window, no need for AWSS protocol at this time Thiamine PO 100mg and folic acid 1mg PO QAM #T2DM hold metformin and [facility] ICU hyperglycemic protocol #Thrombocytosis Chronic thrombocytosis noted since July 2023 Platelets 478 at the time of admission Peripheral smear without significant morphological abnormalities #tobacco use 1 ppd cigarettes 14mg nicotine patch ordered encourage smoking cessation Chronic stable diagnoses: HFpEF recent EF 40 to 45% September 2024, Holding BB as above, not in acute exacerbation at time of admission Hx PE and ischemic stroke 2021,Lovenox started following paracentesis VTE ppx: Lovenox Diet: Heart healthy, low-sodium, T2DM Admission and Anticipated Discharge Date Admission Date: January 02, 2025 Supervising Physician Co-Signing Physician Notes I personally examined the patient and verified all dooley points of history and exam, discussed case, and agree with decision making with Dr Newman Feeling okay overall. Mostly came to the hospital because of the labs. Does note a worsening of abdominal swelling and pressure prior to admissionfeeling better now status post paracentesis. Otherwise notes just a vague not feeling well leading up to admission. Vitals noted, in general he is awake and alert pleasant no distress. HEENT normocephalic atraumatic mucous membranes moist. Breathing unlabored no accessory muscle use good effort. Abdomen is soft mildly distended nontender no notable fluid wave, however this is after about 5.5 L paracentesis earlier todaypatient notes his belly is much less distended than earlier. No guarding rebound or rigidity. Cirrhosis/ascites/portal hypertension/portal venous thrombosis/leukocytosis, SIRS/concerning pulmonary nodularity - the biggest concern is a malignant process. Right now the most telling findings would be the pulmonary nodules, his abdominal imaging seems to be nondiagnostic for liver findings, although it does look a little bit concerningconsider reimaging liver now that ascitic fluid has been removed, and with IV contrast, as we may get a better idea of if there is liver parenchymal disease. For now, can hold off on this, given that peritoneal fluid cytology is pending and may provide answers. If the fluid is negative on cytology, then would get CT abdomen pelvis with contrast to see if there are any true liver foci that could be biopsied; if not, would ask pulmonary the viability of a bronc biopsy or radiology the viability of the CT biopsy of the lung findings. SIRS without any clear focus of infectionbut given his high white countcontinue empiric antibiotics for now, serial exams/etc. His ascitic fluid has a rather high white count, but agree with GI that it is not consistent with SBPprobably more concerning for malignancy (again cytology pending); for the portal venous thrombosis he is currently anticoagulated with Lovenox. Extensive discussions with patient and family, obviously no concrete answers yet, but explained the overall strategy and plan of carethey expressed good understanding. All questions answered to the best my ability and to their satisfaction. Otherwise as above. Subjective Patient reports feeling fatigued and noticing abdominal distention in the lead up to hospitalization. Otherwise denies infectious sx. At present, feeling much better after paracentesis. Review of Systems Review of Systems: Unobtainable due to reduced consciousness Physical Exam Physical Exam: Constitutional: no acute distress, sleeping comfortably HEENT: NCAT Resp: no increased work of breathing GI: +abdominal distention Skin: warm, dry, no rash appreciated Results & Data Results & Data Vital Signs (Past 12 Hours) Vital Signs Temp Pulse Pulse Resp BP BP Pulse Ox 01/03/25 07:00 36.5 C 63 16 92/54 L 95 01/03/25 06:00 62 18 93 01/03/25 06:00 97/63 L 01/03/25 06:00 97/63 L 01/03/25 05:51 62 17 96 01/03/25 05:48 61 17 96 01/03/25 05:45 98/63 L 01/03/25 05:45 98/63 L 01/03/25 05:30 101/60 01/03/25 05:30 101/60 01/03/25 05:30 61 15 95 01/03/25 05:15 111/66 01/03/25 05:15 111/66 01/03/25 05:15 111/66 01/03/25 05:15 61 18 96 01/03/25 05:00 62 16 95 01/03/25 05:00 102/62 01/03/25 05:00 102/62 01/03/25 05:00 102/62 01/03/25 04:45 100/58 L 01/03/25 04:45 100/58 L 01/03/25 04:36 65 15 97 01/03/25 04:30 99/62 L 01/03/25 04:24 63 15 96 01/03/25 04:15 103/61 01/03/25 04:09 64 16 95 01/03/25 04:03 65 16 95 01/03/25 04:00 105/60 01/03/25 03:42 65 14 95 01/03/25 03:30 108/64 01/03/25 03:30 108/64 01/03/25 03:00 36.4 C L 01/03/25 03:00 106/56 L 01/03/25 03:00 106/56 L 01/03/25 02:45 109/67 01/03/25 02:45 109/67 01/03/25 02:30 111/61 01/03/25 02:30 66 20 96 01/03/25 02:15 65 21 97 01/03/25 02:15 109/67 01/03/25 02:00 64 18 94 01/03/25 02:00 107/65 01/03/25 02:00 107/65 01/03/25 02:00 107/65 01/03/25 01:45 98/61 L 01/03/25 01:45 98/61 L 01/03/25 01:45 64 17 93 01/03/25 01:30 96/59 L 01/03/25 01:30 62 18 94 01/03/25 01:27 61 18 95 01/03/25 01:00 100/59 L 01/03/25 01:00 100/59 L 01/03/25 00:54 64 19 97 01/03/25 00:45 93/61 L 01/03/25 00:45 93/61 L 01/03/25 00:36 63 17 96 01/03/25 00:30 65 16 01/03/25 00:30 100/61 01/03/25 00:18 69 18 94 01/03/25 00:15 96/64 L 01/03/25 00:12 69 22 90 01/03/25 00:06 67 21 90 01/03/25 00:00 65 01/03/25 00:00 117/69 01/03/25 00:00 117/69 01/03/25 00:00 117/69 01/02/25 23:54 64 19 90 01/02/25 23:45 103/60 01/02/25 23:42 66 21 90 01/02/25 23:33 64 21 90 01/02/25 23:30 92/55 L 01/02/25 23:30 92/55 L 01/02/25 23:30 92/55 L 01/02/25 23:24 66 19 90 01/02/25 23:18 65 17 90 01/02/25 22:33 62 18 95 01/02/25 22:30 102/59 L 01/02/25 22:30 102/59 L 01/02/25 22:30 102/59 L 01/02/25 22:25 01/02/25 22:25 37 C 64 21 103/60 90 01/02/25 22:25 63 01/02/25 21:30 62 132/67 01/02/25 21:15 63 16 115/71 96 01/02/25 21:00 59 L 20 101/60 96 01/02/25 20:45 70/39 L 01/02/25 20:45 58 L 19 70/39 L 95 01/02/25 20:31 56 L 18 96/48 L 94 Pulse Ox O2 Del Method O2 Del Method 01/03/25 07:00 Room Air 01/03/25 06:00 01/03/25 06:00 01/03/25 06:00 01/03/25 05:51 01/03/25 05:48 01/03/25 05:45 01/03/25 05:45 01/03/25 05:30 01/03/25 05:30 01/03/25 05:30 01/03/25 05:15 01/03/25 05:15 01/03/25 05:15 01/03/25 05:15 01/03/25 05:00 01/03/25 05:00 01/03/25 05:00 01/03/25 05:00 01/03/25 04:45 01/03/25 04:45 01/03/25 04:36 01/03/25 04:30 01/03/25 04:24 01/03/25 04:15 01/03/25 04:09 01/03/25 04:03 01/03/25 04:00 01/03/25 03:42 01/03/25 03:30 01/03/25 03:30 01/03/25 03:00 01/03/25 03:00 01/03/25 03:00 01/03/25 02:45 01/03/25 02:45 01/03/25 02:30 01/03/25 02:30 01/03/25 02:15 01/03/25 02:15 01/03/25 02:00 01/03/25 02:00 01/03/25 02:00 01/03/25 02:00 01/03/25 01:45 01/03/25 01:45 01/03/25 01:45 01/03/25 01:30 01/03/25 01:30 01/03/25 01:27 01/03/25 01:00 01/03/25 01:00 01/03/25 00:54 01/03/25 00:45 01/03/25 00:45 01/03/25 00:36 01/03/25 00:30 01/03/25 00:30 01/03/25 00:18 01/03/25 00:15 01/03/25 00:12 01/03/25 00:06 01/03/25 00:00 01/03/25 00:00 01/03/25 00:00 01/03/25 00:00 01/02/25 23:54 01/02/25 23:45 01/02/25 23:42 01/02/25 23:33 01/02/25 23:30 01/02/25 23:30 01/02/25 23:30 01/02/25 23:24 01/02/25 23:18 01/02/25 22:33 01/02/25 22:30 01/02/25 22:30 01/02/25 22:30 01/02/25 22:25 90 Room Air 01/02/25 22:25 Room Air 01/02/25 22:25 01/02/25 21:30 01/02/25 21:15 01/02/25 21:00 01/02/25 20:45 01/02/25 20:45 01/02/25 20:31 Room Air Resident Activity Tracking Resident Involvement: Resident Care Provided Care Provided: Adult Hospital Medicine
[2025-01-03] MEDS: ASPIRIN 81 MG ECTAB PO SCH (08:18)
[2025-01-03] MEDS: NICOTINE 14 MG/24 HR PATCH TD SCH (08:19)
[2025-01-03] MEDS: MULTIVITAMIN TAB PO SCH (08:19)
[2025-01-03] MEDS: THIAMINE HCL 100 MG TAB PO SCH (08:19)
[2025-01-03] MEDS: FLUDROCORTISONE ACETATE 0.1 MG TAB PO SCH (08:19)
[2025-01-03] MEDS: FOLIC ACID 1 MG TAB PO SCH (08:19)
[2025-01-03] MEDS: MIDODRINE HCL 10 MG TAB PO SCH (08:36)
--- NOTE | 2025-01-03 08:52 | Oncology Consultation ---
Date of Consultation January 03, 2025 Assessment & Plan (1) Decompensated cirrhosis: (2) Pulmonary nodules: Plan -Await results from paracentesis. If negative for malignancy, he will need biopsy of lung nodules with either IR/pulmonology. -Follow-up with oncology outpatient to discuss pathology results. Thank you for this consult. Please feel free to call if you have any further questions. History of Present Illness Reason for Consultation: pulmonary nodules, concern for metastasis Attending Physician: Yoni Rosa DO History of Present Illness 54-year-old gentleman with medical history significant for diabetes mellitus, liver cirrhosis, CVA and PE who was admitted for decompensated cirrhosis. CT abdomen and pelvis on 01/02/2025 showed hepatic cirrhosis with large volume of ascites, multiple bilateral pulmonary nodules with multiple low-attenuation liver lesions and splenic lesion concerning for metastatic disease of unknown primary. CT chest on 01/03/2025 showed multiple pulmonary nodules suspicious for metastatic disease. He endorses significant smoking history. He underwent paracentesis on 01/03/2025 with cytology pending. Allergies Allergy/AdvReac Type Severity Reaction Status Date / Time No Known Allergies Allergy Verified 01/02/25 20:57 Home Medications Medication Instructions Recorded Confirmed Type aspirin 81 mg tablet,delayed 81 mg PO DAILY 02/10/22 01/02/25 History release ascorbic acid (vitamin C) 500 mg 500 mg PO DAILY 10/01/22 01/02/25 History capsule blood sugar diagnostic (OneTouch #100 ea 10/01/22 01/02/25 Rx Ultra Test strips) blood-glucose meter (RSVP LawTouch #1 ea 10/01/22 01/02/25 Rx Ultra2 Meter kit) lancets 33 gauge (BD Ultra Fine #100 ea 10/01/22 01/02/25 Rx Lancets) multivitamin 1 tab PO DAILY 10/01/22 01/02/25 History empagliflozin 25 mg tablet 25 mg PO DAILY #90 tabs 08/21/24 01/02/25 Rx rosuvastatin 5 mg tablet 5 mg PO QAM #90 tabs 09/25/24 01/02/25 Rx sildenafil 100 mg tablet 100 mg PO DAILY PRN sexual 09/26/24 01/02/25 Rx activity #30 tabs metoprolol succinate 200 mg 200 mg PO DAILY #90 tabs 11/13/24 01/02/25 Rx tablet,extended release 24 hr metformin 500 mg tablet,extended 1,000 mg (2 x 500 mg) PO BID #120 11/16/24 01/02/25 Rx release 24 hr tabs spironolactone 25 mg tablet 25 mg PO DAILY #90 tabs 11/17/24 01/02/25 Rx apixaban 5 mg tablet 5 mg PO BID #60 tabs 12/29/24 01/02/25 Rx ciprofloxacin HCl 500 mg tablet 500 mg PO BID 2 weeks #28 tabs 01/02/25 01/02/25 Rx furosemide 40 mg tablet 20 mg (1/2 x 40 mg) PO DAILY #360 01/02/25 01/02/25 Rx tabs lisinopril 20 mg tablet 10 mg (1/2 x 20 mg) PO DAILY #90 01/02/25 01/02/25 Rx tabs Patient History Medical History (Updated 01/03/25 @ 01:44 by Marisa Girard MD) Pulmonary edema Pleural effusion, right Pulmonary embolism (08/2022) Pneumonia Ischemic stroke (08/2022) COVID-19 (08/2022) Morbid obesity Coronary artery arteriosclerosis Family History Denies family history of Ovarian cancer Prostate cancer Myocardial infarction Breast cancer Colorectal cancer Social History Smoking Status: Current every day smoker Tobacco Type: Cigarettes Age Started Using Tobacco: 16; packs per day: 0.75; Cigarettes Per Day: 2ppd; Second Hand Exposure: Yes; Do You Dip or Chew Tobacco: No; Tobacco Cessation Education Requested by Patient: No Hx Alcohol Use: Yes Alcohol type: beer Hx Substance Use: No Preferred Language: Irish Communication Ability: Effective 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 Beliefs That Will Affect Care: None Current Living Situation: Alone current occupational status: employed How many Children do You have: 1 Feels Safe at Home: Yes Diet: regular Diet Comment: Regular caffeine: Yes during the past year weight has: remained stable Dental Care, Regularly: No Physical Activity Frequency: 1-2 Times per Week Seatbelt Use: sometimes Sunscreen Use: Yes Assistive Devices: None Results & Data Vital Signs (Past 12 Hours) Vital Signs Temp Pulse Pulse Resp BP BP Pulse Ox 01/03/25 08:45 94/50 L 01/03/25 08:42 65 17 94 01/03/25 08:15 66 17 93 01/03/25 08:15 96/50 L 01/03/25 08:03 66 17 95 01/03/25 08:00 89/48 L 01/03/25 08:00 01/03/25 08:00 64 01/03/25 07:45 98/55 L 01/03/25 07:30 100/63 01/03/25 07:21 67 15 94 01/03/25 07:15 92/54 L 01/03/25 07:12 65 18 95 01/03/25 07:03 65 17 96 01/03/25 07:00 110/68 01/03/25 07:00 36.5 C 63 16 92/54 L 95 01/03/25 06:00 62 18 93 01/03/25 06:00 97/63 L 01/03/25 06:00 97/63 L 01/03/25 05:51 62 17 96 01/03/25 05:48 61 17 96 01/03/25 05:45 98/63 L 01/03/25 05:45 98/63 L 01/03/25 05:30 101/60 01/03/25 05:30 101/60 01/03/25 05:30 61 15 95 01/03/25 05:15 111/66 01/03/25 05:15 111/66 01/03/25 05:15 111/66 01/03/25 05:15 61 18 96 01/03/25 05:00 62 16 95 01/03/25 05:00 102/62 01/03/25 05:00 102/62 01/03/25 05:00 102/62 01/03/25 04:45 100/58 L 01/03/25 04:45 100/58 L 01/03/25 04:36 65 15 97 01/03/25 04:30 99/62 L 01/03/25 04:24 63 15 96 01/03/25 04:15 103/61 01/03/25 04:09 64 16 95 01/03/25 04:03 65 16 95 01/03/25 04:00 105/60 01/03/25 03:42 65 14 95 01/03/25 03:30 108/64 04/09/25 03:30 108/64 01/03/25 03:00 36.4 C L 01/03/25 03:00 106/56 L 01/03/25 03:00 106/56 L 01/03/25 02:45 109/67 01/03/25 02:45 109/67 01/03/25 02:30 111/61 01/03/25 02:30 66 20 96 01/03/25 02:15 65 21 97 01/03/25 02:15 109/67 01/03/25 02:00 64 18 94 01/03/25 02:00 107/65 01/03/25 02:00 107/65 01/03/25 02:00 107/65 01/03/25 01:45 98/61 L 01/03/25 01:45 98/61 L 01/03/25 01:45 64 17 93 01/03/25 01:30 96/59 L 01/03/25 01:30 62 18 94 01/03/25 01:27 61 18 95 01/03/25 01:00 100/59 L 01/03/25 01:00 100/59 L 01/03/25 00:54 64 19 97 01/03/25 00:45 93/61 L 01/03/25 00:45 93/61 L 01/03/25 00:36 63 17 96 01/03/25 00:30 65 16 01/03/25 00:30 100/61 01/03/25 00:18 69 18 94 01/03/25 00:15 96/64 L 01/03/25 00:12 69 22 90 01/03/25 00:06 67 21 90 01/03/25 00:00 65 01/03/25 00:00 117/69 01/03/25 00:00 117/69 01/03/25 00:00 117/69 01/02/25 23:54 64 19 90 01/02/25 23:45 103/60 01/02/25 23:42 66 21 90 01/02/25 23:33 64 21 90 01/02/25 23:30 92/55 L 01/02/25 23:30 92/55 L 01/02/25 23:30 92/55 L 01/02/25 23:24 66 19 90 01/02/25 23:18 65 17 90 01/02/25 22:33 62 18 95 01/02/25 22:30 102/59 L 01/02/25 22:30 102/59 L 01/02/25 22:30 102/59 L 01/02/25 22:25 01/02/25 22:25 37 C 64 21 103/60 90 01/02/25 22:25 63 01/02/25 21:30 62 132/67 01/02/25 21:15 63 16 115/71 96 01/02/25 21:00 59 L 20 101/60 96 Pulse Ox O2 Del Method O2 Del Method 01/03/25 08:45 01/03/25 08:42 01/03/25 08:15 01/03/25 08:15 01/03/25 08:03 01/03/25 08:00 01/03/25 08:00 Room Air 01/03/25 08:00 01/03/25 07:45 01/03/25 07:30 01/03/25 07:21 01/03/25 07:15 01/03/25 07:12 01/03/25 07:03 01/03/25 07:00 01/03/25 07:00 Room Air 01/03/25 06:00 01/03/25 06:00 01/03/25 06:00 01/03/25 05:51 01/03/25 05:48 01/03/25 05:45 01/03/25 05:45 01/03/25 05:30 01/03/25 05:30 01/03/25 05:30 01/03/25 05:15 01/03/25 05:15 01/03/25 05:15 01/03/25 05:15 01/03/25 05:00 01/03/25 05:00 01/03/25 05:00 01/03/25 05:00 01/03/25 04:45 01/03/25 04:45 01/03/25 04:36 01/03/25 04:30 01/03/25 04:24 01/03/25 04:15 01/03/25 04:09 01/03/25 04:03 01/03/25 04:00 01/03/25 03:42 01/03/25 03:30 01/03/25 03:30 01/03/25 03:00 01/03/25 03:00 01/03/25 03:00 01/03/25 02:45 01/03/25 02:45 01/03/25 02:30 01/03/25 02:30 01/03/25 02:15 01/03/25 02:15 01/03/25 02:00 01/03/25 02:00 01/03/25 02:00 01/03/25 02:00 01/03/25 01:45 01/03/25 01:45 01/03/25 01:45 01/03/25 01:30 01/03/25 01:30 01/03/25 01:27 01/03/25 01:00 01/03/25 01:00 01/03/25 00:54 01/03/25 00:45 01/03/25 00:45 01/03/25 00:36 01/03/25 00:30 01/03/25 00:30 01/03/25 00:18 01/03/25 00:15 01/03/25 00:12 01/03/25 00:06 01/03/25 00:00 01/03/25 00:00 01/03/25 00:00 01/03/25 00:00 01/02/25 23:54 01/02/25 23:45 01/02/25 23:42 01/02/25 23:33 01/02/25 23:30 01/02/25 23:30 01/02/25 23:30 01/02/25 23:24 01/02/25 23:18 01/02/25 22:33 01/02/25 22:30 01/02/25 22:30 01/02/25 22:30 01/02/25 22:25 90 Room Air 01/02/25 22:25 Room Air 01/02/25 22:25 01/02/25 21:30 01/02/25 21:15 01/02/25 21:00
--- NOTE | 2025-01-03 09:41 | Procedure Note ---
Procedure Note Date of Service January 03, 2025 Procedure: Diagnostic/therapeutic ultrasound-guided paracentesis Indication: Decompensated ascites, rule out SBP Consent: Risks and benefits were discussed with the patient. He agreed to proceed. Inspector Filters Dr. Martell Procedure: The patient was placed in a semiupright position. Limited abdominal ultrasound was performed which revealed a large pocket of free-flowing ascitic fluid in the left lower quadrant. The site appropriate for paracentesis was marked. Skin was prepped and draped in normal sterile fashion using chlorhexidine. A sterile field was established. Using a 21-gauge needle, the skin and subcutaneous tissues in the left lower quadrant were anesthetized. With the finder needle I was able to aspirate ascitic fluid. A small skin zak was made with the scalpel and a over the needle catheter apparatus was advanced in a Z-line fashion into the abdominal cavity. Ascitic fluid was able to be aspirated. We collected samples and blood cultures were inoculated at bedside. Fluid will be sent for serum albumin gradient as well as cell count and differential and total protein. A total of 5.4 L of cloudy yellow ascitic fluid was aspirated. At that point time the catheter was removed and observed to be intact. Dressing was applied. The patient tolerated the procedure well. Of note the patient had received a large-volume albumin infusion prior to the procedure. [facility] Procedure Codes (Charges) Abdomen Abdominal: 13850 Abdominal Paracentesis (diagnostic or therapeutic); W/O imaging Coding CPT Codes Abdomen - Abdominal: 51400 Abdominal Paracentesis (diagnostic or therapeutic); W/O imaging ([id number]) Additional Codes Date of Service ([facility].SURGERY)
[2025-01-03] MEDS: ALBUMIN 25% 25 GM/100 ML VIAL IV SCH (09:55)
--- NOTE | 2025-01-03 09:59 | CT Scan Report ---
CT chest diagnostic wo con CT DOSE: 935.25 mGy.cm CLINICAL HISTORY: pulm nodule. TECHNIQUE: Multiaxial CT images of the chest were performed without contrast. A dose lowering techni que was utilized adhering to the principles of ALARA. COMPARISON STUDY: Chest x-ray of 01/03/[address] of 09/21/2022. Also compared with abdominal CT of 01/02/2025. FINDINGS: There are airway secretions. There is bronchial wall thickening consistent with bronchitis. There is mild atelectasis or scarring in lung bases. There are multiple scattered pulmonary nodules largest at the right lower lobe series 5 image 17 measures 1 cm. There is no pleural effusion or pneu mothorax. No enlarged adenopathy. No pericardial effusion. There are moderate coronary artery calcifi cations. There are mild diffuse degenerative changes at the thoracic spine. IMPRESSION: 1. Multiple pulmonary nodules are suspicious for metastatic disease given the abdominal findings on t he CT scan yesterday. 2. Otherwise as described. ACT 112: Negative or not required by law. Electronically signed by: Gavino Hayes M.D. 01/03/2025 9:57 AM
[2025-01-03 10:13] LABS: Appearance Peritoneal Fluid Cloudy; Color Peritoneal Fluid Yellow; RBC Peritoneal Fluid Auto < 2000 /uL; WBC Peritoneal Fluid Auto 1318 /ul (0-300)
[2025-01-03 10:37] LABS: Albumin Peritoneal Fluid 2.1 gm/dl
[2025-01-03 10:42] LABS: Lymphocytes, Fluid 18 %; Mono,Macrophage,Mesothelial 70 %; Neutrophils, Fluid 12 %
--- NOTE | 2025-01-03 11:17 | Gastrointestinal Consultation ---
Date of Consultation January 03, 2025 Assessment & Plan (1) Decompensated cirrhosis: Patient with history of cirrhosis with ascites s/p paracentesis. Imaging also concerning for metastatic disease of unknown primary. - continue with IV zosyn for SBP. - MELD labs every 6 months - recommend abdominal imaging w/ AFP every 6 months - EGD every 1-2 years for variceal screening. - No ETOH - No NSAIDs - Avoid hepatotoxins - recommend Low sodium diet, less than 2G daily - Less than 2G acetaminophen containing products daily. - check CEA. - will discuss case further with Dr. Jasmine. Further recommendations to follow. Supervising Physician Co-Signing Physician Notes I saw and examined this patient with our nurse practitioner and agree with her assessment and plan. Patient with known cirrhosis of unclear etiology. No significant alcohol use by history. Presents with altered mental status and SIRS. Etiology unclear. Ascites fluid not consistent with spontaneous bacterial peritonitis. Hyponatremia could be a potential aggravating factor. In addition findings on CT scan suggest possibility of metastatic cancer of unclear primary. Agree with empiric antibiotics. Will send off hepatitis serologies as well as other serologies to determine etiology of his liver disease. In addition he should have a consultation with pulmonary regarding the pulmonary nodules for further investigation. Alpha-fetoprotein and CEA levels ordered. No asterixis on exam suggests no encephalopathy as etiology. History of Present Illness Reason for Consultation: Deirdre INGRAM Requesting Physician: decompensated cirrhosis Attending Physician: Yoni Rosa DO History of Present Illness Patient is a 54 year old male with a past medical history of DM II, PE and ischemic stroke 2021 on Eliquis, tobacco abuse, alcohol abuse, hypertension, hyperlipidemia, HFpEF, and liver cirrhosis who presented to the hospital at the recommendation of his PCP. He had seen his PCP at [facility] yesterday due to copper colored urine that he had for over a week. They took a UA and started him on an antibiotic and had labs done. Patient received a phone call from home to come into the ED immediately. Upon arrival to the ED he was found to meet SIRS criteria with a white count of 19.26, BP 79/50, and lactate 2.2. He was found to have an BANDAR with creatinine increased from 1.09-1.60 and hyponatremia with a sodium of 121. CT showed liver cirrhosis with a large amount of ascites. he feels ascites started just recently, but he has always had swelling in his lower extremities. Patient tells me that he has known about cirrhosis for the past 3 years. He has not followed with GI in the past on this. No history of fatty liver or family history of liver disease per patient. He only uses alcohol once a week and never anything excessive. he had paracentesis this morning. he tells me that this is the first time he has ever had paracentesis. He has never had an EGD or colonoscopy. CT 01/02/25 - Hepatic cirrhosis with large volume of ascites, progressed in the interval. Multiple bilateral pulmonary nodules with multiple low-attenuation liver lesions and a splenic lesion, all appearing in the interval, concerning for metastatic disease of unknown primary. Close clinical follow-up suggested. Allergies Allergy/AdvReac Type Severity Reaction Status Date / Time No Known Allergies Allergy Verified 01/02/25 20:57 Home Medications Medication Instructions Recorded Confirmed Type aspirin 81 mg tablet,delayed 81 mg PO DAILY 02/10/22 01/02/25 History release ascorbic acid (vitamin C) 500 mg 500 mg PO DAILY 10/01/22 01/02/25 History capsule blood sugar diagnostic (OneTouch #100 ea 10/01/22 01/02/25 Rx Ultra Test strips) blood-glucose meter (VSE EVAKUATORY ROSSIITouch #1 ea 10/01/22 01/02/25 Rx Ultra2 Meter kit) lancets 33 gauge (BD Ultra Fine #100 ea 10/01/22 01/02/25 Rx Lancets) multivitamin 1 tab PO DAILY 10/01/22 01/02/25 History empagliflozin 25 mg tablet 25 mg PO DAILY #90 tabs 08/21/24 01/02/25 Rx rosuvastatin 5 mg tablet 5 mg PO QAM #90 tabs 09/25/24 01/02/25 Rx sildenafil 100 mg tablet 100 mg PO DAILY PRN sexual 09/26/24 01/02/25 Rx activity #30 tabs metoprolol succinate 200 mg 200 mg PO DAILY #90 tabs 11/13/24 01/02/25 Rx tablet,extended release 24 hr metformin 500 mg tablet,extended 1,000 mg (2 x 500 mg) PO BID #120 11/16/24 01/02/25 Rx release 24 hr tabs spironolactone 25 mg tablet 25 mg PO DAILY #90 tabs 11/17/24 01/02/25 Rx apixaban 5 mg tablet 5 mg PO BID #60 tabs 12/29/24 01/02/25 Rx ciprofloxacin HCl 500 mg tablet 500 mg PO BID 2 weeks #28 tabs 01/02/25 01/02/25 Rx furosemide 40 mg tablet 20 mg (1/2 x 40 mg) PO DAILY #360 01/02/25 01/02/25 Rx tabs lisinopril 20 mg tablet 10 mg (1/2 x 20 mg) PO DAILY #90 01/02/25 01/02/25 Rx tabs Patient History Medical History (Updated 01/03/25 @ 01:44 by Marisa Girard MD) Pulmonary edema Pleural effusion, right Pulmonary embolism (08/2022) Pneumonia Ischemic stroke (08/2022) COVID-19 (08/2022) Morbid obesity Coronary artery arteriosclerosis Family History Denies family history of Ovarian cancer Prostate cancer Myocardial infarction Breast cancer Colorectal cancer Social History Smoking Status: Current every day smoker Tobacco Type: Cigarettes Age Started Using Tobacco: 16; packs per day: 0.75; Cigarettes Per Day: 2ppd; Second Hand Exposure: Yes; Do You Dip or Chew Tobacco: No; Tobacco Cessation Education Requested by Patient: No Hx Alcohol Use: Yes Alcohol type: beer Hx Substance Use: No Preferred Language: Sinhala Communication Ability: Effective Railroad Watchman Required: No Beliefs That Will Affect Care: None Current Living Situation: Alone current occupational status: employed How many Children do You have: 1 Feels Safe at Home: Yes Diet: regular Diet Comment: Regular caffeine: Yes during the past year weight has: remained stable Dental Care, Regularly: No Physical Activity Frequency: 1-2 Times per Week Seatbelt Use: sometimes Sunscreen Use: Yes Assistive Devices: None Review of Systems Review of Systems: All systems reviewed & are unremarkable except as noted in HPI & below Physical Exam Constitutional: WD/WN, vitals as above Respiratory: normal respiratory effort, lungs clear to auscultation Cardiovascular: Rate/Rhythm: regular rate and regular rhythm Gastrointestinal (Abdomen): normal bowel sounds, soft, nontender, no hepatosplenomegaly Psychiatric: Orientation: alert and oriented x 3 Affect: euthymic affect Results & Data Vital Signs (Past 12 Hours) Vital Signs Temp Pulse Pulse Resp BP BP Pulse Ox 01/03/25 11:06 67 20 101/53 L 96 01/03/25 10:21 64 14 96 01/03/25 09:15 99/51 L 01/03/25 09:15 66 17 94 01/03/25 09:03 62 15 94 01/03/25 09:02 90/48 L 01/03/25 09:00 90/48 L 01/03/25 08:55 91/48 L 01/03/25 08:45 94/50 L 01/03/25 08:42 65 17 94 01/03/25 08:15 66 17 93 01/03/25 08:15 96/50 L 01/03/25 08:03 66 17 95 01/03/25 08:00 89/48 L 01/03/25 08:00 01/03/25 08:00 64 01/03/25 07:45 98/55 L 01/03/25 07:30 100/63 01/03/25 07:21 67 15 94 01/03/25 07:15 92/54 L 01/03/25 07:12 65 18 95 01/03/25 07:03 65 17 96 01/03/25 07:00 110/68 01/03/25 07:00 97.7 F 63 16 92/54 L 95 01/03/25 06:00 62 18 93 01/03/25 06:00 97/63 L 01/03/25 06:00 97/63 L 01/03/25 05:51 62 17 96 01/03/25 05:48 61 17 96 01/03/25 05:45 98/63 L 01/03/25 05:45 98/63 L 01/03/25 05:30 101/60 01/03/25 05:30 101/60 01/03/25 05:30 61 15 95 01/03/25 05:15 111/66 01/03/25 05:15 111/66 01/03/25 05:15 111/66 01/03/25 05:15 61 18 96 01/03/25 05:00 62 16 95 01/03/25 05:00 102/62 01/03/25 05:00 102/62 01/03/25 05:00 102/62 01/03/25 04:45 100/58 L 01/03/25 04:45 100/58 L 01/03/25 04:36 65 15 97 01/03/25 04:30 99/62 L 01/03/25 04:24 63 15 96 01/03/25 04:15 103/61 01/03/25 04:09 64 16 95 01/03/25 04:03 65 16 95 01/03/25 04:00 105/60 01/03/25 03:42 65 14 95 01/03/25 03:30 108/64 01/03/25 03:30 108/64 01/03/25 03:00 97.5 F L 01/03/25 03:00 106/56 L 01/03/25 03:00 106/56 L 01/03/25 02:45 109/67 01/03/25 02:45 109/67 01/03/25 02:30 111/61 01/03/25 02:30 66 20 96 01/03/25 02:15 65 21 97 01/03/25 02:15 109/67 01/03/25 02:00 64 18 94 01/03/25 02:00 107/65 01/03/25 02:00 107/65 01/03/25 02:00 107/65 01/03/25 01:45 98/61 L 01/03/25 01:45 98/61 L 01/03/25 01:45 64 17 93 01/03/25 01:30 96/59 L 01/03/25 01:30 62 18 94 01/03/25 01:27 61 18 95 01/03/25 01:00 100/59 L 01/03/25 01:00 100/59 L 01/03/25 00:54 64 19 97 01/03/25 00:45 93/61 L 01/03/25 00:45 93/61 L 01/03/25 00:36 63 17 96 01/03/25 00:30 65 16 01/03/25 00:30 100/61 01/03/25 00:18 69 18 94 01/03/25 00:15 96/64 L 01/03/25 00:12 69 22 90 01/03/25 00:06 67 21 90 01/03/25 00:00 65 01/03/25 00:00 117/69 01/03/25 00:00 117/69 01/03/25 00:00 117/69 01/02/25 23:54 64 19 90 01/02/25 23:45 103/60 01/02/25 23:42 66 21 90 01/02/25 23:33 64 21 90 01/02/25 23:30 92/55 L 01/02/25 23:30 92/55 L 01/02/25 23:30 92/55 L 01/02/25 23:24 66 19 90 01/02/25 23:18 65 17 90 O2 Del Method 01/03/25 11:06 01/03/25 10:21 01/03/25 09:15 01/03/25 09:15 01/03/25 09:03 01/03/25 09:02 01/03/25 09:00 01/03/25 08:55 01/03/25 08:45 01/03/25 08:42 01/03/25 08:15 01/03/25 08:15 01/03/25 08:03 01/03/25 08:00 01/03/25 08:00 Room Air 01/03/25 08:00 01/03/25 07:45 01/03/25 07:30 01/03/25 07:21 01/03/25 07:15 01/03/25 07:12 01/03/25 07:03 01/03/25 07:00 01/03/25 07:00 Room Air 01/03/25 06:00 01/03/25 06:00 01/03/25 06:00 01/03/25 05:51 01/03/25 05:48 01/03/25 05:45 01/03/25 05:45 01/03/25 05:30 01/03/25 05:30 01/03/25 05:30 01/03/25 05:15 01/03/25 05:15 01/03/25 05:15 01/03/25 05:15 01/03/25 05:00 01/03/25 05:00 01/03/25 05:00 01/03/25 05:00 01/03/25 04:45 01/03/25 04:45 01/03/25 04:36 01/03/25 04:30 01/03/25 04:24 01/03/25 04:15 01/03/25 04:09 01/03/25 04:03 01/03/25 04:00 01/03/25 03:42 01/03/25 03:30 01/03/25 03:30 01/03/25 03:00 01/03/25 03:00 01/03/25 03:00 01/03/25 02:45 01/03/25 02:45 01/03/25 02:30 01/03/25 02:30 01/03/25 02:15 01/03/25 02:15 01/03/25 02:00 01/03/25 02:00 01/03/25 02:00 01/03/25 02:00 01/03/25 01:45 01/03/25 01:45 01/03/25 01:45 01/03/25 01:30 01/03/25 01:30 01/03/25 01:27 01/03/25 01:00 01/03/25 01:00 01/03/25 00:54 01/03/25 00:45 01/03/25 00:45 01/03/25 00:36 01/03/25 00:30 01/03/25 00:30 01/03/25 00:18 01/03/25 00:15 01/03/25 00:12 01/03/25 00:06 01/03/25 00:00 01/03/25 00:00 01/03/25 00:00 01/03/25 00:00 01/02/25 23:54 01/02/25 23:45 01/02/25 23:42 01/02/25 23:33 01/02/25 23:30 01/02/25 23:30 01/02/25 23:30 01/02/25 23:24 01/02/25 23:18 Laboratory Results Laboratory Results - last 48 hr 01/02/25 01/02/25 01/02/25 18:38 19:43 21:40 WBC 17.46 H RBC 5.71 Hgb 17.6 Hct 51.0 MCV 89.3 MCH 30.8 MCHC 34.5 RDW Std Deviation 43.5 RDW Coeff of [place] 13.5 Plt Count 478 H MPV 11.7 Immature Gran % (Auto) 0.9 Neut % (Auto) 75.5 Lymph % (Auto) 8.8 [place] % (Auto) 11.8 Eos % (Auto) 2.2 Baso % (Auto) 0.8 Neut # (Auto) 13.19 H Lymph # (Auto) 1.54 [place] # (Auto) 2.06 H Eos # (Auto) 0.38 Baso # (Auto) 0.14 Immature Gran # (Auto) 0.15 Polychromasia Echinocytes Peripher Smr Path Cons PT 12.7 H INR 1.2 H APTT 27 PTT Ratio 1.0 Sodium 121 L Potassium 4.7 Chloride 87 L Carbon Dioxide 27 Anion Gap 7 BUN 46 H Creatinine 1.60 H Est Cr Clr Drug Dosing 71.1 eGFR 50.26 BUN/Creatinine Ratio 28.8 H Glucose 251 H POC Glucose Estimat Average Glucose Hemoglobin A1c Osmolality 274 L Lactate 2.2 H* 1.8 Calcium 9.2 Phosphorus 4.5 Magnesium 2.2 Total Bilirubin 1.3 H AST 32 ALT 25 Alkaline Phosphatase 117 H Ammonia Cancelled Troponin I High Sens 13.3 Total Protein 5.8 L Albumin 3.7 Globulin 2.1 L Albumin/Globulin Ratio 1.8 Procalcitonin 0.57 H Random Cortisol 19.34 Urine Osmolality Ur Random Sodium Fluid Neutrophils % Fluid Lymphocytes % Fluid [place]/Macro/[place] % Fluid Comment Peritoneal Color Peritoneal Appearance Peritoneal WBC (Auto) Peritoneal RBC (Auto) Peritoneal Tot Protein Peritoneal Albumin Nasal Screen MRSA (PCR) Acetaminophen < 3 L Ethyl Alcohol mg/dL < 10.0 Hep Bs Antigen Hepatitis C Antibody 01/02/25 01/02/25 01/02/25 22:14 23:11 23:19 WBC RBC Hgb Hct MCV MCH MCHC RDW Std Deviation RDW Coeff of [place] Plt Count MPV Immature Gran % (Auto) Neut % (Auto) Lymph % (Auto) [place] % (Auto) Eos % (Auto) Baso % (Auto) Neut # (Auto) Lymph # (Auto) [place] # (Auto) Eos # (Auto) Baso # (Auto) Immature Gran # (Auto) Polychromasia Echinocytes Peripher Smr Path Cons PT INR APTT PTT Ratio Sodium 124 L Potassium 4.3 Chloride 87 L Carbon Dioxide 24 Anion Gap 13 H BUN 44 H Creatinine 1.27 D Est Cr Clr Drug Dosing 88.9 eGFR 66.31 BUN/Creatinine Ratio 34.6 H Glucose 187 H POC Glucose 168 H Estimat Average Glucose Hemoglobin A1c Osmolality Lactate Calcium 8.3 L Phosphorus Magnesium Total Bilirubin AST ALT Alkaline Phosphatase Ammonia 55.0 Troponin I High Sens Total Protein Albumin Globulin Albumin/Globulin Ratio Procalcitonin Random Cortisol Urine Osmolality Ur Random Sodium Fluid Neutrophils % Fluid Lymphocytes % Fluid Meso/Macro/[place] % Fluid Comment Peritoneal Color Peritoneal Appearance Peritoneal WBC (Auto) Peritoneal RBC (Auto) Peritoneal Tot Protein Peritoneal Albumin Nasal Screen MRSA (PCR) Acetaminophen Ethyl Alcohol mg/dL Hep Bs Antigen Hepatitis C Antibody 01/02/25 01/03/25 01/03/25 Unknown 05:00 07:08 WBC 18.80 H RBC 5.17 Hgb 15.9 Hct 46.3 MCV 89.6 MCH 30.8 MCHC 34.3 RDW Std Deviation 44.5 RDW Coeff of [place] 13.5 Plt Count 532 H MPV 11.7 Immature Gran % (Auto) 1.2 Neut % (Auto) 81.2 Lymph % (Auto) 6.7 [place] % (Auto) 8.7 Eos % (Auto) 1.6 Baso % (Auto) 0.6 Neut # (Auto) 15.24 H Lymph # (Auto) 1.26 [place] # (Auto) 1.64 H Eos # (Auto) 0.31 Baso # (Auto) 0.12 Immature Gran # (Auto) 0.23 H Polychromasia 1+ Echinocytes 2+ Peripher Smr Path Cons PT 13.7 H INR 1.3 H APTT PTT Ratio Sodium 123 L Potassium 4.7 Chloride 89 L Carbon Dioxide 25 Anion Gap 9 BUN 46 H Creatinine 1.21 Est Cr Clr Drug Dosing 93.4 eGFR 70.27 BUN/Creatinine Ratio 38.0 H Glucose 226 H POC Glucose 226 H Estimat Average Glucose 146 Hemoglobin A1c 6.7 H Osmolality Lactate Calcium 8.9 Phosphorus 4.1 Magnesium 2.2 Total Bilirubin 1.7 H AST 25 ALT 21 Alkaline Phosphatase 97 Ammonia Troponin I High Sens Total Protein 6.0 Albumin 4.2 Globulin 1.8 L Albumin/Globulin Ratio 2.3 H Procalcitonin Random Cortisol Urine Osmolality 691 Ur Random Sodium 14 Fluid Neutrophils % Fluid Lymphocytes % Fluid Meso/Macro/[place] % Fluid Comment Peritoneal Color Peritoneal Appearance Peritoneal WBC (Auto) Peritoneal RBC (Auto) Peritoneal Tot Protein Peritoneal Albumin Nasal Screen MRSA (PCR) Negative Acetaminophen Ethyl Alcohol mg/dL Hep Bs Antigen Negative Hepatitis C Antibody Negative 01/03/25 01/03/25 11:03 Unknown WBC RBC Hgb Hct MCV MCH MCHC RDW Std Deviation RDW Coeff of [place] Plt Count MPV Immature Gran % (Auto) Neut % (Auto) Lymph % (Auto) [place] % (Auto) Eos % (Auto) Baso % (Auto) Neut # (Auto) Lymph # (Auto) [place] # (Auto) Eos # (Auto) Baso # (Auto) Immature Gran # (Auto) Polychromasia Echinocytes Peripher Smr Path Cons PT INR APTT PTT Ratio Sodium Potassium Chloride Carbon Dioxide Anion Gap BUN Creatinine Est Cr Clr Drug Dosing eGFR BUN/Creatinine Ratio Glucose POC Glucose 233 H Estimat Average Glucose Hemoglobin A1c Osmolality Lactate Calcium Phosphorus Magnesium Total Bilirubin AST ALT Alkaline Phosphatase Ammonia Troponin I High Sens Total Protein Albumin Globulin Albumin/Globulin Ratio Procalcitonin Random Cortisol Urine Osmolality Ur Random Sodium Fluid Neutrophils % 12 Fluid Lymphocytes % 18 Fluid Meso/Macro/[place] % 70 Fluid Comment Peritoneal Color Yellow Peritoneal Appearance Cloudy Peritoneal WBC (Auto) 1318 H Peritoneal RBC (Auto) < 2000 Peritoneal Tot Protein 3.0 Peritoneal Albumin 2.1 Nasal Screen MRSA (PCR) Acetaminophen Ethyl Alcohol mg/dL Hep Bs Antigen Hepatitis C Antibody Diagnostic Findings Chest X-Ray 01/02/25 18:33 Clinical History: Chest pain Technique: A frontal view of the chest was obtained Comparison is made to the prior examination dated 10/09/2022 Findings: There are no confluent pulmonary infiltrates. The heart size is at the upper limit of normal. No pleural effusion or pneumothorax is seen. There is a possible small right lower lobe nodule, new or more apparent No fracture is noted. No foreign body is seen Impression: Possible right lower lobe nodule. Chest CT could be considered for further evaluation ACT 112: Positive. There are findings on this exam that require communication between the performing entity and the patient following Patient Test Result Information Act ([place] ACT 112) guidelines. Electronically signed by Rod Herrera 01-02-2025 7:19 PM Abdomen/Pelvis CT 01/02/25 19:09 EXAMINATION: Abdomen and pelvis CT without CLINICAL HISTORY: Renal colic, pyelonephritis PRIORS: 09/12/2022 TECHNIQUE: Contiguous axial images were obtained through the abdomen and pelvis without the use of intravenous contrast. Sagittal and coronal reformations are supplied. FINDINGS: Pleural effusions have resolved in the interval. Multiple bilateral pulmonary nodules are present in the lung bases, appearing in the interval. For example, in the right lower lobe, round with a solid appearance measuring 8.1 mm. Allowing for the absence of intravenous contrast, large amount of ascites is present, increased in the interval. Severe hepatic cirrhosis present, progressed in the interval. Heterogeneous appearance of the liver parenchyma noted with multiple lucent masses noted throughout both left and right lobes, appearing in the interval. The pancreas is not well visualized. The spleen is not enlarged. A lucent mass present in the spleen on image 16, series 2, appearing in the interval. Stomach is partly distended and morphologically unremarkable. Thickened bilateral adrenal glands present, unchanged. Urinary bladder partly distended and morphologically unremarkable. Prostate is not enlarged. A moderate amount of formed stool and gas is present throughout the colon. No bowel wall thickening. No extraluminal gas. No discrete adenopathy or mesenteric soft tissue nodules noted, allowing for the absence of intravenous contrast. The kidneys demonstrate no obstructing renal calculus or hydro nephrosis. In bone windows, moderate facet hypertrophic changes at L4-L5 and L5-S1. No suspicious osseous abnormality. IMPRESSION: 1. Hepatic cirrhosis with large volume of ascites, progressed in the interval. 2. Multiple bilateral pulmonary nodules with multiple low-attenuation liver lesions and a splenic lesion, all appearing in the interval, concerning for metastatic disease of unknown primary. Close clinical follow-up suggested. ACT 112: Positive. There are findings on this examination that require communication between the performing entity and the patient following Patient Test Result Information Act ([place] ACT 112) guidelines. Electronically signed by Dede Funez 01-02-2025 7:52 PM Portal Vein US 01/02/25 21:19 CR Exam(s): US OTHER EXAM: US Abdomen Limited CLINICAL HISTORY: Reason for exam: decompensated cirrhosis. TECHNIQUE: Real-time ultrasound of the liver with image documentation. COMPARISON: CT scan of the same date. FINDINGS: The exam is limited. The liver is inhomogeneous and of increased echogenicity. Hepatic veins appear patent. There appears to be thrombus within the main portal vein as well as in the right and left portal veins. The hepatic artery is air patent. There is ascites present within the abdomen. IMPRESSION: Limited exam. There appears to be thrombus within the main portal vein as well as the right and left portal veins. The liver is inhomogeneous and of increased echogenicity which may be due to hepatocellular disease. Underlying focal lesions cannot be excluded. Ascites. Communications: Call Doctor DVT – acute, progressing Electronically signed by: Davi De La Torre MD 01/03/25 01:40 AM Chest X-Ray 01/03/25 02:34 EXAM: XR chest 1V portable CLINICAL HISTORY: New central line TECHNIQUE: An X-ray image of the chest is obtained in AP projection. COMPARISON: With the prior study dated 01/02/2025. FINDINGS: Pulmonary Parenchyma: A right-side CVl is seen in a proper place with the tip located in the atro-caval junction. Lungs are clear bilaterally. No evidence of consolidation, collapse, or focal opacities. No pulmonary nodules are identified. No evidence of pleural effusion or pleural thickening. Heart and Mediastinum: The heart is enlarged in size with bilateral hilar vascular congestion. No mediastinal widening or masses. No hilar or mediastinal lymphadenopathy. Bony Thorax: The bony thorax appears intact without fractures or deformities. Soft Tissues: Soft tissues overlying the chest wall are unremarkable. IMPRESSION: 1. Properly inserted right CVL. 2. Cardiomeglay noted. 3. No interval change since the prior study. Electronically signed by Zheng Sage 01-03-2025 03:[address] 01/03/25 07:44 CT chest diagnostic wo con CT DOSE: 935.25 mGy.cm CLINICAL HISTORY: pulm nodule. TECHNIQUE: Multiaxial CT images of the chest were performed without contrast. A dose lowering technique was utilized adhering to the principles of ALARA. COMPARISON STUDY: Chest x-ray of 01/03/[address] of 09/21/2022. Also compared with abdominal CT of 01/02/2025. FINDINGS: There are airway secretions. There is bronchial wall thickening consistent with bronchitis. There is mild atelectasis or scarring in lung bases. There are multiple scattered pulmonary nodules largest at the right lower lobe series 5 image 17 measures 1 cm. There is no pleural effusion or pneumothorax. No enlarged adenopathy. No pericardial effusion. There are moderate coronary artery calcifications. There are mild diffuse degenerative changes at the thoracic spine. IMPRESSION: 1. Multiple pulmonary nodules are suspicious for metastatic disease given the abdominal findings on the CT scan yesterday. 2. Otherwise as described. ACT 112: Negative or not required by law. Electronically signed by: Gavino Hayes M.D. 01/03/2025 9:57 AM Coding Level of Care Code 66525 IN/OBS CONSULT LVL 4,60M Diagnoses Decompensated cirrhosis K72.90; K74.60
[2025-01-03] MEDS: LANTUS PER UNIT CHARGE SC ONE ×2 (11:51→20:17)
--- NOTE | 2025-01-03 13:47 | Pharmacy Report ---
Pharmacy Glycemic Short Note 2 - Date of Service January 03, 2025 - Glycemic Short BSG Results (Last 24 hours): 01/02/25 01/02/25 01/02/25 18:38 22:14 23:19 Glucose 251 H 187 H POC Glucose 168 H 01/03/25 01/03/25 01/03/25 05:00 07:08 11:03 Glucose 226 H POC Glucose 226 H 233 H OUTPATIENT ANTIDIABETIC REGIMEN: * Empagliflozin 25 mg daily; metformin 1 gm BID * 6.7% 01/03/25 ASSESSMENT: * Patient admitted with decompensated cirrhosis, portal vein thrombosis/ascites * Heparin infusion has been discontinued. BSGs in the 200s this morning. Novolog to be adjusted. * Begin lantus with scale up to full weight stress/2. PLAN FOR INPATIENT GLYCEMIC CONTROL: * Hold outpatient oral diabetes medications * Basal insulin * Lantus 15 units SQ x1, scale for PM 0 * Bolus insulin * NovoLog per scale ACHS or Q6hrs while NPO * Goal Range: Low 110 mg/dL - High 150 mg/dL * Correction Factor: 25 mg/dL/unit * Nutritional / Prandial insulin per carb ratio of 1 unit per 8 grams CHO consumed
[2025-01-03] MEDS: ENOXAPARIN INJ 120 MG/0.8 ML SYR SQ SCH (13:52)
--- NOTE | 2025-01-03 17:39 | Billing Data ---
Date of Service January 03, 2025 Coding Level of Care Code 77218 SUB INP/OBS CARE
--- NOTE | 2025-01-03 17:39 | Billing Data ---
Date of Service January 03, 2025 Coding Level of Care Code 03115 SUB INP/OBS CARE
[2025-01-03] MEDS: NOREPINEPHRINE/D5W 4 MG/250 ML PLCT IV SCH (18:51)
[2025-01-04 05:16] LABS: Basophils # (auto) 0.03 K/uL (0.00-0.20); Basophils % (auto) 0.2 %; Eosinophils # (auto) 0.07 K/uL (0.00-0.50); Eosinophils % (auto) 0.5 %; Hematocrit (blood only) 44.6 % (42.0-52.0); Hemoglobin 15.5 g/dl (14.0-18.0); Immature Granulocytes # (auto) 0.14 K/uL (0.01-0.20); Immature Granulocytes % (auto) 0.9 %; Lymphocytes % (auto) 7.3 %; Mean Corpuscular Hemoglobin 31.1 pg (25.0-34.0); Mean Corpuscular Hgb Conc 34.8 g/dL (32.0-36.0); Mean Corpuscular Volume 89.4 fL (80.0-100.0); Mean Platelet Volume 11.9 fL (9.4-12.4); Monocytes # (auto) 1.31 K/uL (0.11-0.59); Monocytes % (auto) 8.8 %; Neutrophils # (auto) 12.32 K/uL (1.40-6.50); Neutrophils % (auto) 82.3 %; Platelet Count 331 K/uL (130-400); RDW Coefficient of Variation 13.4 % (11.5-14.5); RDW Standard Deviation 43.7 fL (36.4-46.3); Red Blood Count 4.99 M/uL (4.70-6.10); White Blood Count 14.97 K/ul (4.8-10.8)
[2025-01-04 05:34] LABS: Albumin Globulin Ratio 2.1 (0.9-2); Albumin Level 3.9 gm/dl (3.4-5.0); BUN Creatinine Ratio 32.7 (10-20); Bilirubin,Total 1.6 mg/dl (0.2-1.0); Creatinine Clr Calc Pharmacy 105.6 ml/min; Globulin 1.9 gm/dl (2.5-4.0); Magnesium 2.4 mg/dl (1.7-2.4); Potassium 4.5 mmol/L (3.5-5.1); Total Protein 5.8 gm/dl (6.0-8.3)
--- NOTE | 2025-01-04 05:39 | Electrocardiogram Report ---
Test Reason : Blood Pressure : */* mmHG Vent. Rate : 57 BPM Atrial Rate : 57 BPM P-R Int : 242 ms QRS Dur : 144 ms QT Int : 466 ms P-R-T Axes : 59 -77 84 degrees QTcB Int : 453 ms Sinus bradycardia with 1st degree A-V block Left axis deviation Right bundle branch block Anterolateral infarct Inferior infarct (cited on or before 10-Feb-2022) When compared with ECG of 21-Sep-2022 18:15, Right bundle branch block has replaced Incomplete right bundle branch block Anterolateral infarct is now Present Questionable change in initial forces of Inferior leads Confirmed by Anuel Dawson ([id number]) on 01/04/2025 5:39:00 AM Referred By: Trini Valdes Confirmed By: Anuel Dawson
[2025-01-04 05:43] LABS: INR 1.3 (0.9-1.1); Prothrombin Time 13.5 Seconds (9.0-12.0)
--- NOTE | 2025-01-04 07:24 | Hospitalist Progress Note ---
Date of Service January 04, 2025 Assessment & Plan (1) Decompensated cirrhosis: (2) Thrombocytosis: (3) History of pulmonary embolus (PE): (4) Tobacco use disorder: (5) Diabetes mellitus, type 2: (6) Chronic systolic (congestive) heart failure: (7) Hyponatremia: Plan Patient is a 54-year-old male with a past medical history of type II DM, PE and ischemic stroke 2021 on Eliquis, tobacco abuse, alcohol abuse, hypertension, hyperlipidemia, HFpEF, liver cirrhosis. He presented to [facility] at the recommendation of PCP d/t abnormal labs: #Decompensated Cirrhosis: Hx of cirrhosis - presented in decompensation with large volume ascites LFTs relatively WNL, INR at baseline - no evidence of acute liver failure at time of admission hepatitis panel pending GI consulted, appreciate recs - AFP, autoimmune hepatitis/PBC labs pending Portal vein US: +portal venous thrombosis, likely acute underlying cause for decompensation Failure of Eliquis - Continue Lovenox, hold AM dose for possible lung nodule biopsy Consider outpatient IR f/u for TIPS/mechanical thrombectomy Hold lisinopril, metoprolol, p.o. Lasix, p.o. spironolactone d/t relative hypotension Discontinue Fludrocortisone and Hydrocortisone, continue Midodrine - if BP maintains, discontinue Midodrine prior to discharge S/p paracentesis 01/03 with removal of 5.4L - Blood and peritoneal fluid cultures NGTD - Peritoneal fluid with elevated total WBC count but PMNs<250, inconsistent with SBP SAAG >1.1, suggests that ascites secondary to portal HTN - Ongoing leukocytosis, unclear if underlying infection or source - Continue Zosyn for now - check Procal and CRP, if negative deescalate/discontinue abx #?Liver Mets, Lung Nodules: CT A/P notable for multiple low-attenuation liver lesions and a splenic lesion, all appearing in the interval, concerning for metastatic disease of unknown primary CT chest with multiple pulmonary nodules suspicious for metastatic disease Heme/onc consulted, appreciate recs If peritoneal fluid cytology negative, consider CT Abdomen with contrast vs obtain lung biopsy #BANDAR - Resolved Likely prerenal in the setting of intravascular volume depletion Cr corrected following volume expansion Hold lisinopril, metformin #Hyponatremia - Improving Hypotonic hyponatremia secondary to decompensated liver cirrhosis S/p volume expansion - follow serial labs #alcohol use Continue Thiamine PO 100mg and folic acid 1mg PO QAM #T2DM hold metformin and [facility] glycemic consult #Thrombocytosis Chronic thrombocytosis noted since July 2023 Platelets 478 at the time of admission Peripheral smear without significant morphological abnormalities #tobacco use 1 ppd cigarettes 14mg nicotine patch ordered encourage smoking cessation Chronic stable diagnoses: HFpEF recent EF 40 to 45% September 2024, Holding BB as above, not in acute exacerbation at time of admission Hx PE and ischemic stroke 2021,Lovenox started following paracentesis VTE ppx: Lovenox Diet: Heart healthy, low-sodium, T2DM Admission and Anticipated Discharge Date Admission Date: January 02, 2025 Supervising Physician Co-Signing Physician Notes I personally examined the patient and verified all dooley points of history and exam, discussed case, and agree with decision making with Dr Newman feeling good overall. no significant pain. not weak or dizzy. notes that he really never misses doses of eliquis at home vitals noted nad heent nc at mmm breathing unlabored no accessory muscles good effort skin no rashes no pallor or icterus Cirrhosis/ascites/portal hypertension/portal venous thrombosis/leukocytosis, SIRS/concerning pulmonary nodularity - the biggest concern is a malignant process. Right now the most telling findings would be the pulmonary nodules, his abdominal imaging is technically nondiagnostic for liver findings, although it does look a little bit concerningconsider reimaging liver now that ascitic fluid has been removed, and with IV contrast, as we may get a better idea of if there is liver parenchymal disease. For now, can hold off on this, given that peritoneal fluid cytology is pending and may provide answers. If the fluid is negative on cytology, then would consider CT abdomen pelvis with contrast to see if there are any true liver foci that could be biopsied vs asking radiology if the one lesion on periphery of lung is amenable to bx. pt very much wants to get out of the hospital [facility] - understands that right now we're still weaning meds that might be artificially keeping BP up, also understands the workup and process as it relates to highly probable cancer - discussed weaning meds - since he's feeling good and wants to leave [facility] - we'll stop hydrocortisone and fludrocortisone today, if does well, stop midodrine after AM dose tomorrow. as it relates to cancer dx - we talked that this can certainly be pursued as an outpatient but that this process often takes weeks longer as an outpatient - discussed that ascitic fluid may have answers, if not then would consider lung bx if possible - in discussion as it relates to his strong desire to leave the hospital [facility] - i have reached out to pathology re ?potentially enough cells to yield dx or not - if not likely pt would prefer biopsy done to complete the process and still get him home tomorrow. SIRS without any clear focus of infectionstop abx, follow clinically, follow CBC/CRP/procal; for the portal venous thrombosis he is currently anticoagulated with Lovenox - after discussed with patient he was taking eliquis regularly so we discussed that right now a move to lovenox is favorable otherwise as above Subjective Patient states he is feeling good today, largely back to baseline. Appears to be in good spirits despite difficult conversation yesterday. Denies significant fatigue, fever/chills, no recurrent abdominal distention. Denies abdominal pain, N/V/D. Denies lightheadedness. Review of Systems Review of Systems: as per HPI Physical Exam Physical Exam: Constitutional: no acute distress HEENT: NCAT CV: RRR Resp: no increased work of breathing GI: +abdominal distention, significantly improved. Non-tender to palpation. Skin: warm, dry, no rash appreciated Results & Data Results & Data Vital Signs (Past 12 Hours) Vital Signs Temp Pulse Resp BP Pulse Ox Pulse Ox O2 Del Method 01/04/25 03:48 61 18 94 01/04/25 03:31 112/54 L 01/04/25 03:31 112/54 L 01/04/25 03:31 112/54 L 01/04/25 00:00 57 L 01/03/25 23:44 36.5 C 01/03/25 23:39 96/56 L 01/03/25 23:39 57 L 18 95 Room Air 01/03/25 22:25 95 01/03/25 21:12 64 19 01/03/25 20:42 66 21 01/03/25 20:18 66 21 01/03/25 20:05 111/59 L 01/03/25 20:00 36.7 C O2 Del Method 01/04/25 03:48 01/04/25 03:31 01/04/25 03:31 01/04/25 03:31 01/04/25 00:00 01/03/25 23:44 01/03/25 23:39 01/03/25 23:39 01/03/25 22:25 Room Air 01/03/25 21:12 01/03/25 20:42 01/03/25 20:18 01/03/25 20:05 01/03/25 20:00 Resident Activity Tracking Resident Involvement: Resident Care Provided Care Provided: Adult Hospital Medicine
[2025-01-04] MEDS ORDERED: NICOTINE 14 MG/24 HR PATCH TD SCH (09:00)
--- NOTE | 2025-01-04 10:50 | Gastroenterology Progress Note ---
Date of Service January 04, 2025 Assessment & Plan (1) Decompensated cirrhosis: Plan Patient with history of cirrhosis with ascites s/p paracentesis. no SBP. Imaging also concerning for metastatic disease of unknown primary. - MELD labs every 6 months - recommend abdominal imaging w/ AFP every 6 months - EGD every 1-2 years for variceal screening. - No ETOH - No NSAIDs - Avoid hepatotoxins - recommend Low sodium diet, less than 2G daily - Less than 2G acetaminophen containing products daily. - await AFP results. - will discuss case further with Dr. Jasmine. Further recommendations to follow. Admission and Anticipated Discharge Date Admission Date: January 02, 2025 Supervising Physician Co-Signing Physician Notes I saw and examined this patient with our nurse practitioner and agree with her assessment and plan. Clinically improved denies any GI symptoms at the present time. No evidence of GI related infection. No asterixis no encephalopathy. Awaiting liver serologies. Needs further evaluation of his pulmonary and liver lesions. Subjective Patient tells me he feels well. no complaints this morning. 01/04/25 t bili 1.6, ast 18, alt 16, alk phos 81. Hep Bs antigen negative. hep c negative. AFP pending. REBEKAH, AMA, ASMA pending. Hep A and B core pending. 01/03/25 CEA 2.2 Review of Systems Review of Systems: All systems reviewed & are unremarkable except as noted in HPI & below Physical Exam Constitutional: WD/WN, vitals as above Respiratory: normal respiratory effort, lungs clear to auscultation Cardiovascular: Rate/Rhythm: regular rate and regular rhythm Gastrointestinal (Abdomen): normal bowel sounds, soft, nontender, no hepatosplenomegaly Psychiatric: Orientation: alert and oriented x 3 Affect: euthymic affect Results & Data Results & Data Vital Signs (Past 12 Hours) Vital Signs Temp Pulse Pulse Resp BP BP Pulse Ox 01/04/25 08:36 97.7 F 68 19 104/64 91 01/04/25 03:48 61 18 94 01/04/25 03:31 112/54 L 01/04/25 03:31 112/54 L 01/04/25 03:31 112/54 L 01/04/25 00:00 57 L 01/03/25 23:44 97.7 F 01/03/25 23:39 96/56 L 01/03/25 23:39 57 L 18 95 O2 Del Method 01/04/25 08:36 Room Air 01/04/25 03:48 01/04/25 03:31 01/04/25 03:31 01/04/25 03:31 01/04/25 00:00 01/03/25 23:44 01/03/25 23:39 01/03/25 23:39 Room Air Laboratory Results Laboratory Results - last 48 hr 01/02/25 01/02/25 01/02/25 18:38 19:43 21:40 WBC 17.46 H RBC 5.71 Hgb 17.6 Hct 51.0 MCV 89.3 MCH 30.8 MCHC 34.5 RDW Std Deviation 43.5 RDW Coeff of Rojas 13.5 Plt Count 478 H MPV 11.7 Immature Gran % (Auto) 0.9 Neut % (Auto) 75.5 Lymph % (Auto) 8.8 [place] % (Auto) 11.8 Eos % (Auto) 2.2 Baso % (Auto) 0.8 Neut # (Auto) 13.19 H Lymph # (Auto) 1.54 [place] # (Auto) 2.06 H Eos # (Auto) 0.38 Baso # (Auto) 0.14 Immature Gran # (Auto) 0.15 Polychromasia Echinocytes Peripher Smr Path Cons PT 12.7 H INR 1.2 H APTT 27 PTT Ratio 1.0 Sodium 121 L Potassium 4.7 Chloride 87 L Carbon Dioxide 27 Anion Gap 7 BUN 46 H Creatinine 1.60 H Est Cr Clr Drug Dosing 71.1 eGFR 50.26 BUN/Creatinine Ratio 28.8 H Glucose 251 H POC Glucose Estimat Average Glucose Hemoglobin A1c Osmolality 274 L Lactate 2.2 H* 1.8 Calcium 9.2 Phosphorus 4.5 Magnesium 2.2 Iron Total Bilirubin 1.3 H AST 32 ALT 25 Alkaline Phosphatase 117 H Ammonia Cancelled Troponin I High Sens 13.3 Total Protein 5.8 L Albumin 3.7 Globulin 2.1 L Albumin/Globulin Ratio 1.8 Carcinoembryonic Ag Procalcitonin 0.57 H Random Cortisol 19.34 Urine Osmolality Ur Random Sodium Fluid Neutrophils % Fluid Lymphocytes % Fluid Meso/Macro/Pendleton % Fluid Comment Peritoneal Color Peritoneal Appearance Peritoneal WBC (Auto) Peritoneal RBC (Auto) Peritoneal Tot Protein Peritoneal Albumin Nasal Screen MRSA (PCR) Acetaminophen < 3 L Ethyl Alcohol mg/dL < 10.0 Hep Bs Antigen Hepatitis C Antibody 01/02/25 01/02/25 01/02/25 22:14 23:11 23:19 WBC RBC Hgb Hct MCV MCH MCHC RDW Std Deviation RDW Coeff of Rojas Plt Count MPV Immature Gran % (Auto) Neut % (Auto) Lymph % (Auto) [place] % (Auto) Eos % (Auto) Baso % (Auto) Neut # (Auto) Lymph # (Auto) [place] # (Auto) Eos # (Auto) Baso # (Auto) Immature Gran # (Auto) Polychromasia Echinocytes Peripher Smr Path Cons PT INR APTT PTT Ratio Sodium 124 L Potassium 4.3 Chloride 87 L Carbon Dioxide 24 Anion Gap 13 H BUN 44 H Creatinine 1.27 D Est Cr Clr Drug Dosing 88.9 eGFR 66.31 BUN/Creatinine Ratio 34.6 H Glucose 187 H POC Glucose 168 H Estimat Average Glucose Hemoglobin A1c Osmolality Lactate Calcium 8.3 L Phosphorus Magnesium Iron Total Bilirubin AST ALT Alkaline Phosphatase Ammonia 55.0 Troponin I High Sens Total Protein Albumin Globulin Albumin/Globulin Ratio Carcinoembryonic Ag Procalcitonin Random Cortisol Urine Osmolality Ur Random Sodium Fluid Neutrophils % Fluid Lymphocytes % Fluid Meso/Macro/[place]end[place] % Fluid Comment Peritoneal Color Peritoneal Appearance Peritoneal WBC (Auto) Peritoneal RBC (Auto) Peritoneal Tot Protein Peritoneal Albumin Nasal Screen MRSA (PCR) Acetaminophen Ethyl Alcohol mg/dL Hep Bs Antigen Hepatitis C Antibody 01/02/25 01/03/25 01/03/25 Unknown 05:00 07:08 WBC 18.80 H RBC 5.17 Hgb 15.9 Hct 46.3 MCV 89.6 MCH 30.8 MCHC 34.3 RDW Std Deviation 44.5 RDW Coeff of Rojas 13.5 Plt Count 532 H MPV 11.7 Immature Gran % (Auto) 1.2 Neut % (Auto) 81.2 Lymph % (Auto) 6.7 [place]end[place] % (Auto) 8.7 Eos % (Auto) 1.6 Baso % (Auto) 0.6 Neut # (Auto) 15.24 H Lymph # (Auto) 1.26 [place]end[place] # (Auto) 1.64 H Eos # (Auto) 0.31 Baso # (Auto) 0.12 Immature Gran # (Auto) 0.23 H Polychromasia 1+ Echinocytes 2+ Peripher Smr Path Cons PT 13.7 H INR 1.3 H APTT PTT Ratio Sodium 123 L Potassium 4.7 Chloride 89 L Carbon Dioxide 25 Anion Gap 9 BUN 46 H Creatinine 1.21 Est Cr Clr Drug Dosing 93.4 eGFR 70.27 BUN/Creatinine Ratio 38.0 H Glucose 226 H POC Glucose 226 H Estimat Average Glucose 146 Hemoglobin A1c 6.7 H Osmolality Lactate Calcium 8.9 Phosphorus 4.1 Magnesium 2.2 Iron Total Bilirubin 1.7 H AST 25 ALT 21 Alkaline Phosphatase 97 Ammonia Troponin I High Sens Total Protein 6.0 Albumin 4.2 Globulin 1.8 L Albumin/Globulin Ratio 2.3 H Carcinoembryonic Ag 2.2 Procalcitonin Random Cortisol Urine Osmolality 691 Ur Random Sodium 14 Fluid Neutrophils % Fluid Lymphocytes % Fluid Meso/Macro/Pend[place] % Fluid Comment Peritoneal Color Peritoneal Appearance Peritoneal WBC (Auto) Peritoneal RBC (Auto) Peritoneal Tot Protein Peritoneal Albumin Nasal Screen MRSA (PCR) Negative Acetaminophen Ethyl Alcohol mg/dL Hep Bs Antigen Negative Hepatitis C Antibody Negative 01/03/25 01/03/25 01/03/25 11:03 14:40 15:25 WBC RBC Hgb Hct MCV MCH MCHC RDW Std Deviation RDW Coeff of Rojas Plt Count MPV Immature Gran % (Auto) Neut % (Auto) Lymph % (Auto) [place] % (Auto) Eos % (Auto) Baso % (Auto) Neut # (Auto) Lymph # (Auto) [place] # (Auto) Eos # (Auto) Baso # (Auto) Immature Gran # (Auto) Polychromasia Echinocytes Peripher Smr Path Cons PT INR APTT PTT Ratio Sodium Potassium Chloride Carbon Dioxide Anion Gap BUN Creatinine Est Cr Clr Drug Dosing eGFR BUN/Creatinine Ratio Glucose POC Glucose 233 H Estimat Average Glucose Hemoglobin A1c Osmolality Lactate Calcium Phosphorus Magnesium Iron Cancelled 33 L Total Bilirubin AST ALT Alkaline Phosphatase Ammonia Troponin I High Sens Total Protein Albumin Globulin Albumin/Globulin Ratio Carcinoembryonic Ag Procalcitonin Random Cortisol Urine Osmolality Ur Random Sodium Fluid Neutrophils % Fluid Lymphocytes % Fluid Meso/Macro/Pend[place] % Fluid Comment Peritoneal Color Peritoneal Appearance Peritoneal WBC (Auto) Peritoneal RBC (Auto) Peritoneal Tot Protein Peritoneal Albumin Nasal Screen MRSA (PCR) Acetaminophen Ethyl Alcohol mg/dL Hep Bs Antigen Hepatitis C Antibody 01/03/25 01/03/25 01/03/25 16:03 20:03 Unknown WBC RBC Hgb Hct MCV MCH MCHC RDW Std Deviation RDW Coeff of Rojas Plt Count MPV Immature Gran % (Auto) Neut % (Auto) Lymph % (Auto) [place] % (Auto) Eos % (Auto) Baso % (Auto) Neut # (Auto) Lymph # (Auto) [place] # (Auto) Eos # (Auto) Baso # (Auto) Immature Gran # (Auto) Polychromasia Echinocytes Peripher Smr Path Cons PT INR APTT PTT Ratio Sodium Potassium Chloride Carbon Dioxide Anion Gap BUN Creatinine Est Cr Clr Drug Dosing eGFR BUN/Creatinine Ratio Glucose POC Glucose 197 H 187 H Estimat Average Glucose Hemoglobin A1c Osmolality Lactate Calcium Phosphorus Magnesium Iron Total Bilirubin AST ALT Alkaline Phosphatase Ammonia Troponin I High Sens Total Protein Albumin Globulin Albumin/Globulin Ratio Carcinoembryonic Ag Procalcitonin Random Cortisol Urine Osmolality Ur Random Sodium Fluid Neutrophils % 12 Fluid Lymphocytes % 18 Fluid Meso/Macro/Pend[place] % 70 Fluid Comment Peritoneal Color Yellow Peritoneal Appearance Cloudy Peritoneal WBC (Auto) 1318 H Peritoneal RBC (Auto) < 2000 Peritoneal Tot Protein 3.0 Peritoneal Albumin 2.1 Nasal Screen MRSA (PCR) Acetaminophen Ethyl Alcohol mg/dL Hep Bs Antigen Hepatitis C Antibody 01/04/25 01/04/25 01/04/25 04:46 11:32 14:01 WBC 14.97 H RBC 4.99 Hgb 15.5 Hct 44.6 MCV 89.4 MCH 31.1 MCHC 34.8 RDW Std Deviation 43.7 RDW Coeff of Rojas 13.4 Plt Count 331 MPV 11.9 Immature Gran % (Auto) 0.9 Neut % (Auto) 82.3 Lymph % (Auto) 7.3 [place] % (Auto) 8.8 Eos % (Auto) 0.5 Baso % (Auto) 0.2 Neut # (Auto) 12.32 H Lymph # (Auto) 1.10 L [place] # (Auto) 1.31 H Eos # (Auto) 0.07 Baso # (Auto) 0.03 Immature Gran # (Auto) 0.14 Polychromasia Echinocytes Peripher Smr Path Cons PT 13.5 H INR 1.3 H APTT PTT Ratio Sodium 126 L Potassium 4.5 Chloride 91 L Carbon Dioxide 30 Anion Gap 5 BUN 35 H Creatinine 1.07 Est Cr Clr Drug Dosing 105.6 eGFR 81.44 BUN/Creatinine Ratio 32.7 H Glucose 224 H POC Glucose 292 H 196 H Estimat Average Glucose Hemoglobin A1c Osmolality Lactate Calcium 9.0 Phosphorus Magnesium 2.4 Iron Total Bilirubin 1.6 H AST 18 ALT 16 Alkaline Phosphatase 81 Ammonia Troponin I High Sens Total Protein 5.8 L Albumin 3.9 Globulin 1.9 L Albumin/Globulin Ratio 2.1 H Carcinoembryonic Ag Procalcitonin Random Cortisol Urine Osmolality Ur Random Sodium Fluid Neutrophils % Fluid Lymphocytes % Fluid Meso/Macro/[place] % Fluid Comment Peritoneal Color Peritoneal Appearance Peritoneal WBC (Auto) Peritoneal RBC (Auto) Peritoneal Tot Protein Peritoneal Albumin Nasal Screen MRSA (PCR) Acetaminophen Ethyl Alcohol mg/dL Hep Bs Antigen Hepatitis C Antibody Coding Level of Care Code 85274 SUB INP/OBS CARE 10/21MIN Diagnoses Decompensated cirrhosis K72.90; K74.60
[2025-01-04] MEDS: LANTUS PER UNIT CHARGE SC SCH ×2 (12:08→20:49)
[2025-01-04] MEDS: INSULIN ASPART PER UNIT CHARGE SC SCH (14:27)
--- NOTE | 2025-01-04 14:42 | Pharmacy Report ---
Pharmacy Glycemic Short Note 2 - Date of Service January 04, 2025 - Glycemic Short BSG Results (Last 24 hours): 01/03/25 01/03/25 01/04/25 16:03 20:03 04:46 Glucose 224 H POC Glucose 197 H 187 H 01/04/25 01/04/25 11:32 14:01 Glucose POC Glucose 292 H 196 H OUTPATIENT ANTIDIABETIC REGIMEN: * Empagliflozin 25 mg daily; metformin 1 gm BID * 6.7% 01/03/25 ASSESSMENT: 01/04: * BSGs [phone]/dL the last 24h. Received 20 units of basal and 35 units of bolus insulin yesterday. * Continues on IV hydrocortisone 50mg IV q6h (? plan for taper today) and antibiotics. Tolerating diet. * Fasting BSG documented as 187mg/dl this AM and Lantus 15 units ordered for lunch, however nursing later confirmed that no AM BSG was collected. Will add an HS Lantus scale depending on BSG. Novolog tightened for severe stress in setting of aggressive steroids. 01/03 * Patient admitted with decompensated cirrhosis, portal vein thrombosis/ascites * Heparin infusion has been discontinued. BSGs in the 200s this morning. Novolog to be adjusted. * Begin lantus with scale up to full weight stress/2. PLAN FOR INPATIENT GLYCEMIC CONTROL: * Hold outpatient oral diabetes medications * Basal insulin * Lantus 15 units SQ x1 + HS scale depending on BSG. * Bolus insulin * NovoLog per scale ACHS or Q6hrs while NPO * Goal Range: Low 110 mg/dL - High 140 mg/dL * Correction Factor: 15 mg/dL/unit * Nutritional / Prandial insulin per carb ratio of 1 unit per 6 grams CHO consumed
[2025-01-04 16:39] LABS: C Reactive Protein 2.28 mg/dl (0-0.5)
--- NOTE | 2025-01-04 16:51 | Billing Data ---
Date of Service January 04, 2025 Coding Level of Care Code 59843 SUB INP/OBS CARE MIN
--- NOTE | 2025-01-04 20:26 | Electrocardiogram Report ---
Test Reason : Blood Pressure : */* mmHG Vent. Rate : 62 BPM Atrial Rate : 62 BPM P-R Int : 232 ms QRS Dur : 140 ms QT Int : 454 ms P-R-T Axes : 60 -77 89 degrees QTcB Int : 460 ms Sinus rhythm with sinus arrhythmia with 1st degree A-V block Right bundle branch block Left anterior fascicular block Bifascicular block Inferior infarct Abnormal ECG When compared with ECG of 02-Jan-2025 18:35, Left anterior fascicular block is now Present Confirmed by Anuel Dawson ([id number]) on 01/04/2025 8:26:21 PM Referred By: Trini Valdes Confirmed By: Anuel Dawson
[2025-01-05 06:21] LABS: Basophils # (auto) 0.08 K/uL (0.00-0.20); Basophils % (auto) 0.5 %; Eosinophils # (auto) 0.67 K/uL (0.00-0.50); Eosinophils % (auto) 4.1 %; Hematocrit (blood only) 46.6 % (42.0-52.0); Hemoglobin 16.6 g/dl (14.0-18.0); Immature Granulocytes # (auto) 0.14 K/uL (0.01-0.20); Immature Granulocytes % (auto) 0.9 %; Lymphocytes # (auto) 1.87 K/uL (1.20-3.40); Lymphocytes % (auto) 11.6 %; Mean Corpuscular Hemoglobin 31.4 pg (25.0-34.0); Mean Corpuscular Hgb Conc 35.6 g/dL (32.0-36.0); Mean Corpuscular Volume 88.3 fL (80.0-100.0); Mean Platelet Volume 11.9 fL (9.4-12.4); Monocytes # (auto) 1.96 K/uL (0.11-0.59); Monocytes % (auto) 12.1 %; Neutrophils # (auto) 11.43 K/uL (1.40-6.50); Neutrophils % (auto) 70.8 %; Platelet Count 361 K/uL (130-400); RDW Coefficient of Variation 13.4 % (11.5-14.5); RDW Standard Deviation 43.4 fL (36.4-46.3); Red Blood Count 5.28 M/uL (4.70-6.10); White Blood Count 16.15 K/ul (4.8-10.8)
[2025-01-05 06:52] LABS: BUN Creatinine Ratio 29.1 (10-20); Calcium 9.1 mg/dl (8.6-10.3); Creatinine Clr Calc Pharmacy 139.8 ml/min; Potassium 4.4 mmol/L (3.5-5.1)
[2025-01-05 07:30] VITALS: RESP 20
--- NOTE | 2025-01-05 08:55 | Discharge Summary ---
Date of Service January 05, 2025 Admission HPI Per Admitting Provider Patient is a 54-year-old male with a past medical history of type II DM, PE and ischemic stroke 2021 on Eliquis, tobacco abuse, alcohol abuse, hypertension, hyperlipidemia, HFpEF, liver cirrhosis. He presented to [facility] this morning due to copper colored urine for several days. They took a UA and started him on ABX, patient is unsure of what antibiotic he was prescribed and he only took 1 dose. He took labs and he returned home. Patient received a phone call from home to come into the ED immediately. Upon arrival to the ED he was found to meet SIRS criteria with a white count of 19.26, BP 79/50, and lactate 2.2. He was found to have an BANDAR with creatinine increased from 1.09-1.60 and hyponatremia with a sodium of 121. Repeat CT showed liver cirrhosis with a large amount of ascites. Patient was given 1 L of NSS and started on Levophed in the ED. Patient is being admitted to the ICU on pressors, anticipate paracentesis and need for diuresis tomorrow 10/05. Patient stated he has never had issues with his liver cirrhosis before, however he reports he drinks alcohol approximately 1 time per week. Patient seen at bedside with his niece in law present. He stated that he has piper d copper colored urine for several days, however denies dysuria or difficulty urinating. He went to mom and he feels back this morning for UTI workup. They called him this afternoon because of his abnormal labs. Patient denies any other ROS. Patient denies fever, chills, headache, dizziness, lightheadedness, rhinorrhea, sore throat, cough, sputum production, dyspnea, dyspnea on exertion, chest pain, abdominal pain, nausea, vomiting, diarrhea, constipation, edema. He stated he has known liver cirrhosis however has never had issues with it before, no history of paracentesis. He denies any chronic daily alcohol use however stated that he drinks approximately 6-7 drinks 1 night a week. He has known history of malignancy, discussed pulmonary nodules found on CT and may need further workup. He took all of his medications this morning including furosemide and spironolactone. He wishes to be DNR/DNI however is agreeable to Levophed and possible paracentesis. Admission Exam Per Admitting Provider The patient is awake, alert and oriented 3, well developed and well nourished, normocephalic and atraumatic, in no acute distress. Non-toxic appearing. HEENT- EOMI, mucous membranes dry. Hearing grossly intact. Heart-normal S1 and S2. No murmurs, rubs or gallops. Lungs-clear bilaterally, no respiratory distress, no accessory muscle use. Abdomen-normal bowel sounds and soft. Significant ascites noted. Nontender. Extremities- no clubbing, cyanosis, or edema. Rheumatologic-normal range of motion. Psychiatric-normal affect. Principal Diagnosis decompensated cirrhosis, BANDAR, lung nodules Discharge Exam Constitutional: well appearing, no acute distress HEENT: normocephalic, no conjunctival injection CV: regular rhythm, regular rate, no murmur, no LE edema Respiratory: Clear to auscultation bilaterally. No rhonchi, wheezes, or crackles. No increased work of breathing GI: soft, nondistended MSK: no gross deformities noted Skin: warm, dry, no rashes Neuro: alert, oriented, no FND noted Discharge Data Allergies Allergy/AdvReac Type Severity Reaction Status Date / Time No Known Allergies Allergy Verified 01/02/25 20:57 Consultations 01/02/25 21:27 Consult Gastroenterology Routine 01/02/25 21:40 ED Decision to Admit Stat 01/02/25 22:03 Consult Oncology Routine 01/02/25 22:25 Consult Inspector Integrated Circuits Routine Ordered Studies 01/02/25 19:09 CT abd pelvis wo con Stat IMPRESSION: 1. Hepatic cirrhosis with large volume of ascites, progressed in the interval. 2. Multiple bilateral pulmonary nodules with multiple low-attenuation liver lesions and a splenic lesion, all appearing in the interval, concerning for metastatic disease of unknown primary. Close clinical follow-up suggested. 01/02/25 21:19 US portal veins doppler [US duplex portal hepatic veins] Stat IMPRESSION: Limited exam. There appears to be thrombus within the main portal vein as well as the right and left portal veins. The liver is inhomogeneous and of increased echogenicity which may be due to hepatocellular disease. Underlying focal lesions cannot be excluded. Ascites. 01/03/25 07:44 CT chest diagnostic wo con Routine IMPRESSION: 1. Multiple pulmonary nodules are suspicious for metastatic disease given the abdominal findings on the CT scan yesterday. 2. Otherwise as described. 01/05/25 08:15 CT liver w con Routine IMPRESSION: 1. Mass at the pancreatic tail suspicious for pancreatic cancer. 2. Hepatic and pulmonary metastatic disease. 3. Wedge-shaped hypodensity superiorly at the spleen likely represents splenic infarction. 4. Thrombus within the portal vein and splenic vein. 5. Cirrhosis, portal hypertension, and small to moderate amount of ascites. 6. Otherwise as described. Hospital Course (1) Decompensated cirrhosis: (2) Thrombocytosis: (3) History of pulmonary embolus (PE): (4) Tobacco use disorder: (5) Diabetes mellitus, type 2: (6) Chronic systolic (congestive) heart failure: (7) Hyponatremia: Plan Pt is a 54 yo male with a past medical history of type II DM, PE and ischemic stroke 2021 on Eliquis, tobacco abuse, alcohol abuse, hypertension, hyperlipidemia, HFpEF, and liver cirrhosis. He presented to [facility] at the recommendation of his PCP d/t abnormal labs. Decompensated cirrhosis/hypotension - pt with large volume ascites- s/p paracentesis 01/03 with removal of 5.4L; peritoneal fluid inconsistent with SBP - portal vein US: +portal venous thrombosis, likely acute underlying cause for decompensation - LFTs relatively WNL, INR minimally elevated - no evidence of acute liver failure - hepatitis Bs Ag negative, hepatitis C negative, hepatitis A and B core IgM pending - GI consulted: AFP, REBEKAH, anti-mitochondrial Ab, and actin IgG pending - pt reported taking eliquis only once per day d/t cost; upon discharge, given coupons which will significantly reduce cost so pt is able to take BID - hold lisinopril, metoprolol, lasix, and spironolactone d/t relative hypotension on discharge; instructed pt to get a blood pressure cuff so he can monitor at home to ensure he is not too low or too high; recommend f/u with PCP to determine when to restart these medications Liver and lung lesions concerning for metastasis - CTAP showing lung nodules; redemonstrated on CT chest; liver CT also with lesions concerning for mets with mass at pancreatic tail concerning pancreatic cancer - peritoneal fluid pending cytology; however, preliminary from path showing metastatic carcinoma in the fluid- immuno studies pending - CM consulted to set up pt for IR liver biopsy for tissue diagnosis BANDAR - resolved - likely prerenal in the setting of intravascular volume depletion Hyponatremia- resolved - hypotonic hyponatremia secondary to decompensated liver cirrhosis Alcohol use - per pt, drinks 6-7 beers once per week - no withdrawal while admitted T2DM - no changes made to home regimen Thrombocytosis - chronic thrombocytosis noted since July 2023 - peripheral smear without significant morphological abnormalities Tobacco use - 1 ppd cigarettes - encourage smoking cessation Chronic stable diagnoses: HFpEF: recent EF 40 to 45% September 2024; no acute exacerbation; holding medications as above Hx PE and ischemic stroke: eliquis 5mg BID Total Time Total Time Spent Total Time Spent (In Minutes): <30 Discharge Plan Discharge Items Patient Disposition: Home - Self-Care Reason For Visit: CIRRHOSIS, SEPSIS, BANDAR, HYPONATREMIA Discharge Diagnosis: cirrhosis, BANDAR, new found liver/lung mets Activity: Per Instructions section Non-emergency contact: Primary Care Provider and Curriculum And Assessment Director Call non-emergency contact if: you have any medication questions and your symptoms worsen Follow-up/Referrals: Trini Valdes DO [Primary Care Provider] - 01/10/25 9:20 am (f/u in 1 week) Diet: Carb Consistent or DM2, Heart Healthy and Low Sodium (2gm) Addtl Attending Provider Instructions: You were admitted to the hospital for low blood pressure and acute kidney injury. You were treated with a paracentesis (removal of fluid from your abdomen- 5.4L) and medication to keep your blood pressure within the normal range. By the end of your admission, you did not need medication to raise your blood pressure. It is recommended that you get a blood pressure cuff so you can monitor your blood pressure at home. If you notice it is too low (<100/60) or too high (>150/100), please contact your primary care doctor promptly. You also formed a blood clot while taking eliquis once per day. In order for this medication to be effective, you need to take it twice per day. Our case management department was able to find coupons which should drop the cost of your eliquis to something more affordable. There were lesions noted in your lungs and liver that were concerning for cancer. There is a lesion noted in your pancreas which may be the source of the cancer. Case management has been contacted to help set up a biopsy of your liver in order to confirm the type of cancer. A discharge summary will be sent to your primary care physician to ensure continuity of care. Please bring this discharge summary with you to your next office appointment so that your provider can review it at that time. Medications: Your medication list has been reviewed and reconciled upon discharge to ensure accuracy and continuity of care. An updated list of all your medications is included with your hospital discharge paperwork. Please review this list closely and make note of any changes to your medications. - You should not take your home blood pressure medications including lasix (furosemide), spironolactone, metoprolol, and lisinopril until you talk with your primary care doctor next week. - You should also not take sildenafil- this can decrease your blood pressure. - You should take your eliquis 5mg twice per day. Your next dose is due tonight. Please picking supervisor your medication when you leave the hospital. - You do not need any further antibiotics at this time. - You may continue your other medications as prescribed. Follow up appointments: - Make a follow up appointment with your PCP within the next week. It is very important that you follow up with them shortly after discharge from the hospital. - You should also establish care with a GI/liver doctor to follow for your cirrhosis. - You will be set up for an appointment as above with interventional radiology for a liver biopsy to see what type of cancer you have. You should receive a call about this next week. If you do not, please call the hospital at [phone] or your PCP office. - Keep all of your follow up appointments as already scheduled. If you cannot make an appointment, notify your provider. CONTACT YOUR PRIMARY CARE PROVIDER if you experience any of the following: - Difficulty following your treatment plan - Difficulty taking any of your medications CALL 911 OR GO TO THE EMERGENCY DEPARTMENT if you experience any of the following: - Sudden, severe abdominal pain or nausea/vomiting - Severe chest pain or chest pain that radiates to your jaw or arm - Sudden, severe shortness of breath or difficulty breathing Pending Studies at Discharge: No Stand-Alone Forms: My [employer], Smoking Cessation Medications and DC Order Prescriptions: Continued empagliflozin 25 mg tablet 25 mg PO DAILY Qty: 90 1RF rosuvastatin 5 mg tablet 5 mg PO QAM Qty: 90 3RF metformin 500 mg tablet extended release 24 hr 1,000 mg PO BID Qty: 120 5RF multivitamin Tablet 1 tab PO DAILY ascorbic acid (vitamin C) 500 mg capsule 500 mg PO DAILY (DME) OneTouch Ultra Test Strip See Rx Instructions .ROUTE .MEDSUPPLY Qty: 100 5RF Rx Instructions: Testing BS daily (DME) blood-glucose meter [OneTouch Ultra2 Meter] Kit See Rx Instructions .ROUTE .MEDSUPPLY Qty: 1 0RF Rx Instructions: As directed. DX: E11.9 (DME) lancets [BD Ultra Fine Lancets] 33 gauge misc See Rx Instructions .Route Qty: 100 5RF Rx Instructions: As directed Testing BS daily aspirin 81 mg Tablet,Delayed Release (Dr/Ec) 81 mg PO DAILY apixaban 5 mg tablet 5 mg PO BID Qty: 60 5RF Held metoprolol succinate 200 mg tablet extended release 24 hr 200 mg PO DAILY Qty: 90 3RF Hold Instructions: Discuss resuming this with your PCP spironolactone 25 mg tablet 25 mg PO DAILY Qty: 90 3RF Hold Instructions: Discuss resuming this with your PCP furosemide 40 mg tablet 20 mg PO DAILY Qty: 360 3RF Hold Instructions: Discuss resuming this with your PCP Rx Instructions: JUST CHANGED TO 20 MG DAILY, lisinopril 20 mg tablet 10 mg PO DAILY Qty: 90 3RF Hold Instructions: Discuss resuming this with your PCP Rx Instructions: JUST CHANGED TO 10 MG, 01/02/25. sildenafil 100 mg tablet 100 mg PO DAILY PRN (Reason: sexual activity) Qty: 30 0RF Hold Instructions: Discuss resuming this with your PCP Rx Instructions: administer 30 minutes to 4 hours before activity Discontinued ciprofloxacin HCl 500 mg tablet 500 mg PO BID 14 Days Qty: 28 0RF Rx Instructions: STARTED 01/02/25 FOR 14 DAYS. Discharge Orders: Discharge Order (Routine); Ordered 01/05/25 Ordered By: Nisha Hsieh/Other Patient Handouts: Paracentesis Dc, Managing Type 2 Diabetes Admission Data Admit Date/Time: 01/02/25 21:35 Attending Provider: Yoni Rosa Admit Provider: Kong Whitley Primary Care Provider: Trini Valdes Other Providers: Love Manzanares; Ronnie May; Opal Floyd; Jahaira Mckeon; Diamond Ruth; Daphne Mesa; Wiliam Jesus; Nick Dejesus; Jazmin Jones; Johan Mirza; Kortney Vu; Alexandra Turner; Chel Lauren; Carmen Martines; Radha Osorio; Oscar Ortiz; Darion Hale; Angi Baird; Rox Mark Jr; Hal Almonte; Kelton Silva; Quan Adames; Saud Khan; Sara Badillo; Karlos Jasmine I; Karina Villatoro; Jared Miles; Kong Lopez; Kong Whitley; Traci Vick; Andi Martell Other Interventions: Discharge Summary Assessment (RN) Last Done: 01/05/25 15:08 Supervising Physician Co-Signing Physician Notes I personally examined the patient and verified all dooley points of history and exam, discussed case, and agree with decision making with Dr Kwong feeling better and would very much like to go home. off midodrine no hypotension. discussed with pathologycellularity definitely present consistent with cancer, but may come back with a final diagnosis of an undifferentiated carcinoma, and note that they have sent out markers, but it is quite possible that a tissue biopsy is going to be necessary anyway. Discussed this with patient. Discussed with radiologynot entirely clear that lung lesions would be amenable to biopsy, although possibly. d/w dr kwong that actually he was only taking eliquis daily due to cost - case management worked on means to make it more affordable vitals noted nad heent nc at mmm breathing unlabored no accessory muscles good effort skin no rashes no pallor or icterus Cirrhosis/ascites/portal hypertension/portal venous thrombosis/leukocytosis, SIRS/concerning pulmonary nodularity - the biggest concern is a malignant process and his overall situation is unfortunately most consistent with pancreatic cancer with metastatic disease. Discussed this openly with patient, although it was clear that the biopsy would really be what defines the malignancy. Discussed the possibility that the fluid cytology may not have a clear diagnosis, and that a tissue biopsy may be necessary. He would like to have the rest of the workup done as an outpatient. To ensure that his care proceeds in a timely manner, I will ask that he be set up with interventional radiology for a presumed liver biopsy late next weekthat we will give enough time for the ascites fluid cytology to be completeif it has enough information that the biopsy is not necessary, then it can be canceled; at the same time if it is nondiagnostic, then the biopsy will be done quickly. I will also ask for oncology follow-up to be scheduled for about 2 weeks from now (i.e. once tissue pathology is back). Again tried to discuss the presumed diagnosis openly and answered all questions to the best my ability, making clear that there is still a degree of uncertainty. In regards to his portal vein thrombosisonce he discussed that he really was not taking his Eliquis as prescribed, and he had an understandable reticence of being on Lovenox, we had case management discussed with him to find ways to make the Eliquis more affordablehe notes he will be taking it twice daily moving forward. Safe/stable for home, close and multidisciplinary outpatient follow-up being arranged. otherwise as above Resident Activity Tracking Resident Involvement: Resident Care Provided Care Provided: Adult [facility]
[2025-01-05] MEDS: OPTIRAY 320 100ml IV ONE (09:10)
[2025-01-05] MEDS: LANTUS PER UNIT CHARGE SC SCH (09:24)
--- NOTE | 2025-01-05 10:29 | CT Scan Report ---
CT liver w con CLINICAL HISTORY: heterogeneity on noncon study, ?mets COMPARISON STUDY: 01/02/2025 and 09/12/2022 FINDINGS: There are multiple lung base pulmonary nodules, better seen on the recent prior chest CT. T here are multiple hypodense masses scattered throughout the liver, largest measuring 2 cm. Liver cont our is nodular consistent with cirrhosis. There is a tiny gallstone. No evidence of acute cholecystit is. There is a 4 cm wedge-shaped hypodensity superiorly in the spleen. There is mild splenomegaly. Th ere is a 3.4 cm hypodense mass at the pancreatic tail. There is thrombus within the portal vein and t he splenic vein. There is a 3 cm hypodense nodule at the left adrenal gland and there is a 1.7 cm hyp odense nodule at the right adrenal gland, stable back to 2021. Kidneys show no hydronephrosis or calc aminta. There are scattered atherosclerotic calcifications. No abdominal aortic aneurysm. There is small to moderate amount of ascites. There are multiple small periaortic lymph nodes. No enlarged adenopat hy seen. No bowel obstruction seen. There are moderate spinal degenerative changes. There are mild ab dominal varices. IMPRESSION: 1. Mass at the pancreatic tail suspicious for pancreatic cancer. 2. Hepatic and pulmonary metastatic disease. 3. Wedge-shaped hypodensity superiorly at the spleen likely represents splenic infarction. 4. Thrombus within the portal vein and splenic vein. 5. Cirrhosis, portal hypertension, and small to moderate amount of ascites. 6. Otherwise as described. ACT 112: Positive. There are findings on this exam that require communication between the performing entity and the patient following Patient Test Result Information Act ([place] Act 112) guidelines. Electronically signed by: Gavino Hayes M.D. 01/05/2025 10:27 AM
[2025-01-05 11:26] VITALS: BP 118/65; PULSE 73; TEMP 97.7; O2SAT 97
--- NOTE | 2025-01-05 12:34 | Pharmacy Report ---
Pharmacy Glycemic Short Note 2 - Date of Service January 05, 2025 - Glycemic Short BSG Results (Last 24 hours): 01/04/25 01/04/25 01/04/25 14:01 16:21 20:35 Glucose POC Glucose 196 H 161 H 189 H 01/05/25 01/05/25 01/05/25 05:58 07:31 11:22 Glucose 158 H POC Glucose 127 H 166 H OUTPATIENT ANTIDIABETIC REGIMEN: * Empagliflozin 25 mg daily; metformin 1 gm BID * 6.7% 01/03/25 ASSESSMENT: 01/05: * BSGs 127-977-214-166mg/dL the last 24h. Received 25 units of basal and 35 units of bolus insulin yesterday. * Steroids and antibiotics discontinued yesterday afternoon. Tolerating diet. * Lantus decreased this AM to 10 units given steroids discontinued - assess for ongoing basal need. Novolog loosened to mild-moderate scale ACHS with discontinuation of steroids. 01/04: * BSGs [phone]/dL the last 24h. Received 20 units of basal and 35 units of bolus insulin yesterday. * Continues on IV hydrocortisone 50mg IV q6h (? plan for taper today) and antibiotics. Tolerating diet. * Fasting BSG documented as 187mg/dl this AM and Lantus 15 units ordered for lunch, however nursing later confirmed that no AM BSG was collected. Will add an HS Lantus scale depending on BSG. Novolog tightened for severe stress in setting of aggressive steroids. 01/03 * Patient admitted with decompensated cirrhosis, portal vein thrombosis/ascites * Heparin infusion has been discontinued. BSGs in the 200s this morning. Novolog to be adjusted. * Begin lantus with scale up to full weight stress/2. PLAN FOR INPATIENT GLYCEMIC CONTROL: * Hold outpatient oral diabetes medications * Basal insulin * Lantus 10 units SQ daily - reassess ongoing basal need * Bolus insulin * NovoLog per scale ACHS or Q6hrs while NPO * Goal Range: Low 110 mg/dL - High 140 mg/dL * Correction Factor: 25 mg/dL/unit * Nutritional / Prandial insulin per carb ratio of 1 unit per 8 grams CHO consumed
[2025-01-05 15:02] LABS: Hepatitis A Antibody IgM NON-REACTIVE (NON-REACTIVE); Hepatitis B Core Antibody IgM NON-REACTIVE (NON-REACTIVE)
--- NOTE | 2025-01-05 17:24 | Billing Data ---
Date of Service January 05, 2025 Coding Level of Care Code 91818 IN/OBS DISCH 30 MIN/LESS
--- NOTE | 2025-01-08 10:11 | Coding Query ---
To promote full compliance with coding requirements relating to patient care, provider participation is requested in all cases of braille coder uncertainty. Please assist us with the question(s) below: Coding Question(s): The diagnosis below was documented in the ER, H&P, and 01/02 Critical Care Consultation, then subsequently fell off all further documentation. Please indicate if it is still a possible diagnosis or ruled out. Physician's Response(s): SEPSIS ( ) Diagnosed and POA. Please specify the most likely source: ( ) Diagnosed and not POA. Please specify the most likely source: ( x ) Ruled out ( ) Other (please specify) MTDD
--- NOTE | 2025-01-08 10:17 | Coding Query ---
CODING QUERY To promote full compliance with coding requirements relating to patient care, provider participation is requested in all cases of telecommunications switch technician uncertainty. Please assist us with the question(s) below: Coding Question(s): The Discharge Summary documents, under Addtl Attending Provider Instructions: "You were admitted to the hospital for low blood pressure and acute kidney injury. You were treated with a paracentesis (removal of fluid from your abdomen- 5.4L) and medication to keep your blood pressure within the normal range. By the end of your admission, you did not need medication to raise your blood pressure. It is recommended that you get a blood pressure cuff so you can monitor your blood pressure at home. If you notice it is too low (<100/60) or too high (>150/100), please contact your primary care doctor promptly". Please specify below, in your clinical opinion, regarding the diagnosis most responsible for occasioning the Inpatient admission: ( x ) Hypotension - Please specify the most likely source of hypotension, if there is a most likely source:__third spacing of fluids ( ) Acute Kidney Injury ( ) Other diagnosis was most responsible for occasioning the Inpatient admission. Please Specify Physician's Response(s): Thank you Daija Coronel Principal Diagnosis: "that condition established after study, to be chiefly responsible for occasioning the admission of the patient to the hospital for care." Co-Existing Principal Diagnosis: "when two or more diagnoses equally meet the criteria for principal diagnosis as determined by the circumstances of admission, diagnostic work up, and/or therapy provided, and the Alphabetic Index, Tabular List, or another coding guideline does not provide sequencing direction, any one of the diagnoses may be sequenced first." "When the physician has documented what appears to be a current diagnosis in the body of the record, but has not included the diagnosis in the final diagnostic statement, the physician should be asked whether the diagnosis should be added." (Source Coding Clinic 2 QTR90. p3-4) VIPUL
--- NOTE | 2025-01-08 11:21 | Electrocardiogram Report ---
Test Reason : Blood Pressure : */* mmHG Vent. Rate : 66 BPM Atrial Rate : 66 BPM P-R Int : 260 ms QRS Dur : 150 ms QT Int : 478 ms P-R-T Axes : 69 -73 89 degrees QTcB Int : 501 ms Sinus rhythm with 1st degree A-V block Left axis deviation Right bundle branch block Possible Lateral infarct (cited on or before 02-Jan-2025) Inferior infarct (cited on or before 10-Feb-2022) Abnormal ECG When compared with ECG of 02-Jan-2025 18:35, No significant change was found Confirmed by Romain Macedo ([id number]) on 01/08/2025 11:20:52 AM Referred By: Trini Valdes Confirmed By: Romain Macedo
[2025-01-10 01:38] LABS: Anti Mitochondrial Antibody NEGATIVE (NEGATIVE); Anti Nuclear Antibody Screen NEGATIVE (NEGATIVE)
== END 2025-01-05 15:56 | disposition home or self-care (01) | DRG 314 ==
LOC: ED 18:04 → SUATTDRO 21:35 → 1E 21:35 → 2E 01-04 07:01